=== PATIENT | male | born 1945 | race Caucasian/White ===

== ENCOUNTER 2016-04-02 14:00 | Inpatient (IN) | payer MEDICARE, MEDICAID ==
[2016-04-02 15:41] VITALS: BP 152/73
[2016-04-03] MEDS: Aspirin 81mg Chewable Tab PO SCH (09:51)
[2016-04-03 11:00] LABS: ALB/GLOB RATIO 0.8 (1.0-1.8); ALKALINE PHOSPHATASE 78 U/L (34-104); ANION GAP 6.5 (7.0-16.0); BILIRUBIN,TOTAL 0.3 mg/dL (0.3-1.0); BUN - UREA NITROGEN 30 mg/dL (7-25); BUN/CREATININE RATIO 33.3; CALCIUM SERUM 9.9 mg/dL (8.6-10.3); CARBON DIOXIDE 27.2 mEq/L (21.0-31.0); CHLORIDE 104 mEq/L (98-107); CREATININE - SERUM 0.9 mg/dL (0.7-1.3); GLUCOSE 109 mg/dL (70-105); POTASSIUM SERUM 3.7 mEq/L (3.5-5.1); SGOT 18 U/L (13-39); SGPT/ALT 11 U/L (7-52); SODIUM SERUM 134 mEq/L (136-145)
--- NOTE | 2016-04-03 11:43 | Diagnostic Imaging Report ---
CHEST X-RAY: AP view INDICATION: Pneumonia COMPARISON: None FINDINGS: No focal consolidation pleural effusions. Cardiomegaly is noted. Degenerative changes of the spine are noted. IMPRESSION: No focal consolidation identified. Cardiomegaly.
--- NOTE | 2016-04-03 12:36 | History & Physical ---
HISTORY OF PRESENT ILLNESS: The patient is a 70-year-old male with long history of bipolar disorder, admitted to [facility] with cellulitis of both upper and lower extremities. This stabilized clinically and evaluated by Dr. Rehman, psychiatrist, and transferred to [facility] on 04/02/2016. The patient denies any chest pain, shortness of breath, nausea, vomiting, fever, chills. PAST MEDICAL HISTORY: Significant for bipolar disorder. PAST SURGICAL HISTORY: No recent surgery. ALLERGIES: None. MEDICATIONS: Follow admission reconciliation. SOCIAL HISTORY: History of smoking, no alcohol or drug. FAMILY HISTORY: Noncontributory. REVIEW OF SYSTEMS: RENAL SYSTEM: No history of chronic renal disorder. CARDIOVASCULAR SYSTEM: No coronary artery disease. ENDOCRINE SYSTEM: No diabetes or thyroid problem. GASTROINTESTINAL SYSTEM: No upper or lower gastrointestinal bleed. NEUROLOGICAL: He has history of bipolar disorder. PHYSICAL EXAMINATION: GENERAL: He is awake, not coherent. VITAL SIGNS: Temperature 98, heart rate 74, blood pressure 132/70. HEENT: Normocephalic. Pupils reacting to light and accommodation. Sclerae clear. NECK: Supple. Negative for lymphadenopathy, JVD or bruit. CHEST: Bilateral normal. No rhonchi or wheezing. HEART: S1, S2 normal, ____. ABDOMEN: Soft, bowel sounds positive. EXTREMITIES: No edema. ____. Significant for mild redness of the upper and lower extremities. NEUROLOGIC: Awake, alert, not fully oriented. No focal motor or sensory deficit. ASSESSMENT: 1. Status post cellulitis of the upper and lower extremities. 2. Chronic obstructive pulmonary disease. 3. Bipolar disorder. PLAN: The patient admitted to the hospital under Dr. Emmanuel service. MEDICAL PROBLEMS TO BE ADDRESSED DURING HOSPITALIZATION: Bipolar disorder. MEDICAL PROBLEMS TO BE ADDRESSED AT DISCHARGE: Bipolar disorder. The patient is medically stable. Thank you Dr. Rehman for asking me to see your patient. JOB# [id number]
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
[2016-04-04] MEDS: Aspirin 81mg Chewable Tab PO SCH (10:21)
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
[2016-04-05] MEDS: Aspirin 81mg Chewable Tab PO SCH (10:09)
[2016-04-05] MEDS: Venelex 60gm Tube TP SCH (15:18)
--- NOTE | 2016-04-06 02:50 | Progress Notes ---
SUBJECTIVE: Chart reviewed and the patient interviewed. Also discussed the patient's condition with the staff and reviewed records and labs. The patient's affect is brighter. The patient seems to be less irritable and less agitated, but he still has periods of severe anger and irritability and anxiety. The patient also still seems to be suspicious and paranoid. Otherwise, the patient is compliant with taking his medications with no side effects of medications. ASSESSMENT: The patient is still psychotic. TREATMENT PLAN: We will continue monitoring his behavior and his condition closely. Also, we will continue monitoring psychotropic medications and adjusting psychotropic medications and we will continue to follow up. [facility]# [id number]
[2016-04-06] MEDS: Aspirin 81mg Chewable Tab PO SCH (08:47)
[2016-04-06] MEDS: Venelex 60gm Tube TP SCH (08:52)
--- NOTE | 2016-04-06 21:44 | Progress Notes ---
SUBJECTIVE: Chart reviewed and the patient interviewed. Also discussed the patient's condition with the staff and reviewed records and labs. The patient seems to be more irritable and more agitated. Also seems to be restless and he is in angry and in irritable mood with severe mood swings at times. Also tends to isolate himself. The patient also still seems to be suspicious and paranoid and needs close monitoring of his behavior. ASSESSMENT: The patient is still psychotic and needs close monitoring. TREATMENT PLAN: Continue monitoring his behavior and his condition closely. Also, we will increase Seroquel to 50 mg twice a day and 100 mg at bedtime and we will continue to monitor his behavior closely. JOB# [id number]
[2016-04-07] MEDS: Venelex 60gm Tube TP SCH (10:50)
[2016-04-07] MEDS: Aspirin 81mg Chewable Tab PO SCH (10:50)
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
[2016-04-08] MEDS: Aspirin 81mg Chewable Tab PO SCH (08:43)
[2016-04-08] MEDS: Venelex 60gm Tube TP SCH (08:43)
--- NOTE | 2016-04-09 04:03 | Progress Notes ---
SUBJECTIVE: Chart reviewed and the patient interviewed. Also discussed the patient's condition with the staff and reviewed records and labs. The patient is sitting on the edge of the bed in a confused state and he seems to be disoriented. The patient also still wonders and still was into other patient's rooms. Also, resisting care and fighting with the staff when they try to redirect him. Also, is still in angry and in irritable mood. Also, personal hygiene is poor. During interview, patient confused and is rambling and unable to answer any of the questions coherently. Also, is disheveled. ASSESSMENT: The patient is still psychotic and can be dangerous to others. TREATMENT PLAN: We will continue to monitor his behavior and his condition closely. Also, adjusting psychotropic medications and continue to work on his irritability and anger and we will continue to follow up. JOB# [id number]
[2016-04-09] MEDS: Venelex 60gm Tube TP SCH (08:53)
[2016-04-09] MEDS: Aspirin 81mg Chewable Tab PO SCH (08:53)
[2016-04-10] MEDS: Aspirin 81mg Chewable Tab PO SCH (08:59)
[2016-04-10] MEDS: Venelex 60gm Tube TP SCH (09:00)
--- NOTE | 2016-04-10 23:56 | Admit Criteria Form ---
Admit Criteria Forms - Admit Criteria Diagnosis: PSYCHIATRIC DISORDERS Clinical Indications for Inpatient Care (Place 'X' for any and all applicable criteria): Ongoing inpatient care may be needed for ANY ONE of the following(1)(2)(3)(4)(6) (7)(8): [ ]I. Danger to self or others not manageable at lower level of care. [ ]II. Grave disability (eg, inability to perform self care necessary at lower level of care) [X]III. Agitation or inappropriate behavior interfering with care for primary condition (eg, attempting to discontinue lines or drains prematurely, unable to cooperate with respiratory care) [ ]IV. Severe disability or disorder indicated by ALL of the following: [ ]a) Severe behavioral health disorder-related symptoms or condition indicated by ANY ONE of the following: [ ]i) Severe problem with cognition, memory, judgment, or impulse control [ ]ii) Severe clinical manifestations (eg, hallucinations, delusions, other acute psychotic symptoms, deanna, extreme agitation or anxiety) [ ]b) Patient management at lower level of care is not feasible until acute intervention or modification is initiated. Extended stay beyond goal length of stay for the primary condition may be indicated when ANY ONE of the following is present: (1)(2)(3)(4): [ ]a) Patient is a danger to self or others and not manageable at lower level of care. [ ]b) Behavior crisis management, including physical or chemical restraints, is required and is not available at a lower level of care. [ ]c) Behavioral symptoms (e.g., agitation, somnolence, inappropriate behavior) are present, and are not manageable at a lower level of care. [ ]d) Patient cannot understand follow-up treatment and crisis plan. [ ]e) Provider and supports are not sufficiently available at lower level of care. [ ]f) Patient cannot participate (e.g., verify absence of plan for harm) and is in needed of monitoring. The original [facility] content created by [facility] [employer] has been revised. The portions of the content which have been revised are identified through the use of italic text or in bold, and [facility] [employer] has neither reviewed nor approved the modified material. All other unmodified content is copyright [facility] [employer]. Please see references footnoted in the original [facility] edition 2016 Admit Criteria Met?: Yes
--- NOTE | 2016-04-11 06:06 | Progress Notes ---
SUBJECTIVE: Chart reviewed and the patient interviewed. Also, discussed the patient's condition with the staff and reviewed records and labs. The patient is still extremely anxious and is still in irritable mood. The patient also is still suspicious and is still paranoid. The patient also still needs lots of redirections. He also still seems to be disoriented and confused and is still entering other patient's room. ASSESSMENT: The patient is still psychotic and needs close monitoring. TREATMENT PLAN: We will continue monitoring his behavior and his condition closely. Also, continue to adjust psychotropic medications. Also, working on discharge plans and placement issue. hourly manager still has difficulty finding a place for the patient. JOB# [id number]
--- NOTE | 2016-04-11 06:24 | Progress Notes ---
SUBJECTIVE: Chart reviewed and the patient interviewed. Also discussed the patient's condition with the staff and reviewed records and labs. The patient is still anxious and is still in irritable mood. The patient also is still easily agitated and confused. Also, still needs lots of redirections and still seems to be disoriented. Also, is still going into other patient's rooms. Otherwise, the patient has been compliant with taking his medications with no side effects of medications. manager of international is still having difficulty finding a place for the patient and the patient still needs placement. ASSESSMENT: The patient is still psychotic and needs placement. TREATMENT PLAN: We will continue monitoring his behavior and his condition. Also continue adjusting the Seroquel dose and we will continue to follow up. JOB# [id number]
[2016-04-11] MEDS: Aspirin 81mg Chewable Tab PO SCH (08:45)
[2016-04-11] MEDS: Venelex 60gm Tube TP SCH (08:48)
--- NOTE | 2016-04-11 20:28 | Discharge Summary ---
FINAL DIAGNOSIS/PRIMARY DIAGNOSIS: Unspecified psychosis. REASON FOR HOSPITALIZATION: The patient was admitted to the hospital because of increased agitation, irritability, and aggressive behavior. HOSPITAL COURSE: The patient continued to be aggressive and agitated. The patient also was in angry and in irritable mood. The patient also was aggressive with the staff and he was confused and entering other patients' rooms. The patient was given Risperdal, which helped the patient to be calmer. Placement was an issue, but finally, [facility] accepted the patient. The patient was less psychotic and not complaining of any side effects. PHYSICAL EXAMINATION: The patient showed no acute medical problems. AFTER-DISCHARGE PLANS: The patient was discharged from the hospital with plan to follow him up at [facility]. EXPECTED OUTCOME AFTER DISCHARGE: Fair if the patient continues to take his psychotropic medications and compliant with his treatment. JOB# [id number]
== END 2016-04-11 17:15 | DRG 885 ==
LOC: GERO 14:00
PROVIDERS: ADMIT Psychiatry & Neurology Psychiatry; ATTEND Psychiatry & Neurology Psychiatry
DX: F29 Unspecified psychosis not due to a substance or known physiological condition (principal); J18.9 Pneumonia, unspecified organism; T68.XXXA Hypothermia, initial encounter; L03.115 Cellulitis of right lower limb; J44.9 Chronic obstructive pulmonary disease, unspecified; L03.116 Cellulitis of left lower limb; L03.114 Cellulitis of left upper limb; L03.113 Cellulitis of right upper limb; F31.9 Bipolar disorder, unspecified; Z59.0 Homelessness
CPT/HCPCS: 36415-UA; 71010-TC; 80053-TC; 80178-TC; 90899; 93005; Z7610

== ENCOUNTER 2016-04-13 18:04 | Emergency (ER) | payer MEDICARE, MEDICAID ==
[2016-04-13 18:30] VITALS: BP 140/70
--- NOTE | 2016-04-13 18:34 | ED Physician Chart ---
Chief Complaint/HPI - Patient Information Date Seen:: 04/13/16 Time Seen:: 18:19 Chief Complaint:: aggressive History of Present Illness:: this is a psych patient sent from the detention for treatment of his psychosis. Allergies:: Allergies Allergy/AdvReac Type Severity Reaction Status Date / Time No Known Allergies Allergy Verified 04/02/16 15:23 Historian:: Patient Review:: Nurse's Note Reviewed Review of Systems - Review of Systems General/Constitutional: No fever, No chills, No weight loss, No weakness, No diaphoresis, No edema, No loss of appetite, Other (this patient cannot give a review of systems) Skin: No skin lesions, No rash, No bruising Head: No headache, No light-headedness Eyes: No loss of vision, No pain, No diplopia ENT: No earache, No nasal drainage, No sore throat, No tinnitus Neck: No neck pain, No swelling, No thyromegaly, No stiffness, No mass noted Cardio Vascular: No chest pain, No palpitations, No PND, No orthopnea, No edema Pulmonary: No SOB, No cough, No sputum, No wheezing GI: No nausea, No vomiting, No diarrhea, No pain, No melena, No hematochezia, No constipation, No hematemesis G/U: No dysuria, No frequency, No hematuria Musculoskeletal: No bone or joint pain, No back pain, No muscle pain Endocrine: No polyuria, No polydipsia Psychiatric: No prior psych history, No depression, No anxiety, No suicidal ideation Hematopoietic: No bruising, No lymphadenopathy Allergic/Immuno: No urticaria, No angioedema Neurological: No syncope, No focal symptoms, No weakness, No paresthesia, No headache, No seizure, No dizziness, No confusion, No vertigo Past Medical History - Past Medical History Obtainable: Yes Past Medical History: HTN, CVA/TIA, Dementia Family History: None Social History: Non Smoker, No Alcohol, No Drug Use, Care Facility Surgical History: None Psychiatricy History: Schizophrenia, Dementia Medication: Reviewed Family Medical History - Family Member Grandfather History Unknown: Yes Physical Exam - Physical Examination General/Constitutional: Awake, Well-developed, well-nourished, Alert, No distress, GCS 15, Non-toxic appearing, Ambulatory Head: Atraumatic Eyes: Lids, conjuctiva normal, PERRL, EOMI Skin: Nl inspection, No rash, No skin lesions, No ecchymosis, Well hydrated, No lymphadenopathy ENMT: External ears, nose nl, Nasal exam nl, Lips, teeth, gums nl Neck: Nontender, Full ROM w/o pain, No JVD, No nuchal rigidity, No bruit, No mass, No stridor Respiratory: Nl effort/Exclusion, Clear to Auscultation Other Respiratory comments:: THERE IS A SMALL AMOUNT OF DIFFUSE WHEEZES HEARD BILATERALLY. Cardio Vascular: RRR, No murmur, gallop, rubs, NL S1 S2 GI: No tenderness/rebounding/guarding, No organomegaly, No hernia, Normal BS's, Nondistended, No mass/bruits, No McBurney tenderness : No CVA tenderness Extremities: No tenderness or effusion, Full ROM, normal strength in all extremities, No edema, Normal digits & nails Neuro/Psych: Alert/oriented, DTR's symmetric, Normal sensory exam, Normal motor strength, Normal gait, No focal deficits Other Neuro/Psych comments:: THIS IS COMBATIVE AND UNCOOPERATIVE Misc: normal gait, Normal back, No paraspinal tenderness Labs/Radiology/EKG Results - Lab Results Results: Laboratory Results - last 24 hr 04/13/16 04/13/16 04/13/16 18:50 18:50 18:50 WBC 7.0 RBC 4.02 Hgb 11.8 L Hct 36.0 L MCV 89.5 MCH 29.3 MCHC Differential 32.8 RDW 14.6 Plt Count 321 MPV 8.3 Neutrophils % 58.5 Lymphocytes % 27.1 Monocytes % 9.6 Eosinophils % 4.1 Basophils % 0.7 PT 9.2 L INR 0.93 PTT (Actin FS) 29.6 Sodium Potassium Chloride Carbon Dioxide Anion Gap BUN Creatinine Est GFR ( Amer) Est GFR (Non-Af Amer) BUN/Creatinine Ratio Glucose Calcium Total Bilirubin AST ALT Alkaline Phosphatase Troponin I Total Protein Albumin Globulin Albumin/Globulin Ratio Triglycerides 82 Cholesterol 191 LDL Cholesterol Direct 140 HDL Cholesterol 43 04/13/16 04/13/16 18:50 18:50 WBC RBC Hgb Hct MCV MCH MCHC Differential RDW Plt Count MPV Neutrophils % Lymphocytes % Monocytes % Eosinophils % Basophils % PT INR PTT (Actin FS) Sodium 133 L Potassium 3.7 Chloride 108 H Carbon Dioxide 23.7 Anion Gap 5.0 L BUN 25 Creatinine 1.1 Est GFR ( Amer) > 60.0 Est GFR (Non-Af Amer) > 60.0 BUN/Creatinine Ratio 22.7 Glucose 91 Calcium 9.9 Total Bilirubin 0.3 AST 32 ALT 21 Alkaline Phosphatase 103 Troponin I 0.03 Total Protein 8.4 H Albumin 4.0 L Globulin 4.4 Albumin/Globulin Ratio 0.9 L Triglycerides Cholesterol LDL Cholesterol Direct HDL Cholesterol - Radiology Results Results: CHEST X-RAY = NAD - EKG Interpretations EKG Time:: 22:13 (wide complexes) Rhythm: sinus [place]: left Rate: 77 ED Septic Shock - . Is Septic Shock (SBP<90, OR Lactate>4 mmol\L) present?: No Reassessment (Disposition) - Reassessment Reassessment Condition:: Unchanged - Diagnosis Diagnosis:: PSYCHOSIS - Aftercare/Follow up Instructions Aftercare/Follow-Up Instructions:: Counseled pt regarding lab results/diagnosis & need follow up, Refer to Discharge Instructions, Counseled pt & family regarding lab results/diagnosis & need follow up - Patient Disposition Discharge/Transfer:: Nursing Home Care - SNF Condition at Disposition:: Unchanged ED Discharge Plan - Patient Disposition Admit/Discharge/Transfer: Discharge/Transfered to SNF Condition at Disposition: Improved
[2016-04-13 19:08] LABS: HEMOGLOBIN 11.8 gm/dL (12.6-17.4); MEAN CELL VOLUME 89.5 fl (80-99); MEAN CORPUSCULAR HEMOGLOBIN 29.3 pg (27.0-31.0); MEAN CORPUSCULAR HGB CONC 32.8 pg (28.0-36.0); PLATELET COUNT 321 Th/cmm (150-400); RED BLOOD COUNT 4.02 Mil/cmm (3.80-5.80); RED CELL DISTRIBUTION WIDTH 14.6 % (11.5-20.0)
[2016-04-13 19:09] LABS: % BASOPHILS 0.7 % (0.0-2.0); % EOSINOPHILS 4.1 % (0.0-5.0); % LYMPHOCYTES 27.1 % (20.0-50.0); % MONOCYTES 9.6 % (2.0-10.0); % NEUTROPHILS 58.5 % (40.0-80.0); MEAN PLATELET VOLUME 8.3 fl; NEUTROPHILE ABSOLUTE 4.1 Th/cmm (1.8-8.0)
[2016-04-13 19:19] LABS: INR 0.93 (0.5-1.4); PROTHROMBIN TIME (TEST) 9.2 SECONDS (9.5-11.5)
[2016-04-13 19:29] LABS: CHOLESTEROL 191 mg/dL (<200); TRIGLYCERIDES 82 mg/dL (<150)
[2016-04-13 19:31] LABS: ALB/GLOB RATIO 0.9 (1.0-1.8); ALKALINE PHOSPHATASE 103 U/L (34-104); BILIRUBIN,TOTAL 0.3 mg/dL (0.3-1.0); BUN - UREA NITROGEN 25 mg/dL (7-25); BUN/CREATININE RATIO 22.7; CALCIUM SERUM 9.9 mg/dL (8.6-10.3); CARBON DIOXIDE 23.7 mEq/L (21.0-31.0); CHLORIDE 108 mEq/L (98-107); CREATININE - SERUM 1.1 mg/dL (0.7-1.3); GLUCOSE 91 mg/dL (70-105); POTASSIUM SERUM 3.7 mEq/L (3.5-5.1); SGOT 32 U/L (13-39); SGPT/ALT 21 U/L (7-52); SODIUM SERUM 133 mEq/L (136-145)
--- NOTE | 2016-04-14 09:43 | Diagnostic Imaging Report ---
Portable chest x-ray HISTORY: Pain The heart is enlarged. No focal pulmonary processes. No hilar or mediastinal abnormalities. IMPRESSION: 1. Cardiomegaly 2. No acute pulmonary processes
== END 2016-04-14 00:05 ==
LOC: ER 18:04
DX: F29 Unspecified psychosis not due to a substance or known physiological condition (principal); I10 Essential (primary) hypertension; F03.90 Unspecified dementia, unspecified severity, without behavioral disturbance, psychotic disturbance, mood disturbance, and anxiety; F20.9 Schizophrenia, unspecified
CPT/HCPCS: 36415-UA; 71010-TC; 80053-TC; 80061-TC; 84443-TC; 84484-TC; 85025-TC; 85610-TC; 85730-TC; 86592-TC; 93005

== ENCOUNTER 2016-09-20 18:14 | Inpatient (IN) | payer MEDICARE, MEDICAID ==
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
[2016-09-20 18:50] LABS: % BASOPHILS 0.7 % (0.0-2.0); % EOSINOPHILS 4.4 % (0.0-5.0); % LYMPHOCYTES 34.2 % (20.0-50.0); % MONOCYTES 8.5 % (2.0-10.0); % NEUTROPHILS 52.2 % (40.0-80.0); HEMATOCRIT 35.7 % (39.0-49.0); MEAN CORPUSCULAR HGB CONC 33.7 pg (28.0-36.0); MEAN PLATELET VOLUME 7.9 fl; NEUTROPHILE ABSOLUTE 4.6 Th/cmm (1.8-8.0); PLATELET COUNT 287 Th/cmm (150-400); RED BLOOD COUNT 3.89 Mil/cmm (3.80-5.80); RED CELL DISTRIBUTION WIDTH 14.9 % (11.5-20.0)
[2016-09-20 19:12] LABS: ALB/GLOB RATIO 1.3 (1.0-1.8); ALKALINE PHOSPHATASE 77 U/L (34-104); ANION GAP 5.4 (7.0-16.0); BILIRUBIN,TOTAL 0.4 mg/dL (0.3-1.0); BUN - UREA NITROGEN 23 mg/dL (7-25); BUN/CREATININE RATIO 28.8; CALCIUM SERUM 9.6 mg/dL (8.6-10.3); CARBON DIOXIDE 23.5 mEq/L (21.0-31.0); CHLORIDE 106 mEq/L (98-107); CREATININE - SERUM 0.8 mg/dL (0.7-1.3); GLUCOSE 81 mg/dL (70-105); POTASSIUM SERUM 3.9 mEq/L (3.5-5.1); SGOT 18 U/L (13-39); SGPT/ALT 11 U/L (7-52); SODIUM SERUM 131 mEq/L (136-145)
[2016-09-20 22:39] VITALS: BP 141/74
[2016-09-20] MEDS ORDERED: Maalox 30 mL Cup PO PRN (22:39)
[2016-09-21] MEDS: Aspirin 81mg Chewable Tab PO SCH (08:28)
[2016-09-21] MEDS: Multivitamin Tab PO SCH (08:28)
--- NOTE | 2016-09-21 12:58 | Psychosocial Evaluation ---
DATE OF SERVICE: 09/21/2016 IDENTIFYING INFORMATION: The patient is a 71-year-old male. CHIEF COMPLAINT: No answer. HISTORY OF PRESENT ILLNESS: The patient referred from [facility] because of his agitation and aggressive behavior. ____ another resident. He is psychotic, unpredictable and impulsive. When I tried to interview the patient, he was sitting on a chair, sedated. He would not answer any of my question. He is a well known patient as I have been seeing him at [facility]. Actually in the past few weeks, he has been getting episodes of agitation often and they try to send him ____ he will get improve. PAST PSYCHIATRIC HISTORY: The patient is hospitalized here before back in March of this year. The patient was diagnosed with psychosis at that time. He has a prior psychiatric treatment, unable to give information. He denies prior suicide attempt. This is according to his old records. He is not a reliable historian. MEDICAL HISTORY: The patient has no known drug allergies. MEDICATIONS: He has been on aspirin, Pepcid, he is on lithium, ____, and Seroquel 50 mg daily. I have no information if he has been compliant with his medication. FAMILY AND SOCIAL HISTORY: The patient has been at [facility]. He is , has 4 children according to old records, unable to give more information. Has 11th grade education. He used to work as a hand touch up painter. He denies family history of psychotic disorder. This is according to old records. MENTAL STATUS EXAMINATION: The patient is appropriately dressed, not well groomed. He has been agitated, hitting others patients in the facility and staff, unpredictable, impulsive, easily agitated. Unable to participate in a memory testing or tell me why he is here or what led to his admission, unpredictable, impulsive. His long and short term memory is poor. Insight and judgment is impaired. IMPRESSION: AXIS I: Psychosis, not otherwise specified, rule out dementia, ____. MEDICAL DIAGNOSES: Hypertension, gastroesophageal reflux disease. His assets, he wants to get help, negative poor coping skills. INITIAL TREATMENT PLAN: The patient will continue medication, check lithium level. We will do group therapy, milieu therapy, individual therapies. ESTIMATED LENGTH OF STAY: 3-7 days. DISCHARGE CRITERIA: Decrease in agitation, psychosis, after discharge outpatient ____. [facility]# [id number]
--- NOTE | 2016-09-21 18:03 | History & Physical ---
ADMIT DATE: 09/21/2016 HISTORY OF PRESENT ILLNESS: The patient is a 71-year-old male with long history of dementia, hypertension, admitted to [facility] for further treatment. Apparently, the patient has been very agitated, confused. No fever, no chills, no nausea, no vomiting. PAST MEDICAL HISTORY: Significant for hypertension and dementia. PAST SURGICAL HISTORY: No recent surgery. ALLERGIES: None. MEDICATIONS: Follow admission reconciliation. SOCIAL HISTORY: No smoking, no alcohol, no drug. FAMILY HISTORY: Noncontributory. REVIEW OF SYSTEMS: RENAL SYSTEM: No history of chronic renal disorder. CARDIOVASCULAR SYSTEM: No coronary artery disease. ENDOCRINE SYSTEM: No diabetes or thyroid problem. GASTROINTESTINAL SYSTEM: No upper or lower gastrointestinal bleed. NEUROLOGICAL: He has history of dementia. SKELETOMUSCULAR SYSTEM: No muscular dystrophy. HEMATOLOGIC SYSTEM: No bleeding tendencies. RESPIRATORY SYSTEM: No asthma. GENITOURINARY: No dysuria or hematuria. PHYSICAL EXAMINATION: GENERAL: He is awake, not coherent. NEUROLOGIC: No focal motor or sensory deficits. LABORATORY DATA: White blood cells 9, hemoglobin 12.0, hematocrit 35.7, platelet 287. Sodium 131, potassium 3.9, BUN 23, creatinine 0.8. ASSESSMENT: 1. Hypertension. 2. Hyponatremia. 3. Anemia. 4. Dementia. PLAN: The patient admitted to the hospital to [facility] under Dr. Serrano's service. MEDICAL PROBLEMS ADDRESSED DURING HOSPITALIZATION: Dementia. MEDICAL PROBLEMS ADDRESSED AT DISCHARGE: Hypertension, dementia. The patient is medically stable for activity. [facility]# [id number]
[2016-09-21] MEDS: Magnesium Hydroxide (MOM) 30 mL UDC PO SCH (20:44)
[2016-09-22] MEDS: Aspirin 81mg Chewable Tab PO SCH (08:17)
[2016-09-22] MEDS: Multivitamin Tab PO SCH (08:17)
[2016-09-22] MEDS: Magnesium Hydroxide (MOM) 30 mL UDC PO SCH (20:33)
--- NOTE | 2016-09-22 20:49 | Progress Notes ---
DATE: 09/22/2016 Dr. Rehman covering for Dr. Serrano. SUBJECTIVE: Chart reviewed and the patient interviewed. Also discussed the patient's condition with the staff and reviewed records and labs. The patient is still depressed and is still withdrawn. The patient also is still interacting minimally with others. The patient also is still having difficulty expressing himself, and he is not talking much. The patient also needs lots of redirections. Otherwise, the patient is compliant with taking his medications with no side effects of medications. Also, the patient is sleeping fairly. ASSESSMENT: The patient is still depressed and can be dangerous to self. TREATMENT PLAN: We will continue monitoring his behavior and his condition closely. Continue to work on his depressed mood and we will continue to follow up. JOB# [id number]
[2016-09-23] MEDS: Aspirin 81mg Chewable Tab PO SCH (09:00)
[2016-09-23] MEDS: Multivitamin Tab PO SCH (09:00)
--- NOTE | 2016-09-23 19:00 | Progress Notes ---
DATE: 09/23/2016 SUBJECTIVE: Chart reviewed and the patient interviewed. Also discussed the patient's condition with the staff and reviewed records and labs. The patient is still depressed and irritable and confused. The patient also still needs lots of redirections. The patient also is having episodes of anger and irritability. Otherwise, no major changes in mental status exam. ASSESSMENT: The patient is still psychotic. TREATMENT PLAN: Continue to monitor his behavior and his condition closely and continue adjusting psychotropic medications and followup care. [facility]# [id number]
[2016-09-23] MEDS: Magnesium Hydroxide (MOM) 30 mL UDC PO SCH (20:18)
[2016-09-24] MEDS: Aspirin 81mg Chewable Tab PO SCH (09:58)
[2016-09-24] MEDS: Multivitamin Tab PO SCH (09:59)
--- NOTE | 2016-09-24 11:06 | Progress Notes ---
DATE: 09/24/2016 SUBJECTIVE: Case was discussed with staff of the patient, reviewed records. The patient continues to be confused, irritable, unpredictable, impulsive, demanding. He is compliant with the medication with no side effects, no sedation, no nausea. I will be checking his lithium level and we will continue to work with the patient in group therapy, milieu therapy, and adjust medication as needed. JOB# [id number]
--- NOTE | 2016-09-24 18:14 | Internal Medicine Prog Note ---
Internal Medicine Subjective - Subjective Service Date: 09/24/16 Patient seen and examined:: with staff Patient is:: awake, confused Per staff patient has:: no adverse event, eating well, tolerating meds Internal Medicine Objective - Results Result Diagrams: 09/20/16 18:43 09/20/16 18:43 Recent Labs: Laboratory Last Values WBC 9.0 Th/cmm (4.8-10.8) D 09/20/16 18:43 RBC 3.89 Mil/cmm (3.80-5.80) 09/20/16 18:43 Hgb 12.0 gm/dL (12.6-17.4) L 09/20/16 18:43 Hct 35.7 % (39.0-49.0) L 09/20/16 18:43 MCV 92.0 fl (80-99) 09/20/16 18:43 MCH 31.0 pg (27.0-31.0) 09/20/16 18:43 MCHC Differential 33.7 pg (28.0-36.0) 09/20/16 18:43 RDW 14.9 % (11.5-20.0) 09/20/16 18:43 Plt Count 287 Th/cmm (150-400) 09/20/16 18:43 MPV 7.9 fl 09/20/16 18:43 Neutrophils % 52.2 % (40.0-80.0) 09/20/16 18:43 Lymphocytes % 34.2 % (20.0-50.0) 09/20/16 18:43 Monocytes % 8.5 % (2.0-10.0) 09/20/16 18:43 Eosinophils % 4.4 % (0.0-5.0) 09/20/16 18:43 Basophils % 0.7 % (0.0-2.0) 09/20/16 18:43 Sodium 131 mEq/L (136-145) L 09/20/16 18:43 Potassium 3.9 mEq/L (3.5-5.1) 09/20/16 18:43 Chloride 106 mEq/L (98-107) 09/20/16 18:43 Carbon Dioxide 23.5 mEq/L (21.0-31.0) 09/20/16 18:43 Anion Gap 5.4 (7.0-16.0) L 09/20/16 18:43 BUN 23 mg/dL (7-25) 09/20/16 18:43 Creatinine 0.8 mg/dL (0.7-1.3) 09/20/16 18:43 Est GFR ( Amer) TNP 09/20/16 18:43 Est GFR (Non-Af Amer) TNP 09/20/16 18:43 BUN/Creatinine Ratio 28.8 09/20/16 18:43 Glucose 81 mg/dL (70-105) 09/20/16 18:43 Calcium 9.6 mg/dL (8.6-10.3) 09/20/16 18:43 Total Bilirubin 0.4 mg/dL (0.3-1.0) 09/20/16 18:43 AST 18 U/L (13-39) 09/20/16 18:43 ALT 11 U/L (7-52) 09/20/16 18:43 Alkaline Phosphatase 77 U/L (34-104) 09/20/16 18:43 Total Protein 7.4 gm/dL (6.0-8.3) 09/20/16 18:43 Albumin 4.2 gm/dL (4.2-5.5) 09/20/16 18:43 Globulin 3.2 gm/dL 09/20/16 18:43 Albumin/Globulin Ratio 1.3 (1.0-1.8) 09/20/16 18:43 TSH 4.30 uIU/ml (0.34-5.60) 09/20/16 18:43 RPR NONREACTIVE (NONREACTIVE) 09/20/16 18:43 - Physical Exam Vitals and I&O: Vital Signs Temp 97.5 F 09/24/16 06:01 Pulse 61 09/24/16 06:01 Resp 18 09/24/16 06:01 BP 138/61 09/24/16 06:01 Pulse Ox 97 09/24/16 06:01 Intake & Output 09/23/16 09/24/16 09/24/16 18:59 06:59 18:59 Intake Total 1200 Balance 1200 Intake: Oral 1200 Other: # Voids 4 # Bowel Movements 1 Active Medications: Current Medications Acetaminophen (Tylenol) 650 mg PO Q4HR PRN PRN Reason: Pain (Mild) Stop: 11/19/16 22:41 Al Hydrox/Mg Hydrox/Simethicone (Maalox) 30 ml PO Q6H PRN PRN Reason: Dyspepsia Stop: 11/19/16 22:38 Aspirin (Aspirin Chewable) 81 mg PO DAILY [facility] Stop: 11/20/16 08:59 Last Admin: 09/24/16 09:58 Dose: 81 mg Docusate Sodium (Colace) 100 mg PO BID [facility] Stop: 11/20/16 08:59 Last Admin: 09/24/16 09:59 Dose: 100 mg Famotidine (Pepcid) 20 mg PO BID [facility] Stop: 11/20/16 08:59 Last Admin: 09/24/16 09:58 Dose: 20 mg [place] Carbonate (Eskalith) 300 mg PO TID [facility]E PRN Reason: Protocol Stop: 11/20/16 08:59 Last Admin: 09/24/16 17:39 Dose: Not Given Lorazepam (Ativan) 1 mg PO Q6H PRN; Protocol PRN Reason: Anxiety/Agitation Stop: 11/19/16 22:38 Last Admin: 09/23/16 15:12 Dose: 1 mg Magnesium Hydroxide (Milk Of Magnesia) 30 ml PO HS [facility]E Stop: 11/20/16 20:59 Last Admin: 09/23/16 20:18 Dose: 30 ml Multivitamins/Vitamin C (Theragran) 1 tab PO DAILY [facility] Stop: 11/20/16 08:59 Last Admin: 09/24/16 09:59 Dose: 1 tab Quetiapine Fumarate (Seroquel) 50 mg PO DAILY [facility] PRN Reason: Protocol Stop: 11/20/16 08:59 Last Admin: 09/24/16 09:59 Dose: 50 mg Zolpidem Tartrate (Ambien) 5 mg PO HS PRN PRN Reason: Insomnia Stop: 11/19/16 22:38 General: weak, demented HEENT: PERRLA, EOMI Neck: Supple, No JVD, No thyromegaly Lungs: CTAB Cardiovascular: RRR, Normal S1, Normal S2 Abdomen: soft, non-tender, non-distended Extremities: clear Neurological: no change Internal Medicine Assmt/Plan - Assessment Assessment: 1.HTN. 2.Anemia. 3.Dementia. - Plan Plan: CONTINUE ON CURRENT MEDICATION AND DIET.
[2016-09-24] MEDS: Magnesium Hydroxide (MOM) 30 mL UDC PO SCH (20:03)
[2016-09-25] MEDS: Multivitamin Tab PO SCH (09:14)
[2016-09-25] MEDS: Aspirin 81mg Chewable Tab PO SCH (10:15)
--- NOTE | 2016-09-25 20:28 | Internal Medicine Prog Note ---
Internal Medicine Subjective - Subjective Service Date: 09/25/16 Patient seen and examined:: with staff Patient is:: awake, confused Per staff patient has:: no adverse event, eating well, tolerating meds Internal Medicine Objective - Results Result Diagrams: 09/20/16 18:43 09/20/16 18:43 Recent Labs: Laboratory Last Values WBC 9.0 Th/cmm (4.8-10.8) D 09/20/16 18:43 RBC 3.89 Mil/cmm (3.80-5.80) 09/20/16 18:43 Hgb 12.0 gm/dL (12.6-17.4) L 09/20/16 18:43 Hct 35.7 % (39.0-49.0) L 09/20/16 18:43 MCV 92.0 fl (80-99) 09/20/16 18:43 MCH 31.0 pg (27.0-31.0) 09/20/16 18:43 MCHC Differential 33.7 pg (28.0-36.0) 09/20/16 18:43 RDW 14.9 % (11.5-20.0) 09/20/16 18:43 Plt Count 287 Th/cmm (150-400) 09/20/16 18:43 MPV 7.9 fl 09/20/16 18:43 Neutrophils % 52.2 % (40.0-80.0) 09/20/16 18:43 Lymphocytes % 34.2 % (20.0-50.0) 09/20/16 18:43 Monocytes % 8.5 % (2.0-10.0) 09/20/16 18:43 Eosinophils % 4.4 % (0.0-5.0) 09/20/16 18:43 Basophils % 0.7 % (0.0-2.0) 09/20/16 18:43 Sodium 131 mEq/L (136-145) L 09/20/16 18:43 Potassium 3.9 mEq/L (3.5-5.1) 09/20/16 18:43 Chloride 106 mEq/L (98-107) 09/20/16 18:43 Carbon Dioxide 23.5 mEq/L (21.0-31.0) 09/20/16 18:43 Anion Gap 5.4 (7.0-16.0) L 09/20/16 18:43 BUN 23 mg/dL (7-25) 09/20/16 18:43 Creatinine 0.8 mg/dL (0.7-1.3) 09/20/16 18:43 Est GFR ( Amer) TNP 09/20/16 18:43 Est GFR (Non-Af Amer) TNP 09/20/16 18:43 BUN/Creatinine Ratio 28.8 09/20/16 18:43 Glucose 81 mg/dL (70-105) 09/20/16 18:43 Calcium 9.6 mg/dL (8.6-10.3) 09/20/16 18:43 Total Bilirubin 0.4 mg/dL (0.3-1.0) 09/20/16 18:43 AST 18 U/L (13-39) 09/20/16 18:43 ALT 11 U/L (7-52) 09/20/16 18:43 Alkaline Phosphatase 77 U/L (34-104) 09/20/16 18:43 Total Protein 7.4 gm/dL (6.0-8.3) 09/20/16 18:43 Albumin 4.2 gm/dL (4.2-5.5) 09/20/16 18:43 Globulin 3.2 gm/dL 09/20/16 18:43 Albumin/Globulin Ratio 1.3 (1.0-1.8) 09/20/16 18:43 TSH 4.30 uIU/ml (0.34-5.60) 09/20/16 18:43 [place] 0.70 MEQ/L (0.50-1.00) 09/24/16 10:13 RPR NONREACTIVE (NONREACTIVE) 09/20/16 18:43 - Physical Exam Vitals and I&O: Vital Signs Temp 98.2 F 09/25/16 05:58 Pulse 59 09/25/16 05:58 Resp 19 09/25/16 05:58 BP 147/76 09/25/16 05:58 Pulse Ox 100 09/25/16 05:58 Intake & Output 09/25/16 09/25/16 07 06:59 18:59 06:59 Weight (lbs) 66.95 kg Active Medications: Current Medications Acetaminophen (Tylenol) 650 mg PO Q4HR PRN PRN Reason: Pain (Mild) Stop: 11/19/16 22:41 Al Hydrox/Mg Hydrox/Simethicone (Maalox) 30 ml PO Q6H PRN PRN Reason: Dyspepsia Stop: 11/19/16 22:38 Aspirin (Aspirin Chewable) 81 mg PO DAILY [facility] Stop: 11/20/16 08:59 Last Admin: 09/25/16 10:15 Dose: 81 mg Docusate Sodium (Colace) 100 mg PO BID [facility] Stop: 11/20/16 08:59 Last Admin: 09/25/16 17:45 Dose: Not Given Famotidine (Pepcid) 20 mg PO BID [facility] Stop: 11/20/16 08:59 Last Admin: 09/25/16 17:45 Dose: Not Given [place] Carbonate (Eskalith) 300 mg PO TID [facility] PRN Reason: Protocol Stop: 11/20/16 08:59 Last Admin: 09/25/16 17:45 Dose: Not Given Lorazepam (Ativan) 1 mg PO Q6H PRN; Protocol PRN Reason: Anxiety/Agitation Stop: 11/19/16 22:38 Last Admin: 09/23/16 15:12 Dose: 1 mg Magnesium Hydroxide (Milk Of Magnesia) 30 ml PO HS [facility] Stop: 11/20/16 20:59 Last Admin: 09/24/16 20:03 Dose: 30 ml Multivitamins/Vitamin C (Theragran) 1 tab PO DAILY [facility] Stop: 11/20/16 08:59 Last Admin: 09/25/16 09:14 Dose: 1 tab Quetiapine Fumarate (Seroquel) 50 mg PO DAILY [facility] PRN Reason: Protocol Stop: 11/20/16 08:59 Last Admin: 09/25/16 09:14 Dose: 50 mg Zolpidem Tartrate (Ambien) 5 mg PO HS PRN PRN Reason: Insomnia Stop: 11/19/16 22:38 General: weak, demented HEENT: PERRLA, EOMI Neck: Supple, No JVD, No thyromegaly Lungs: CTAB Cardiovascular: RRR, Normal S1, Normal S2 Abdomen: soft, non-tender, non-distended Extremities: clear Neurological: no change Internal Medicine Assmt/Plan - Assessment Assessment: 1.HTN. 2.Anemia. 3.Dementia. - Plan Plan: CONTINUE ON CURRENT MEDICATION AND DIET. Nutritional Asmnt/Malnutr-PDOC - Dietary Evaluation Malnutrition Findings (Please click <Entered> for more info): Nutritional Asmnt/Malnutrition Start: 09/25/16 18: 00 Text: Status: Complete Freq: Document 09/25/16 18:00 JAM (Rec: 09/25/16 18:07 [id number] [email or web address]) Nutritional Asmnt/Malnutrition Patient General Information Nutritional Screening Moderate Risk Screening Diagnosis Psychosis Pertinent Medical Hx/Surgical Hx HTN, dementia Subjective Information 71 year old male. Pt was seen staring out the window in room . Pt was alert and pleasant. Obtained CBW 147.6lb via bedscale. Pt appeared thin overall, no severe wasting noted. Pt with front teeth missing, few teeth intact. Pt tolerating current diet texture, denied difficulties eating. Avg PO intake 100% of meals since adm, meeting nutritional needs. Current Diet Order/ Nutrition Support [facility] soft ground. Pertinent Medications Colace, Pepcid, MOM, Theragran , Seroquel Pertinent Labs Reviewed. Nutritional Hx/Data Height 1.8 m Height (Calculated Centimeters) 180.3 Current Weight (lbs) 66.95 kg Weight (Calculated Kilograms) 67.0 Weight (Calculated Grams) 32888.2 [place] Body Weight 172 Weight Status Approriate GI Symptoms Food Allergies No Skin Integrity/Comment: [place] 21. Skin intact. Current %PO Good (75-100%) Estimated Nutritional Goals BEE in Kcals: Using Current wt Calories/Kcals/Kg CBW 147.6lb/67.1kg Kcals Calculated 1678-2013kcal (25-30kcal/kg) Protein: Using Current wt Protein Calculated 67g (1g/kg) Fluid: ml 1678-2013ml (1ml/kcal) Nutritional Problem 1. Problem Problem No nturitional concerns at this time. Intervention/Recommendation Comments 1. Continue with current diet order. Avg PO intake is adequate. Expected Outcomes/Goals Expected Outcomes/Goals 1. PO intake continue to meet at least 100% of estimated nutritional needs.
[2016-09-25] MEDS: Magnesium Hydroxide (MOM) 30 mL UDC PO SCH (20:50)
--- NOTE | 2016-09-26 04:44 | Progress Notes ---
DATE: 09/25/2016 Case was discussed with staff of the patient, reviewed records. The patient continues to be internally preoccupied, laughing to himself, demanding, unpredictable and impulsive, needing redirection. He is compliant with the medication with no side effects. No sedation, ____. I did ask for lithium level to make further adjustments and will continue with ____, group therapy, milieu therapy, adjust the medication as needed. JOB# [id number]
[2016-09-26] MEDS: Multivitamin Tab PO SCH (09:32)
[2016-09-26] MEDS: Aspirin 81mg Chewable Tab PO SCH (09:32)
--- NOTE | 2016-09-26 10:20 | Progress Notes ---
DATE: 09/26/2016 SUBJECTIVE: The patient seen, chart reviewed, discussed with staff. The patient is currently in the hospital, agitated, aggressive, coming from [place], impulsive, unpredictable, more episodes of agitation over at the [facility]. Dr. Serrano is currently treating him appropriately, no side effects noted. The patient remains on Seroquel, lithium as well. The patient continues to remain quite irritable, confused, episodes of psychosis, poor impulse control, irritability, sleeping fairly well, eating with prompting, ADLs with prompting. ASSESSMENT AND PLAN: The patient remains symptomatic, still irritable, confused, is striking out, disoriented. PLAN: Continue to monitor. We will continue to make appropriate medication adjustments. Continue titrating the Seroquel. Keep an eye on the lithium level. JOB# [id number]
--- NOTE | 2016-09-26 11:39 | Internal Medicine Prog Note ---
Internal Medicine Subjective - Subjective Service Date: 09/26/16 Patient seen and examined:: with staff Patient is:: awake, confused Per staff patient has:: no adverse event, eating well, tolerating meds Internal Medicine Objective - Results Result Diagrams: 09/20/16 18:43 09/20/16 18:43 Recent Labs: Laboratory Last Values WBC 9.0 Th/cmm (4.8-10.8) D 09/20/16 18:43 RBC 3.89 Mil/cmm (3.80-5.80) 09/20/16 18:43 Hgb 12.0 gm/dL (12.6-17.4) L 09/20/16 18:43 Hct 35.7 % (39.0-49.0) L 09/20/16 18:43 MCV 92.0 fl (80-99) 09/20/16 18:43 MCH 31.0 pg (27.0-31.0) 09/20/16 18:43 MCHC Differential 33.7 pg (28.0-36.0) 09/20/16 18:43 RDW 14.9 % (11.5-20.0) 09/20/16 18:43 Plt Count 287 Th/cmm (150-400) 09/20/16 18:43 MPV 7.9 fl 09/20/16 18:43 Neutrophils % 52.2 % (40.0-80.0) 09/20/16 18:43 Lymphocytes % 34.2 % (20.0-50.0) 09/20/16 18:43 Monocytes % 8.5 % (2.0-10.0) 09/20/16 18:43 Eosinophils % 4.4 % (0.0-5.0) 09/20/16 18:43 Basophils % 0.7 % (0.0-2.0) 09/20/16 18:43 Sodium 131 mEq/L (136-145) L 09/20/16 18:43 Potassium 3.9 mEq/L (3.5-5.1) 09/20/16 18:43 Chloride 106 mEq/L (98-107) 09/20/16 18:43 Carbon Dioxide 23.5 mEq/L (21.0-31.0) 09/20/16 18:43 Anion Gap 5.4 (7.0-16.0) L 09/20/16 18:43 BUN 23 mg/dL (7-25) 09/20/16 18:43 Creatinine 0.8 mg/dL (0.7-1.3) 09/20/16 18:43 Est GFR ( Amer) TNP 09/20/16 18:43 Est GFR (Non-Af Amer) TNP 09/20/16 18:43 BUN/Creatinine Ratio 28.8 09/20/16 18:43 Glucose 81 mg/dL (70-105) 09/20/16 18:43 Calcium 9.6 mg/dL (8.6-10.3) 09/20/16 18:43 Total Bilirubin 0.4 mg/dL (0.3-1.0) 09/20/16 18:43 AST 18 U/L (13-39) 09/20/16 18:43 ALT 11 U/L (7-52) 09/20/16 18:43 Alkaline Phosphatase 77 U/L (34-104) 09/20/16 18:43 Total Protein 7.4 gm/dL (6.0-8.3) 09/20/16 18:43 Albumin 4.2 gm/dL (4.2-5.5) 09/20/16 18:43 Globulin 3.2 gm/dL 09/20/16 18:43 Albumin/Globulin Ratio 1.3 (1.0-1.8) 09/20/16 18:43 TSH 4.30 uIU/ml (0.34-5.60) 09/20/16 18:43 [place] 0.70 MEQ/L (0.50-1.00) 09/24/16 10:13 RPR NONREACTIVE (NONREACTIVE) 09/20/16 18:43 - Physical Exam Vitals and I&O: Vital Signs Temp 98.1 F 09/25/16 20:38 Pulse 77 09/25/16 20:38 Resp 20 09/25/16 20:38 BP 147/83 09/25/16 20:38 Pulse Ox 98 09/25/16 20:38 Intake & Output 09/25/16 09/26/16 09/26/16 18:59 06:59 18:59 Intake Total 240 Balance 240 Weight (lbs) 66.95 kg Intake: Oral 240 Other: # Voids 2 # Bowel Movements 0 Active Medications: Current Medications Acetaminophen (Tylenol) 650 mg PO Q4HR PRN PRN Reason: Pain (Mild) Stop: 11/19/16 22:41 Al Hydrox/Mg Hydrox/Simethicone (Maalox) 30 ml PO Q6H PRN PRN Reason: Dyspepsia Stop: 11/19/16 22:38 Aspirin (Aspirin Chewable) 81 mg PO DAILY [facility] Stop: 11/20/16 08:59 Last Admin: 09/26/16 09:32 Dose: 81 mg Docusate Sodium (Colace) 100 mg PO BID [facility] Stop: 11/20/16 08:59 Last Admin: 09/26/16 09:32 Dose: 100 mg Famotidine (Pepcid) 20 mg PO BID [facility] Stop: 11/20/16 08:59 Last Admin: 09/26/16 09:32 Dose: 20 mg [place] Carbonate (Eskalith) 300 mg PO TID [facility]E PRN Reason: Protocol Stop: 11/20/16 08:59 Last Admin: 09/26/16 09:32 Dose: 300 mg Lorazepam (Ativan) 1 mg PO Q6H PRN; Protocol PRN Reason: Anxiety/Agitation Stop: 11/19/16 22:38 Last Admin: 09/23/16 15:12 Dose: 1 mg Magnesium Hydroxide (Milk Of Magnesia) 30 ml PO HS [facility]E Stop: 11/20/16 20:59 Last Admin: 09/25/16 20:50 Dose: 30 ml Multivitamins/Vitamin C (Theragran) 1 tab PO DAILY [facility] Stop: 11/20/16 08:59 Last Admin: 09/26/16 09:32 Dose: 1 tab Quetiapine Fumarate (Seroquel) 50 mg PO DAILY [facility] PRN Reason: Protocol Stop: 11/20/16 08:59 Last Admin: 09/26/16 09:42 Dose: 50 mg Zolpidem Tartrate (Ambien) 5 mg PO HS PRN PRN Reason: Insomnia Stop: 11/19/16 22:38 General: weak, demented HEENT: PERRLA, EOMI Neck: Supple, No JVD, No thyromegaly Lungs: CTAB Cardiovascular: RRR, Normal S1, Normal S2 Abdomen: soft, non-tender, non-distended Extremities: clear Neurological: no change Internal Medicine Assmt/Plan - Assessment Assessment: 1.HTN. 2.Anemia. 3.Dementia. - Plan Plan: CONTINUE ON CURRENT MEDICATION AND DIET. Nutritional Asmnt/Malnutr-PDOC - Dietary Evaluation Malnutrition Findings (Please click <Entered> for more info): Nutritional Asmnt/Malnutrition Start: 09/25/16 18: 00 Text: Status: Complete Freq: Document 09/25/16 18:00 GSUN (Rec: 09/25/16 18:07 [email or web address] [email or web address]) Nutritional Asmnt/Malnutrition Patient General Information Nutritional Screening Moderate Risk Screening Diagnosis Psychosis Pertinent Medical Hx/Surgical Hx HTN, dementia Subjective Information 71 year old male. Pt was seen staring out the window in room . Pt was alert and pleasant. Obtained CBW 147.6lb via bedscale. Pt appeared thin overall, no severe wasting noted. Pt with front teeth missing, few teeth intact. Pt tolerating current diet texture, denied difficulties eating. Avg PO intake 100% of meals since adm, meeting nutritional needs. Current Diet Order/ Nutrition Support [facility] soft ground. Pertinent Medications Colace, Pepcid, MOM, Theragran , Seroquel Pertinent Labs Reviewed. Nutritional Hx/Data Height 1.8 m Height (Calculated Centimeters) 180.3 Current Weight (lbs) 66.95 kg Weight (Calculated Kilograms) 67.0 Weight (Calculated Grams) 75901.2 [place] Body Weight 172 Weight Status Approriate GI Symptoms Food Allergies No Skin Integrity/Comment: Jerome 21. Skin intact. Current %PO Good (75-100%) Estimated Nutritional Goals BEE in Kcals: Using Current wt Calories/Kcals/Kg CBW 147.6lb/67.1kg Kcals Calculated 1678-2013kcal (25-30kcal/kg) Protein: Using Current wt Protein Calculated 67g (1g/kg) Fluid: ml 1678-2013ml (1ml/kcal) Nutritional Problem 1. Problem Problem No nturitional concerns at this time. Intervention/Recommendation Comments 1. Continue with current diet order. Avg PO intake is adequate. Expected Outcomes/Goals Expected Outcomes/Goals 1. PO intake continue to meet at least 100% of estimated nutritional needs.
[2016-09-26] MEDS: Magnesium Hydroxide (MOM) 30 mL UDC PO SCH (21:17)
[2016-09-27] MEDS: Aspirin 81mg Chewable Tab PO SCH (09:34)
[2016-09-27] MEDS: Multivitamin Tab PO SCH (09:34)
--- NOTE | 2016-09-27 15:29 | Internal Medicine Prog Note ---
Internal Medicine Subjective - Subjective Service Date: 09/27/16 Patient seen and examined:: with staff (HE FEELS WELL,NO PROBLEM.) Patient is:: awake, confused Per staff patient has:: no adverse event, eating well, tolerating meds Internal Medicine Objective - Results Result Diagrams: 09/20/16 18:43 09/20/16 18:43 Recent Labs: Laboratory Last Values WBC 9.0 Th/cmm (4.8-10.8) D 09/20/16 18:43 RBC 3.89 Mil/cmm (3.80-5.80) 09/20/16 18:43 Hgb 12.0 gm/dL (12.6-17.4) L 09/20/16 18:43 Hct 35.7 % (39.0-49.0) L 09/20/16 18:43 MCV 92.0 fl (80-99) 09/20/16 18:43 MCH 31.0 pg (27.0-31.0) 09/20/16 18:43 MCHC Differential 33.7 pg (28.0-36.0) 09/20/16 18:43 RDW 14.9 % (11.5-20.0) 09/20/16 18:43 Plt Count 287 Th/cmm (150-400) 09/20/16 18:43 MPV 7.9 fl 09/20/16 18:43 Neutrophils % 52.2 % (40.0-80.0) 09/20/16 18:43 Lymphocytes % 34.2 % (20.0-50.0) 09/20/16 18:43 Monocytes % 8.5 % (2.0-10.0) 09/20/16 18:43 Eosinophils % 4.4 % (0.0-5.0) 09/20/16 18:43 Basophils % 0.7 % (0.0-2.0) 09/20/16 18:43 Sodium 131 mEq/L (136-145) L 09/20/16 18:43 Potassium 3.9 mEq/L (3.5-5.1) 09/20/16 18:43 Chloride 106 mEq/L (98-107) 09/20/16 18:43 Carbon Dioxide 23.5 mEq/L (21.0-31.0) 09/20/16 18:43 Anion Gap 5.4 (7.0-16.0) L 09/20/16 18:43 BUN 23 mg/dL (7-25) 09/20/16 18:43 Creatinine 0.8 mg/dL (0.7-1.3) 09/20/16 18:43 Est GFR ( Amer) TNP 09/20/16 18:43 Est GFR (Non-Af Amer) TNP 09/20/16 18:43 BUN/Creatinine Ratio 28.8 09/20/16 18:43 Glucose 81 mg/dL (70-105) 09/20/16 18:43 Calcium 9.6 mg/dL (8.6-10.3) 09/20/16 18:43 Total Bilirubin 0.4 mg/dL (0.3-1.0) 09/20/16 18:43 AST 18 U/L (13-39) 09/20/16 18:43 ALT 11 U/L (7-52) 09/20/16 18:43 Alkaline Phosphatase 77 U/L (34-104) 09/20/16 18:43 Total Protein 7.4 gm/dL (6.0-8.3) 09/20/16 18:43 Albumin 4.2 gm/dL (4.2-5.5) 09/20/16 18:43 Globulin 3.2 gm/dL 09/20/16 18:43 Albumin/Globulin Ratio 1.3 (1.0-1.8) 09/20/16 18:43 TSH 4.30 uIU/ml (0.34-5.60) 09/20/16 18:43 [place] 0.70 MEQ/L (0.50-1.00) 09/24/16 10:13 RPR NONREACTIVE (NONREACTIVE) 09/20/16 18:43 - Physical Exam Vitals and I&O: Vital Signs Temp 97.6 F 09/26/16 15:33 Pulse 62 09/26/16 15:33 Resp 18 09/26/16 15:33 BP 122/62 09/26/16 15:33 Pulse Ox 96 09/26/16 15:33 Intake & Output 09/26/16 09/27/16 09/27/16 18:59 06:59 18:59 Intake Total 1320 Balance 1320 Intake: Oral 1320 Other: # Voids 3 Active Medications: Current Medications Acetaminophen (Tylenol) 650 mg PO Q4HR PRN PRN Reason: Pain (Mild) Stop: 11/19/16 22:41 Al Hydrox/Mg Hydrox/Simethicone (Maalox) 30 ml PO Q6H PRN PRN Reason: Dyspepsia Stop: 11/19/16 22:38 Aspirin (Aspirin Chewable) 81 mg PO DAILY [facility] Stop: 11/20/16 08:59 Last Admin: 09/27/16 09:34 Dose: 81 mg Docusate Sodium (Colace) 100 mg PO BID [facility] Stop: 11/20/16 08:59 Last Admin: 09/27/16 09:34 Dose: 100 mg Famotidine (Pepcid) 20 mg PO BID [facility] Stop: 11/20/16 08:59 Last Admin: 09/27/16 09:34 Dose: 20 mg [place] Carbonate (Eskalith) 300 mg PO TID [facility] PRN Reason: Protocol Stop: 11/20/16 08:59 Last Admin: 09/27/16 09:34 Dose: 300 mg Lorazepam (Ativan) 1 mg PO Q6H PRN; Protocol PRN Reason: Anxiety/Agitation Stop: 11/19/16 22:38 Last Admin: 09/23/16 15:12 Dose: 1 mg Magnesium Hydroxide (Milk Of Magnesia) 30 ml PO HS [facility] Stop: 11/20/16 20:59 Last Admin: 09/26/16 21:17 Dose: 30 ml Multivitamins/Vitamin C (Theragran) 1 tab PO DAILY [facility] Stop: 11/20/16 08:59 Last Admin: 09/27/16 09:34 Dose: 1 tab Quetiapine Fumarate (Seroquel) 50 mg PO DAILY [facility] PRN Reason: Protocol Stop: 11/20/16 08:59 Last Admin: 09/27/16 09:34 Dose: 50 mg Zolpidem Tartrate (Ambien) 5 mg PO HS PRN PRN Reason: Insomnia Stop: 11/19/16 22:38 General: weak, demented HEENT: PERRLA, EOMI Neck: Supple, No JVD, No thyromegaly Lungs: CTAB Cardiovascular: RRR, Normal S1, Normal S2 Abdomen: soft, non-tender, non-distended Extremities: clear Neurological: no change Internal Medicine Assmt/Plan - Assessment Assessment: 1.HTN. 2.Anemia. 3.Dementia. - Plan Plan: CONTINUE ON CURRENT MEDICATION AND DIET. Nutritional Asmnt/Malnutr-PDOC - Dietary Evaluation Malnutrition Findings (Please click <Entered> for more info): Nutritional Asmnt/Malnutrition Start: 09/25/16 18: 00 Text: Status: Complete Freq: Document 09/25/16 18:00 GSUN (Rec: 09/25/16 18:07 GSUN [email or web address]) Nutritional Asmnt/Malnutrition Patient General Information Nutritional Screening Moderate Risk Screening Diagnosis Psychosis Pertinent Medical Hx/Surgical Hx HTN, dementia Subjective Information 71 year old male. Pt was seen staring out the window in room . Pt was alert and pleasant. Obtained CBW 147.6lb via bedscale. Pt appeared thin overall, no severe wasting noted. Pt with front teeth missing, few teeth intact. Pt tolerating current diet texture, denied difficulties eating. Avg PO intake 100% of meals since adm, meeting nutritional needs. Current Diet Order/ Nutrition Support [facility] soft ground. Pertinent Medications Colace, Pepcid, MOM, Theragran , Seroquel Pertinent Labs Reviewed. Nutritional Hx/Data Height 1.8 m Height (Calculated Centimeters) 180.3 Current Weight (lbs) 66.95 kg Weight (Calculated Kilograms) 67.0 Weight (Calculated Grams) 41658.2 [place] Body Weight 172 Weight Status Approriate GI Symptoms Food Allergies No Skin Integrity/Comment: [place] 21. Skin intact. Current %PO Good (75-100%) Estimated Nutritional Goals BEE in Kcals: Using Current wt Calories/Kcals/Kg CBW 147.6lb/67.1kg Kcals Calculated 1678-2013kcal (25-30kcal/kg) Protein: Using Current wt Protein Calculated 67g (1g/kg) Fluid: ml 1678-2013ml (1ml/kcal) Nutritional Problem 1. Problem Problem No nturitional concerns at this time. Intervention/Recommendation Comments 1. Continue with current diet order. Avg PO intake is adequate. Expected Outcomes/Goals Expected Outcomes/Goals 1. PO intake continue to meet at least 100% of estimated nutritional needs.
[2016-09-27] MEDS: Magnesium Hydroxide (MOM) 30 mL UDC PO SCH (20:22)
--- NOTE | 2016-09-28 02:25 | Progress Notes ---
DATE: 09/27/2016 SUBJECTIVE: The patient was seen, chart reviewed, and discussed with staff. The patient is coming from [place] due to aggressive behaviors, agitation. The patient confused, does not know the year, does not know the month, states the month is January, disoriented. Currently on Seroquel and lithium, no side effects remains irritable, impulsive, unpredictable, still needing prompting for ADLs, a lot of redirection, and not safe for a lower level of care at this time. ASSESSMENT: The patient remains symptomatic, deeply confused, disoriented, striking out, gravely disabled, still can be dangerous. PLAN: Continue to monitor, adjust medications. Continue titrating Seroquel. We will check lithium levels to make appropriate adjustments. JOB# [id number]
[2016-09-28] MEDS: Aspirin 81mg Chewable Tab PO SCH (08:41)
[2016-09-28] MEDS: Multivitamin Tab PO SCH (08:42)
--- NOTE | 2016-09-28 19:26 | Internal Medicine Prog Note ---
Internal Medicine Subjective - Subjective Service Date: 09/28/16 Patient seen and examined:: with staff Patient is:: awake, confused Per staff patient has:: no adverse event, eating well, tolerating meds Internal Medicine Objective - Results Result Diagrams: 09/20/16 18:43 09/20/16 18:43 Recent Labs: Laboratory Last Values WBC 9.0 Th/cmm (4.8-10.8) D 09/20/16 18:43 RBC 3.89 Mil/cmm (3.80-5.80) 09/20/16 18:43 Hgb 12.0 gm/dL (12.6-17.4) L 09/20/16 18:43 Hct 35.7 % (39.0-49.0) L 09/20/16 18:43 MCV 92.0 fl (80-99) 09/20/16 18:43 MCH 31.0 pg (27.0-31.0) 09/20/16 18:43 MCHC Differential 33.7 pg (28.0-36.0) 09/20/16 18:43 RDW 14.9 % (11.5-20.0) 09/20/16 18:43 Plt Count 287 Th/cmm (150-400) 09/20/16 18:43 MPV 7.9 fl 09/20/16 18:43 Neutrophils % 52.2 % (40.0-80.0) 09/20/16 18:43 Lymphocytes % 34.2 % (20.0-50.0) 09/20/16 18:43 Monocytes % 8.5 % (2.0-10.0) 09/20/16 18:43 Eosinophils % 4.4 % (0.0-5.0) 09/20/16 18:43 Basophils % 0.7 % (0.0-2.0) 09/20/16 18:43 Sodium 131 mEq/L (136-145) L 09/20/16 18:43 Potassium 3.9 mEq/L (3.5-5.1) 09/20/16 18:43 Chloride 106 mEq/L (98-107) 09/20/16 18:43 Carbon Dioxide 23.5 mEq/L (21.0-31.0) 09/20/16 18:43 Anion Gap 5.4 (7.0-16.0) L 09/20/16 18:43 BUN 23 mg/dL (7-25) 09/20/16 18:43 Creatinine 0.8 mg/dL (0.7-1.3) 09/20/16 18:43 Est GFR ( Amer) TNP 09/20/16 18:43 Est GFR (Non-Af Amer) TNP 09/20/16 18:43 BUN/Creatinine Ratio 28.8 09/20/16 18:43 Glucose 81 mg/dL (70-105) 09/20/16 18:43 Calcium 9.6 mg/dL (8.6-10.3) 09/20/16 18:43 Total Bilirubin 0.4 mg/dL (0.3-1.0) 09/20/16 18:43 AST 18 U/L (13-39) 09/20/16 18:43 ALT 11 U/L (7-52) 09/20/16 18:43 Alkaline Phosphatase 77 U/L (34-104) 09/20/16 18:43 Total Protein 7.4 gm/dL (6.0-8.3) 09/20/16 18:43 Albumin 4.2 gm/dL (4.2-5.5) 09/20/16 18:43 Globulin 3.2 gm/dL 09/20/16 18:43 Albumin/Globulin Ratio 1.3 (1.0-1.8) 09/20/16 18:43 TSH 4.30 uIU/ml (0.34-5.60) 09/20/16 18:43 [place] 0.70 MEQ/L (0.50-1.00) 09/24/16 10:13 RPR NONREACTIVE (NONREACTIVE) 09/20/16 18:43 - Physical Exam Vitals and I&O: Vital Signs Temp 98.2 F 09/28/16 16:42 Pulse 66 09/28/16 16:42 Resp 18 09/28/16 16:42 BP 134/84 09/28/16 16:42 Pulse Ox 97 09/28/16 16:42 Intake & Output 09/28/16 09/28/16 09/29/16 06:59 18:59 06:59 Intake Total 180 1200 Balance 180 1200 Intake: Oral 180 1200 Other: # Voids 1 4 # Bowel Movements 0 1 Active Medications: Current Medications Acetaminophen (Tylenol) 650 mg PO Q4HR PRN PRN Reason: Pain (Mild) Stop: 11/19/16 22:41 Al Hydrox/Mg Hydrox/Simethicone (Maalox) 30 ml PO Q6H PRN PRN Reason: Dyspepsia Stop: 11/19/16 22:38 Aspirin (Aspirin Chewable) 81 mg PO DAILY [facility] Stop: 11/20/16 08:59 Last Admin: 09/28/16 08:41 Dose: 81 mg Docusate Sodium (Colace) 100 mg PO BID [facility] Stop: 11/20/16 08:59 Last Admin: 09/28/16 16:32 Dose: 100 mg Famotidine (Pepcid) 20 mg PO BID [facility] Stop: 11/20/16 08:59 Last Admin: 09/28/16 16:32 Dose: 20 mg [place] Carbonate (Eskalith) 300 mg PO TID [facility] PRN Reason: Protocol Stop: 11/20/16 08:59 Last Admin: 09/28/16 13:27 Dose: 300 mg Lorazepam (Ativan) 1 mg PO Q6H PRN; Protocol PRN Reason: Anxiety/Agitation Stop: 11/19/16 22:38 Last Admin: 09/23/16 15:12 Dose: 1 mg Magnesium Hydroxide (Milk Of Magnesia) 30 ml PO HS [facility] Stop: 11/20/16 20:59 Last Admin: 09/27/16 20:22 Dose: 30 ml Multivitamins/Vitamin C (Theragran) 1 tab PO DAILY [facility] Stop: 11/20/16 08:59 Last Admin: 09/28/16 08:42 Dose: 1 tab Quetiapine Fumarate (Seroquel) 62.5 mg PO DAILY [facility] PRN Reason: Protocol Stop: 11/28/16 08:59 Zolpidem Tartrate (Ambien) 5 mg PO HS PRN PRN Reason: Insomnia Stop: 11/19/16 22:38 General: weak, demented HEENT: PERRLA, EOMI Neck: Supple, No JVD, No thyromegaly Lungs: CTAB Cardiovascular: RRR, Normal S1, Normal S2 Abdomen: soft, non-tender, non-distended Extremities: clear Neurological: no change Internal Medicine Assmt/Plan - Assessment Assessment: 1.HTN. 2.Anemia. 3.Dementia. - Plan Plan: CONTINUE ON CURRENT MEDICATION AND DIET. Nutritional Asmnt/Malnutr-PDOC - Dietary Evaluation Malnutrition Findings (Please click <Entered> for more info): Nutritional Asmnt/Malnutrition Start: 09/25/16 18: 00 Text: Status: Complete Freq: Document 09/25/16 18:00 JAM (Rec: 09/25/16 18:07 GSUN [email or web address]) Nutritional Asmnt/Malnutrition Patient General Information Nutritional Screening Moderate Risk Screening Diagnosis Psychosis Pertinent Medical Hx/Surgical Hx HTN, dementia Subjective Information 71 year old male. Pt was seen staring out the window in room . Pt was alert and pleasant. Obtained CBW 147.6lb via bedscale. Pt appeared thin overall, no severe wasting noted. Pt with front teeth missing, few teeth intact. Pt tolerating current diet texture, denied difficulties eating. Avg PO intake 100% of meals since adm, meeting nutritional needs. Current Diet Order/ Nutrition Support [facility] soft ground. Pertinent Medications Colace, Pepcid, MOM, Theragran , Seroquel Pertinent Labs Reviewed. Nutritional Hx/Data Height 1.8 m Height (Calculated Centimeters) 180.3 Current Weight (lbs) 66.95 kg Weight (Calculated Kilograms) 67.0 Weight (Calculated Grams) 10934.2 [place] Body Weight 172 Weight Status Approriate GI Symptoms Food Allergies No Skin Integrity/Comment: [place]. Skin intact. Current %PO Good (75-100%) Estimated Nutritional Goals BEE in Kcals: Using Current wt Calories/Kcals/Kg CBW 147.6lb/67.1kg Kcals Calculated 1678-2013kcal (25-30kcal/kg) Protein: Using Current wt Protein Calculated 67g (1g/kg) Fluid: ml 1678-2013ml (1ml/kcal) Nutritional Problem 1. Problem Problem No nturitional concerns at this time. Intervention/Recommendation Comments 1. Continue with current diet order. Avg PO intake is adequate. Expected Outcomes/Goals Expected Outcomes/Goals 1. PO intake continue to meet at least 100% of estimated nutritional needs.
[2016-09-28] MEDS: Magnesium Hydroxide (MOM) 30 mL UDC PO SCH (21:20)
--- NOTE | 2016-09-28 23:42 | Progress Notes ---
DATE: 09/28/2016 SUBJECTIVE: The patient seen, chart reviewed, discussed with staff. The patient is currently in the hospital, remains confused, still with episodes of agitation, impulsive, unpredictable, inappropriate behaviors. Currently on Seroquel, lithium. [place] level has been checked, 0.7, still with poor impulse control, eating with prompting, ADLs with prompting, still requiring a lot of redirection. Placement has not been confirmed and he is ____ gravely disabled, unable to care for his basic food, clothing, and senior care. ASSESSMENT: The patient remains symptomatic, irritable, still disoriented, can be aggressive still. PLAN: Continue to monitor. The patient is not safe for discharge. Continue titration of Seroquel. JOB# [id number]
[2016-09-29] MEDS: Multivitamin Tab PO SCH (09:29)
[2016-09-29] MEDS: Aspirin 81mg Chewable Tab PO SCH (09:29)
--- NOTE | 2016-09-29 12:22 | Progress Notes ---
DATE: 09/29/2016 SUBJECTIVE: The patient seen, chart reviewed, discussed with staff. The patient is coming from [place] due to aggressive behaviors, agitation, confusion, disorientation. On [id number], the patient remains suspicious, guarded, does not really know what is going on and why he is here, highly disoriented, requiring a lot of redirection and prompting. ASSESSMENT: The patient remains symptomatic, confused, disoriented, still aggressive, impulsive. PLAN: We will continue to monitor and adjust medications. We will continue titration of Seroquel. JOB# [id number]
--- NOTE | 2016-09-29 14:04 | Internal Medicine Prog Note ---
Internal Medicine Subjective - Subjective Service Date: 09/29/16 Patient is:: awake, confused Per staff patient has:: no adverse event, eating well, tolerating meds Internal Medicine Objective - Results Result Diagrams: 09/20/16 18:43 09/20/16 18:43 Recent Labs: Laboratory Last Values WBC 9.0 Th/cmm (4.8-10.8) D 09/20/16 18:43 RBC 3.89 Mil/cmm (3.80-5.80) 09/20/16 18:43 Hgb 12.0 gm/dL (12.6-17.4) L 09/20/16 18:43 Hct 35.7 % (39.0-49.0) L 09/20/16 18:43 MCV 92.0 fl (80-99) 09/20/16 18:43 MCH 31.0 pg (27.0-31.0) 09/20/16 18:43 MCHC Differential 33.7 pg (28.0-36.0) 09/20/16 18:43 RDW 14.9 % (11.5-20.0) 09/20/16 18:43 Plt Count 287 Th/cmm (150-400) 09/20/16 18:43 MPV 7.9 fl 09/20/16 18:43 Neutrophils % 52.2 % (40.0-80.0) 09/20/16 18:43 Lymphocytes % 34.2 % (20.0-50.0) 09/20/16 18:43 Monocytes % 8.5 % (2.0-10.0) 09/20/16 18:43 Eosinophils % 4.4 % (0.0-5.0) 09/20/16 18:43 Basophils % 0.7 % (0.0-2.0) 09/20/16 18:43 Sodium 131 mEq/L (136-145) L 09/20/16 18:43 Potassium 3.9 mEq/L (3.5-5.1) 09/20/16 18:43 Chloride 106 mEq/L (98-107) 09/20/16 18:43 Carbon Dioxide 23.5 mEq/L (21.0-31.0) 09/20/16 18:43 Anion Gap 5.4 (7.0-16.0) L 09/20/16 18:43 BUN 23 mg/dL (7-25) 09/20/16 18:43 Creatinine 0.8 mg/dL (0.7-1.3) 09/20/16 18:43 Est GFR ( Amer) TNP 09/20/16 18:43 Est GFR (Non-Af Amer) TNP 09/20/16 18:43 BUN/Creatinine Ratio 28.8 09/20/16 18:43 Glucose 81 mg/dL (70-105) 09/20/16 18:43 Calcium 9.6 mg/dL (8.6-10.3) 09/20/16 18:43 Total Bilirubin 0.4 mg/dL (0.3-1.0) 09/20/16 18:43 AST 18 U/L (13-39) 09/20/16 18:43 ALT 11 U/L (7-52) 09/20/16 18:43 Alkaline Phosphatase 77 U/L (34-104) 09/20/16 18:43 Total Protein 7.4 gm/dL (6.0-8.3) 09/20/16 18:43 Albumin 4.2 gm/dL (4.2-5.5) 09/20/16 18:43 Globulin 3.2 gm/dL 09/20/16 18:43 Albumin/Globulin Ratio 1.3 (1.0-1.8) 09/20/16 18:43 TSH 4.30 uIU/ml (0.34-5.60) 09/20/16 18:43 [place] 0.70 MEQ/L (0.50-1.00) 09/24/16 10:13 RPR NONREACTIVE (NONREACTIVE) 09/20/16 18:43 - Physical Exam Vitals and I&O: Vital Signs Temp 98.2 F 09/28/16 16:42 Pulse 66 09/28/16 16:42 Resp 18 09/28/16 16:42 BP 134/84 09/28/16 16:42 Pulse Ox 97 09/28/16 16:42 Intake & Output 09/28/16 09/29/16 09/29/16 18:59 06:59 18:59 Intake Total 1200 Balance 1200 Intake: Oral 1200 Other: # Voids 4 # Bowel Movements 1 Active Medications: Current Medications Acetaminophen (Tylenol) 650 mg PO Q4HR PRN PRN Reason: Pain (Mild) Stop: 11/19/16 22:41 Al Hydrox/Mg Hydrox/Simethicone (Maalox) 30 ml PO Q6H PRN PRN Reason: Dyspepsia Stop: 11/19/16 22:38 Aspirin (Aspirin Chewable) 81 mg PO DAILY [facility] Stop: 11/20/16 08:59 Last Admin: 09/29/16 09:29 Dose: 81 mg Docusate Sodium (Colace) 100 mg PO BID [facility] Stop: 11/20/16 08:59 Last Admin: 09/29/16 09:29 Dose: 100 mg Famotidine (Pepcid) 20 mg PO BID [facility] Stop: 11/20/16 08:59 Last Admin: 09/29/16 09:29 Dose: 20 mg [place] Carbonate (Eskalith) 300 mg PO TID [facility] PRN Reason: Protocol Stop: 11/20/16 08:59 Last Admin: 09/29/16 13:54 Dose: 300 mg Lorazepam (Ativan) 1 mg PO Q6H PRN; Protocol PRN Reason: Anxiety/Agitation Stop: 11/19/16 22:38 Last Admin: 09/23/16 15:12 Dose: 1 mg Magnesium Hydroxide (Milk Of Magnesia) 30 ml PO HS [facility] Stop: 11/20/16 20:59 Last Admin: 09/28/16 21:20 Dose: 30 ml Multivitamins/Vitamin C (Theragran) 1 tab PO DAILY [facility] Stop: 11/20/16 08:59 Last Admin: 09/29/16 09:29 Dose: 1 tab Quetiapine Fumarate (Seroquel) 62.5 mg PO DAILY [facility] PRN Reason: Protocol Stop: 11/28/16 08:59 Last Admin: 09/29/16 09:28 Dose: 62.5 mg Zolpidem Tartrate (Ambien) 5 mg PO HS PRN PRN Reason: Insomnia Stop: 11/19/16 22:38 General: weak, demented HEENT: PERRLA, EOMI Neck: Supple, No JVD, No thyromegaly Lungs: CTAB Cardiovascular: RRR, Normal S1, Normal S2 Abdomen: soft, non-tender, non-distended Extremities: clear Neurological: no change Internal Medicine Assmt/Plan - Assessment Assessment: 1.HTN. 2.Anemia. 3.Dementia. - Plan Plan: CONTINUE ON CURRENT MEDICATION AND DIET. Nutritional Asmnt/Malnutr-PDOC - Dietary Evaluation Malnutrition Findings (Please click <Entered> for more info): Nutritional Asmnt/Malnutrition Start: 09/25/16 18: 00 Text: Status: Complete Freq: Document 09/25/16 18:00 GSUN (Rec: 09/25/16 18:07 [email or web address] [email or web address]) Nutritional Asmnt/Malnutrition Patient General Information Nutritional Screening Moderate Risk Screening Diagnosis Psychosis Pertinent Medical Hx/Surgical Hx HTN, dementia Subjective Information 71 year old male. Pt was seen staring out the window in room . Pt was alert and pleasant. Obtained CBW 147.6lb via bedscale. Pt appeared thin overall, no severe wasting noted. Pt with front teeth missing, few teeth intact. Pt tolerating current diet texture, denied difficulties eating. Avg PO intake 100% of meals since adm, meeting nutritional needs. Current Diet Order/ Nutrition Support [facility] soft ground. Pertinent Medications Colace, Pepcid, MOM, Theragran , Seroquel Pertinent Labs Reviewed. Nutritional Hx/Data Height 1.8 m Height (Calculated Centimeters) 180.3 Current Weight (lbs) 66.95 kg Weight (Calculated Kilograms) 67.0 Weight (Calculated Grams) 72956.2 [place] Body Weight 172 Weight Status Approriate GI Symptoms Food Allergies No Skin Integrity/Comment: [place] 21. Skin intact. Current %PO Good (75-100%) Estimated Nutritional Goals BEE in Kcals: Using Current wt Calories/Kcals/Kg CBW 147.6lb/67.1kg Kcals Calculated 1678-2013kcal (25-30kcal/kg) Protein: Using Current wt Protein Calculated 67g (1g/kg) Fluid: ml 1678-2013ml (1ml/kcal) Nutritional Problem 1. Problem Problem No nturitional concerns at this time. Intervention/Recommendation Comments 1. Continue with current diet order. Avg PO intake is adequate. Expected Outcomes/Goals Expected Outcomes/Goals 1. PO intake continue to meet at least 100% of estimated nutritional needs.
[2016-09-29] MEDS: Magnesium Hydroxide (MOM) 30 mL UDC PO SCH (20:59)
[2016-09-30] MEDS: Aspirin 81mg Chewable Tab PO SCH (08:14)
[2016-09-30] MEDS: Multivitamin Tab PO SCH (08:15)
--- NOTE | 2016-09-30 12:48 | Internal Medicine Prog Note ---
Internal Medicine Subjective - Subjective Service Date: 09/30/16 Patient seen and examined:: without staff (THE PATIENT HAS BEEN TAKING MEDICATION REGULARLEY.) Patient is:: awake, confused Per staff patient has:: no adverse event, eating well, tolerating meds Internal Medicine Objective - Results Result Diagrams: 09/20/16 18:43 09/20/16 18:43 Recent Labs: Laboratory Last Values WBC 9.0 Th/cmm (4.8-10.8) D 09/20/16 18:43 RBC 3.89 Mil/cmm (3.80-5.80) 09/20/16 18:43 Hgb 12.0 gm/dL (12.6-17.4) L 09/20/16 18:43 Hct 35.7 % (39.0-49.0) L 09/20/16 18:43 MCV 92.0 fl (80-99) 09/20/16 18:43 MCH 31.0 pg (27.0-31.0) 09/20/16 18:43 MCHC Differential 33.7 pg (28.0-36.0) 09/20/16 18:43 RDW 14.9 % (11.5-20.0) 09/20/16 18:43 Plt Count 287 Th/cmm (150-400) 09/20/16 18:43 MPV 7.9 fl 09/20/16 18:43 Neutrophils % 52.2 % (40.0-80.0) 09/20/16 18:43 Lymphocytes % 34.2 % (20.0-50.0) 09/20/16 18:43 Monocytes % 8.5 % (2.0-10.0) 09/20/16 18:43 Eosinophils % 4.4 % (0.0-5.0) 09/20/16 18:43 Basophils % 0.7 % (0.0-2.0) 09/20/16 18:43 Sodium 131 mEq/L (136-145) L 09/20/16 18:43 Potassium 3.9 mEq/L (3.5-5.1) 09/20/16 18:43 Chloride 106 mEq/L (98-107) 09/20/16 18:43 Carbon Dioxide 23.5 mEq/L (21.0-31.0) 09/20/16 18:43 Anion Gap 5.4 (7.0-16.0) L 09/20/16 18:43 BUN 23 mg/dL (7-25) 09/20/16 18:43 Creatinine 0.8 mg/dL (0.7-1.3) 09/20/16 18:43 Est GFR ( Amer) TNP 09/20/16 18:43 Est GFR (Non-Af Amer) TNP 09/20/16 18:43 BUN/Creatinine Ratio 28.8 09/20/16 18:43 Glucose 81 mg/dL (70-105) 09/20/16 18:43 Calcium 9.6 mg/dL (8.6-10.3) 09/20/16 18:43 Total Bilirubin 0.4 mg/dL (0.3-1.0) 09/20/16 18:43 AST 18 U/L (13-39) 09/20/16 18:43 ALT 11 U/L (7-52) 09/20/16 18:43 Alkaline Phosphatase 77 U/L (34-104) 09/20/16 18:43 Total Protein 7.4 gm/dL (6.0-8.3) 09/20/16 18:43 Albumin 4.2 gm/dL (4.2-5.5) 09/20/16 18:43 Globulin 3.2 gm/dL 09/20/16 18:43 Albumin/Globulin Ratio 1.3 (1.0-1.8) 09/20/16 18:43 TSH 4.30 uIU/ml (0.34-5.60) 09/20/16 18:43 [place] 0.70 MEQ/L (0.50-1.00) 09/24/16 10:13 RPR NONREACTIVE (NONREACTIVE) 09/20/16 18:43 - Physical Exam Vitals and I&O: Vital Signs Temp 98.2 F 09/29/16 14:08 Pulse 74 09/29/16 14:08 Resp 20 09/29/16 14:08 BP 137/61 09/29/16 14:08 Pulse Ox 97 09/29/16 14:08 Intake & Output 09/29/16 09/30/16 09/30/16 18:59 06:59 18:59 Intake Total 900 120 Balance 900 120 Intake: Oral 900 120 Other: # Voids 3 3 # Bowel Movements 1 Active Medications: Current Medications Acetaminophen (Tylenol) 650 mg PO Q4HR PRN PRN Reason: Pain (Mild) Stop: 11/19/16 22:41 Al Hydrox/Mg Hydrox/Simethicone (Maalox) 30 ml PO Q6H PRN PRN Reason: Dyspepsia Stop: 11/19/16 22:38 Aspirin (Aspirin Chewable) 81 mg PO DAILY [facility] Stop: 11/20/16 08:59 Last Admin: 09/30/16 08:14 Dose: 81 mg Docusate Sodium (Colace) 100 mg PO BID [facility] Stop: 11/20/16 08:59 Last Admin: 09/30/16 08:15 Dose: 100 mg Famotidine (Pepcid) 20 mg PO BID [facility] Stop: 11/20/16 08:59 Last Admin: 09/30/16 08:14 Dose: 20 mg [place] Carbonate (Eskalith) 300 mg PO TID [facility]E PRN Reason: Protocol Stop: 11/20/16 08:59 Last Admin: 09/30/16 08:15 Dose: 300 mg Lorazepam (Ativan) 1 mg PO Q6H PRN; Protocol PRN Reason: Anxiety/Agitation Stop: 11/19/16 22:38 Last Admin: 09/30/16 08:14 Dose: 1 mg Magnesium Hydroxide (Milk Of Magnesia) 30 ml PO HS [facility]E Stop: 11/20/16 20:59 Last Admin: 09/29/16 20:59 Dose: 30 ml Multivitamins/Vitamin C (Theragran) 1 tab PO DAILY [facility] Stop: 11/20/16 08:59 Last Admin: 09/30/16 08:15 Dose: 1 tab Quetiapine Fumarate (Seroquel) 62.5 mg PO DAILY [facility] PRN Reason: Protocol Stop: 11/28/16 08:59 Last Admin: 09/30/16 08:14 Dose: 62.5 mg Zolpidem Tartrate (Ambien) 5 mg PO HS PRN PRN Reason: Insomnia Stop: 11/19/16 22:38 General: weak, demented HEENT: PERRLA, EOMI Neck: Supple, No JVD, No thyromegaly Lungs: CTAB Cardiovascular: RRR, Normal S1, Normal S2 Abdomen: soft, non-tender, non-distended Extremities: clear Neurological: no change Internal Medicine Assmt/Plan - Assessment Assessment: 1.HTN. 2.Anemia. 3.Dementia. - Plan Plan: CONTINUE ON CURRENT MEDICATION AND DIET. Nutritional Asmnt/Malnutr-PDOC - Dietary Evaluation Malnutrition Findings (Please click <Entered> for more info): Nutritional Asmnt/Malnutrition Start: 09/25/16 18: 00 Text: Status: Complete Freq: Document 09/25/16 18:00 GSUN (Rec: 09/25/16 18:07 GSUN [email or web address]) Nutritional Asmnt/Malnutrition Patient General Information Nutritional Screening Moderate Risk Screening Diagnosis Psychosis Pertinent Medical Hx/Surgical Hx HTN, dementia Subjective Information 71 year old male. Pt was seen staring out the window in room . Pt was alert and pleasant. Obtained CBW 147.6lb via bedscale. Pt appeared thin overall, no severe wasting noted. Pt with front teeth missing, few teeth intact. Pt tolerating current diet texture, denied difficulties eating. Avg PO intake 100% of meals since adm, meeting nutritional needs. Current Diet Order/ Nutrition Support [facility] soft ground. Pertinent Medications Colace, Pepcid, MOM, Theragran , Seroquel Pertinent Labs Reviewed. Nutritional Hx/Data Height 1.8 m Height (Calculated Centimeters) 180.3 Current Weight (lbs) 66.95 kg Weight (Calculated Kilograms) 67.0 Weight (Calculated Grams) 00365.2 [place] Body Weight 172 Weight Status Approriate GI Symptoms Food Allergies No Skin Integrity/Comment: [place] 21. Skin intact. Current %PO Good (75-100%) Estimated Nutritional Goals BEE in Kcals: Using Current wt Calories/Kcals/Kg CBW 147.6lb/67.1kg Kcals Calculated 1678-2013kcal (25-30kcal/kg) Protein: Using Current wt Protein Calculated 67g (1g/kg) Fluid: ml 1678-2013ml (1ml/kcal) Nutritional Problem 1. Problem Problem No nturitional concerns at this time. Intervention/Recommendation Comments 1. Continue with current diet order. Avg PO intake is adequate. Expected Outcomes/Goals Expected Outcomes/Goals 1. PO intake continue to meet at least 100% of estimated nutritional needs.
--- NOTE | 2016-09-30 17:59 | Progress Notes ---
DATE: 09/30/2016 SUBJECTIVE: The patient was seen, chart reviewed, and discussed with staff. The patient coming from [place] due to aggressive behaviors, remains confused, wandering, unable to really have a reasonable conversation. Still confused, disoriented, still symptomatic. ASSESSMENT: The patient remains symptomatic, gravely disabled, unable to participate in a reasonable discussion about basic food, clothing, and care home. PLAN: Continue to monitor, try to redirect, patient with continued wandering behaviors. JOB# [id number]
[2016-09-30] MEDS: Magnesium Hydroxide (MOM) 30 mL UDC PO SCH (20:46)
[2016-10-01] MEDS: Aspirin 81mg Chewable Tab PO SCH (08:16)
[2016-10-01] MEDS: Multivitamin Tab PO SCH (08:16)
--- NOTE | 2016-10-01 16:16 | Internal Medicine Prog Note ---
Internal Medicine Subjective - Subjective Service Date: 10/01/16 Patient seen and examined:: with staff, without staff Patient is:: awake, confused Per staff patient has:: no adverse event, eating well, tolerating meds Internal Medicine Objective - Results Result Diagrams: 09/20/16 18:43 09/20/16 18:43 Recent Labs: Laboratory Last Values WBC 9.0 Th/cmm (4.8-10.8) D 09/20/16 18:43 RBC 3.89 Mil/cmm (3.80-5.80) 09/20/16 18:43 Hgb 12.0 gm/dL (12.6-17.4) L 09/20/16 18:43 Hct 35.7 % (39.0-49.0) L 09/20/16 18:43 MCV 92.0 fl (80-99) 09/20/16 18:43 MCH 31.0 pg (27.0-31.0) 09/20/16 18:43 MCHC Differential 33.7 pg (28.0-36.0) 09/20/16 18:43 RDW 14.9 % (11.5-20.0) 09/20/16 18:43 Plt Count 287 Th/cmm (150-400) 09/20/16 18:43 MPV 7.9 fl 09/20/16 18:43 Neutrophils % 52.2 % (40.0-80.0) 09/20/16 18:43 Lymphocytes % 34.2 % (20.0-50.0) 09/20/16 18:43 Monocytes % 8.5 % (2.0-10.0) 09/20/16 18:43 Eosinophils % 4.4 % (0.0-5.0) 09/20/16 18:43 Basophils % 0.7 % (0.0-2.0) 09/20/16 18:43 Sodium 131 mEq/L (136-145) L 09/20/16 18:43 Potassium 3.9 mEq/L (3.5-5.1) 09/20/16 18:43 Chloride 106 mEq/L (98-107) 09/20/16 18:43 Carbon Dioxide 23.5 mEq/L (21.0-31.0) 09/20/16 18:43 Anion Gap 5.4 (7.0-16.0) L 09/20/16 18:43 BUN 23 mg/dL (7-25) 09/20/16 18:43 Creatinine 0.8 mg/dL (0.7-1.3) 09/20/16 18:43 Est GFR ( Amer) TNP 09/20/16 18:43 Est GFR (Non-Af Amer) TNP 09/20/16 18:43 BUN/Creatinine Ratio 28.8 09/20/16 18:43 Glucose 81 mg/dL (70-105) 09/20/16 18:43 POC Glucose 86 MG/DL (70 - 105) 10/01/16 11:59 Calcium 9.6 mg/dL (8.6-10.3) 09/20/16 18:43 Total Bilirubin 0.4 mg/dL (0.3-1.0) 09/20/16 18:43 AST 18 U/L (13-39) 09/20/16 18:43 ALT 11 U/L (7-52) 09/20/16 18:43 Alkaline Phosphatase 77 U/L (34-104) 09/20/16 18:43 Total Protein 7.4 gm/dL (6.0-8.3) 09/20/16 18:43 Albumin 4.2 gm/dL (4.2-5.5) 09/20/16 18:43 Globulin 3.2 gm/dL 09/20/16 18:43 Albumin/Globulin Ratio 1.3 (1.0-1.8) 09/20/16 18:43 TSH 4.30 uIU/ml (0.34-5.60) 09/20/16 18:43 [place] 0.70 MEQ/L (0.50-1.00) 09/24/16 10:13 RPR NONREACTIVE (NONREACTIVE) 09/20/16 18:43 - Physical Exam Vitals and I&O: Vital Signs Temp 98.2 F 10/01/16 14:00 Pulse 68 10/01/16 14:00 Resp 20 10/01/16 14:00 BP 138/85 10/01/16 14:00 Pulse Ox 97 10/01/16 14:00 Intake & Output 09/30/16 10/01/16 10/01/16 18:59 06:59 18:59 Intake Total 900 120 Balance 900 120 Intake: Oral 900 120 Other: # Voids 3 3 # Bowel Movements 1 Active Medications: Current Medications Acetaminophen (Tylenol) 650 mg PO Q4HR PRN PRN Reason: Pain (Mild) Stop: 11/19/16 22:41 Al Hydrox/Mg Hydrox/Simethicone (Maalox) 30 ml PO Q6H PRN PRN Reason: Dyspepsia Stop: 11/19/16 22:38 Aspirin (Aspirin Chewable) 81 mg PO DAILY [facility] Stop: 11/20/16 08:59 Last Admin: 10/01/16 08:16 Dose: 81 mg Docusate Sodium (Colace) 100 mg PO BID [facility] Stop: 11/20/16 08:59 Last Admin: 10/01/16 08:16 Dose: 100 mg Famotidine (Pepcid) 20 mg PO BID [facility] Stop: 11/20/16 08:59 Last Admin: 10/01/16 08:16 Dose: 20 mg [place] Carbonate (Eskalith) 300 mg PO TID [facility]E PRN Reason: Protocol Stop: 11/20/16 08:59 Last Admin: 10/01/16 14:17 Dose: 300 mg Lorazepam (Ativan) 1 mg PO Q6H PRN; Protocol PRN Reason: Anxiety/Agitation Stop: 11/19/16 22:38 Last Admin: 09/30/16 15:32 Dose: 1 mg Magnesium Hydroxide (Milk Of Magnesia) 30 ml PO HS [facility] Stop: 11/20/16 20:59 Last Admin: 09/30/16 20:46 Dose: 30 ml Multivitamins/Vitamin C (Theragran) 1 tab PO DAILY [facility] Stop: 11/20/16 08:59 Last Admin: 10/01/16 08:16 Dose: 1 tab Quetiapine Fumarate (Seroquel) 75 mg PO DAILY [facility] PRN Reason: Protocol Stop: 11/30/16 15:59 Zolpidem Tartrate (Ambien) 5 mg PO HS PRN PRN Reason: Insomnia Stop: 11/19/16 22:38 General: weak, demented HEENT: PERRLA, EOMI Neck: Supple, No JVD, No thyromegaly Lungs: CTAB Cardiovascular: RRR, Normal S1, Normal S2 Abdomen: soft, non-tender, non-distended Extremities: clear Neurological: no change Internal Medicine Assmt/Plan - Assessment Assessment: 1.HTN. 2.Anemia. 3.Dementia. - Plan Plan: CONTINUE ON CURRENT MEDICATION AND DIET. Nutritional Asmnt/Malnutr-PDOC - Dietary Evaluation Malnutrition Findings (Please click <Entered> for more info): Nutritional Asmnt/Malnutrition Start: 09/25/16 18: 00 Text: Status: Complete Freq: Document 09/25/16 18:00 GSUN (Rec: 09/25/16 18:07 [email or web address] [email or web address]) Nutritional Asmnt/Malnutrition Patient General Information Nutritional Screening Moderate Risk Screening Diagnosis Psychosis Pertinent Medical Hx/Surgical Hx HTN, dementia Subjective Information 71 year old male. Pt was seen staring out the window in room . Pt was alert and pleasant. Obtained CBW 147.6lb via bedscale. Pt appeared thin overall, no severe wasting noted. Pt with front teeth missing, few teeth intact. Pt tolerating current diet texture, denied difficulties eating. Avg PO intake 100% of meals since adm, meeting nutritional needs. Current Diet Order/ Nutrition Support [facility] soft ground. Pertinent Medications Colace, Pepcid, MOM, Theragran , Seroquel Pertinent Labs Reviewed. Nutritional Hx/Data Height 1.8 m Height (Calculated Centimeters) 180.3 Current Weight (lbs) 66.95 kg Weight (Calculated Kilograms) 67.0 Weight (Calculated Grams) 48551.2 [place] Body Weight 172 Weight Status Approriate GI Symptoms Food Allergies No Skin Integrity/Comment: [place] 21. Skin intact. Current %PO Good (75-100%) Estimated Nutritional Goals BEE in Kcals: Using Current wt Calories/Kcals/Kg CBW 147.6lb/67.1kg Kcals Calculated 1678-2013kcal (25-30kcal/kg) Protein: Using Current wt Protein Calculated 67g (1g/kg) Fluid: ml 1678-2013ml (1ml/kcal) Nutritional Problem 1. Problem Problem No nturitional concerns at this time. Intervention/Recommendation Comments 1. Continue with current diet order. Avg PO intake is adequate. Expected Outcomes/Goals Expected Outcomes/Goals 1. PO intake continue to meet at least 100% of estimated nutritional needs.
[2016-10-01] MEDS: Magnesium Hydroxide (MOM) 30 mL UDC PO SCH (20:05)
--- NOTE | 2016-10-02 00:33 | Progress Notes ---
DATE: 10/01/2016 Case discussed with staff of the patient, reviewed records. The patient continues to be psychotic, responding to internal stimuli. Continues to be unpredictable, impulsive, needing redirection. He is sleeping better, eating better. He is compliant with the medication with no side effects, no sedation, no nausea, no extrapyramidal symptoms. I will be increasing his Seroquel to 75 mg a day and he is still not ready to go because of his psychotic symptoms, agitation, hard to redirect. We will continue the patient in group therapy, milieu therapy, adjust medications as needed. JOB# [id number]
[2016-10-02] MEDS: Aspirin 81mg Chewable Tab PO SCH (09:59)
[2016-10-02] MEDS: Multivitamin Tab PO SCH (10:00)
[2016-10-02] MEDS ORDERED: Haloperidol Lactate 5 mg/mL 1mL Vial IM STA (12:35)
[2016-10-02] MEDS: Magnesium Hydroxide (MOM) 30 mL UDC PO SCH (20:03)
--- NOTE | 2016-10-02 21:08 | Internal Medicine Prog Note ---
Internal Medicine Subjective - Subjective Service Date: 10/02/16 Patient seen and examined:: without staff Patient is:: awake, confused Per staff patient has:: no adverse event, eating well, tolerating meds Internal Medicine Objective - Results Result Diagrams: 09/20/16 18:43 09/20/16 18:43 Recent Labs: Laboratory Last Values WBC 9.0 Th/cmm (4.8-10.8) D 09/20/16 18:43 RBC 3.89 Mil/cmm (3.80-5.80) 09/20/16 18:43 Hgb 12.0 gm/dL (12.6-17.4) L 09/20/16 18:43 Hct 35.7 % (39.0-49.0) L 09/20/16 18:43 MCV 92.0 fl (80-99) 09/20/16 18:43 MCH 31.0 pg (27.0-31.0) 09/20/16 18:43 MCHC Differential 33.7 pg (28.0-36.0) 09/20/16 18:43 RDW 14.9 % (11.5-20.0) 09/20/16 18:43 Plt Count 287 Th/cmm (150-400) 09/20/16 18:43 MPV 7.9 fl 09/20/16 18:43 Neutrophils % 52.2 % (40.0-80.0) 09/20/16 18:43 Lymphocytes % 34.2 % (20.0-50.0) 09/20/16 18:43 Monocytes % 8.5 % (2.0-10.0) 09/20/16 18:43 Eosinophils % 4.4 % (0.0-5.0) 09/20/16 18:43 Basophils % 0.7 % (0.0-2.0) 09/20/16 18:43 Sodium 131 mEq/L (136-145) L 09/20/16 18:43 Potassium 3.9 mEq/L (3.5-5.1) 09/20/16 18:43 Chloride 106 mEq/L (98-107) 09/20/16 18:43 Carbon Dioxide 23.5 mEq/L (21.0-31.0) 09/20/16 18:43 Anion Gap 5.4 (7.0-16.0) L 09/20/16 18:43 BUN 23 mg/dL (7-25) 09/20/16 18:43 Creatinine 0.8 mg/dL (0.7-1.3) 09/20/16 18:43 Est GFR ( Amer) TNP 09/20/16 18:43 Est GFR (Non-Af Amer) TNP 09/20/16 18:43 BUN/Creatinine Ratio 28.8 09/20/16 18:43 Glucose 81 mg/dL (70-105) 09/20/16 18:43 POC Glucose 86 MG/DL (70 - 105) 10/01/16 11:59 Calcium 9.6 mg/dL (8.6-10.3) 09/20/16 18:43 Total Bilirubin 0.4 mg/dL (0.3-1.0) 09/20/16 18:43 AST 18 U/L (13-39) 09/20/16 18:43 ALT 11 U/L (7-52) 09/20/16 18:43 Alkaline Phosphatase 77 U/L (34-104) 09/20/16 18:43 Total Protein 7.4 gm/dL (6.0-8.3) 09/20/16 18:43 Albumin 4.2 gm/dL (4.2-5.5) 09/20/16 18:43 Globulin 3.2 gm/dL 09/20/16 18:43 Albumin/Globulin Ratio 1.3 (1.0-1.8) 09/20/16 18:43 TSH 4.30 uIU/ml (0.34-5.60) 09/20/16 18:43 [place] 0.70 MEQ/L (0.50-1.00) 09/24/16 10:13 RPR NONREACTIVE (NONREACTIVE) 09/20/16 18:43 - Physical Exam Vitals and I&O: Vital Signs Temp 97.6 F 10/02/16 19:57 Pulse 68 10/02/16 19:57 Resp 20 10/02/16 19:57 BP 110/62 10/02/16 19:57 Pulse Ox 98 10/02/16 19:57 Intake & Output 10/02/16 10/02/16 10/03/16 06:59 18:59 06:59 Intake Total 180 875 Balance 180 875 Intake: Oral 180 875 Other: # Voids 2 4 # Bowel Movements 1 2 Active Medications: Current Medications Acetaminophen (Tylenol) 650 mg PO Q4HR PRN PRN Reason: Pain (Mild) Stop: 11/19/16 22:41 Al Hydrox/Mg Hydrox/Simethicone (Maalox) 30 ml PO Q6H PRN PRN Reason: Dyspepsia Stop: 11/19/16 22:38 Aspirin (Aspirin Chewable) 81 mg PO DAILY [facility] Stop: 11/20/16 08:59 Last Admin: 10/02/16 09:59 Dose: 81 mg Docusate Sodium (Colace) 100 mg PO BID [facility] Stop: 11/20/16 08:59 Last Admin: 10/02/16 18:00 Dose: Not Given Famotidine (Pepcid) 20 mg PO BID [facility] Stop: 11/20/16 08:59 Last Admin: 10/02/16 18:00 Dose: Not Given [place] Carbonate (Eskalith) 300 mg PO TID [facility] PRN Reason: Protocol Stop: 11/20/16 08:59 Last Admin: 10/02/16 20:03 Dose: 300 mg Lorazepam (Ativan) 1 mg PO Q6H PRN; Protocol PRN Reason: Anxiety/Agitation Stop: 11/19/16 22:38 Last Admin: 09/30/16 15:32 Dose: 1 mg Magnesium Hydroxide (Milk Of Magnesia) 30 ml PO HS [facility] Stop: 11/20/16 20:59 Last Admin: 10/02/16 20:03 Dose: 30 ml Multivitamins/Vitamin C (Theragran) 1 tab PO DAILY [facility] Stop: 11/20/16 08:59 Last Admin: 10/02/16 10:00 Dose: 1 tab Quetiapine Fumarate (Seroquel) 75 mg PO DAILY [facility] PRN Reason: Protocol Stop: 11/30/16 15:59 Last Admin: 10/02/16 10:15 Dose: 75 mg Zolpidem Tartrate (Ambien) 5 mg PO HS PRN PRN Reason: Insomnia Stop: 11/19/16 22:38 General: weak, demented HEENT: PERRLA, EOMI Neck: Supple, No JVD, No thyromegaly Lungs: CTAB Cardiovascular: RRR, Normal S1, Normal S2 Abdomen: soft, non-tender, non-distended Extremities: clear Neurological: no change Internal Medicine Assmt/Plan - Assessment Assessment: 1.HTN. 2.Anemia. 3.Dementia. - Plan Plan: CONTINUE ON CURRENT MEDICATION AND DIET. Nutritional Asmnt/Malnutr-PDOC - Dietary Evaluation Malnutrition Findings (Please click <Entered> for more info): Nutritional Asmnt/Malnutrition Start: 09/25/16 18: 00 Text: Status: Complete Freq: Document 09/25/16 18:00 GSUN (Rec: 09/25/16 18:07 [email or web address] [email or web address]) Nutritional Asmnt/Malnutrition Patient General Information Nutritional Screening Moderate Risk Screening Diagnosis Psychosis Pertinent Medical Hx/Surgical Hx HTN, dementia Subjective Information 71 year old male. Pt was seen staring out the window in room . Pt was alert and pleasant. Obtained CBW 147.6lb via bedscale. Pt appeared thin overall, no severe wasting noted. Pt with front teeth missing, few teeth intact. Pt tolerating current diet texture, denied difficulties eating. Avg PO intake 100% of meals since adm, meeting nutritional needs. Current Diet Order/ Nutrition Support [facility] soft ground. Pertinent Medications Colace, Pepcid, MOM, Theragran , Seroquel Pertinent Labs Reviewed. Nutritional Hx/Data Height 1.8 m Height (Calculated Centimeters) 180.3 Current Weight (lbs) 66.95 kg Weight (Calculated Kilograms) 67.0 Weight (Calculated Grams) 53646.2 [place] Body Weight 172 Weight Status Approriate GI Symptoms Food Allergies No Skin Integrity/Comment: Jerome 21. Skin intact. Current %PO Good (75-100%) Estimated Nutritional Goals BEE in Kcals: Using Current wt Calories/Kcals/Kg CBW 147.6lb/67.1kg Kcals Calculated 1678-2013kcal (25-30kcal/kg) Protein: Using Current wt Protein Calculated 67g (1g/kg) Fluid: ml 1678-2013ml (1ml/kcal) Nutritional Problem 1. Problem Problem No nturitional concerns at this time. Intervention/Recommendation Comments 1. Continue with current diet order. Avg PO intake is adequate. Expected Outcomes/Goals Expected Outcomes/Goals 1. PO intake continue to meet at least 100% of estimated nutritional needs.
--- NOTE | 2016-10-02 23:01 | Progress Notes ---
DATE: 10/02/2016 Case was discussed with staff of the patient, reviewed records. The patient continues to be unpredictable, impulsive. Looking disheveled, disorganized, internally preoccupied. Continues to have poor insight, needing redirection. He started increase in Seroquel with no side effects, no sedation, no nausea, no extrapyramidal symptoms and I will give more time before adjusting the dose and we will continue to work with the patient in group therapy, milieu therapy, adjust the medication as needed. Lab work showed lithium level 0.7, which is within acceptable therapeutic range. TSH is within normal range. CBC with low hemoglobin and hematocrit, 12, hemoglobin and ____ lab work. Chemistry panel showed low sodium and the rest is within normal range. We will continue to work with the patient in group therapy, milieu therapy, adjust medication as needed. JOB# [id number]
[2016-10-03] MEDS: Aspirin 81mg Chewable Tab PO SCH (09:30)
[2016-10-03] MEDS: Multivitamin Tab PO SCH (09:30)
--- NOTE | 2016-10-03 12:27 | Progress Notes ---
DATE: 10/03/2016 Case was discussed with staff of the patient, reviewed records. The patient continues to be internally preoccupied. Continues to have poor insight. Continues to be unable to make safe plan for self-care, unpredictable, impulsive. Sleeping better, eating better; however, still responding to internal stimuli. I will be increasing his Seroquel dose to 100 mg a day and so far no side effects, no sedation, no nausea, no extrapyramidal symptoms and we will continue to work with the patient in group therapy, milieu therapy, adjust the medication as needed. JOB# [id number]
[2016-10-03] MEDS: Magnesium Hydroxide (MOM) 30 mL UDC PO SCH (20:30)
--- NOTE | 2016-10-03 21:50 | Internal Medicine Prog Note ---
Internal Medicine Subjective - Subjective Service Date: 10/03/16 Patient seen and examined:: without staff Patient is:: awake, confused Per staff patient has:: no adverse event, eating well, tolerating meds Internal Medicine Objective - Results Result Diagrams: 09/20/16 18:43 09/20/16 18:43 Recent Labs: Laboratory Last Values WBC 9.0 Th/cmm (4.8-10.8) D 09/20/16 18:43 RBC 3.89 Mil/cmm (3.80-5.80) 09/20/16 18:43 Hgb 12.0 gm/dL (12.6-17.4) L 09/20/16 18:43 Hct 35.7 % (39.0-49.0) L 09/20/16 18:43 MCV 92.0 fl (80-99) 09/20/16 18:43 MCH 31.0 pg (27.0-31.0) 09/20/16 18:43 MCHC Differential 33.7 pg (28.0-36.0) 09/20/16 18:43 RDW 14.9 % (11.5-20.0) 09/20/16 18:43 Plt Count 287 Th/cmm (150-400) 09/20/16 18:43 MPV 7.9 fl 09/20/16 18:43 Neutrophils % 52.2 % (40.0-80.0) 09/20/16 18:43 Lymphocytes % 34.2 % (20.0-50.0) 09/20/16 18:43 Monocytes % 8.5 % (2.0-10.0) 09/20/16 18:43 Eosinophils % 4.4 % (0.0-5.0) 09/20/16 18:43 Basophils % 0.7 % (0.0-2.0) 09/20/16 18:43 Sodium 131 mEq/L (136-145) L 09/20/16 18:43 Potassium 3.9 mEq/L (3.5-5.1) 09/20/16 18:43 Chloride 106 mEq/L (98-107) 09/20/16 18:43 Carbon Dioxide 23.5 mEq/L (21.0-31.0) 09/20/16 18:43 Anion Gap 5.4 (7.0-16.0) L 09/20/16 18:43 BUN 23 mg/dL (7-25) 09/20/16 18:43 Creatinine 0.8 mg/dL (0.7-1.3) 09/20/16 18:43 Est GFR ( Amer) TNP 09/20/16 18:43 Est GFR (Non-Af Amer) TNP 09/20/16 18:43 BUN/Creatinine Ratio 28.8 09/20/16 18:43 Glucose 81 mg/dL (70-105) 09/20/16 18:43 POC Glucose 86 MG/DL (70 - 105) 10/01/16 11:59 Calcium 9.6 mg/dL (8.6-10.3) 09/20/16 18:43 Total Bilirubin 0.4 mg/dL (0.3-1.0) 09/20/16 18:43 AST 18 U/L (13-39) 09/20/16 18:43 ALT 11 U/L (7-52) 09/20/16 18:43 Alkaline Phosphatase 77 U/L (34-104) 09/20/16 18:43 Total Protein 7.4 gm/dL (6.0-8.3) 09/20/16 18:43 Albumin 4.2 gm/dL (4.2-5.5) 09/20/16 18:43 Globulin 3.2 gm/dL 09/20/16 18:43 Albumin/Globulin Ratio 1.3 (1.0-1.8) 09/20/16 18:43 TSH 4.30 uIU/ml (0.34-5.60) 09/20/16 18:43 [place] 0.70 MEQ/L (0.50-1.00) 09/24/16 10:13 RPR NONREACTIVE (NONREACTIVE) 09/20/16 18:43 - Physical Exam Vitals and I&O: Vital Signs Temp 98.2 F 10/03/16 21:19 Pulse 64 10/03/16 21:19 Resp 19 10/03/16 21:19 BP 149/63 10/03/16 21:19 Pulse Ox 98 10/03/16 21:19 Intake & Output 10/03/16 10/03/16 10/04/16 06:59 18:59 06:59 Intake Total 875 Balance 875 Intake: Oral 875 Other: # Voids 4 # Bowel Movements 2 Active Medications: Current Medications Acetaminophen (Tylenol) 650 mg PO Q4HR PRN PRN Reason: Pain (Mild) Stop: 11/19/16 22:41 Al Hydrox/Mg Hydrox/Simethicone (Maalox) 30 ml PO Q6H PRN PRN Reason: Dyspepsia Stop: 11/19/16 22:38 Aspirin (Aspirin Chewable) 81 mg PO DAILY [facility] Stop: 11/20/16 08:59 Last Admin: 10/03/16 09:30 Dose: 81 mg Docusate Sodium (Colace) 100 mg PO BID [facility] Stop: 11/20/16 08:59 Last Admin: 10/03/16 17:35 Dose: Not Given Famotidine (Pepcid) 20 mg PO BID [facility] Stop: 11/20/16 08:59 Last Admin: 10/03/16 17:34 Dose: 20 mg [place] Carbonate (Eskalith) 300 mg PO TID [facility] PRN Reason: Protocol Stop: 11/20/16 08:59 Last Admin: 10/03/16 20:30 Dose: 300 mg Lorazepam (Ativan) 1 mg PO Q6H PRN; Protocol PRN Reason: Anxiety/Agitation Stop: 11/19/16 22:38 Last Admin: 09/30/16 15:32 Dose: 1 mg Magnesium Hydroxide (Milk Of Magnesia) 30 ml PO HS [facility] Stop: 11/20/16 20:59 Last Admin: 10/03/16 20:30 Dose: 30 ml Multivitamins/Vitamin C (Theragran) 1 tab PO DAILY [facility] Stop: 11/20/16 08:59 Last Admin: 10/03/16 09:30 Dose: 1 tab Quetiapine Fumarate (Seroquel) 100 mg PO DAILY [facility] PRN Reason: Protocol Stop: 12/02/16 08:46 Last Admin: 10/03/16 09:31 Dose: 100 mg Zolpidem Tartrate (Ambien) 5 mg PO HS PRN PRN Reason: Insomnia Stop: 11/19/16 22:38 General: weak, demented HEENT: PERRLA, EOMI Neck: Supple, No JVD, No thyromegaly Lungs: CTAB Cardiovascular: RRR, Normal S1, Normal S2 Abdomen: soft, non-tender, non-distended Extremities: clear Neurological: no change Internal Medicine Assmt/Plan - Assessment Assessment: 1.HTN. 2.Anemia. 3.Dementia. - Plan Plan: CONTINUE ON CURRENT MEDICATION AND DIET. Nutritional Asmnt/Malnutr-PDOC - Dietary Evaluation Malnutrition Findings (Please click <Entered> for more info): Nutritional Asmnt/Malnutrition Start: 09/25/16 18: 00 Text: Status: Complete Freq: Document 09/25/16 18:00 GSUN (Rec: 09/25/16 18:07 GSUN [email or web address]) Nutritional Asmnt/Malnutrition Patient General Information Nutritional Screening Moderate Risk Screening Diagnosis Psychosis Pertinent Medical Hx/Surgical Hx HTN, dementia Subjective Information 71 year old male. Pt was seen staring out the window in room . Pt was alert and pleasant. Obtained CBW 147.6lb via bedscale. Pt appeared thin overall, no severe wasting noted. Pt with front teeth missing, few teeth intact. Pt tolerating current diet texture, denied difficulties eating. Avg PO intake 100% of meals since adm, meeting nutritional needs. Current Diet Order/ Nutrition Support [facility] soft ground. Pertinent Medications Colace, Pepcid, MOM, Theragran , Seroquel Pertinent Labs Reviewed. Nutritional Hx/Data Height 1.8 m Height (Calculated Centimeters) 180.3 Current Weight (lbs) 66.95 kg Weight (Calculated Kilograms) 67.0 Weight (Calculated Grams) 44119.2 [place] Body Weight 172 Weight Status Approriate GI Symptoms Food Allergies No Skin Integrity/Comment: [place] 21. Skin intact. Current %PO Good (75-100%) Estimated Nutritional Goals BEE in Kcals: Using Current wt Calories/Kcals/Kg CBW 147.6lb/67.1kg Kcals Calculated 1678-2013kcal (25-30kcal/kg) Protein: Using Current wt Protein Calculated 67g (1g/kg) Fluid: ml 1678-2013ml (1ml/kcal) Nutritional Problem 1. Problem Problem No nturitional concerns at this time. Intervention/Recommendation Comments 1. Continue with current diet order. Avg PO intake is adequate. Expected Outcomes/Goals Expected Outcomes/Goals 1. PO intake continue to meet at least 100% of estimated nutritional needs.
[2016-10-04] MEDS: Multivitamin Tab PO SCH (08:41)
[2016-10-04] MEDS: Aspirin 81mg Chewable Tab PO SCH (08:41)
--- NOTE | 2016-10-04 17:37 | Internal Medicine Prog Note ---
Internal Medicine Subjective - Subjective Service Date: 10/04/16 Patient seen and examined:: without staff Patient is:: awake, confused Per staff patient has:: no adverse event, eating well, tolerating meds Internal Medicine Objective - Results Result Diagrams: 09/20/16 18:43 09/20/16 18:43 Recent Labs: Laboratory Last Values WBC 9.0 Th/cmm (4.8-10.8) D 09/20/16 18:43 RBC 3.89 Mil/cmm (3.80-5.80) 09/20/16 18:43 Hgb 12.0 gm/dL (12.6-17.4) L 09/20/16 18:43 Hct 35.7 % (39.0-49.0) L 09/20/16 18:43 MCV 92.0 fl (80-99) 09/20/16 18:43 MCH 31.0 pg (27.0-31.0) 09/20/16 18:43 MCHC Differential 33.7 pg (28.0-36.0) 09/20/16 18:43 RDW 14.9 % (11.5-20.0) 09/20/16 18:43 Plt Count 287 Th/cmm (150-400) 09/20/16 18:43 MPV 7.9 fl 09/20/16 18:43 Neutrophils % 52.2 % (40.0-80.0) 09/20/16 18:43 Lymphocytes % 34.2 % (20.0-50.0) 09/20/16 18:43 Monocytes % 8.5 % (2.0-10.0) 09/20/16 18:43 Eosinophils % 4.4 % (0.0-5.0) 09/20/16 18:43 Basophils % 0.7 % (0.0-2.0) 09/20/16 18:43 Sodium 131 mEq/L (136-145) L 09/20/16 18:43 Potassium 3.9 mEq/L (3.5-5.1) 09/20/16 18:43 Chloride 106 mEq/L (98-107) 09/20/16 18:43 Carbon Dioxide 23.5 mEq/L (21.0-31.0) 09/20/16 18:43 Anion Gap 5.4 (7.0-16.0) L 09/20/16 18:43 BUN 23 mg/dL (7-25) 09/20/16 18:43 Creatinine 0.8 mg/dL (0.7-1.3) 09/20/16 18:43 Est GFR ( Amer) TNP 09/20/16 18:43 Est GFR (Non-Af Amer) TNP 09/20/16 18:43 BUN/Creatinine Ratio 28.8 09/20/16 18:43 Glucose 81 mg/dL (70-105) 09/20/16 18:43 POC Glucose 86 MG/DL (70 - 105) 10/01/16 11:59 Calcium 9.6 mg/dL (8.6-10.3) 09/20/16 18:43 Total Bilirubin 0.4 mg/dL (0.3-1.0) 09/20/16 18:43 AST 18 U/L (13-39) 09/20/16 18:43 ALT 11 U/L (7-52) 09/20/16 18:43 Alkaline Phosphatase 77 U/L (34-104) 09/20/16 18:43 Total Protein 7.4 gm/dL (6.0-8.3) 09/20/16 18:43 Albumin 4.2 gm/dL (4.2-5.5) 09/20/16 18:43 Globulin 3.2 gm/dL 09/20/16 18:43 Albumin/Globulin Ratio 1.3 (1.0-1.8) 09/20/16 18:43 TSH 4.30 uIU/ml (0.34-5.60) 09/20/16 18:43 [place] 0.70 MEQ/L (0.50-1.00) 09/24/16 10:13 RPR NONREACTIVE (NONREACTIVE) 09/20/16 18:43 - Physical Exam Vitals and I&O: Vital Signs Temp 98.2 F 10/03/16 21:19 Pulse 64 10/03/16 21:19 Resp 19 10/03/16 21:19 BP 149/63 10/03/16 21:19 Pulse Ox 98 10/03/16 21:19 Intake & Output 10/03/16 10/04/16 10/04/16 18:59 06:59 18:59 Other: # Voids 2 Active Medications: Current Medications Acetaminophen (Tylenol) 650 mg PO Q4HR PRN PRN Reason: Pain (Mild) Stop: 11/19/16 22:41 Al Hydrox/Mg Hydrox/Simethicone (Maalox) 30 ml PO Q6H PRN PRN Reason: Dyspepsia Stop: 11/19/16 22:38 Aspirin (Aspirin Chewable) 81 mg PO DAILY [facility] Stop: 11/20/16 08:59 Last Admin: 10/04/16 08:41 Dose: 81 mg Docusate Sodium (Colace) 100 mg PO BID [facility] Stop: 11/20/16 08:59 Last Admin: 10/04/16 17:13 Dose: 100 mg Famotidine (Pepcid) 20 mg PO BID [facility] Stop: 11/20/16 08:59 Last Admin: 10/04/16 17:13 Dose: 20 mg [place] Carbonate (Eskalith) 300 mg PO TID [facility] PRN Reason: Protocol Stop: 11/20/16 08:59 Last Admin: 10/04/16 14:30 Dose: 300 mg Lorazepam (Ativan) 1 mg PO Q6H PRN; Protocol PRN Reason: Anxiety/Agitation Stop: 11/19/16 22:38 Last Admin: 09/30/16 15:32 Dose: 1 mg Magnesium Hydroxide (Milk Of Magnesia) 30 ml PO HS [facility] Stop: 11/20/16 20:59 Last Admin: 10/03/16 20:30 Dose: 30 ml Multivitamins/Vitamin C (Theragran) 1 tab PO DAILY [facility] Stop: 11/20/16 08:59 Last Admin: 10/04/16 08:41 Dose: 1 tab Quetiapine Fumarate (Seroquel) 100 mg PO DAILY [facility] PRN Reason: Protocol Stop: 12/02/16 08:46 Last Admin: 10/04/16 08:41 Dose: 100 mg Zolpidem Tartrate (Ambien) 5 mg PO HS PRN PRN Reason: Insomnia Stop: 11/19/16 22:38 General: weak, demented HEENT: PERRLA, EOMI Neck: Supple, No JVD, No thyromegaly Lungs: CTAB Cardiovascular: RRR, Normal S1, Normal S2 Abdomen: soft, non-tender, non-distended Extremities: clear Neurological: no change Internal Medicine Assmt/Plan - Assessment Assessment: 1.HTN. 2.Anemia. 3.Dementia. - Plan Plan: CONTINUE ON CURRENT MEDICATION AND DIET. Nutritional Asmnt/Malnutr-PDOC - Dietary Evaluation Malnutrition Findings (Please click <Entered> for more info): Nutritional Asmnt/Malnutrition Start: 09/25/16 18: 00 Text: Status: Complete Freq: Document 09/25/16 18:00 GSUN (Rec: 09/25/16 18:07 GSUN [email or web address]) Nutritional Asmnt/Malnutrition Patient General Information Nutritional Screening Moderate Risk Screening Diagnosis Psychosis Pertinent Medical Hx/Surgical Hx HTN, dementia Subjective Information 71 year old male. Pt was seen staring out the window in room . Pt was alert and pleasant. Obtained CBW 147.6lb via bedscale. Pt appeared thin overall, no severe wasting noted. Pt with front teeth missing, few teeth intact. Pt tolerating current diet texture, denied difficulties eating. Avg PO intake 100% of meals since adm, meeting nutritional needs. Current Diet Order/ Nutrition Support [facility] soft ground. Pertinent Medications Colace, Pepcid, MOM, Theragran , Seroquel Pertinent Labs Reviewed. Nutritional Hx/Data Height 1.8 m Height (Calculated Centimeters) 180.3 Current Weight (lbs) 66.95 kg Weight (Calculated Kilograms) 67.0 Weight (Calculated Grams) 94827.2 [place] Body Weight 172 Weight Status Approriate GI Symptoms Food Allergies No Skin Integrity/Comment: [place] 21. Skin intact. Current %PO Good (75-100%) Estimated Nutritional Goals BEE in Kcals: Using Current wt Calories/Kcals/Kg CBW 147.6lb/67.1kg Kcals Calculated 1678-2013kcal (25-30kcal/kg) Protein: Using Current wt Protein Calculated 67g (1g/kg) Fluid: ml 1678-2013ml (1ml/kcal) Nutritional Problem 1. Problem Problem No nturitional concerns at this time. Intervention/Recommendation Comments 1. Continue with current diet order. Avg PO intake is adequate. Expected Outcomes/Goals Expected Outcomes/Goals 1. PO intake continue to meet at least 100% of estimated nutritional needs.
[2016-10-04] MEDS: Magnesium Hydroxide (MOM) 30 mL UDC PO SCH (20:59)
--- NOTE | 2016-10-04 21:10 | Progress Notes ---
DATE: 10/04/2016 Case was discussed with staff of the patient, reviewed records. The patient continues to be unpredictable and impulsive. Looking disheveled, disorganized, internally preoccupied. Sleeping better and eating better. I did increase his Seroquel dose yesterday to 100 mg a day with no side effects, no sedation, no nausea, and no extrapyramidal symptoms, and still not ready to go because of his psychosis, agitation, and we will continue to work with the patient in group therapy, milieu therapy, and adjust the medication as needed. JOB# [id number]
[2016-10-05] MEDS: Multivitamin Tab PO SCH (08:35)
[2016-10-05] MEDS: Aspirin 81mg Chewable Tab PO SCH (08:35)
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
== END 2016-10-05 17:45 | disposition home or self-care (01) | DRG 884 ==
LOC: ER 18:14 → GERO 21:09
PROVIDERS: ADMIT Psychiatry & Neurology Psychiatry; ATTEND Psychiatry & Neurology Psychiatry
DX: F03.91 Unspecified dementia, unspecified severity, with behavioral disturbance (principal); J44.9 Chronic obstructive pulmonary disease, unspecified; E87.1 Hypo-osmolality and hyponatremia; D64.9 Anemia, unspecified; F29 Unspecified psychosis not due to a substance or known physiological condition; F31.9 Bipolar disorder, unspecified; I10 Essential (primary) hypertension; K21.9 Gastro-esophageal reflux disease without esophagitis; J45.909 Unspecified asthma, uncomplicated; Z79.82 Long term (current) use of aspirin; Z79.899 Other long term (current) drug therapy
CPT/HCPCS: 36415-UA; 80053-TC; 80178-TC; 82948-90; 84443-TC; 85025-TC; 86592-TC; 90899; 93005; G0410; J1200; J1630; J2060; Z7610

== ENCOUNTER 2017-04-24 17:15 | Inpatient (IN) | payer MEDICARE, MEDICAID ==
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
[2017-04-24 17:42] LABS: % BASOPHILS 0.5 % (0.0-2.0); % EOSINOPHILS 5.3 % (0.0-5.0); % LYMPHOCYTES 34.9 % (20.0-50.0); % MONOCYTES 10.2 % (2.0-10.0); % NEUTROPHILS 49.1 % (40.0-80.0); EOSINOPHILE ABSOLUTE 0.4 Th/cmm (0.1-0.4); HEMATOCRIT 39.2 % (41.0-60); HEMOGLOBIN 13.6 gm/dL (12-16); LYMPHOCYTE ABSOLUTE 2.9 Th/cmm (1.5-3.0); MEAN CELL VOLUME 90.2 fl (80-99); MEAN CORPUSCULAR HEMOGLOBIN 31.3 pg (27.0-31.0); MEAN CORPUSCULAR HGB CONC 34.7 pg (28.0-36.0); MEAN PLATELET VOLUME 7.9 fl; MONOCYTE ABSOLUTE 0.9 Th/cmm (0.3-1.0); NEUTROPHILE ABSOLUTE 4.2 Th/cmm (1.8-8.0); PLATELET COUNT 268 Th/cmm (150-400); RED BLOOD COUNT 4.35 Mil/cmm (3.80-5.80); RED CELL DISTRIBUTION WIDTH 13.5 % (11.5-20.0); WHITE BLOOD COUNT 8.4 Th/cmm (4.8-10.8)
[2017-04-24 17:59] LABS: ALB/GLOB RATIO 1.2 (1.0-1.8); ALKALINE PHOSPHATASE 87 U/L (34-104); ANION GAP 9.8 (7.0-16.0); BILIRUBIN,TOTAL 0.3 mg/dL (0.3-1.0); BUN - UREA NITROGEN 25 mg/dL (7-25); CALCIUM SERUM 9.6 mg/dL (8.6-10.3); CARBON DIOXIDE 25.2 mEq/L (21.0-31.0); CHLORIDE 105 mEq/L (98-107); CHOLESTEROL 187 mg/dL (<200); CREATININE - SERUM 0.9 mg/dL (0.7-1.3); GLUCOSE 71 mg/dL (70-105); HDL -HIGH DENSITY LIPOPROTEIN 51 mg/dL (23-92); SGOT 15 U/L (13-39); SGPT/ALT 10 U/L (7-52); SODIUM SERUM 136 mEq/L (136-145); TOTAL PROTEIN,SERUM 7.3 gm/dL (6.0-8.3); TRIGLYCERIDES 123 mg/dL (<150)
[2017-04-24 18:27] LABS: URINE MICROSCOPIC INDICATED? YES; URINE SOURCE CLEAN C
[2017-04-24 18:29] LABS: URINE BILIRUBIN NEGATIVE (NEGATIVE); URINE BLOOD NEGATIVE (NEGATIVE); URINE GLUCOSE (UA) NEGATIVE (NEGATIVE); URINE KETONE NEGATIVE (NEGATIVE); URINE LEUKOCYTE ESTERASE NEGATIVE (NEGATIVE); URINE NITRATE NEGATIVE (NEGATIVE); URINE PROTEIN NEGATIVE (NEGATIVE); URINE UROBILINOGEN 0.2 E.U./dL (0.2 - 1.0)
[2017-04-24 18:30] LABS: URINE CLARITY CLEAR (CLEAR); URINE COLOR YELLOW; URINE EPITHELIAL CELLS NONE SEEN /lpf (FEW); URINE RBC NONE SEEN /hpf (0-5); URINE WBC NONE SEEN /hpf (0-5)
[2017-04-24 18:31] LABS: URINE BACTERIA NONE SEEN /hpf (NONE SEEN)
[2017-04-24 20:42] VITALS: BP 147/77
--- NOTE | 2017-04-24 22:44 | History & Physical ---
ADMIT DATE: 04/24/2017 HISTORY OF PRESENT ILLNESS: The patient is a 71-year-old male with long history of degenerative joint disease, dementia, psychosis, hypertension, admitted to [facility] for treatment. The patient denies any chest pain, shortness of breath, nausea, or vomiting. PAST MEDICAL HISTORY: Significant for dementia, degenerative joint disease, psychosis, borderline hypertension. PAST SURGICAL HISTORY: No recent surgery. ALLERGIES: None. MEDICATIONS: Follow admission reconciliation. SOCIAL HISTORY: No smoking, alcohol or drugs. FAMILY HISTORY: Noncontributory. REVIEW OF SYSTEMS: RENAL SYSTEM: No history of chronic renal disorder. CARDIOVASCULAR SYSTEM: No coronary artery disease. ENDOCRINE SYSTEM: No diabetes or thyroid problem. GASTROINTESTINAL SYSTEM: No upper or lower gastrointestinal bleed. NEUROLOGICAL SYSTEM: No seizure disorder. MUSCULOSKELETAL SYSTEM: No muscular dystrophy. HEMATOLOGICAL SYSTEM: No bleeding tendencies. RESPIRATORY SYSTEM: No asthma. GENITOURINARY SYSTEM: No dysuria or hematuria. PHYSICAL EXAMINATION: GENERAL: She is awake, alert, confused. VITAL SIGNS: Temperature 98, heart rate 61, blood pressure 141/71. HEENT: Normocephalic. Pupils are reacting equally to light and accommodation. Sclerae clear. NECK: Supple. Negative for lymphadenopathy, JVD or bruit. CHEST: Bilateral normal. No rhonchi or wheezing. HEART: S1, S2 normal. No murmur or gallop. ABDOMEN: Soft, bowel sounds positive. EXTREMITIES: No edema. NEUROLOGIC: Awake, not oriented. No focal motor or sensory deficit. LABORATORY DATA: White blood cell 8.4, hemoglobin 13.6, hematocrit 39.2, platelet is 268. Sodium 136, potassium 4, BUN 25, creatinine 0.9. ASSESSMENT: 1. Hypertension. 2. Degenerative joint disease. 3. Dementia. 4. Psychosis. PLAN: The patient admitted in the hospital for more evaluation and treatment. MEDICAL PROBLEMS ADDRESSED DURING HOSPITALIZATION: Psychosis, dementia. MEDICAL PROBLEMS TO BE ADDRESSED AT DISCHARGE: Degenerative joint disease. The patient is medically stable for activity. Thank you for asking me to see your patient. JOB# [id number]
[2017-04-25] MEDS: Multivitamin Tab PO SCH (09:21)
[2017-04-25] MEDS: Aspirin 81mg Chewable Tab PO SCH (09:22)
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
--- NOTE | 2017-04-25 16:05 | Internal Medicine Prog Note ---
Internal Medicine Subjective - Subjective Service Date: 04/25/17 Patient seen and examined:: with staff (HE FEELS WELL) Patient is:: verbal, in wheelchair, talking, confused Per staff patient has:: no adverse event Internal Medicine Objective - Results Result Diagrams: 04/24/17 17:35 04/24/17 17:35 Recent Labs: Laboratory Last Values WBC 8.4 Th/cmm (4.8-10.8) 04/24/17 17:35 RBC 4.35 Mil/cmm (3.80-5.80) 04/24/17 17:35 Hgb 13.6 gm/dL (12-16) 04/24/17 17:35 Hct 39.2 % (41.0-60) L 04/24/17 17:35 MCV 90.2 fl (80-99) 04/24/17 17:35 MCH 31.3 pg (27.0-31.0) H 04/24/17 17:35 MCHC Differential 34.7 pg (28.0-36.0) 04/24/17 17:35 RDW 13.5 % (11.5-20.0) 04/24/17 17:35 Plt Count 268 Th/cmm (150-400) 04/24/17 17:35 MPV 7.9 fl 04/24/17 17:35 Neutrophils % 49.1 % (40.0-80.0) 04/24/17 17:35 Lymphocytes % 34.9 % (20.0-50.0) 04/24/17 17:35 Monocytes % 10.2 % (2.0-10.0) H 04/24/17 17:35 Eosinophils % 5.3 % (0.0-5.0) H 04/24/17 17:35 Basophils % 0.5 % (0.0-2.0) 04/24/17 17:35 Sodium 136 mEq/L (136-145) 04/24/17 17:35 Potassium 4.0 mEq/L (3.5-5.1) 04/24/17 17:35 Chloride 105 mEq/L (98-107) 04/24/17 17:35 Carbon Dioxide 25.2 mEq/L (21.0-31.0) 04/24/17 17:35 Anion Gap 9.8 (7.0-16.0) 04/24/17 17:35 BUN 25 mg/dL (7-25) 04/24/17 17:35 Creatinine 0.9 mg/dL (0.7-1.3) 04/24/17 17:35 Est GFR ( Amer) TNP 04/24/17 17:35 Est GFR (Non-Af Amer) TNP 04/24/17 17:35 BUN/Creatinine Ratio 27.8 04/24/17 17:35 Glucose 71 mg/dL (70-105) 04/24/17 17:35 Calcium 9.6 mg/dL (8.6-10.3) 04/24/17 17:35 Total Bilirubin 0.3 mg/dL (0.3-1.0) 04/24/17 17:35 AST 15 U/L (13-39) 04/24/17 17:35 ALT 10 U/L (7-52) 04/24/17 17:35 Alkaline Phosphatase 87 U/L (34-104) 04/24/17 17:35 Troponin I 0.01 ng/mL (0.01-0.05) 04/24/17 17:35 Total Protein 7.3 gm/dL (6.0-8.3) 04/24/17 17:35 Albumin 4.0 gm/dL (4.2-5.5) L 04/24/17 17:35 Globulin 3.3 gm/dL 04/24/17 17:35 Albumin/Globulin Ratio 1.2 (1.0-1.8) 04/24/17 17:35 Triglycerides 123 mg/dL (<150) 04/24/17 17:35 Cholesterol 187 mg/dL (<200) 04/24/17 17:35 LDL Cholesterol Direct 138 mg/dL (75-193) 04/24/17 17:35 HDL Cholesterol 51 mg/dL (23-92) 04/24/17 17:35 TSH 5.04 uIU/ml (0.34-5.60) 04/24/17 17:35 Urine Source CLEAN C 04/24/17 17:20 Urine Color YELLOW 04/24/17 17:20 Urine Clarity CLEAR (CLEAR) 04/24/17 17:20 Urine pH 6.0 (4.6 - 8.0) 04/24/17 17:20 Ur Specific [place] 1.010 (1.005-1.030) 04/24/17 17:20 Urine Protein NEGATIVE mg/dL (NEGATIVE) 04/24/17 17:20 Urine Glucose (UA) NEGATIVE mg/dL (NEGATIVE) 04/24/17 17:20 Urine Ketones NEGATIVE mg/dL (NEGATIVE) 04/24/17 17:20 Urine Blood NEGATIVE (NEGATIVE) 04/24/17 17:20 Urine Nitrate NEGATIVE (NEGATIVE) 04/24/17 17:20 Urine Bilirubin NEGATIVE (NEGATIVE) 04/24/17 17:20 Urine Urobilinogen 0.2 E.U./dL (0.2 - 1.0) 04/24/17 17:20 Ur Leukocyte Esterase NEGATIVE (NEGATIVE) 04/24/17 17:20 Urine RBC NONE SEEN /hpf (0-5) 04/24/17 17:20 Urine WBC NONE SEEN /hpf (0-5) 04/24/17 17:20 Ur Epithelial Cells NONE SEEN /lpf (FEW) 04/24/17 17:20 Urine Bacteria NONE SEEN /hpf (NONE SEEN) 04/24/17 17:20 - Physical Exam Vitals and I&O: Vital Signs Temp 96.4 F 04/25/17 15:03 Pulse 55 04/25/17 15:03 Resp 20 04/25/17 15:03 BP 131/57 04/25/17 15:03 Pulse Ox 96 04/25/17 15:03 Active Medications: Current Medications Acetaminophen (Tylenol) 650 mg PO Q4HR PRN PRN Reason: Pain (Mild) Stop: 06/23/17 21:08 Aspirin (Aspirin Chewable) 81 mg PO DAILY [facility] Stop: 06/24/17 08:59 Last Admin: 04/25/17 09:22 Dose: 81 mg Docusate Sodium (Colace) 100 mg PO BID [facility] Stop: 06/24/17 08:59 Last Admin: 04/25/17 09:21 Dose: 100 mg Famotidine (Pepcid) 20 mg PO BID [facility] Stop: 06/24/17 08:59 Last Admin: 04/25/17 09:21 Dose: 20 mg [place] Carbonate (Eskalith) 300 mg PO TID [facility] PRN Reason: Protocol Stop: 06/23/17 21:29 Last Admin: 04/25/17 13:05 Dose: 300 mg Lorazepam (Ativan) 0.5 mg PO Q4HR PRN; Protocol PRN Reason: Agitation Stop: 06/23/17 21:09 Magnesium Hydroxide (Milk Of Magnesia) 30 ml PO HS [facility] Stop: 06/24/17 20:59 Multivitamins/Vitamin C (Theragran) 1 tab PO DAILY [facility] Stop: 06/24/17 08:59 Last Admin: 04/25/17 09:21 Dose: 1 tab Quetiapine Fumarate (Seroquel) 100 mg PO DAILY [facility] PRN Reason: Protocol Stop: 06/24/17 08:59 Last Admin: 04/25/17 09:22 Dose: 100 mg Zolpidem Tartrate (Ambien) 5 mg PO HS PRN PRN Reason: Insomnia Stop: 06/23/17 22:22 General: demented HEENT: NC/AT, PERRLA, EOMI, throat clear Neck: No JVD, No thyromegaly, +2 carotid pulse wo bruit, No LAD Lungs: congested Cardiovascular: RRR, Normal S1, Normal S2 Abdomen: soft, non-tender, non-distended Neurological: no change Internal Medicine Assmt/Plan - Assessment Assessment: 1.HTN 2.DJD. 3.DEMENTIA. 4.PSYCHOSIS - Plan Plan: CONTINUE ON CURRENT MEDICATION
[2017-04-25 16:48] LABS: A1C % 5.1 % (4.0-6.0)
[2017-04-25] MEDS: Magnesium Hydroxide (MOM) 30 mL UDC PO SCH (21:56)
[2017-04-26] MEDS: Aspirin 81mg Chewable Tab PO SCH (09:11)
[2017-04-26] MEDS: Multivitamin Tab PO SCH (09:11)
[2017-04-26] MEDS: Magnesium Hydroxide (MOM) 30 mL UDC PO SCH (21:08)
--- NOTE | 2017-04-26 21:24 | Internal Medicine Prog Note ---
Internal Medicine Subjective - Subjective Service Date: 04/26/17 Patient seen and examined:: with staff Patient is:: verbal, in wheelchair, talking, confused Per staff patient has:: no adverse event Internal Medicine Objective - Results Result Diagrams: 04/24/17 17:35 04/24/17 17:35 Recent Labs: Laboratory Last Values WBC 8.4 Th/cmm (4.8-10.8) 04/24/17 17:35 RBC 4.35 Mil/cmm (3.80-5.80) 04/24/17 17:35 Hgb 13.6 gm/dL (12-16) 04/24/17 17:35 Hct 39.2 % (41.0-60) L 04/24/17 17:35 MCV 90.2 fl (80-99) 04/24/17 17:35 MCH 31.3 pg (27.0-31.0) H 04/24/17 17:35 MCHC Differential 34.7 pg (28.0-36.0) 04/24/17 17:35 RDW 13.5 % (11.5-20.0) 04/24/17 17:35 Plt Count 268 Th/cmm (150-400) 04/24/17 17:35 MPV 7.9 fl 04/24/17 17:35 Neutrophils % 49.1 % (40.0-80.0) 04/24/17 17:35 Lymphocytes % 34.9 % (20.0-50.0) 04/24/17 17:35 Monocytes % 10.2 % (2.0-10.0) H 04/24/17 17:35 Eosinophils % 5.3 % (0.0-5.0) H 04/24/17 17:35 Basophils % 0.5 % (0.0-2.0) 04/24/17 17:35 Sodium 136 mEq/L (136-145) 04/24/17 17:35 Potassium 4.0 mEq/L (3.5-5.1) 04/24/17 17:35 Chloride 105 mEq/L (98-107) 04/24/17 17:35 Carbon Dioxide 25.2 mEq/L (21.0-31.0) 04/24/17 17:35 Anion Gap 9.8 (7.0-16.0) 04/24/17 17:35 BUN 25 mg/dL (7-25) 04/24/17 17:35 Creatinine 0.9 mg/dL (0.7-1.3) 04/24/17 17:35 Est GFR ( Amer) TNP 04/24/17 17:35 Est GFR (Non-Af Amer) TNP 04/24/17 17:35 BUN/Creatinine Ratio 27.8 04/24/17 17:35 Glucose 71 mg/dL (70-105) 04/24/17 17:35 Hemoglobin A1c % 5.1 % (4.0-6.0) 04/24/17 17:35 Calcium 9.6 mg/dL (8.6-10.3) 04/24/17 17:35 Total Bilirubin 0.3 mg/dL (0.3-1.0) 04/24/17 17:35 AST 15 U/L (13-39) 04/24/17 17:35 ALT 10 U/L (7-52) 04/24/17 17:35 Alkaline Phosphatase 87 U/L (34-104) 04/24/17 17:35 Troponin I 0.01 ng/mL (0.01-0.05) 04/24/17 17:35 Total Protein 7.3 gm/dL (6.0-8.3) 04/24/17 17:35 Albumin 4.0 gm/dL (4.2-5.5) L 04/24/17 17:35 Globulin 3.3 gm/dL 04/24/17 17:35 Albumin/Globulin Ratio 1.2 (1.0-1.8) 04/24/17 17:35 Triglycerides 123 mg/dL (<150) 04/24/17 17:35 Cholesterol 187 mg/dL (<200) 04/24/17 17:35 LDL Cholesterol Direct 138 mg/dL (75-193) 04/24/17 17:35 HDL Cholesterol 51 mg/dL (23-92) 04/24/17 17:35 TSH 5.04 uIU/ml (0.34-5.60) 04/24/17 17:35 Urine Source CLEAN C 04/24/17 17:20 Urine Color YELLOW 04/24/17 17:20 Urine Clarity CLEAR (CLEAR) 04/24/17 17:20 Urine pH 6.0 (4.6 - 8.0) 04/24/17 17:20 Ur Specific [place] 1.010 (1.005-1.030) 04/24/17 17:20 Urine Protein NEGATIVE mg/dL (NEGATIVE) 04/24/17 17:20 Urine Glucose (UA) NEGATIVE mg/dL (NEGATIVE) 04/24/17 17:20 Urine Ketones NEGATIVE mg/dL (NEGATIVE) 04/24/17 17:20 Urine Blood NEGATIVE (NEGATIVE) 04/24/17 17:20 Urine Nitrate NEGATIVE (NEGATIVE) 04/24/17 17:20 Urine Bilirubin NEGATIVE (NEGATIVE) 04/24/17 17:20 Urine Urobilinogen 0.2 E.U./dL (0.2 - 1.0) 04/24/17 17:20 Ur Leukocyte Esterase NEGATIVE (NEGATIVE) 04/24/17 17:20 Urine RBC NONE SEEN /hpf (0-5) 04/24/17 17:20 Urine WBC NONE SEEN /hpf (0-5) 04/24/17 17:20 Ur Epithelial Cells NONE SEEN /lpf (FEW) 04/24/17 17:20 Urine Bacteria NONE SEEN /hpf (NONE SEEN) 04/24/17 17:20 RPR NONREACTIVE (NONREACTIVE) 04/24/17 17:35 - Physical Exam Vitals and I&O: Vital Signs Temp 98.9 F 04/26/17 15:41 Pulse 59 04/26/17 15:41 Resp 20 04/26/17 15:41 BP 121/64 04/26/17 15:41 Pulse Ox 94 04/26/17 15:41 Intake & Output 04/26/17 04/26/17 04/27/17 06:59 18:59 06:59 Intake Total 1500 Balance 1500 Weight (lbs) 68.039 kg Intake: Oral 1500 Other: # Voids 4 # Bowel Movements 1 Active Medications: Current Medications Acetaminophen (Tylenol) 650 mg PO Q4HR PRN PRN Reason: Pain (Mild) Stop: 06/23/17 21:08 Aspirin (Aspirin Chewable) 81 mg PO DAILY [facility] Stop: 06/24/17 08:59 Last Admin: 04/26/17 09:11 Dose: 81 mg Docusate Sodium (Colace) 100 mg PO BID [facility] Stop: 06/24/17 08:59 Last Admin: 04/26/17 16:36 Dose: 100 mg Famotidine (Pepcid) 20 mg PO BID [facility] Stop: 06/24/17 08:59 Last Admin: 04/26/17 16:36 Dose: 20 mg [place] Carbonate (Eskalith) 300 mg PO TID [facility] PRN Reason: Protocol Stop: 06/23/17 21:29 Last Admin: 04/26/17 21:08 Dose: 300 mg Lorazepam (Ativan) 0.5 mg PO Q4HR PRN; Protocol PRN Reason: Agitation Stop: 06/23/17 21:09 Magnesium Hydroxide (Milk Of Magnesia) 30 ml PO HS [facility] Stop: 06/24/17 20:59 Last Admin: 04/26/17 21:08 Dose: 30 ml Multivitamins/Vitamin C (Theragran) 1 tab PO DAILY [facility] Stop: 06/24/17 08:59 Last Admin: 04/26/17 09:11 Dose: 1 tab Quetiapine Fumarate (Seroquel) 100 mg PO DAILY [facility] PRN Reason: Protocol Stop: 06/24/17 08:59 Last Admin: 04/26/17 09:11 Dose: 100 mg Zolpidem Tartrate (Ambien) 5 mg PO HS PRN PRN Reason: Insomnia Stop: 06/23/17 22:22 Last Admin: 04/26/17 21:08 Dose: 5 mg General: demented HEENT: NC/AT, PERRLA, EOMI, throat clear Neck: No JVD, No thyromegaly, +2 carotid pulse wo bruit, No LAD Lungs: congested Cardiovascular: RRR, Normal S1, Normal S2 Abdomen: soft, non-tender, non-distended Neurological: no change Internal Medicine Assmt/Plan - Assessment Assessment: 1.HTN 2.DJD. 3.DEMENTIA. 4.PSYCHOSIS - Plan Plan: CONTINUE ON CURRENT MEDICATION
--- NOTE | 2017-04-27 00:11 | Progress Notes ---
DATE: 04/26/2017 Case was discussed with staff of the patient and reviewed records. The patient continues to be unpredictable, impulsive, demented, confused, unable to participate in a meaningful conversation. Continues to have poor insight. He is still at risk for discharge because of his agitated, unpredictable behavior. He has been compliant with the medication with no side effects. His lab work showed his CBC with low hematocrit, low MCH and high monocyte and eosinophil, the rest within normal range. His chemistry panel is within normal range with low albumin. His lipid panel within normal range, TSH within normal range, and urinalysis within normal range. RPR nonreactive. Meno level is still pending. We will continue to work with the patient in group therapy, milieu therapy, adjust medications as needed. JOB# [id number]
[2017-04-27] MEDS: Multivitamin Tab PO SCH (10:00)
[2017-04-27] MEDS: Aspirin 81mg Chewable Tab PO SCH (10:00)
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
--- NOTE | 2017-04-27 19:43 | Internal Medicine Prog Note ---
Internal Medicine Subjective - Subjective Service Date: 04/27/17 Patient seen and examined:: with staff Patient is:: verbal, in wheelchair, talking, confused Per staff patient has:: no adverse event Internal Medicine Objective - Results Result Diagrams: 04/24/17 17:35 04/24/17 17:35 Recent Labs: Laboratory Last Values WBC 8.4 Th/cmm (4.8-10.8) 04/24/17 17:35 RBC 4.35 Mil/cmm (3.80-5.80) 04/24/17 17:35 Hgb 13.6 gm/dL (12-16) 04/24/17 17:35 Hct 39.2 % (41.0-60) L 04/24/17 17:35 MCV 90.2 fl (80-99) 04/24/17 17:35 MCH 31.3 pg (27.0-31.0) H 04/24/17 17:35 MCHC Differential 34.7 pg (28.0-36.0) 04/24/17 17:35 RDW 13.5 % (11.5-20.0) 04/24/17 17:35 Plt Count 268 Th/cmm (150-400) 04/24/17 17:35 MPV 7.9 fl 04/24/17 17:35 Neutrophils % 49.1 % (40.0-80.0) 04/24/17 17:35 Lymphocytes % 34.9 % (20.0-50.0) 04/24/17 17:35 Monocytes % 10.2 % (2.0-10.0) H 04/24/17 17:35 Eosinophils % 5.3 % (0.0-5.0) H 04/24/17 17:35 Basophils % 0.5 % (0.0-2.0) 04/24/17 17:35 Sodium 136 mEq/L (136-145) 04/24/17 17:35 Potassium 4.0 mEq/L (3.5-5.1) 04/24/17 17:35 Chloride 105 mEq/L (98-107) 04/24/17 17:35 Carbon Dioxide 25.2 mEq/L (21.0-31.0) 04/24/17 17:35 Anion Gap 9.8 (7.0-16.0) 04/24/17 17:35 BUN 25 mg/dL (7-25) 04/24/17 17:35 Creatinine 0.9 mg/dL (0.7-1.3) 04/24/17 17:35 Est GFR ( Amer) TNP 04/24/17 17:35 Est GFR (Non-Af Amer) TNP 04/24/17 17:35 BUN/Creatinine Ratio 27.8 04/24/17 17:35 Glucose 71 mg/dL (70-105) 04/24/17 17:35 Hemoglobin A1c % 5.1 % (4.0-6.0) 04/24/17 17:35 Calcium 9.6 mg/dL (8.6-10.3) 04/24/17 17:35 Total Bilirubin 0.3 mg/dL (0.3-1.0) 04/24/17 17:35 AST 15 U/L (13-39) 04/24/17 17:35 ALT 10 U/L (7-52) 04/24/17 17:35 Alkaline Phosphatase 87 U/L (34-104) 04/24/17 17:35 Troponin I 0.01 ng/mL (0.01-0.05) 04/24/17 17:35 Total Protein 7.3 gm/dL (6.0-8.3) 04/24/17 17:35 Albumin 4.0 gm/dL (4.2-5.5) L 04/24/17 17:35 Globulin 3.3 gm/dL 04/24/17 17:35 Albumin/Globulin Ratio 1.2 (1.0-1.8) 04/24/17 17:35 Triglycerides 123 mg/dL (<150) 04/24/17 17:35 Cholesterol 187 mg/dL (<200) 04/24/17 17:35 LDL Cholesterol Direct 138 mg/dL (75-193) 04/24/17 17:35 HDL Cholesterol 51 mg/dL (23-92) 04/24/17 17:35 TSH 5.04 uIU/ml (0.34-5.60) 04/24/17 17:35 Urine Source CLEAN C 04/24/17 17:20 Urine Color YELLOW 04/24/17 17:20 Urine Clarity CLEAR (CLEAR) 04/24/17 17:20 Urine pH 6.0 (4.6 - 8.0) 04/24/17 17:20 Ur Specific [place] 1.010 (1.005-1.030) 04/24/17 17:20 Urine Protein NEGATIVE mg/dL (NEGATIVE) 04/24/17 17:20 Urine Glucose (UA) NEGATIVE mg/dL (NEGATIVE) 04/24/17 17:20 Urine Ketones NEGATIVE mg/dL (NEGATIVE) 04/24/17 17:20 Urine Blood NEGATIVE (NEGATIVE) 04/24/17 17:20 Urine Nitrate NEGATIVE (NEGATIVE) 04/24/17 17:20 Urine Bilirubin NEGATIVE (NEGATIVE) 04/24/17 17:20 Urine Urobilinogen 0.2 E.U./dL (0.2 - 1.0) 04/24/17 17:20 Ur Leukocyte Esterase NEGATIVE (NEGATIVE) 04/24/17 17:20 Urine RBC NONE SEEN /hpf (0-5) 04/24/17 17:20 Urine WBC NONE SEEN /hpf (0-5) 04/24/17 17:20 Ur Epithelial Cells NONE SEEN /lpf (FEW) 04/24/17 17:20 Urine Bacteria NONE SEEN /hpf (NONE SEEN) 04/24/17 17:20 RPR NONREACTIVE (NONREACTIVE) 04/24/17 17:35 - Physical Exam Vitals and I&O: Vital Signs Temp 98 F 04/27/17 15:04 Pulse 85 04/27/17 15:04 Resp 21 04/27/17 15:04 BP 132/75 04/27/17 15:04 Pulse Ox 99 04/27/17 15:04 Intake & Output 04/27/17 04/27/17 04/28/17 06:59 18:59 06:59 Intake Total 120 Balance 120 Weight (lbs) 68.039 kg Intake: Oral 120 Other: # Voids 6 # Bowel Movements 2 Active Medications: Current Medications Acetaminophen (Tylenol) 650 mg PO Q4HR PRN PRN Reason: Pain (Mild) Stop: 06/23/17 21:08 Aspirin (Aspirin Chewable) 81 mg PO DAILY [facility] Stop: 06/24/17 08:59 Last Admin: 04/27/17 10:00 Dose: 81 mg Docusate Sodium (Colace) 100 mg PO BID [facility] Stop: 06/24/17 08:59 Last Admin: 04/27/17 17:14 Dose: 100 mg Famotidine (Pepcid) 20 mg PO BID [facility] Stop: 06/24/17 08:59 Last Admin: 04/27/17 17:13 Dose: 20 mg [place] Carbonate (Eskalith) 300 mg PO TID [facility] PRN Reason: Protocol Stop: 06/23/17 21:29 Last Admin: 04/27/17 14:50 Dose: 300 mg Lorazepam (Ativan) 0.5 mg PO Q4HR PRN; Protocol PRN Reason: Agitation Stop: 06/23/17 21:09 Magnesium Hydroxide (Milk Of Magnesia) 30 ml PO HS [facility] Stop: 06/24/17 20:59 Last Admin: 04/26/17 21:08 Dose: 30 ml Multivitamins/Vitamin C (Theragran) 1 tab PO DAILY [facility] Stop: 06/24/17 08:59 Last Admin: 04/27/17 10:00 Dose: 1 tab Quetiapine Fumarate (Seroquel) 100 mg PO DAILY [facility] PRN Reason: Protocol Stop: 06/24/17 08:59 Last Admin: 04/27/17 10:00 Dose: 100 mg Zolpidem Tartrate (Ambien) 5 mg PO HS PRN PRN Reason: Insomnia Stop: 06/23/17 22:22 Last Admin: 04/26/17 21:08 Dose: 5 mg General: demented HEENT: NC/AT, PERRLA, EOMI, throat clear Neck: No JVD, No thyromegaly, +2 carotid pulse wo bruit, No LAD Lungs: congested Cardiovascular: RRR, Normal S1, Normal S2 Abdomen: soft, non-tender, non-distended Neurological: no change Internal Medicine Assmt/Plan - Assessment Assessment: 1.HTN 2.DJD. 3.DEMENTIA. 4.PSYCHOSIS - Plan Plan: CONTINUE ON CURRENT MEDICATION
[2017-04-27] MEDS: Magnesium Hydroxide (MOM) 30 mL UDC PO SCH (21:49)
[2017-04-28] MEDS: Multivitamin Tab PO SCH (10:20)
[2017-04-28] MEDS: Aspirin 81mg Chewable Tab PO SCH (10:22)
--- NOTE | 2017-04-28 18:31 | Progress Notes ---
DATE: The patient was seen and evaluated. The patient's chart reviewed. This is Dr. Washington covering for Dr. Serrano. SUBJECTIVE: Overnight nursing staff reported the patient continues to still need a lot of redirection in regards to the patient's ADLs. Today on [id number] evaluation continues to observe to be easily irritable, agitated, refusing to be interviewed. MENTAL STATUS EXAMINATION: This is a second time who appears to be interviewed, observed to be still disorganized. ASSESSMENT AND PLAN: A 71-year-old male on specific psychosis who continues to be distraught and suspicious, dismissed in interview. We will continue with the current medication regimen. Seroquel was recently increased to 100 mg to target the patient's severe psychotic symptoms and also lithium and continue within lithium levels. JOB# [id number]
--- NOTE | 2017-04-28 20:41 | Internal Medicine Prog Note ---
Internal Medicine Subjective - Subjective Service Date: 04/28/17 Patient seen and examined:: with staff Patient is:: verbal, in wheelchair, talking, confused Per staff patient has:: no adverse event Internal Medicine Objective - Results Result Diagrams: 04/24/17 17:35 04/24/17 17:35 Recent Labs: Laboratory Last Values WBC 8.4 Th/cmm (4.8-10.8) 04/24/17 17:35 RBC 4.35 Mil/cmm (3.80-5.80) 04/24/17 17:35 Hgb 13.6 gm/dL (12-16) 04/24/17 17:35 Hct 39.2 % (41.0-60) L 04/24/17 17:35 MCV 90.2 fl (80-99) 04/24/17 17:35 MCH 31.3 pg (27.0-31.0) H 04/24/17 17:35 MCHC Differential 34.7 pg (28.0-36.0) 04/24/17 17:35 RDW 13.5 % (11.5-20.0) 04/24/17 17:35 Plt Count 268 Th/cmm (150-400) 04/24/17 17:35 MPV 7.9 fl 04/24/17 17:35 Neutrophils % 49.1 % (40.0-80.0) 04/24/17 17:35 Lymphocytes % 34.9 % (20.0-50.0) 04/24/17 17:35 Monocytes % 10.2 % (2.0-10.0) H 04/24/17 17:35 Eosinophils % 5.3 % (0.0-5.0) H 04/24/17 17:35 Basophils % 0.5 % (0.0-2.0) 04/24/17 17:35 Sodium 136 mEq/L (136-145) 04/24/17 17:35 Potassium 4.0 mEq/L (3.5-5.1) 04/24/17 17:35 Chloride 105 mEq/L (98-107) 04/24/17 17:35 Carbon Dioxide 25.2 mEq/L (21.0-31.0) 04/24/17 17:35 Anion Gap 9.8 (7.0-16.0) 04/24/17 17:35 BUN 25 mg/dL (7-25) 04/24/17 17:35 Creatinine 0.9 mg/dL (0.7-1.3) 04/24/17 17:35 Est GFR ( Amer) TNP 04/24/17 17:35 Est GFR (Non-Af Amer) TNP 04/24/17 17:35 BUN/Creatinine Ratio 27.8 04/24/17 17:35 Glucose 71 mg/dL (70-105) 04/24/17 17:35 Hemoglobin A1c % 5.1 % (4.0-6.0) 04/24/17 17:35 Calcium 9.6 mg/dL (8.6-10.3) 04/24/17 17:35 Total Bilirubin 0.3 mg/dL (0.3-1.0) 04/24/17 17:35 AST 15 U/L (13-39) 04/24/17 17:35 ALT 10 U/L (7-52) 04/24/17 17:35 Alkaline Phosphatase 87 U/L (34-104) 04/24/17 17:35 Troponin I 0.01 ng/mL (0.01-0.05) 04/24/17 17:35 Total Protein 7.3 gm/dL (6.0-8.3) 04/24/17 17:35 Albumin 4.0 gm/dL (4.2-5.5) L 04/24/17 17:35 Globulin 3.3 gm/dL 04/24/17 17:35 Albumin/Globulin Ratio 1.2 (1.0-1.8) 04/24/17 17:35 Triglycerides 123 mg/dL (<150) 04/24/17 17:35 Cholesterol 187 mg/dL (<200) 04/24/17 17:35 LDL Cholesterol Direct 138 mg/dL (75-193) 04/24/17 17:35 HDL Cholesterol 51 mg/dL (23-92) 04/24/17 17:35 TSH 5.04 uIU/ml (0.34-5.60) 04/24/17 17:35 Urine Source CLEAN C 04/24/17 17:20 Urine Color YELLOW 04/24/17 17:20 Urine Clarity CLEAR (CLEAR) 04/24/17 17:20 Urine pH 6.0 (4.6 - 8.0) 04/24/17 17:20 Ur Specific [place] 1.010 (1.005-1.030) 04/24/17 17:20 Urine Protein NEGATIVE mg/dL (NEGATIVE) 04/24/17 17:20 Urine Glucose (UA) NEGATIVE mg/dL (NEGATIVE) 04/24/17 17:20 Urine Ketones NEGATIVE mg/dL (NEGATIVE) 04/24/17 17:20 Urine Blood NEGATIVE (NEGATIVE) 04/24/17 17:20 Urine Nitrate NEGATIVE (NEGATIVE) 04/24/17 17:20 Urine Bilirubin NEGATIVE (NEGATIVE) 04/24/17 17:20 Urine Urobilinogen 0.2 E.U./dL (0.2 - 1.0) 04/24/17 17:20 Ur Leukocyte Esterase NEGATIVE (NEGATIVE) 04/24/17 17:20 Urine RBC NONE SEEN /hpf (0-5) 04/24/17 17:20 Urine WBC NONE SEEN /hpf (0-5) 04/24/17 17:20 Ur Epithelial Cells NONE SEEN /lpf (FEW) 04/24/17 17:20 Urine Bacteria NONE SEEN /hpf (NONE SEEN) 04/24/17 17:20 RPR NONREACTIVE (NONREACTIVE) 04/24/17 17:35 - Physical Exam Vitals and I&O: Vital Signs Temp 98.4 F 04/28/17 20:00 Pulse 64 04/28/17 20:00 Resp 20 04/28/17 20:00 BP 123/59 04/28/17 20:00 Pulse Ox 100 04/28/17 20:00 Intake & Output 04/28/17 04/28/17 04/29/17 06:59 18:59 06:59 Intake Total 120 Balance 120 Weight (lbs) 0 g Intake: Oral 120 Other: # Voids 2 # Bowel Movements 0 Active Medications: Current Medications Acetaminophen (Tylenol) 650 mg PO Q4HR PRN PRN Reason: Pain (Mild) Stop: 06/23/17 21:08 Aspirin (Aspirin Chewable) 81 mg PO DAILY [facility] Stop: 06/24/17 08:59 Last Admin: 04/28/17 10:22 Dose: 81 mg Docusate Sodium (Colace) 100 mg PO BID [facility] Stop: 06/24/17 08:59 Last Admin: 04/28/17 17:37 Dose: 100 mg Famotidine (Pepcid) 20 mg PO BID [facility] Stop: 06/24/17 08:59 Last Admin: 04/28/17 17:37 Dose: 20 mg [place] Carbonate (Eskalith) 300 mg PO TID [facility] PRN Reason: Protocol Stop: 06/23/17 21:29 Last Admin: 04/28/17 17:38 Dose: Not Given Lorazepam (Ativan) 0.5 mg PO Q4HR PRN; Protocol PRN Reason: Agitation Stop: 06/23/17 21:09 Magnesium Hydroxide (Milk Of Magnesia) 30 ml PO HS [facility] Stop: 06/24/17 20:59 Last Admin: 04/27/17 21:49 Dose: 30 ml Multivitamins/Vitamin C (Theragran) 1 tab PO DAILY [facility] Stop: 06/24/17 08:59 Last Admin: 04/28/17 10:20 Dose: 1 tab Quetiapine Fumarate (Seroquel) 100 mg PO DAILY [facility] PRN Reason: Protocol Stop: 06/24/17 08:59 Last Admin: 04/28/17 10:21 Dose: 100 mg Zolpidem Tartrate (Ambien) 5 mg PO HS PRN PRN Reason: Insomnia Stop: 06/23/17 22:22 Last Admin: 04/26/17 21:08 Dose: 5 mg General: demented HEENT: NC/AT, PERRLA, EOMI, throat clear Neck: No JVD, No thyromegaly, +2 carotid pulse wo bruit, No LAD Lungs: congested Cardiovascular: RRR, Normal S1, Normal S2 Abdomen: soft, non-tender, non-distended Neurological: no change Internal Medicine Assmt/Plan - Assessment Assessment: 1.HTN 2.DJD. 3.DEMENTIA. 4.PSYCHOSIS - Plan Plan: CONTINUE ON CURRENT MEDICATION
[2017-04-28] MEDS: Magnesium Hydroxide (MOM) 30 mL UDC PO SCH (21:41)
[2017-04-29] MEDS: Multivitamin Tab PO SCH (09:29)
[2017-04-29] MEDS: Aspirin 81mg Chewable Tab PO SCH (09:29)
--- NOTE | 2017-04-29 19:49 | Internal Medicine Prog Note ---
Internal Medicine Subjective - Subjective Service Date: 04/29/17 Patient seen and examined:: without staff (HE DENIES ANY CHEST PAIN OR SOB) Patient is:: verbal, in wheelchair, talking, confused Per staff patient has:: no adverse event Internal Medicine Objective - Results Result Diagrams: 04/24/17 17:35 04/24/17 17:35 Recent Labs: Laboratory Last Values WBC 8.4 Th/cmm (4.8-10.8) 04/24/17 17:35 RBC 4.35 Mil/cmm (3.80-5.80) 04/24/17 17:35 Hgb 13.6 gm/dL (12-16) 04/24/17 17:35 Hct 39.2 % (41.0-60) L 04/24/17 17:35 MCV 90.2 fl (80-99) 04/24/17 17:35 MCH 31.3 pg (27.0-31.0) H 04/24/17 17:35 MCHC Differential 34.7 pg (28.0-36.0) 04/24/17 17:35 RDW 13.5 % (11.5-20.0) 04/24/17 17:35 Plt Count 268 Th/cmm (150-400) 04/24/17 17:35 MPV 7.9 fl 04/24/17 17:35 Neutrophils % 49.1 % (40.0-80.0) 04/24/17 17:35 Lymphocytes % 34.9 % (20.0-50.0) 04/24/17 17:35 Monocytes % 10.2 % (2.0-10.0) H 04/24/17 17:35 Eosinophils % 5.3 % (0.0-5.0) H 04/24/17 17:35 Basophils % 0.5 % (0.0-2.0) 04/24/17 17:35 Sodium 136 mEq/L (136-145) 04/24/17 17:35 Potassium 4.0 mEq/L (3.5-5.1) 04/24/17 17:35 Chloride 105 mEq/L (98-107) 04/24/17 17:35 Carbon Dioxide 25.2 mEq/L (21.0-31.0) 04/24/17 17:35 Anion Gap 9.8 (7.0-16.0) 04/24/17 17:35 BUN 25 mg/dL (7-25) 04/24/17 17:35 Creatinine 0.9 mg/dL (0.7-1.3) 04/24/17 17:35 Est GFR ( Amer) TNP 04/24/17 17:35 Est GFR (Non-Af Amer) TNP 04/24/17 17:35 BUN/Creatinine Ratio 27.8 04/24/17 17:35 Glucose 71 mg/dL (70-105) 04/24/17 17:35 Hemoglobin A1c % 5.1 % (4.0-6.0) 04/24/17 17:35 Calcium 9.6 mg/dL (8.6-10.3) 04/24/17 17:35 Total Bilirubin 0.3 mg/dL (0.3-1.0) 04/24/17 17:35 AST 15 U/L (13-39) 04/24/17 17:35 ALT 10 U/L (7-52) 04/24/17 17:35 Alkaline Phosphatase 87 U/L (34-104) 04/24/17 17:35 Troponin I 0.01 ng/mL (0.01-0.05) 04/24/17 17:35 Total Protein 7.3 gm/dL (6.0-8.3) 04/24/17 17:35 Albumin 4.0 gm/dL (4.2-5.5) L 04/24/17 17:35 Globulin 3.3 gm/dL 04/24/17 17:35 Albumin/Globulin Ratio 1.2 (1.0-1.8) 04/24/17 17:35 Triglycerides 123 mg/dL (<150) 04/24/17 17:35 Cholesterol 187 mg/dL (<200) 04/24/17 17:35 LDL Cholesterol Direct 138 mg/dL (75-193) 04/24/17 17:35 HDL Cholesterol 51 mg/dL (23-92) 04/24/17 17:35 TSH 5.04 uIU/ml (0.34-5.60) 04/24/17 17:35 Urine Source CLEAN C 04/24/17 17:20 Urine Color YELLOW 04/24/17 17:20 Urine Clarity CLEAR (CLEAR) 04/24/17 17:20 Urine pH 6.0 (4.6 - 8.0) 04/24/17 17:20 Ur Specific [place] 1.010 (1.005-1.030) 04/24/17 17:20 Urine Protein NEGATIVE mg/dL (NEGATIVE) 04/24/17 17:20 Urine Glucose (UA) NEGATIVE mg/dL (NEGATIVE) 04/24/17 17:20 Urine Ketones NEGATIVE mg/dL (NEGATIVE) 04/24/17 17:20 Urine Blood NEGATIVE (NEGATIVE) 04/24/17 17:20 Urine Nitrate NEGATIVE (NEGATIVE) 04/24/17 17:20 Urine Bilirubin NEGATIVE (NEGATIVE) 04/24/17 17:20 Urine Urobilinogen 0.2 E.U./dL (0.2 - 1.0) 04/24/17 17:20 Ur Leukocyte Esterase NEGATIVE (NEGATIVE) 04/24/17 17:20 Urine RBC NONE SEEN /hpf (0-5) 04/24/17 17:20 Urine WBC NONE SEEN /hpf (0-5) 04/24/17 17:20 Ur Epithelial Cells NONE SEEN /lpf (FEW) 04/24/17 17:20 Urine Bacteria NONE SEEN /hpf (NONE SEEN) 04/24/17 17:20 RPR NONREACTIVE (NONREACTIVE) 04/24/17 17:35 - Physical Exam Vitals and I&O: Vital Signs Temp 97.6 F 04/29/17 13:51 Pulse 60 04/29/17 13:51 Resp 21 04/29/17 13:51 BP 127/64 04/29/17 13:51 Pulse Ox 96 04/29/17 13:51 Intake & Output 04/29/17 04/29/17 04/30/17 06:59 18:59 06:59 Intake Total 240 Balance 240 Weight (lbs) 0 g Intake: Oral 240 Other: # Voids 2 # Bowel Movements 0 Active Medications: Current Medications Acetaminophen (Tylenol) 650 mg PO Q4HR PRN PRN Reason: Pain (Mild) Stop: 06/23/17 21:08 Aspirin (Aspirin Chewable) 81 mg PO DAILY [facility] Stop: 06/24/17 08:59 Last Admin: 04/29/17 09:29 Dose: 81 mg Docusate Sodium (Colace) 100 mg PO BID [facility] Stop: 06/24/17 08:59 Last Admin: 04/29/17 16:37 Dose: 100 mg Famotidine (Pepcid) 20 mg PO BID [facility] Stop: 06/24/17 08:59 Last Admin: 04/29/17 16:37 Dose: 20 mg [place] Carbonate (Eskalith) 300 mg PO TID [facility] PRN Reason: Protocol Stop: 06/23/17 21:29 Last Admin: 04/29/17 14:04 Dose: 300 mg Lorazepam (Ativan) 0.5 mg PO Q4HR PRN; Protocol PRN Reason: Agitation Stop: 06/23/17 21:09 Magnesium Hydroxide (Milk Of Magnesia) 30 ml PO HS [facility] Stop: 06/24/17 20:59 Last Admin: 04/28/17 21:41 Dose: 30 ml Multivitamins/Vitamin C (Theragran) 1 tab PO DAILY [facility] Stop: 06/24/17 08:59 Last Admin: 04/29/17 09:29 Dose: 1 tab Quetiapine Fumarate 100 mg/ (Quetiapine Fumarate 25 mg) 125 mg PO DAILY [facility] Stop: 06/29/17 08:59 Zolpidem Tartrate (Ambien) 5 mg PO HS PRN PRN Reason: Insomnia Stop: 06/23/17 22:22 Last Admin: 04/26/17 21:08 Dose: 5 mg General: demented HEENT: NC/AT, PERRLA, EOMI, throat clear Neck: No JVD, No thyromegaly, +2 carotid pulse wo bruit, No LAD Lungs: congested Cardiovascular: RRR, Normal S1, Normal S2 Abdomen: soft, non-tender, non-distended Neurological: no change Internal Medicine Assmt/Plan - Assessment Assessment: 1.HTN 2.DJD. 3.DEMENTIA. 4.PSYCHOSIS - Plan Plan: CONTINUE ON CURRENT MEDICATION
[2017-04-29] MEDS: Magnesium Hydroxide (MOM) 30 mL UDC PO SCH (20:54)
--- NOTE | 2017-04-30 00:02 | Progress Notes ---
DATE: 04/29/2017 SUBJECTIVE: Case was discussed with staff of the patient and reviewed records. The patient continues to be demented, confused, impulsive, unpredictable, needing redirection, continues to have poor insight, unable to make safe plan for self-care, continues to be easily agitated, uncooperative. PLAN: I will be increasing his Seroquel to 225 mg daily. No side effects, no sedation, no nausea, no extrapyramidal symptoms. I do not see any lithium level on him, although I did ask for it, so I will be checking his lithium level and I did increase his Seroquel dose and we will continue to work with the patient in group therapy, milieu therapy, adjust medication as needed. JOB# [id number]
[2017-04-30] MEDS: Multivitamin Tab PO SCH (08:58)
[2017-04-30] MEDS: Aspirin 81mg Chewable Tab PO SCH (08:58)
--- NOTE | 2017-04-30 19:14 | Internal Medicine Prog Note ---
Internal Medicine Subjective - Subjective Service Date: 04/30/17 Patient seen and examined:: without staff Patient is:: verbal, in wheelchair, talking, confused Per staff patient has:: no adverse event Internal Medicine Objective - Results Result Diagrams: 04/24/17 17:35 04/24/17 17:35 Recent Labs: Laboratory Last Values WBC 8.4 Th/cmm (4.8-10.8) 04/24/17 17:35 RBC 4.35 Mil/cmm (3.80-5.80) 04/24/17 17:35 Hgb 13.6 gm/dL (12-16) 04/24/17 17:35 Hct 39.2 % (41.0-60) L 04/24/17 17:35 MCV 90.2 fl (80-99) 04/24/17 17:35 MCH 31.3 pg (27.0-31.0) H 04/24/17 17:35 MCHC Differential 34.7 pg (28.0-36.0) 04/24/17 17:35 RDW 13.5 % (11.5-20.0) 04/24/17 17:35 Plt Count 268 Th/cmm (150-400) 04/24/17 17:35 MPV 7.9 fl 04/24/17 17:35 Neutrophils % 49.1 % (40.0-80.0) 04/24/17 17:35 Lymphocytes % 34.9 % (20.0-50.0) 04/24/17 17:35 Monocytes % 10.2 % (2.0-10.0) H 04/24/17 17:35 Eosinophils % 5.3 % (0.0-5.0) H 04/24/17 17:35 Basophils % 0.5 % (0.0-2.0) 04/24/17 17:35 Sodium 136 mEq/L (136-145) 04/24/17 17:35 Potassium 4.0 mEq/L (3.5-5.1) 04/24/17 17:35 Chloride 105 mEq/L (98-107) 04/24/17 17:35 Carbon Dioxide 25.2 mEq/L (21.0-31.0) 04/24/17 17:35 Anion Gap 9.8 (7.0-16.0) 04/24/17 17:35 BUN 25 mg/dL (7-25) 04/24/17 17:35 Creatinine 0.9 mg/dL (0.7-1.3) 04/24/17 17:35 Est GFR ( Amer) TNP 04/24/17 17:35 Est GFR (Non-Af Amer) TNP 04/24/17 17:35 BUN/Creatinine Ratio 27.8 04/24/17 17:35 Glucose 71 mg/dL (70-105) 04/24/17 17:35 Hemoglobin A1c % 5.1 % (4.0-6.0) 04/24/17 17:35 Calcium 9.6 mg/dL (8.6-10.3) 04/24/17 17:35 Total Bilirubin 0.3 mg/dL (0.3-1.0) 04/24/17 17:35 AST 15 U/L (13-39) 04/24/17 17:35 ALT 10 U/L (7-52) 04/24/17 17:35 Alkaline Phosphatase 87 U/L (34-104) 04/24/17 17:35 Troponin I 0.01 ng/mL (0.01-0.05) 04/24/17 17:35 Total Protein 7.3 gm/dL (6.0-8.3) 04/24/17 17:35 Albumin 4.0 gm/dL (4.2-5.5) L 04/24/17 17:35 Globulin 3.3 gm/dL 04/24/17 17:35 Albumin/Globulin Ratio 1.2 (1.0-1.8) 04/24/17 17:35 Triglycerides 123 mg/dL (<150) 04/24/17 17:35 Cholesterol 187 mg/dL (<200) 04/24/17 17:35 LDL Cholesterol Direct 138 mg/dL (75-193) 04/24/17 17:35 HDL Cholesterol 51 mg/dL (23-92) 04/24/17 17:35 TSH 5.04 uIU/ml (0.34-5.60) 04/24/17 17:35 Urine Source CLEAN C 04/24/17 17:20 Urine Color YELLOW 04/24/17 17:20 Urine Clarity CLEAR (CLEAR) 04/24/17 17:20 Urine pH 6.0 (4.6 - 8.0) 04/24/17 17:20 Ur Specific [place] 1.010 (1.005-1.030) 04/24/17 17:20 Urine Protein NEGATIVE mg/dL (NEGATIVE) 04/24/17 17:20 Urine Glucose (UA) NEGATIVE mg/dL (NEGATIVE) 04/24/17 17:20 Urine Ketones NEGATIVE mg/dL (NEGATIVE) 04/24/17 17:20 Urine Blood NEGATIVE (NEGATIVE) 04/24/17 17:20 Urine Nitrate NEGATIVE (NEGATIVE) 04/24/17 17:20 Urine Bilirubin NEGATIVE (NEGATIVE) 04/24/17 17:20 Urine Urobilinogen 0.2 E.U./dL (0.2 - 1.0) 04/24/17 17:20 Ur Leukocyte Esterase NEGATIVE (NEGATIVE) 04/24/17 17:20 Urine RBC NONE SEEN /hpf (0-5) 04/24/17 17:20 Urine WBC NONE SEEN /hpf (0-5) 04/24/17 17:20 Ur Epithelial Cells NONE SEEN /lpf (FEW) 04/24/17 17:20 Urine Bacteria NONE SEEN /hpf (NONE SEEN) 04/24/17 17:20 RPR NONREACTIVE (NONREACTIVE) 04/24/17 17:35 - Physical Exam Vitals and I&O: Vital Signs Temp 98.7 F 04/30/17 18:48 Pulse 59 04/30/17 18:48 Resp 18 04/30/17 18:48 BP 146/68 04/30/17 18:48 Pulse Ox 98 04/30/17 18:48 Intake & Output 04/30/17 04/30/17 05/01/17 06:59 18:59 06:59 Weight (lbs) 74.843 kg Other: # Voids 2 # Bowel Movements 0 Active Medications: Current Medications Acetaminophen (Tylenol) 650 mg PO Q4HR PRN PRN Reason: Pain (Mild) Stop: 06/23/17 21:08 Aspirin (Aspirin Chewable) 81 mg PO DAILY [facility] Stop: 06/24/17 08:59 Last Admin: 04/30/17 08:58 Dose: 81 mg Docusate Sodium (Colace) 100 mg PO BID [facility] Stop: 06/24/17 08:59 Last Admin: 04/30/17 16:51 Dose: 100 mg Famotidine (Pepcid) 20 mg PO BID [facility] Stop: 06/24/17 08:59 Last Admin: 04/30/17 16:51 Dose: 20 mg Lomax Carbonate (Eskalith) 300 mg PO TID [facility] PRN Reason: Protocol Stop: 06/23/17 21:29 Last Admin: 04/30/17 13:19 Dose: 300 mg Lorazepam (Ativan) 0.5 mg PO Q4HR PRN; Protocol PRN Reason: Agitation Stop: 06/23/17 21:09 Magnesium Hydroxide (Milk Of Magnesia) 30 ml PO HS [facility] Stop: 06/24/17 20:59 Last Admin: 04/29/17 20:54 Dose: 30 ml Multivitamins/Vitamin C (Theragran) 1 tab PO DAILY [facility] Stop: 06/24/17 08:59 Last Admin: 04/30/17 08:58 Dose: 1 tab Quetiapine Fumarate 100 mg/ (Quetiapine Fumarate 25 mg) 125 mg PO DAILY [facility] Stop: 06/29/17 08:59 Last Admin: 04/30/17 08:58 Dose: 125 mg Zolpidem Tartrate (Ambien) 5 mg PO HS PRN PRN Reason: Insomnia Stop: 06/23/17 22:22 Last Admin: 04/29/17 20:54 Dose: 5 mg General: demented HEENT: NC/AT, PERRLA, EOMI, throat clear Neck: No JVD, No thyromegaly, +2 carotid pulse wo bruit, No LAD Lungs: congested Cardiovascular: RRR, Normal S1, Normal S2 Abdomen: soft, non-tender, non-distended Neurological: no change Internal Medicine Assmt/Plan - Assessment Assessment: 1.HTN 2.DJD. 3.DEMENTIA. 4.PSYCHOSIS - Plan Plan: CONTINUE ON CURRENT MEDICATION
[2017-04-30] MEDS: Magnesium Hydroxide (MOM) 30 mL UDC PO SCH (21:34)
--- NOTE | 2017-04-30 22:27 | Progress Notes ---
DATE: 04/30/2017 Case was discussed with staff of the patient, reviewed records. The patient continues to have history of agitation and irritability, unpredictable, impulsive, needing redirection, very poor insight, compliant with the medication with no side effects, no sedation or nausea, no extrapyramidal symptoms. I did increase his Seroquel dose yesterday and we will continue to work with the patient in group therapy, milieu therapy, and adjust the medication as needed. JOB# [id number]
[2017-05-01] MEDS: Multivitamin Tab PO SCH (09:03)
[2017-05-01] MEDS: Aspirin 81mg Chewable Tab PO SCH (09:03)
--- NOTE | 2017-05-01 13:14 | Internal Medicine Prog Note ---
Internal Medicine Subjective - Subjective Service Date: 05/01/17 Patient seen and examined:: without staff Patient is:: verbal, in wheelchair, talking, confused Per staff patient has:: no adverse event Internal Medicine Objective - Results Result Diagrams: 04/24/17 17:35 04/24/17 17:35 Recent Labs: Laboratory Last Values WBC 8.4 Th/cmm (4.8-10.8) 04/24/17 17:35 RBC 4.35 Mil/cmm (3.80-5.80) 04/24/17 17:35 Hgb 13.6 gm/dL (12-16) 04/24/17 17:35 Hct 39.2 % (41.0-60) L 04/24/17 17:35 MCV 90.2 fl (80-99) 04/24/17 17:35 MCH 31.3 pg (27.0-31.0) H 04/24/17 17:35 MCHC Differential 34.7 pg (28.0-36.0) 04/24/17 17:35 RDW 13.5 % (11.5-20.0) 04/24/17 17:35 Plt Count 268 Th/cmm (150-400) 04/24/17 17:35 MPV 7.9 fl 04/24/17 17:35 Neutrophils % 49.1 % (40.0-80.0) 04/24/17 17:35 Lymphocytes % 34.9 % (20.0-50.0) 04/24/17 17:35 Monocytes % 10.2 % (2.0-10.0) H 04/24/17 17:35 Eosinophils % 5.3 % (0.0-5.0) H 04/24/17 17:35 Basophils % 0.5 % (0.0-2.0) 04/24/17 17:35 Sodium 136 mEq/L (136-145) 04/24/17 17:35 Potassium 4.0 mEq/L (3.5-5.1) 04/24/17 17:35 Chloride 105 mEq/L (98-107) 04/24/17 17:35 Carbon Dioxide 25.2 mEq/L (21.0-31.0) 04/24/17 17:35 Anion Gap 9.8 (7.0-16.0) 04/24/17 17:35 BUN 25 mg/dL (7-25) 04/24/17 17:35 Creatinine 0.9 mg/dL (0.7-1.3) 04/24/17 17:35 Est GFR ( Amer) TNP 04/24/17 17:35 Est GFR (Non-Af Amer) TNP 04/24/17 17:35 BUN/Creatinine Ratio 27.8 04/24/17 17:35 Glucose 71 mg/dL (70-105) 04/24/17 17:35 Hemoglobin A1c % 5.1 % (4.0-6.0) 04/24/17 17:35 Calcium 9.6 mg/dL (8.6-10.3) 04/24/17 17:35 Total Bilirubin 0.3 mg/dL (0.3-1.0) 04/24/17 17:35 AST 15 U/L (13-39) 04/24/17 17:35 ALT 10 U/L (7-52) 04/24/17 17:35 Alkaline Phosphatase 87 U/L (34-104) 04/24/17 17:35 Troponin I 0.01 ng/mL (0.01-0.05) 04/24/17 17:35 Total Protein 7.3 gm/dL (6.0-8.3) 04/24/17 17:35 Albumin 4.0 gm/dL (4.2-5.5) L 04/24/17 17:35 Globulin 3.3 gm/dL 04/24/17 17:35 Albumin/Globulin Ratio 1.2 (1.0-1.8) 04/24/17 17:35 Triglycerides 123 mg/dL (<150) 04/24/17 17:35 Cholesterol 187 mg/dL (<200) 04/24/17 17:35 LDL Cholesterol Direct 138 mg/dL (75-193) 04/24/17 17:35 HDL Cholesterol 51 mg/dL (23-92) 04/24/17 17:35 TSH 5.04 uIU/ml (0.34-5.60) 04/24/17 17:35 Urine Source CLEAN C 04/24/17 17:20 Urine Color YELLOW 04/24/17 17:20 Urine Clarity CLEAR (CLEAR) 04/24/17 17:20 Urine pH 6.0 (4.6 - 8.0) 04/24/17 17:20 Ur Specific [place] 1.010 (1.005-1.030) 04/24/17 17:20 Urine Protein NEGATIVE mg/dL (NEGATIVE) 04/24/17 17:20 Urine Glucose (UA) NEGATIVE mg/dL (NEGATIVE) 04/24/17 17:20 Urine Ketones NEGATIVE mg/dL (NEGATIVE) 04/24/17 17:20 Urine Blood NEGATIVE (NEGATIVE) 04/24/17 17:20 Urine Nitrate NEGATIVE (NEGATIVE) 04/24/17 17:20 Urine Bilirubin NEGATIVE (NEGATIVE) 04/24/17 17:20 Urine Urobilinogen 0.2 E.U./dL (0.2 - 1.0) 04/24/17 17:20 Ur Leukocyte Esterase NEGATIVE (NEGATIVE) 04/24/17 17:20 Urine RBC NONE SEEN /hpf (0-5) 04/24/17 17:20 Urine WBC NONE SEEN /hpf (0-5) 04/24/17 17:20 Ur Epithelial Cells NONE SEEN /lpf (FEW) 04/24/17 17:20 Urine Bacteria NONE SEEN /hpf (NONE SEEN) 04/24/17 17:20 RPR NONREACTIVE (NONREACTIVE) 04/24/17 17:35 - Physical Exam Vitals and I&O: Vital Signs Temp 98.3 F 05/01/17 06:03 Pulse 64 05/01/17 06:03 Resp 20 05/01/17 06:03 BP 147/62 05/01/17 06:03 Pulse Ox 97 05/01/17 06:03 Intake & Output 04/30/17 05/01/17 05/01/17 18:59 06:59 18:59 Intake Total 300 Balance 300 Weight (lbs) 74.843 kg Intake: Oral 300 Other: # Voids 2 # Bowel Movements 0 Active Medications: Current Medications Acetaminophen (Tylenol) 650 mg PO Q4HR PRN PRN Reason: Pain (Mild) Stop: 06/23/17 21:08 Aspirin (Aspirin Chewable) 81 mg PO DAILY [facility] Stop: 06/24/17 08:59 Last Admin: 05/01/17 09:03 Dose: 81 mg Docusate Sodium (Colace) 100 mg PO BID [facility] Stop: 06/24/17 08:59 Last Admin: 05/01/17 09:03 Dose: 100 mg Famotidine (Pepcid) 20 mg PO BID [facility] Stop: 06/24/17 08:59 Last Admin: 05/01/17 09:03 Dose: 20 mg [place] Carbonate (Eskalith) 300 mg PO TID [facility] PRN Reason: Protocol Stop: 06/23/17 21:29 Last Admin: 05/01/17 09:03 Dose: 300 mg Lorazepam (Ativan) 0.5 mg PO Q4HR PRN; Protocol PRN Reason: Agitation Stop: 06/23/17 21:09 Magnesium Hydroxide (Milk Of Magnesia) 30 ml PO HS [facility] Stop: 06/24/17 20:59 Last Admin: 04/30/17 21:34 Dose: 30 ml Multivitamins/Vitamin C (Theragran) 1 tab PO DAILY [facility] Stop: 06/24/17 08:59 Last Admin: 05/01/17 09:03 Dose: 1 tab Quetiapine Fumarate 100 mg/ (Quetiapine Fumarate 25 mg) 125 mg PO DAILY [facility] Stop: 06/29/17 08:59 Last Admin: 05/01/17 09:03 Dose: 125 mg Zolpidem Tartrate (Ambien) 5 mg PO HS PRN PRN Reason: Insomnia Stop: 06/23/17 22:22 Last Admin: 04/29/17 20:54 Dose: 5 mg General: demented HEENT: NC/AT, PERRLA, EOMI, throat clear Neck: No JVD, No thyromegaly, +2 carotid pulse wo bruit, No LAD Lungs: congested Cardiovascular: RRR, Normal S1, Normal S2 Abdomen: soft, non-tender, non-distended Neurological: no change Internal Medicine Assmt/Plan - Assessment Assessment: 1.HTN 2.DJD. 3.DEMENTIA. 4.PSYCHOSIS - Plan Plan: CONTINUE ON CURRENT MEDICATION
[2017-05-01] MEDS: Magnesium Hydroxide (MOM) 30 mL UDC PO SCH (21:38)
--- NOTE | 2017-05-01 22:16 | Progress Notes ---
DATE: 05/01/2017 SUBJECTIVE: Case was discussed with staff of the patient and reviewed records. The patient continues to be confused, unpredictable, impulsive, easily agitated. He continues to have poor insight, continues to need redirection. He is still unpredictable and impulsive. He did tolerate the increase of Seroquel yesterday to 125 mg a day with no side effects, no sedation, no nausea, no extrapyramidal symptoms. His lab work showed CBC with low hematocrit, low MCH, high monocyte, high eosinophil, the rest within normal range. Chemistry panel with low albumin, the rest within normal range. TSH within normal range. Urinalysis is within normal range. RPR nonreactive and lithium level is pending and we will continue to work the patient in group therapy, milieu therapy, adjust medication as needed. JOB# [id number]
[2017-05-02] MEDS: Aspirin 81mg Chewable Tab PO SCH (08:43)
[2017-05-02] MEDS: Multivitamin Tab PO SCH (08:43)
--- NOTE | 2017-05-02 13:35 | Discharge Summary ---
DATE OF DISCHARGE: 05/02/2017 IDENTIFYING INFORMATION: The patient is a 71-year-old male. CHIEF COMPLAINT: No answer. HISTORY OF PRESENT ILLNESS: The patient referred from [place] because of his agitation and confusion, striking out at other patient. The patient himself was a poor historian, demented, confused, agitated. He believes he is 50 years of age. He was unable to provide meaningful conversation or make safe plan for self-care. He is a well-known case to me as I have been seeing him at [place]. Very poor historian. COURSE IN THE HOSPITAL: The patient was continued on his medication. He was on lithium 300 mg 3 times a day. He was continued with the Seroquel and I increased the dose to 125 mg at bedtime. The patient progressively got better. He was sleeping well, eating well, no longer acting out. So as he improved, we felt he could be discharged to a lesser level of care. FINAL DIAGNOSES: AXIS I: Bipolar disorder with psychosis, also cognitive disorder, not otherwise specified. MEDICAL DIAGNOSIS: Deferred to the medical doctor. The patient will go back to [place]. I will follow up with the patient there and Dr. Blandon. EXPECTED OUTCOME: Stable if the patient complies. [facility]# [id number]
== END 2017-05-02 17:08 | disposition home or self-care (01) | DRG 885 ==
LOC: ER 17:15 → GERO2 19:00
PROVIDERS: ADMIT Psychiatry & Neurology Psychiatry; ATTEND Psychiatry & Neurology Psychiatry
DX: F31.5 Bipolar disorder, current episode depressed, severe, with psychotic features (principal); F03.91 Unspecified dementia, unspecified severity, with behavioral disturbance; J44.9 Chronic obstructive pulmonary disease, unspecified; I10 Essential (primary) hypertension; K21.9 Gastro-esophageal reflux disease without esophagitis; M19.90 Unspecified osteoarthritis, unspecified site; F17.210 Nicotine dependence, cigarettes, uncomplicated; Z82.49 Family history of ischemic heart disease and other diseases of the circulatory system
CPT/HCPCS: 36415-UA; 80053-TC; 80061-TC; 81001-TC; 83036-90; 84443-TC; 84484-TC; 85025-TC; 86592-TC; 93005; G0410; Z7610

== ENCOUNTER 2017-10-14 17:47 | Inpatient (IN) | payer MEDICARE, MEDICAID ==
[2017-10-14 18:18] LABS: % BASOPHILS 0.7 % (0.0-2.0); % EOSINOPHILS 3.8 % (0.0-5.0); % LYMPHOCYTES 26.6 % (20.0-50.0); % MONOCYTES 9.2 % (2.0-10.0); % NEUTROPHILS 59.7 % (40.0-80.0); BASOPHILE ABSOLUTE 0.1 Th/cumm (0-0.2); EOSINOPHILE ABSOLUTE 0.3 Th/cmm (0.1-0.4); HEMATOCRIT 37.8 % (41.0-60); HEMOGLOBIN 12.7 gm/dL (12-16); LYMPHOCYTE ABSOLUTE 2.3 Th/cmm (1.5-3.0); MEAN CELL VOLUME 91.3 fl (80-99); MEAN CORPUSCULAR HEMOGLOBIN 30.7 pg (27.0-31.0); MEAN CORPUSCULAR HGB CONC 33.6 pg (28.0-36.0); MEAN PLATELET VOLUME 7.4 fl; MONOCYTE ABSOLUTE 0.8 Th/cmm (0.3-1.0); NEUTROPHILE ABSOLUTE 5.1 Th/cmm (1.8-8.0); PLATELET COUNT 352 Th/cmm (150-400); RED BLOOD COUNT 4.14 Mil/cmm (3.80-5.80); RED CELL DISTRIBUTION WIDTH 13.2 % (11.5-20.0); WHITE BLOOD COUNT 8.6 Th/cmm (4.8-10.8)
[2017-10-14 18:33] LABS: ALB/GLOB RATIO 1.3 (1.0-1.8); ALBUMIN 4.1 gm/dL (4.2-5.5); ALKALINE PHOSPHATASE 72 U/L (34-104); ANION GAP 7.2 (7.0-16.0); BILIRUBIN,TOTAL 0.2 mg/dL (0.3-1.0); BUN - UREA NITROGEN 18 mg/dL (7-25); CALCIUM SERUM 9.7 mg/dL (8.6-10.3); CARBON DIOXIDE 27.7 mEq/L (21.0-31.0); CHLORIDE 105 mEq/L (98-107); CREATININE - SERUM 0.9 mg/dL (0.7-1.3); GLUCOSE 86 mg/dL (70-105); MAGNESIUM 2.4 mg/dL (1.9-2.7); PHOSPHOROUS 3.2 mg/dL (2.5-5.0); POTASSIUM SERUM 4.9 mEq/L (3.5-5.1); SGOT 16 U/L (13-39); SGPT/ALT 13 U/L (7-52); SODIUM SERUM 135 mEq/L (136-145); TOTAL PROTEIN,SERUM 7.3 gm/dL (6.0-8.3)
--- NOTE | 2017-10-14 19:38 | ED Physician Chart ---
ED Chief Complaint/HPI - Patient Information Date Seen:: 10/14/17 Time Seen:: 17:55 Chief Complaint:: agitation History of Present Illness:: agitation, attempting to hit staff and residents; flight risk Allergies:: Allergies Allergy/AdvReac Type Severity Reaction Status Date / Time No Known Allergies Allergy Verified 09/20/16 18:26 Vitals:: Vital Signs - 8 hr 10/14/17 10/14/17 17:54 18:18 Temp 98.3 F 98.3 F HR 60 60 RR 16 16 BP 155/78 155/78 O2 Sat % 98 98 ED Review of Systems - Review of Systems General/Constitutional: No fever, No chills, No weight loss, No weakness, No diaphoresis, No edema, No loss of appetite Skin: No skin lesions, No rash, No bruising Head: No headache, No light-headedness Eyes: No loss of vision, No pain, No diplopia ENT: No earache, No nasal drainage, No sore throat, No tinnitus Neck: No neck pain, No swelling, No thyromegaly, No stiffness, No mass noted Cardio Vascular: No chest pain, No palpitations, No PND, No orthopnea, No edema Pulmonary: No SOB, No cough, No sputum, No wheezing GI: No nausea, No vomiting, No diarrhea, No pain, No melena, No hematochezia, No constipation, No hematemesis G/U: No dysuria, No frequency, No hematuria Musculoskeletal: No bone or joint pain, No back pain, No muscle pain Endocrine: No polyuria, No polydipsia Psychiatric: Prior psych history, Anxiety, Other (agitation; h/o bipolar) Hematopoietic: No bruising, No lymphadenopathy Allergic/Immuno: No urticaria, No angioedema Neurological: No syncope, No focal symptoms, No weakness, No paresthesia, No headache, No seizure, No dizziness, No confusion, No vertigo ED Past Medical History - Past Medical History Obtainable: No Past Medical History: Asthma/COPD, PUD/GERD, Other (unspecified lack of coordination; dysphagia oropharyngeal phase) Psychiatricy History: Bipolar, Other (psychosis; anxiety disorder) Family Medical History - Family Member Grandfather History Unknown: Yes Ethnicity: Unknown Living Status: Unknown Hx Family Cancer: (unknown) Hx Family Coronary Artery Disease: (unknown) Hx Family Congestive Heart Failure: (unknown) Hx Family Hypertension: (unknown) Hx Family Stroke: (unknown) Hx Family Diabetes: (unknown) Hx Family Seizures: (unknown) Hx Family Dementia: (unknown) Hx Family AIDS: (unknown) Hx Family COPD: (unknown) Hx Family Hepatitis: (unknown) Hx Family Psychiatric Problems: (unknown) Hx Family Tuberculosis: (unknown) ED Physical Exam - Physical Examination General/Constitutional: Awake, Well-developed, well-nourished, Alert, No distress, GCS 15, Non-toxic appearing, Ambulatory Head: Atraumatic Eyes: Lids, conjuctiva normal, PERRL, EOMI Skin: Nl inspection, No rash, No skin lesions, No ecchymosis, Well hydrated, No lymphadenopathy ENMT: External ears, nose nl, Nasal exam nl, Lips, teeth, gums nl Neck: Nontender, Full ROM w/o pain, No JVD, No nuchal rigidity, No bruit, No mass, No stridor Respiratory: Nl effort/Exclusion, Clear to Auscultation, No Wheeze/Rhonchi/Rales Cardio Vascular: RRR, No murmur, gallop, rubs, NL S1 S2 GI: No tenderness/rebounding/guarding, No organomegaly, No hernia, Normal BS's, Nondistended, No mass/bruits, No McBurney tenderness : No CVA tenderness Extremities: No tenderness or effusion, Full ROM, normal strength in all extremities, No edema, Normal digits & nails Neuro/Psych: Alert/oriented, DTR's symmetric, Normal sensory exam, Normal motor strength, Judgement/insight normal, Mood normal, Normal gait, No focal deficits Misc: Normal back, No paraspinal tenderness ED Labs/Radiology/EKG Results - Lab Results Results: Laboratory Tests 10/14/17 10/14/17 10/14/17 18:12 18:12 18:12 WBC 8.6 RBC 4.14 Hgb 12.7 Hct 37.8 L MCV 91.3 MCH 30.7 MCHC Differential 33.6 RDW 13.2 Plt Count 352 MPV 7.4 Neutrophils % 59.7 Lymphocytes % 26.6 Monocytes % 9.2 Eosinophils % 3.8 Basophils % 0.7 Sodium 135 L Potassium 4.9 Chloride 105 Carbon Dioxide 27.7 Anion Gap 7.2 BUN 18 Creatinine 0.9 Est GFR ( Amer) TNP Est GFR (Non-Af Amer) TNP BUN/Creatinine Ratio 20.0 Glucose 86 Calcium 9.7 Phosphorus 3.2 Magnesium 2.4 Total Bilirubin 0.2 L AST 16 ALT 13 Alkaline Phosphatase 72 Total Protein 7.3 Albumin 4.1 L Globulin 3.2 Albumin/Globulin Ratio 1.3 TSH 3.37 ED Assessment - Assessment General Assessment: patient ate dinner and is resting comfortably. ED Septic Shock - . Is Septic Shock (SBP<90, OR Lactate>4 mmol\L) present?: No - <6hrs of presentation: Vital Signs: Vital Signs - 8 hr 10/14/17 10/14/17 17:54 18:18 Temp 98.3 F 98.3 F HR 60 60 RR 16 16 BP 155/78 155/78 O2 Sat % 98 98 ED Reassessment (Disposition) - Reassessment Reassessment Condition:: Unchanged - Diagnosis Diagnosis:: Agitation, bipolar, anxiety - Patient Disposition Discharge/Transfer:: Acute Care w/in this hosp Admitted to:: [facility] Condition at Disposition:: Stable, Unchanged
[2017-10-14 21:19] VITALS: BP 154/69
--- NOTE | 2017-10-14 22:06 | History & Physical ---
ADMIT DATE: 10/14/2017 CHIEF COMPLAINT: Psychosis. HISTORY OF PRESENT ILLNESS: This 72-year-old male with long history of COPD, gastroesophageal reflux, degenerative joint disease, psychosis, [facility] under Dr. Serrano's service for evaluation and treatment. The patient denies any chest pain, shortness of breath, nausea, vomiting, fever or chills. PAST MEDICAL HISTORY: COPD, gastroesophageal reflux, degenerative joint disease, psychosis. PAST SURGICAL HISTORY: No recent surgery. ALLERGIES: None. MEDICATIONS: Follow admission reconciliation. REVIEW OF SYSTEMS: IMMUNO SYSTEM: No history of chronic renal disorder. CARDIOVASCULAR SYSTEM: No coronary artery disease. ENDOCRINE SYSTEM: No diabetes or thyroid problem. GASTROINTESTINAL SYSTEM: No upper or lower gastrointestinal bleed. NEUROLOGICAL SYSTEM: No seizure disorder. SKELETOMUSCULAR SYSTEM: No muscular dystrophy. HEMATOLOGIC: No bleeding tendencies. RESPIRATORY: History of chronic obstructive pulmonary disease. GENITOURINARY: No dysuria, hematuria. PHYSICAL EXAMINATION: GENERAL: He is awake, alert. VITAL SIGNS: Temperature 98.3, heart rate 65, blood pressure 164/75. HEENT: Normocephalic. Pupils reactive to light and accommodation. Sclerae clear. NECK: Supple. Negative for lymphadenopathy, JVD or bruit. CHEST: Entry of air, bilateral normal. No rhonchi or wheezing. HEART: S1, S2 normal. No gallop rhythm. ABDOMEN: Soft, bowel sounds positive. EXTREMITIES: No edema. NEUROLOGIC: He is awake, alert, mildly confused. No focal motor or sensory deficit. Cranial nerves 2-12 are intact. LABORATORY DATA: White blood cell 8.6, hemoglobin 12.7, hematocrit 37.8, platelet is 352. Sodium 135, potassium 4.9, BUN 18, creatinine 0.9. ASSESSMENT: 1. Chronic obstructive pulmonary disease. 2. Hypertension. 3. Gastroesophageal reflux. 4. Degenerative joint disease. 5. Psychosis. 6. Mild dementia. PLAN: The patient admitted to the hospital under Dr. Serrano's service. Medical problems addressed during hospitalization is psychosis. Medical problems addressed at discharge are hypertension, COPD, gastroesophageal reflux, degenerative joint disease. The patient is medically stable for activity. Thank you, Dr. Serrano for asking me to see your patient. The patient is a full code. JOB# [id number]
[2017-10-15] MEDS: Multivitamin Tab PO SCH (08:26)
[2017-10-15] MEDS: Aspirin 81mg Chewable Tab PO SCH (08:27)
--- NOTE | 2017-10-15 08:48 | Diagnostic Imaging Report ---
CHEST X-RAY: AP view INDICATION: Abnormal breath sounds COMPARISON: Chest x-ray 04/13/2016 FINDINGS: Right basal infiltrate/pneumonia is noted. No focal consolidation or effusions. Cardiomegaly is noted. The osseous structures are intact. IMPRESSION: Right basal infiltrate/pneumonia. Clinical correlation and follow-up is recommended. Cardiomegaly.
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
--- NOTE | 2017-10-15 20:35 | Internal Medicine Prog Note ---
Internal Medicine Subjective - Subjective Service Date: 10/15/17 Patient seen and examined:: without staff Patient is:: awake, verbal, in bed, talking Per staff patient has:: no adverse event Internal Medicine Objective - Results Result Diagrams: 10/14/17 18:12 10/14/17 18:12 Recent Labs: Laboratory Last Values WBC 8.6 Th/cmm (4.8-10.8) 10/14/17 18:12 RBC 4.14 Mil/cmm (3.80-5.80) 10/14/17 18:12 Hgb 12.7 gm/dL (12-16) 10/14/17 18:12 Hct 37.8 % (41.0-60) L 10/14/17 18:12 MCV 91.3 fl (80-99) 10/14/17 18:12 MCH 30.7 pg (27.0-31.0) 10/14/17 18:12 MCHC Differential 33.6 pg (28.0-36.0) 10/14/17 18:12 RDW 13.2 % (11.5-20.0) 10/14/17 18:12 Plt Count 352 Th/cmm (150-400) 10/14/17 18:12 MPV 7.4 fl 10/14/17 18:12 Neutrophils % 59.7 % (40.0-80.0) 10/14/17 18:12 Lymphocytes % 26.6 % (20.0-50.0) 10/14/17 18:12 Monocytes % 9.2 % (2.0-10.0) 10/14/17 18:12 Eosinophils % 3.8 % (0.0-5.0) 10/14/17 18:12 Basophils % 0.7 % (0.0-2.0) 10/14/17 18:12 Sodium 135 mEq/L (136-145) L 10/14/17 18:12 Potassium 4.9 mEq/L (3.5-5.1) 10/14/17 18:12 Chloride 105 mEq/L (98-107) 10/14/17 18:12 Carbon Dioxide 27.7 mEq/L (21.0-31.0) 10/14/17 18:12 Anion Gap 7.2 (7.0-16.0) 10/14/17 18:12 BUN 18 mg/dL (7-25) 10/14/17 18:12 Creatinine 0.9 mg/dL (0.7-1.3) 10/14/17 18:12 Est GFR ( Amer) TNP 10/14/17 18:12 Est GFR (Non-Af Amer) TNP 10/14/17 18:12 BUN/Creatinine Ratio 20.0 10/14/17 18:12 Glucose 86 mg/dL (70-105) 10/14/17 18:12 Calcium 9.7 mg/dL (8.6-10.3) 10/14/17 18:12 Phosphorus 3.2 mg/dL (2.5-5.0) 10/14/17 18:12 Magnesium 2.4 mg/dL (1.9-2.7) 10/14/17 18:12 Total Bilirubin 0.2 mg/dL (0.3-1.0) L 10/14/17 18:12 AST 16 U/L (13-39) 10/14/17 18:12 ALT 13 U/L (7-52) 10/14/17 18:12 Alkaline Phosphatase 72 U/L (34-104) 10/14/17 18:12 Total Protein 7.3 gm/dL (6.0-8.3) 10/14/17 18:12 Albumin 4.1 gm/dL (4.2-5.5) L 10/14/17 18:12 Globulin 3.2 gm/dL 10/14/17 18:12 Albumin/Globulin Ratio 1.3 (1.0-1.8) 10/14/17 18:12 TSH 3.37 uIU/ml (0.34-5.60) 10/14/17 18:12 Strong 1.57 mmol/L (0.5-1.0) H 10/14/17 18:12 - Physical Exam Vitals and I&O: Vital Signs Temp 97.8 F 10/15/17 20:01 Pulse 81 10/15/17 20:01 Resp 20 10/15/17 20:01 BP 171/88 10/15/17 20:01 Pulse Ox 97 10/15/17 20:01 Intake & Output 10/15/17 10/15/17 10/16/17 06:59 18:59 06:59 Intake Total 420 1000 240 Balance 420 1000 240 Weight (lbs) 72.575 kg Intake: Oral 420 1000 240 Other: # Voids 1 4 1 # Bowel Movements 0 1 Weight Source Bedscale Active Medications: Current Medications Acetaminophen (Tylenol) 650 mg PO Q4HR PRN PRN Reason: Pain (Mild) (1-3) Stop: 12/13/17 21:30 Aspirin (Aspirin Chewable) 81 mg PO DAILY [facility] Stop: 12/14/17 08:59 Last Admin: 10/15/17 08:27 Dose: 81 mg Docusate Sodium (Colace) 100 mg PO BID [facility] Stop: 12/14/17 08:59 Last Admin: 10/15/17 18:05 Dose: 100 mg Donepezil HCl (Aricept) 5 mg PO HS [facility] Stop: 12/14/17 20:59 Famotidine (Pepcid) 20 mg PO BID [facility] Stop: 12/14/17 08:59 Last Admin: 10/15/17 18:05 Dose: 20 mg Strong Carbonate (Eskalith) 300 mg PO TID [facility]; Protocol Stop: 12/13/17 21:59 Last Admin: 10/15/17 14:30 Dose: Not Given Lorazepam (Ativan) 0.5 mg PO Q4HR PRN; Protocol PRN Reason: Anxiety Stop: 11/13/17 21:19 Magnesium Hydroxide (Milk Of Magnesia) 30 ml PO HS [facility] Stop: 12/14/17 22:29 Multivitamins/Vitamin C (Theragran) 1 tab PO DAILY [facility] Stop: 12/14/17 08:59 Last Admin: 10/15/17 08:26 Dose: 1 tab Zolpidem Tartrate (Ambien) 5 mg PO HS PRN PRN Reason: Insomnia Stop: 12/13/17 21:59 General: alert HEENT: NC/AT, PERRLA, EOMI, anicteric sclerae, throat clear Neck: Supple, No JVD, No thyromegaly, +2 carotid pulse wo bruit, No LAD Lungs: CTAB Cardiovascular: RRR, Normal S1, Normal S2, without murmur Abdomen: soft, non-tender, non-distended Extremities: clear Neurological: no change Internal Medicine Assmt/Plan - Assessment Assessment: 1.COPD. 2.HTN. 3.THOMAS. 4.DEMENTIA. - Plan Plan: CONTINUE ON CURRENT MEDICATION AND DIET.
[2017-10-15] MEDS: Magnesium Hydroxide (MOM) 30 mL UDC PO SCH (22:38)
[2017-10-16] MEDS: Aspirin 81mg Chewable Tab PO SCH (09:04)
[2017-10-16] MEDS: Multivitamin Tab PO SCH (09:05)
--- NOTE | 2017-10-16 10:35 | Progress Notes ---
DATE: 10/16/2017 Case was discussed with staff of the patient and reviewed records. The patient continues to have poor insight. Continues to be unpredictable, impulsive, needing redirection, confused. His recent level was 1.5. However, the patient has no tremors. He does not have any diarrhea or any symptoms of lithium toxicity. Staff to withhold his medications and recheck his lithium level. We will make further decisions been outcome with further lithium level and we will continue the patient in group therapy, milieu therapy, adjust medication as needed. JOB# [id number]
[2017-10-16] MEDS: Magnesium Hydroxide (MOM) 30 mL UDC PO SCH (20:34)
--- NOTE | 2017-10-16 21:00 | Internal Medicine Prog Note ---
Internal Medicine Subjective - Subjective Service Date: 10/16/17 Patient seen and examined:: with staff Patient is:: awake, verbal, in bed, talking Per staff patient has:: no adverse event Internal Medicine Objective - Results Result Diagrams: 10/14/17 18:12 10/14/17 18:12 Recent Labs: Laboratory Last Values WBC 8.6 Th/cmm (4.8-10.8) 10/14/17 18:12 RBC 4.14 Mil/cmm (3.80-5.80) 10/14/17 18:12 Hgb 12.7 gm/dL (12-16) 10/14/17 18:12 Hct 37.8 % (41.0-60) L 10/14/17 18:12 MCV 91.3 fl (80-99) 10/14/17 18:12 MCH 30.7 pg (27.0-31.0) 10/14/17 18:12 MCHC Differential 33.6 pg (28.0-36.0) 10/14/17 18:12 RDW 13.2 % (11.5-20.0) 10/14/17 18:12 Plt Count 352 Th/cmm (150-400) 10/14/17 18:12 MPV 7.4 fl 10/14/17 18:12 Neutrophils % 59.7 % (40.0-80.0) 10/14/17 18:12 Lymphocytes % 26.6 % (20.0-50.0) 10/14/17 18:12 Monocytes % 9.2 % (2.0-10.0) 10/14/17 18:12 Eosinophils % 3.8 % (0.0-5.0) 10/14/17 18:12 Basophils % 0.7 % (0.0-2.0) 10/14/17 18:12 Sodium 135 mEq/L (136-145) L 10/14/17 18:12 Potassium 4.9 mEq/L (3.5-5.1) 10/14/17 18:12 Chloride 105 mEq/L (98-107) 10/14/17 18:12 Carbon Dioxide 27.7 mEq/L (21.0-31.0) 10/14/17 18:12 Anion Gap 7.2 (7.0-16.0) 10/14/17 18:12 BUN 18 mg/dL (7-25) 10/14/17 18:12 Creatinine 0.9 mg/dL (0.7-1.3) 10/14/17 18:12 Est GFR ( Amer) TNP 10/14/17 18:12 Est GFR (Non-Af Amer) TNP 10/14/17 18:12 BUN/Creatinine Ratio 20.0 10/14/17 18:12 Glucose 86 mg/dL (70-105) 10/14/17 18:12 Calcium 9.7 mg/dL (8.6-10.3) 10/14/17 18:12 Phosphorus 3.2 mg/dL (2.5-5.0) 10/14/17 18:12 Magnesium 2.4 mg/dL (1.9-2.7) 10/14/17 18:12 Total Bilirubin 0.2 mg/dL (0.3-1.0) L 10/14/17 18:12 AST 16 U/L (13-39) 10/14/17 18:12 ALT 13 U/L (7-52) 10/14/17 18:12 Alkaline Phosphatase 72 U/L (34-104) 10/14/17 18:12 Total Protein 7.3 gm/dL (6.0-8.3) 10/14/17 18:12 Albumin 4.1 gm/dL (4.2-5.5) L 10/14/17 18:12 Globulin 3.2 gm/dL 10/14/17 18:12 Albumin/Globulin Ratio 1.3 (1.0-1.8) 10/14/17 18:12 TSH 3.37 uIU/ml (0.34-5.60) 10/14/17 18:12 [place] 1.57 mmol/L (0.5-1.0) H 10/14/17 18:12 - Physical Exam Vitals and I&O: Vital Signs Temp 97.6 F 10/16/17 14:00 Pulse 60 10/16/17 14:00 Resp 18 10/16/17 14:00 BP 149/83 10/16/17 14:00 Pulse Ox 96 10/16/17 14:00 Intake & Output 10/16/17 10/16/17 10/17/17 06:59 18:59 06:59 Intake Total 240 1000 Balance 240 1000 Weight (lbs) 72.575 kg Intake: Oral 240 1000 Other: # Voids 3 3 # Bowel Movements 0 1 Weight Source Bedscale Active Medications: Current Medications Acetaminophen (Tylenol) 650 mg PO Q4HR PRN PRN Reason: Pain (Mild) (1-3) Stop: 12/13/17 21:30 Aspirin (Aspirin Chewable) 81 mg PO DAILY [facility] Stop: 12/14/17 08:59 Last Admin: 10/16/17 09:04 Dose: 81 mg Docusate Sodium (Colace) 100 mg PO BID [facility] Stop: 12/14/17 08:59 Last Admin: 10/16/17 17:17 Dose: 100 mg Donepezil HCl (Aricept) 5 mg PO HS [facility] Stop: 12/14/17 20:59 Last Admin: 10/16/17 20:34 Dose: 5 mg Famotidine (Pepcid) 20 mg PO BID [facility] Stop: 12/14/17 08:59 Last Admin: 10/16/17 17:17 Dose: 20 mg [place] Carbonate (Eskalith) 300 mg PO TID [facility]; Protocol Stop: 12/13/17 21:59 Last Admin: 10/16/17 20:35 Dose: Not Given Lorazepam (Ativan) 0.5 mg PO Q4HR PRN; Protocol PRN Reason: Anxiety Stop: 11/13/17 21:19 Magnesium Hydroxide (Milk Of Magnesia) 30 ml PO HS [facility] Stop: 12/14/17 22:29 Last Admin: 10/16/17 20:34 Dose: 30 ml Multivitamins/Vitamin C (Theragran) 1 tab PO DAILY [facility] Stop: 12/14/17 08:59 Last Admin: 10/16/17 09:05 Dose: 1 tab Zolpidem Tartrate (Ambien) 5 mg PO HS PRN PRN Reason: Insomnia Stop: 12/13/17 21:59 General: alert HEENT: NC/AT, PERRLA, EOMI, anicteric sclerae, throat clear Neck: Supple, No JVD, No thyromegaly, +2 carotid pulse wo bruit, No LAD Lungs: CTAB Cardiovascular: RRR, Normal S1, Normal S2, without murmur Abdomen: soft, non-tender, non-distended Extremities: clear Neurological: no change Internal Medicine Assmt/Plan - Assessment Assessment: 1.COPD. 2.HTN. 3.THOMAS. 4.DEMENTIA. - Plan Plan: CONTINUE ON CURRENT MEDICATION AND DIET.
[2017-10-17] MEDS: Multivitamin Tab PO SCH (10:36)
[2017-10-17] MEDS: Aspirin 81mg Chewable Tab PO SCH (10:36)
--- NOTE | 2017-10-17 21:08 | Internal Medicine Prog Note ---
Internal Medicine Subjective - Subjective Service Date: 10/17/17 Patient seen and examined:: with staff (HE FEELS WELL) Patient is:: awake, verbal, in bed, talking Per staff patient has:: no adverse event Internal Medicine Objective - Results Result Diagrams: 10/14/17 18:12 10/14/17 18:12 Recent Labs: Laboratory Last Values WBC 8.6 Th/cmm (4.8-10.8) 10/14/17 18:12 RBC 4.14 Mil/cmm (3.80-5.80) 10/14/17 18:12 Hgb 12.7 gm/dL (12-16) 10/14/17 18:12 Hct 37.8 % (41.0-60) L 10/14/17 18:12 MCV 91.3 fl (80-99) 10/14/17 18:12 MCH 30.7 pg (27.0-31.0) 10/14/17 18:12 MCHC Differential 33.6 pg (28.0-36.0) 10/14/17 18:12 RDW 13.2 % (11.5-20.0) 10/14/17 18:12 Plt Count 352 Th/cmm (150-400) 10/14/17 18:12 MPV 7.4 fl 10/14/17 18:12 Neutrophils % 59.7 % (40.0-80.0) 10/14/17 18:12 Lymphocytes % 26.6 % (20.0-50.0) 10/14/17 18:12 Monocytes % 9.2 % (2.0-10.0) 10/14/17 18:12 Eosinophils % 3.8 % (0.0-5.0) 10/14/17 18:12 Basophils % 0.7 % (0.0-2.0) 10/14/17 18:12 Sodium 135 mEq/L (136-145) L 10/14/17 18:12 Potassium 4.9 mEq/L (3.5-5.1) 10/14/17 18:12 Chloride 105 mEq/L (98-107) 10/14/17 18:12 Carbon Dioxide 27.7 mEq/L (21.0-31.0) 10/14/17 18:12 Anion Gap 7.2 (7.0-16.0) 10/14/17 18:12 BUN 18 mg/dL (7-25) 10/14/17 18:12 Creatinine 0.9 mg/dL (0.7-1.3) 10/14/17 18:12 Est GFR ( Amer) TNP 10/14/17 18:12 Est GFR (Non-Af Amer) TNP 10/14/17 18:12 BUN/Creatinine Ratio 20.0 10/14/17 18:12 Glucose 86 mg/dL (70-105) 10/14/17 18:12 Calcium 9.7 mg/dL (8.6-10.3) 10/14/17 18:12 Phosphorus 3.2 mg/dL (2.5-5.0) 10/14/17 18:12 Magnesium 2.4 mg/dL (1.9-2.7) 10/14/17 18:12 Total Bilirubin 0.2 mg/dL (0.3-1.0) L 10/14/17 18:12 AST 16 U/L (13-39) 10/14/17 18:12 ALT 13 U/L (7-52) 10/14/17 18:12 Alkaline Phosphatase 72 U/L (34-104) 10/14/17 18:12 Total Protein 7.3 gm/dL (6.0-8.3) 10/14/17 18:12 Albumin 4.1 gm/dL (4.2-5.5) L 10/14/17 18:12 Globulin 3.2 gm/dL 10/14/17 18:12 Albumin/Globulin Ratio 1.3 (1.0-1.8) 10/14/17 18:12 TSH 3.37 uIU/ml (0.34-5.60) 10/14/17 18:12 [place] 0.60 mmol/L (0.5-1.0) 10/16/17 16:20 - Physical Exam Vitals and I&O: Vital Signs Temp 97.8 F 10/17/17 14:00 Pulse 62 10/17/17 14:00 Resp 20 10/17/17 14:00 BP 142/77 10/17/17 14:00 Pulse Ox 99 10/17/17 14:00 Intake & Output 08/16/18 08/16/18 08/17/18 06:59 18:59 06:59 Intake Total 60 1000 Balance 60 1000 Intake: Oral 60 1000 Other: # Voids 2 3 # Bowel Movements 1 Active Medications: Current Medications Acetaminophen (Tylenol) 650 mg PO Q4HR PRN PRN Reason: Pain (Mild) (1-3) Stop: 12/13/17 21:30 Aspirin (Aspirin Chewable) 81 mg PO DAILY [facility] Stop: 12/14/17 08:59 Last Admin: 10/17/17 10:36 Dose: 81 mg Docusate Sodium (Colace) 100 mg PO BID [facility] Stop: 12/14/17 08:59 Last Admin: 10/17/17 18:07 Dose: 100 mg Donepezil HCl (Aricept) 5 mg PO HS [facility] Stop: 12/14/17 20:59 Last Admin: 10/16/17 20:34 Dose: 5 mg Famotidine (Pepcid) 20 mg PO BID [facility] Stop: 12/14/17 08:59 Last Admin: 10/17/17 18:08 Dose: 20 mg [place] Carbonate (Eskalith) 300 mg PO TID [facility]; Protocol Stop: 12/13/17 21:59 Last Admin: 10/16/17 20:35 Dose: Not Given Lorazepam (Ativan) 0.5 mg PO Q4HR PRN; Protocol PRN Reason: Anxiety Stop: 11/13/17 21:19 Magnesium Hydroxide (Milk Of Magnesia) 30 ml PO HS [facility] Stop: 12/14/17 22:29 Last Admin: 10/16/17 20:34 Dose: 30 ml Multivitamins/Vitamin C (Theragran) 1 tab PO DAILY [facility] Stop: 12/14/17 08:59 Last Admin: 10/17/17 10:36 Dose: 1 tab Zolpidem Tartrate (Ambien) 5 mg PO HS PRN PRN Reason: Insomnia Stop: 12/13/17 21:59 General: alert HEENT: NC/AT, PERRLA, EOMI, anicteric sclerae, throat clear Neck: Supple, No JVD, No thyromegaly, +2 carotid pulse wo bruit, No LAD Lungs: CTAB Cardiovascular: RRR, Normal S1, Normal S2, without murmur Abdomen: soft, non-tender, non-distended Extremities: clear Neurological: no change Internal Medicine Assmt/Plan - Assessment Assessment: 1.COPD. 2.HTN. 3.THOMAS. 4.DEMENTIA. - Plan Plan: CONTINUE ON CURRENT MEDICATION AND DIET.
--- NOTE | 2017-10-17 21:55 | Progress Notes ---
DATE: 10/17/2017 Case was discussed with staff of the patient, reviewed records. The patient continues to be confused, demented, impulsive, unpredictable, needing redirection, easily agitated. Continues to have poor insight, continues to be unable to make safe plan for self-care or participate in meaningful conversation, easily distracted. He tolerated adding of the Aricept 5 mg at bedtime with no side effects and we will continue to work with the patient in group therapy, milieu therapy and adjust the medications as needed. [facility]# [id number]
[2017-10-17] MEDS: Magnesium Hydroxide (MOM) 30 mL UDC PO SCH (22:11)
[2017-10-18] MEDS: Multivitamin Tab PO SCH (08:55)
[2017-10-18] MEDS: Aspirin 81mg Chewable Tab PO SCH (08:56)
--- NOTE | 2017-10-18 20:05 | Internal Medicine Prog Note ---
Internal Medicine Subjective - Subjective Service Date: 10/18/17 Patient seen and examined:: with staff Patient is:: awake, verbal, in bed, talking Per staff patient has:: no adverse event Internal Medicine Objective - Results Result Diagrams: 10/14/17 18:12 10/14/17 18:12 Recent Labs: Laboratory Last Values WBC 8.6 Th/cmm (4.8-10.8) 10/14/17 18:12 RBC 4.14 Mil/cmm (3.80-5.80) 10/14/17 18:12 Hgb 12.7 gm/dL (12-16) 10/14/17 18:12 Hct 37.8 % (41.0-60) L 10/14/17 18:12 MCV 91.3 fl (80-99) 10/14/17 18:12 MCH 30.7 pg (27.0-31.0) 10/14/17 18:12 MCHC Differential 33.6 pg (28.0-36.0) 10/14/17 18:12 RDW 13.2 % (11.5-20.0) 10/14/17 18:12 Plt Count 352 Th/cmm (150-400) 10/14/17 18:12 MPV 7.4 fl 10/14/17 18:12 Neutrophils % 59.7 % (40.0-80.0) 10/14/17 18:12 Lymphocytes % 26.6 % (20.0-50.0) 10/14/17 18:12 Monocytes % 9.2 % (2.0-10.0) 10/14/17 18:12 Eosinophils % 3.8 % (0.0-5.0) 10/14/17 18:12 Basophils % 0.7 % (0.0-2.0) 10/14/17 18:12 Sodium 135 mEq/L (136-145) L 10/14/17 18:12 Potassium 4.9 mEq/L (3.5-5.1) 10/14/17 18:12 Chloride 105 mEq/L (98-107) 10/14/17 18:12 Carbon Dioxide 27.7 mEq/L (21.0-31.0) 10/14/17 18:12 Anion Gap 7.2 (7.0-16.0) 10/14/17 18:12 BUN 18 mg/dL (7-25) 10/14/17 18:12 Creatinine 0.9 mg/dL (0.7-1.3) 10/14/17 18:12 Est GFR ( Amer) TNP 10/14/17 18:12 Est GFR (Non-Af Amer) TNP 10/14/17 18:12 BUN/Creatinine Ratio 20.0 10/14/17 18:12 Glucose 86 mg/dL (70-105) 10/14/17 18:12 Calcium 9.7 mg/dL (8.6-10.3) 10/14/17 18:12 Phosphorus 3.2 mg/dL (2.5-5.0) 10/14/17 18:12 Magnesium 2.4 mg/dL (1.9-2.7) 10/14/17 18:12 Total Bilirubin 0.2 mg/dL (0.3-1.0) L 10/14/17 18:12 AST 16 U/L (13-39) 10/14/17 18:12 ALT 13 U/L (7-52) 10/14/17 18:12 Alkaline Phosphatase 72 U/L (34-104) 10/14/17 18:12 Total Protein 7.3 gm/dL (6.0-8.3) 10/14/17 18:12 Albumin 4.1 gm/dL (4.2-5.5) L 10/14/17 18:12 Globulin 3.2 gm/dL 10/14/17 18:12 Albumin/Globulin Ratio 1.3 (1.0-1.8) 10/14/17 18:12 TSH 3.37 uIU/ml (0.34-5.60) 10/14/17 18:12 [place] 0.60 mmol/L (0.5-1.0) 10/16/17 16:20 - Physical Exam Vitals and I&O: Vital Signs Temp 98.0 F 10/18/17 14:00 Pulse 68 10/18/17 14:00 Resp 20 10/18/17 14:00 BP 138/72 10/18/17 14:00 Pulse Ox 96 10/18/17 14:00 Intake & Output 10/18/17 10/18/17 10/19/17 06:59 18:59 06:59 Intake Total 120 1600 Balance 120 1600 Intake: Oral 120 1600 Other: # Voids 3 3 # Bowel Movements 0 Active Medications: Current Medications Acetaminophen (Tylenol) 650 mg PO Q4HR PRN PRN Reason: Pain (Mild) (1-3) Stop: 12/13/17 21:30 Aspirin (Aspirin Chewable) 81 mg PO DAILY [facility] Stop: 12/14/17 08:59 Last Admin: 10/18/17 08:56 Dose: 81 mg Docusate Sodium (Colace) 100 mg PO BID [facility] Stop: 12/14/17 08:59 Last Admin: 10/18/17 17:52 Dose: 100 mg Donepezil HCl (Aricept) 5 mg PO HS [facility] Stop: 12/14/17 20:59 Last Admin: 10/17/17 22:11 Dose: 5 mg Famotidine (Pepcid) 20 mg PO BID [facility] Stop: 12/14/17 08:59 Last Admin: 10/18/17 17:53 Dose: 20 mg [place] Carbonate (Eskalith) 300 mg PO TID [facility]; Protocol Stop: 12/13/17 21:59 Last Admin: 10/18/17 14:40 Dose: 300 mg Lorazepam (Ativan) 0.5 mg PO Q4HR PRN; Protocol PRN Reason: Anxiety Stop: 11/13/17 21:19 Magnesium Hydroxide (Milk Of Magnesia) 30 ml PO HS [facility] Stop: 12/14/17 22:29 Last Admin: 10/17/17 22:11 Dose: Not Given Multivitamins/Vitamin C (Theragran) 1 tab PO DAILY [facility] Stop: 12/14/17 08:59 Last Admin: 10/18/17 08:55 Dose: 1 tab Zolpidem Tartrate (Ambien) 5 mg PO HS PRN PRN Reason: Insomnia Stop: 12/13/17 21:59 General: alert HEENT: NC/AT, PERRLA, EOMI, anicteric sclerae, throat clear Neck: Supple, No JVD, No thyromegaly, +2 carotid pulse wo bruit, No LAD Lungs: CTAB Cardiovascular: RRR, Normal S1, Normal S2, without murmur Abdomen: soft, non-tender, non-distended Extremities: clear Neurological: no change Internal Medicine Assmt/Plan - Assessment Assessment: 1.COPD. 2.HTN. 3.THOMAS. 4.DEMENTIA. - Plan Plan: CONTINUE ON CURRENT MEDICATION AND DIET.
[2017-10-18] MEDS: Magnesium Hydroxide (MOM) 30 mL UDC PO SCH (20:44)
--- NOTE | 2017-10-19 01:44 | Progress Notes ---
DATE: 10/18/2017 Case was discussed with staff of the patient, reviewed records. The patient continues to have poor insight, continues to be unpredictable, impulsive, needing redirection, confused, demented, unable to hold a reasonable conversation or make safe plan for self-care. He tolerated the Aricept with no side effect. He is also on lithium 300 mg 3 times a day. His lab work showed his lithium level 1.57; however, it went down to 0.6. I did decrease the dose. Also sodium level is low. TSH within normal range. Chemistry panel is within normal range except for the low sodium level and CBC with low hematocrit. The rest within normal range. I will continue outpatient group therapy, milieu therapy, and adjust medications as needed. JOB# [id number]
[2017-10-19] MEDS: Aspirin 81mg Chewable Tab PO SCH (09:59)
[2017-10-19] MEDS: Multivitamin Tab PO SCH (09:59)
[2017-10-19] MEDS ORDERED: Albuterol Nebulizer 2.5mg/3mL HHN PRN (14:11)
--- NOTE | 2017-10-19 14:14 | General Progress Note ---
Subjective - Review of Systems Service Date: 10/19/17 Subjective: awake and alert RN reports SOB on exertion Pox 95% on RA Objective - Results Result Diagrams: 10/14/17 18:12 10/14/17 18:12 Recent Labs: Laboratory Last Values WBC 8.6 Th/cmm (4.8-10.8) 10/14/17 18:12 RBC 4.14 Mil/cmm (3.80-5.80) 10/14/17 18:12 Hgb 12.7 gm/dL (12-16) 10/14/17 18:12 Hct 37.8 % (41.0-60) L 10/14/17 18:12 MCV 91.3 fl (80-99) 10/14/17 18:12 MCH 30.7 pg (27.0-31.0) 10/14/17 18:12 MCHC Differential 33.6 pg (28.0-36.0) 10/14/17 18:12 RDW 13.2 % (11.5-20.0) 10/14/17 18:12 Plt Count 352 Th/cmm (150-400) 10/14/17 18:12 MPV 7.4 fl 10/14/17 18:12 Neutrophils % 59.7 % (40.0-80.0) 10/14/17 18:12 Lymphocytes % 26.6 % (20.0-50.0) 10/14/17 18:12 Monocytes % 9.2 % (2.0-10.0) 10/14/17 18:12 Eosinophils % 3.8 % (0.0-5.0) 10/14/17 18: Basophils % 0.7 % (0.0-2.0) 10/14/17 18:12 Sodium 135 mEq/L (136-145) L 10/14/17 18:12 Potassium 4.9 mEq/L (3.5-5.1) 10/14/17 18:12 Chloride 105 mEq/L (98-107) 10/14/17 18:12 Carbon Dioxide 27.7 mEq/L (21.0-31.0) 10/14/17 18:12 Anion Gap 7.2 (7.0-16.0) 10/14/17 18:12 BUN 18 mg/dL (7-25) 10/14/17 18:12 Creatinine 0.9 mg/dL (0.7-1.3) 10/14/17 18:12 Est GFR ( Amer) TNP 10/14/17 18:12 Est GFR (Non-Af Amer) TNP 10/14/17 18:12 BUN/Creatinine Ratio 20.0 10/14/17 18:12 Glucose 86 mg/dL (70-105) 10/14/17 18:12 Calcium 9.7 mg/dL (8.6-10.3) 10/14/17 18:12 Phosphorus 3.2 mg/dL (2.5-5.0) 10/14/17 18:12 Magnesium 2.4 mg/dL (1.9-2.7) 10/14/17 18:12 Total Bilirubin 0.2 mg/dL (0.3-1.0) L 10/14/17 18:12 AST 16 U/L (13-39) 10/14/17 18:12 ALT 13 U/L (7-52) 10/14/17 18:12 Alkaline Phosphatase 72 U/L (34-104) 10/14/17 18:12 Total Protein 7.3 gm/dL (6.0-8.3) 10/14/17 18:12 Albumin 4.1 gm/dL (4.2-5.5) L 10/14/17 18:12 Globulin 3.2 gm/dL 10/14/17 18:12 Albumin/Globulin Ratio 1.3 (1.0-1.8) 10/14/17 18:12 TSH 3.37 uIU/ml (0.34-5.60) 10/14/17 18:12 [place] 0.60 mmol/L (0.5-1.0) 10/16/17 16:20 - Physical Exam Vitals and I&O: Vital Signs Temp 98.0 F 10/18/17 14:00 Pulse 68 10/18/17 14:00 Resp 20 10/18/17 14:00 BP 138/72 10/18/17 14:00 Pulse Ox 96 10/18/17 14:00 Intake & Output 10/18/1718 10/19/17 18:59 06:59 18:59 Intake Total 1600 Balance 1600 Intake: Oral 1600 Other: # Voids 3 # Bowel Movements 0 Active Medications: Current Medications Acetaminophen (Tylenol) 650 mg PO Q4HR PRN PRN Reason: Pain (Mild) (1-3) Stop: 12/13/17 21:30 Albuterol Sulfate (Albuterol 2.5mg/3ml Neb Ud) 2.5 mg HHN Q6H PRN PRN Reason: Shortness of Breath or Wheeze Stop: 12/18/17 14:10 Aspirin (Aspirin Chewable) 81 mg PO DAILY [facility] Stop: 12/14/17 08:59 Last Admin: 10/19/17 09:59 Dose: 81 mg Docusate Sodium (Colace) 100 mg PO BID [facility] Stop: 12/14/17 08:59 Last Admin: 10/19/17 09:59 Dose: 100 mg Donepezil HCl (Aricept) 5 mg PO HS [facility] Stop: 12/14/17 20:59 Last Admin: 10/18/17 20:45 Dose: 5 mg Famotidine (Pepcid) 20 mg PO BID [facility] Stop: 12/14/17 08:59 Last Admin: 10/19/17 09:59 Dose: 20 mg [place] Carbonate (Eskalith) 300 mg PO TID [facility]; Protocol Stop: 12/13/17 21:59 Last Admin: 10/19/17 09:59 Dose: 300 mg Lorazepam (Ativan) 0.5 mg PO Q4HR PRN; Protocol PRN Reason: Anxiety Stop: 11/13/17 21:19 Magnesium Hydroxide (Milk Of Magnesia) 30 ml PO HS [facility] Stop: 12/14/17 22:29 Last Admin: 10/18/17 20:44 Dose: 30 ml Multivitamins/Vitamin C (Theragran) 1 tab PO DAILY [facility] Stop: 12/14/17 08:59 Last Admin: 10/19/17 09:59 Dose: 1 tab Zolpidem Tartrate (Ambien) 5 mg PO HS PRN PRN Reason: Insomnia Stop: 12/13/17 21:59 Last Admin: 10/18/17 20:44 Dose: 5 mg General: No acute distress HEENT: Atraumatic, PERRLA, EOMI Neck: Supple, JVD, Thyromegaly Cardiovascular: Regular rate, Normal S1, Normal S2 Lungs: Clear to auscultation Abdomen: Bowel sounds, Soft Assessment/Plan - Assessment Assessment: 1.COPD. 2.HTN. 3.GERD. 4.DEMENTIA. - Plan Plan: repeat CXR, blood tests Neb Tx D/W RN Nutritional Asmnt/Malnutr-PDOC - Dietary Evaluation Malnutrition Findings (Please click <Entered> for more info): Nutritional Asmnt/Malnutrition Start: 10/19/17 09: 34 Text: Status: Active Freq: Protocol: Document 10/19/17 09:34 PHILLIP (Rec: 10/19/17 09:47 [email or web address]- [email or web address]) Nutritional Asmnt/Malnutrition Patient General Information Nutritional Screening Low Risk Diagnosis Psychosis Pertinent Medical Hx/Surgical Hx COPD, GERD, degenerative joint disease Subjective Information Patient was admitted from [facility]. Current Diet Order/ Nutrition Support mechanical soft chopped Patient / S.O Not Indicated Pertinent Medications colace, pepcid, MOM, theragran Pertinent Labs WNL Nutritional Hx/Data Height 1.78 m Height (Calculated Centimeters) 177.8 Current Weight (lbs) 72.575 kg Weight (Calculated Kilograms) 72.6 Weight (Calculated Grams) 45186.8 [place] Body Weight 166 % [place] Body Weight 96 Body Mass Index (BMI) 22.9 Recent Weight Change No Weight Status Approriate GI Symptoms GI Symptoms None Last BM 10/17 x 1 Difficult in: None Food Allergies No Cultural/Ethnic/Ep[employer] Belief none indicated Usual diet at home unknown Skin Integrity/Comment: [place] 21, intact Current %PO Good (75-100%) Estimated Nutritional Goals BEE in Kcals: Using Current wt Calories/Kcals/Kg 25-30 kcal/kg using CBW 72.7kg Kcals Calculated 6488-4087 kcal/day Protein: Using Current wt Protein g/k.8-1 gm/kg Protein Calculated 60-70 gm/day Fluid: ml 7561-0328 ml/day (1 ml/kcal) Nutritional Problem 1. Problem Problem No nutrition diagnosis at this time Intervention/Recommendation Comments 1. Continue mechanical soft chopped diet as tolerated by patient as it is adequate to meet nutrient needs. 2. F/U LR 10/26 Expected Outcomes/Goals Expected Outcomes/Goals weight stable, oral intake >75 % of meals, nutrition related labs WNL
--- NOTE | 2017-10-19 20:10 | Progress Notes ---
DATE: 10/19/2017 PROGRESS ON THE UNIT: Case was discussed with staff of the patient, reviewed records. The patient was found to have right basal infiltrate on chest x-ray and pneumonia. The patient continues to have poor insight. He continues to be unpredictable, impulsive, needing redirection. I do not see that he is on any antibiotic, so I will be consulting with the medical doctor to see the importance of this finding and that is Dr. Blandon. The patient continues to be confused, easily agitated, inappropriate. No side effects with the medication, no sedation, no nausea. His lithium level was high, went down to 0.6; however, he does have a low sodium level and I consulted Dr. Blandon regarding that. PLAN: We will continue to work with the patient in group therapy and milieu therapy, adjust medications as needed. JOB# [id number]
[2017-10-19] MEDS: Magnesium Hydroxide (MOM) 30 mL UDC PO SCH (21:07)
[2017-10-20] MEDS: Multivitamin Tab PO SCH (09:31)
[2017-10-20] MEDS: Aspirin 81mg Chewable Tab PO SCH (09:31)
--- NOTE | 2017-10-20 09:44 | Diagnostic Imaging Report ---
CHEST X-RAY: 2 views INDICATION: Pneumonia COMPARISON: Chest x-ray 10/14/2017 FINDINGS: Improving right basal infiltrates are noted. Chronic lung changes are noted with no focal consolidation or effusions. Cardiomegaly is noted. Degenerative changes of the spine are noted. There may be a hiatal hernia. IMPRESSION: Improving right basal infiltrates. Questionable hiatal hernia. Cardiomegaly.
[2017-10-20 10:53] LABS: % BASOPHILS 0.5 % (0.0-2.0); % EOSINOPHILS 0.9 % (0.0-5.0); % LYMPHOCYTES 17.1 % (20.0-50.0); % MONOCYTES 7.1 % (2.0-10.0); % NEUTROPHILS 74.4 % (40.0-80.0); BASOPHILE ABSOLUTE 0.1 Th/cumm (0-0.2); EOSINOPHILE ABSOLUTE 0.1 Th/cmm (0.1-0.4); LYMPHOCYTE ABSOLUTE 2.8 Th/cmm (1.5-3.0); MEAN CELL VOLUME 91.6 fl (80-99); MEAN CORPUSCULAR HEMOGLOBIN 30.5 pg (27.0-31.0); MEAN CORPUSCULAR HGB CONC 33.3 pg (28.0-36.0); MEAN PLATELET VOLUME 7.7 fl; MONOCYTE ABSOLUTE 1.1 Th/cmm (0.3-1.0); PLATELET COUNT 428 Th/cmm (150-400); RED BLOOD COUNT 4.58 Mil/cmm (3.80-5.80)
[2017-10-20 11:03] LABS: WHITE BLOOD COUNT 16.1 Th/cmm (4.8-10.8)
[2017-10-20 11:05] LABS: ALB/GLOB RATIO 1.2 (1.0-1.8); ALBUMIN 4.2 gm/dL (4.2-5.5); ALKALINE PHOSPHATASE 69 U/L (34-104); ANION GAP 10.6 (7.0-16.0); BILIRUBIN,TOTAL 0.3 mg/dL (0.3-1.0); BUN - UREA NITROGEN 21 mg/dL (7-25); CALCIUM SERUM 9.7 mg/dL (8.6-10.3); CARBON DIOXIDE 26.9 mEq/L (21.0-31.0); CHLORIDE 100 mEq/L (98-107); CREATININE - SERUM 0.8 mg/dL (0.7-1.3); GLUCOSE 99 mg/dL (70-105); POTASSIUM SERUM 4.5 mEq/L (3.5-5.1); SGOT 14 U/L (13-39); SGPT/ALT 8 U/L (7-52); SODIUM SERUM 133 mEq/L (136-145); TOTAL PROTEIN,SERUM 7.6 gm/dL (6.0-8.3)
--- NOTE | 2017-10-20 13:15 | General Progress Note ---
Subjective - Review of Systems Service Date: 10/20/17 Subjective: awake and alert no distress Objective - Results Result Diagrams: 10/20/17 10:45 10/20/17 10:45 Recent Labs: Laboratory Last Values WBC 16.1 Th/cmm (4.8-10.8) H 10/20/17 10:45 RBC 4.58 Mil/cmm (3.80-5.80) 10/20/17 10:45 Hgb 14.0 gm/dL (12-16) 10/20/17 10:45 Hct 42.0 % (41.0-60) 10/20/17 10:45 MCV 91.6 fl (80-99) 10/20/17 10:45 MCH 30.5 pg (27.0-31.0) 10/20/17 10:45 MCHC Differential 33.3 pg (28.0-36.0) 10/20/17 10:45 RDW 13.0 % (11.5-20.0) 10/20/17 10:45 Plt Count 428 Th/cmm (150-400) H 10/20/17 10:45 MPV 7.7 fl 10/20/17 10:45 Neutrophils % 74.4 % (40.0-80.0) 10/20/17 10:45 Lymphocytes % 17.1 % (20.0-50.0) L 10/20/17 10:45 Monocytes % 7.1 % (2.0-10.0) 10/20/17 10:45 Eosinophils % 0.9 % (0.0-5.0) 10/20/17 10:45 Basophils % 0.5 % (0.0-2.0) 10/20/17 10:45 Sodium 133 mEq/L (136-145) L 10/20/17 10:45 Potassium 4.5 mEq/L (3.5-5.1) 10/20/17 10:45 Chloride 100 mEq/L (98-107) 10/20/17 10:45 Carbon Dioxide 26.9 mEq/L (21.0-31.0) 10/20/17 10:45 Anion Gap 10.6 (7.0-16.0) 10/20/17 10:45 BUN 21 mg/dL (7-25) 10/20/17 10:45 Creatinine 0.8 mg/dL (0.7-1.3) 10/20/17 10:45 Est GFR ( Amer) TNP 10/20/17 10:45 Est GFR (Non-Af Amer) TNP 10/20/17 10:45 BUN/Creatinine Ratio 26.3 10/20/17 10:45 Glucose 99 mg/dL (70-105) 10/20/17 10:45 Calcium 9.7 mg/dL (8.6-10.3) 10/20/17 10:45 Phosphorus 3.2 mg/dL (2.5-5.0) 10/14/17 18:12 Magnesium 2.4 mg/dL (1.9-2.7) 10/14/17 18:12 Total Bilirubin 0.3 mg/dL (0.3-1.0) 10/20/17 10:45 AST 14 U/L (13-39) 10/20/17 10:45 ALT 8 U/L (7-52) 10/20/17 10:45 Alkaline Phosphatase 69 U/L (34-104) 10/20/17 10:45 Total Protein 7.6 gm/dL (6.0-8.3) 10/20/17 10:45 Albumin 4.2 gm/dL (4.2-5.5) 10/20/17 10:45 Globulin 3.4 gm/dL 10/20/17 10:45 Albumin/Globulin Ratio 1.2 (1.0-1.8) 10/20/17 10:45 TSH 3.37 uIU/ml (0.34-5.60) 10/14/17 18:12 [place] 0.60 mmol/L (0.5-1.0) 10/16/17 16:20 - Physical Exam Vitals and I&O: Vital Signs Temp 98.2 F 10/20/17 06:40 Pulse 72 10/20/17 07:04 Resp 18 10/20/17 07:04 BP 163/81 10/20/17 06:40 Pulse Ox 95 10/20/17 07:04 Intake & Output 10/19/17 10/20/17 10/20/17 18:59 06:59 18:59 Intake Total 1200 960 Balance 1200 960 Intake: Oral 1200 960 Other: # Voids 2 # Bowel Movements 1 Active Medications: Current Medications Acetaminophen (Tylenol) 650 mg PO Q4HR PRN PRN Reason: Pain (Mild) (1-3) Stop: 12/13/17 21:30 Albuterol Sulfate (Albuterol 2.5mg/3ml Neb Ud) 2.5 mg HHN Q6H PRN PRN Reason: Shortness of Breath or Wheeze Stop: 12/18/17 14:10 Aspirin (Aspirin Chewable) 81 mg PO DAILY [facility] Stop: 12/14/17 08:59 Last Admin: 10/20/17 09:31 Dose: 81 mg Docusate Sodium (Colace) 100 mg PO BID [facility] Stop: 12/14/17 08:59 Last Admin: 10/20/17 09:30 Dose: 100 mg Donepezil HCl (Aricept) 5 mg PO HS [facility] Stop: 12/14/17 20:59 Last Admin: 10/19/17 21:07 Dose: 5 mg Famotidine (Pepcid) 20 mg PO BID [facility] Stop: 12/14/17 08:59 Last Admin: 10/20/17 09:31 Dose: 20 mg [place] Carbonate (Eskalith) 300 mg PO TID [facility]; Protocol Stop: 12/13/17 21:59 Last Admin: 10/20/17 09:31 Dose: 300 mg Lorazepam (Ativan) 0.5 mg PO Q4HR PRN; Protocol PRN Reason: Anxiety Stop: 11/13/17 21:19 Magnesium Hydroxide (Milk Of Magnesia) 30 ml PO HS [facility] Stop: 12/14/17 22:29 Last Admin: 10/19/17 21:07 Dose: 30 ml Multivitamins/Vitamin C (Theragran) 1 tab PO DAILY [facility] Stop: 12/14/17 08:59 Last Admin: 10/20/17 09:31 Dose: 1 tab Zolpidem Tartrate (Ambien) 5 mg PO HS PRN PRN Reason: Insomnia Stop: 12/13/17 21:59 Last Admin: 10/19/17 21:07 Dose: 5 mg General: No acute distress HEENT: Atraumatic, PERRLA, EOMI Neck: Supple, JVD, Thyromegaly Cardiovascular: Regular rate, Normal S1, Normal S2 Lungs: Clear to auscultation Abdomen: Bowel sounds, Soft Assessment/Plan - Assessment Assessment: 1.COPD. 2.HTN. 3.GERD. 4.DEMENTIA. - Plan Plan: continue current treatment Nutritional Asmnt/Malnutr-PDOC - Dietary Evaluation Malnutrition Findings (Please click <Entered> for more info): Nutritional Asmnt/Malnutrition Start: 10/19/17 09: 34 Text: Status: Complete Freq: Protocol: Document 10/19/17 09:34 YONATANBOB (Rec: 10/19/17 09:47 PHILLIP BRADLEY- FNS1) Nutritional Asmnt/Malnutrition Patient General Information Nutritional Screening Low Risk Diagnosis Psychosis Pertinent Medical Hx/Surgical Hx COPD, GERD, degenerative joint disease Subjective Information Patient was admitted from [facility]. No nutrition problems identified at this time with adequate oral intake. Patient in activity room. Current Diet Order/ Nutrition Support mechanical soft chopped Patient / S.O Not Indicated Pertinent Medications colace, pepcid, MOM, theragran Pertinent Labs WNL Nutritional Hx/Data Height 1.78 m Height (Calculated Centimeters) 177.8 Current Weight (lbs) 72.575 kg Weight (Calculated Kilograms) 72.6 Weight (Calculated Grams) 44525.8 [place] Body Weight 166 % [place] Body Weight 96 Body Mass Index (BMI) 22.9 Recent Weight Change No Weight Status Approriate GI Symptoms GI Symptoms None Last BM 10/17 x 1 Difficult in: None Food Allergies No Cultural/Ethnic/Congregational Belief none indicated Usual diet at home unknown Skin Integrity/Comment: [place] 21, intact Current %PO Good (75-100%) Estimated Nutritional Goals BEE in Kcals: Using Current wt Calories/Kcals/Kg 25-30 kcal/kg using CBW 72.7kg Kcals Calculated 7792-0149 kcal/day Protein: Using Current wt Protein g/k.8-1 gm/kg Protein Calculated 60-70 gm/day Fluid: ml 1230-4259 ml/day (1 ml/kcal) Nutritional Problem 1. Problem Problem No nutrition diagnosis at this time Intervention/Recommendation Comments 1. Continue mechanical soft chopped diet as tolerated by patient as it is adequate to meet nutrient needs. 2. F/U LR 10/26 Expected Outcomes/Goals Expected Outcomes/Goals weight stable, oral intake >75 % of meals, nutrition related labs WNL
[2017-10-20] MEDS: Albuterol Nebulizer 2.5mg/3mL HHN SCH ×2 (14:28→18:54)
--- NOTE | 2017-10-20 17:34 | Progress Notes ---
DATE: 10/20/2017 Case was discussed with staff of the patient, reviewed records. The patient has been talking to himself. Continues to look disheveled, internally preoccupied, continues to need redirection. Sleeping better, eating better. No side effects with the medication, no sedation, no nausea, no symptoms. We will continue to work with the patient in group therapy, milieu therapy, and adjust medications as needed. JOB# [id number]
[2017-10-20] MEDS: Magnesium Hydroxide (MOM) 30 mL UDC PO SCH (20:51)
[2017-10-21] MEDS: Albuterol Nebulizer 2.5mg/3mL HHN SCH ×4 (00:44→19:18)
[2017-10-21] MEDS ORDERED: Probiotic Screen MC PRN (09:30)
[2017-10-21] MEDS: Aspirin 81mg Chewable Tab PO SCH (09:47)
[2017-10-21] MEDS: Multivitamin Tab PO SCH (09:48)
[2017-10-21] MEDS: Magnesium Hydroxide (MOM) 30 mL UDC PO SCH (20:41)
--- NOTE | 2017-10-21 20:57 | Internal Medicine Prog Note ---
Internal Medicine Subjective - Subjective Service Date: 10/21/17 Patient seen and examined:: without staff Patient is:: awake, verbal, in bed, talking Per staff patient has:: no adverse event Internal Medicine Objective - Results Result Diagrams: 10/20/17 10:45 10/20/17 10:45 Recent Labs: Laboratory Last Values WBC 16.1 Th/cmm (4.8-10.8) H 10/20/17 10:45 RBC 4.58 Mil/cmm (3.80-5.80) 10/20/17 10:45 Hgb 14.0 gm/dL (12-16) 10/20/17 10:45 Hct 42.0 % (41.0-60) 10/20/17 10:45 MCV 91.6 fl (80-99) 10/20/17 10:45 MCH 30.5 pg (27.0-31.0) 10/20/17 10:45 MCHC Differential 33.3 pg (28.0-36.0) 10/20/17 10:45 RDW 13.0 % (11.5-20.0) 10/20/17 10:45 Plt Count 428 Th/cmm (150-400) H 10/20/17 10:45 MPV 7.7 fl 10/20/17 10:45 Neutrophils % 74.4 % (40.0-80.0) 10/20/17 10:45 Lymphocytes % 17.1 % (20.0-50.0) L 10/20/17 10:45 Monocytes % 7.1 % (2.0-10.0) 10/20/17 10:45 Eosinophils % 0.9 % (0.0-5.0) 10/20/17 10:45 Basophils % 0.5 % (0.0-2.0) 10/20/17 10:45 Sodium 133 mEq/L (136-145) L 10/20/17 10:45 Potassium 4.5 mEq/L (3.5-5.1) 10/20/17 10:45 Chloride 100 mEq/L (98-107) 10/20/17 10:45 Carbon Dioxide 26.9 mEq/L (21.0-31.0) 10/20/17 10:45 Anion Gap 10.6 (7.0-16.0) 10/20/17 10:45 BUN 21 mg/dL (7-25) 10/20/17 10:45 Creatinine 0.8 mg/dL (0.7-1.3) 10/20/17 10:45 Est GFR ( Amer) TNP 10/20/17 10:45 Est GFR (Non-Af Amer) TNP 10/20/17 10:45 BUN/Creatinine Ratio 26.3 10/20/17 10:45 Glucose 99 mg/dL (70-105) 10/20/17 10:45 Calcium 9.7 mg/dL (8.6-10.3) 10/20/17 10:45 Phosphorus 3.2 mg/dL (2.5-5.0) 10/14/17 18:12 Magnesium 2.4 mg/dL (1.9-2.7) 10/14/17 18:12 Total Bilirubin 0.3 mg/dL (0.3-1.0) 10/20/17 10:45 AST 14 U/L (13-39) 10/20/17 10:45 ALT 8 U/L (7-52) 10/20/17 10:45 Alkaline Phosphatase 69 U/L (34-104) 10/20/17 10:45 Total Protein 7.6 gm/dL (6.0-8.3) 10/20/17 10:45 Albumin 4.2 gm/dL (4.2-5.5) 10/20/17 10:45 Globulin 3.4 gm/dL 10/20/17 10:45 Albumin/Globulin Ratio 1.2 (1.0-1.8) 10/20/17 10:45 TSH 3.37 uIU/ml (0.34-5.60) 10/14/17 18:12 [place] 0.80 mmol/L (0.5-1.0) 10/20/17 17:20 - Physical Exam Vitals and I&O: Vital Signs Temp 96.6 F 10/21/17 20:32 Pulse 61 10/21/17 20:32 Resp 20 10/21/17 20:32 BP 131/68 10/21/17 20:32 Pulse Ox 97 10/21/17 20:32 Intake & Output 10/21/17 10/21/17 10/22/17 06:59 18:59 06:59 Intake Total 480 2200 240 Balance 480 2200 240 Weight (lbs) 72.575 kg Intake: Oral 480 2200 240 Other: # Voids 2 4 1 # Bowel Movements 0 1 Weight Source Bedscale Active Medications: Current Medications Acetaminophen (Tylenol) 650 mg PO Q4HR PRN PRN Reason: Pain (Mild) (1-3) Stop: 12/13/17 21:30 Albuterol Sulfate (Albuterol 2.5mg/3ml Neb Ud) 2.5 mg HHN Q6HRT [facility] Stop: 12/19/17 13:29 Last Admin: 10/21/17 19:18 Dose: 2.5 mg Aspirin (Aspirin Chewable) 81 mg PO DAILY [facility] Stop: 12/14/17 08:59 Last Admin: 10/21/17 09:47 Dose: 81 mg Docusate Sodium (Colace) 100 mg PO BID [facility] Stop: 12/14/17 08:59 Last Admin: 10/21/17 16:31 Dose: 100 mg Donepezil HCl (Aricept) 5 mg PO HS [facility] Stop: 12/14/17 20:59 Last Admin: 10/21/17 20:41 Dose: 5 mg Famotidine (Pepcid) 20 mg PO BID [facility] Stop: 12/14/17 08:59 Last Admin: 10/21/17 16:31 Dose: 20 mg Lactobacillus Rhamnosus (Culturelle 15b) 1 each PO DAILY [facility] Stop: 12/21/17 08:59 Levofloxacin (Levaquin) 500 mg PO DAILY [facility] Stop: 12/19/17 13:29 Last Admin: 10/21/17 09:48 Dose: 500 mg [place] Carbonate (Eskalith) 300 mg PO TID [facility]; Protocol Stop: 12/13/17 21:59 Last Admin: 10/21/17 20:41 Dose: 300 mg Lorazepam (Ativan) 0.5 mg PO Q4HR PRN; Protocol PRN Reason: Anxiety Stop: 11/13/17 21:19 Magnesium Hydroxide (Milk Of Magnesia) 30 ml PO HS [facility] Stop: 12/14/17 22:29 Last Admin: 10/21/17 20:41 Dose: 30 ml Miscellaneous (Probiotic Screen) 1 ea [facility] PRN PRN PRN Reason: PROTOCOL Stop: 12/20/17 09:29 Multivitamins/Vitamin C (Theragran) 1 tab PO DAILY [facility] Stop: 12/14/17 08:59 Last Admin: 10/21/17 09:48 Dose: 1 tab Zolpidem Tartrate (Ambien) 5 mg PO HS PRN PRN Reason: Insomnia Stop: 12/13/17 21:59 Last Admin: 10/21/17 20:42 Dose: 5 mg General: alert HEENT: NC/AT, PERRLA, EOMI, anicteric sclerae, throat clear Neck: Supple, No JVD, No thyromegaly, +2 carotid pulse wo bruit, No LAD Lungs: CTAB Cardiovascular: RRR, Normal S1, Normal S2, without murmur Abdomen: soft, non-tender, non-distended Extremities: clear Neurological: no change Internal Medicine Assmt/Plan - Assessment Assessment: 1.COPD. 2.HTN. 3.THOMAS. 4.DEMENTIA. - Plan Plan: CONTINUE ON CURRENT MEDICATION AND DIET. Nutritional Asmnt/Malnutr-PDOC - Dietary Evaluation Malnutrition Findings (Please click <Entered> for more info): Nutritional Asmnt/Malnutrition Start: 10/19/17 09: 34 Text: Status: Complete Freq: Protocol: Document 10/19/17 09:34 PHILLIP (Rec: 10/19/17 09:47 PHILLIP HUERTA- [email or web address]) Nutritional Asmnt/Malnutrition Patient General Information Nutritional Screening Low Risk Diagnosis Psychosis Pertinent Medical Hx/Surgical Hx COPD, GERD, degenerative joint disease Subjective Information Patient was admitted from [facility]. No nutrition problems identified at this time with adequate oral intake. Patient in activity room. Current Diet Order/ Nutrition Support mechanical soft chopped Patient / S.O Not Indicated Pertinent Medications colace, pepcid, MOM, theragran Pertinent Labs WNL Nutritional Hx/Data Height 1.78 m Height (Calculated Centimeters) 177.8 Current Weight (lbs) 72.575 kg Weight (Calculated Kilograms) 72.6 Weight (Calculated Grams) 99422.8 [place] Body Weight 166 % [place] Body Weight 96 Body Mass Index (BMI) 22.9 Recent Weight Change No Weight Status Approriate GI Symptoms GI Symptoms None Last BM 10/17 x 1 Difficult in: None Food Allergies No Cultural/Ethnic/Mandaeism Belief none indicated Usual diet at home unknown Skin Integrity/Comment: [place] 21, intact Current %PO Good (75-100%) Estimated Nutritional Goals BEE in Kcals: Using Current wt Calories/Kcals/Kg 25-30 kcal/kg using CBW 72.7kg Kcals Calculated 3314-8789 kcal/day Protein: Using Current wt Protein g/k.8-1 gm/kg Protein Calculated 60-70 gm/day Fluid: ml 7761-4452 ml/day (1 ml/kcal) Nutritional Problem 1. Problem Problem No nutrition diagnosis at this time Intervention/Recommendation Comments 1. Continue mechanical soft chopped diet as tolerated by patient as it is adequate to meet nutrient needs. 2. F/U LR 10/26 Expected Outcomes/Goals Expected Outcomes/Goals weight stable, oral intake >75 % of meals, nutrition related labs WNL
--- NOTE | 2017-10-21 22:37 | Progress Notes ---
DATE: 10/21/2017 SUBJECTIVE: Case was discussed with staff of the patient and reviewed records. The patient continues to be unpredictable, impulsive, and needing redirection. Continues to have poor insight and unable to make safe plan for self-care, sleeping well, and eating well. No side effects with the medication, no sedation, no nausea, and no extrapyramidal symptoms. We will continue to work with the patient in group therapy, milieu therapy, and adjust the medication as needed. The patient's repeated lithium level is 0.8, which is within acceptable therapeutic range. CBC with high white cell count 16.1, high platelet count of 428 and we will continue the patient in group therapy, milieu therapy, and adjust medications as needed. JOB# [id number]
[2017-10-22] MEDS: Albuterol Nebulizer 2.5mg/3mL HHN SCH ×4 (01:34→19:35)
[2017-10-22] MEDS: Aspirin 81mg Chewable Tab PO SCH (08:59)
[2017-10-22] MEDS: Lactobacillus Rhamnosus GG 15 Billion CFU CAP.SPRINK PO SCH (09:00)
[2017-10-22] MEDS: Multivitamin Tab PO SCH (09:00)
--- NOTE | 2017-10-22 19:57 | Internal Medicine Prog Note ---
Internal Medicine Subjective - Subjective Service Date: 10/22/17 Patient seen and examined:: with staff Patient is:: awake, verbal, in bed, talking Per staff patient has:: no adverse event Internal Medicine Objective - Results Result Diagrams: 10/20/17 10:45 10/20/17 10:45 Recent Labs: Laboratory Last Values WBC 16.1 Th/cmm (4.8-10.8) H 10/20/17 10:45 RBC 4.58 Mil/cmm (3.80-5.80) 10/20/17 10:45 Hgb 14.0 gm/dL (12-16) 10/20/17 10:45 Hct 42.0 % (41.0-60) 10/20/17 10:45 MCV 91.6 fl (80-99) 10/20/17 10:45 MCH 30.5 pg (27.0-31.0) 10/20/17 10:45 MCHC Differential 33.3 pg (28.0-36.0) 10/20/17 10:45 RDW 13.0 % (11.5-20.0) 10/20/17 10:45 Plt Count 428 Th/cmm (150-400) H 10/20/17 10:45 MPV 7.7 fl 10/20/17 10:45 Neutrophils % 74.4 % (40.0-80.0) 10/20/17 10:45 Lymphocytes % 17.1 % (20.0-50.0) L 10/20/17 10:45 Monocytes % 7.1 % (2.0-10.0) 10/20/17 10:45 Eosinophils % 0.9 % (0.0-5.0) 10/20/17 10:45 Basophils % 0.5 % (0.0-2.0) 10/20/17 10:45 Sodium 133 mEq/L (136-145) L 10/20/17 10:45 Potassium 4.5 mEq/L (3.5-5.1) 10/20/17 10:45 Chloride 100 mEq/L (98-107) 10/20/17 10:45 Carbon Dioxide 26.9 mEq/L (21.0-31.0) 10/20/17 10:45 Anion Gap 10.6 (7.0-16.0) 10/20/17 10:45 BUN 21 mg/dL (7-25) 10/20/17 10:45 Creatinine 0.8 mg/dL (0.7-1.3) 10/20/17 10:45 Est GFR ( Amer) TNP 10/20/17 10:45 Est GFR (Non-Af Amer) TNP 10/20/17 10:45 BUN/Creatinine Ratio 26.3 10/20/17 10:45 Glucose 99 mg/dL (70-105) 10/20/17 10:45 Calcium 9.7 mg/dL (8.6-10.3) 10/20/17 10:45 Phosphorus 3.2 mg/dL (2.5-5.0) 10/14/17 18:12 Magnesium 2.4 mg/dL (1.9-2.7) 10/14/17 18:12 Total Bilirubin 0.3 mg/dL (0.3-1.0) 10/20/17 10:45 AST 14 U/L (13-39) 10/20/17 10:45 ALT 8 U/L (7-52) 10/20/17 10:45 Alkaline Phosphatase 69 U/L (34-104) 10/20/17 10:45 Total Protein 7.6 gm/dL (6.0-8.3) 10/20/17 10:45 Albumin 4.2 gm/dL (4.2-5.5) 10/20/17 10:45 Globulin 3.4 gm/dL 10/20/17 10:45 Albumin/Globulin Ratio 1.2 (1.0-1.8) 10/20/17 10:45 TSH 3.37 uIU/ml (0.34-5.60) 10/14/17 18:12 [place] 0.80 mmol/L (0.5-1.0) 10/20/17 17:20 - Physical Exam Vitals and I&O: Vital Signs Temp 97.4 F 10/22/17 14:00 Pulse 65 10/22/17 19:35 Resp 18 10/22/17 19:35 BP 139/73 10/22/17 14:00 Pulse Ox 96 10/22/17 19:35 Intake & Output 10/22/17 10/22/17 10/23/17 06:59 18:59 06:59 Intake Total 240 2400 Balance 240 2400 Weight (lbs) 72.575 kg Intake: Oral 240 2400 Other: # Voids 3 4 # Bowel Movements 0 1 Weight Source Bedscale Active Medications: Current Medications Acetaminophen (Tylenol) 650 mg PO Q4HR PRN PRN Reason: Pain (Mild) (1-3) Stop: 12/13/17 21:30 Albuterol Sulfate (Albuterol 2.5mg/3ml Neb Ud) 2.5 mg HHN Q6HRT [facility] Stop: 12/19/17 13:29 Last Admin: 10/22/17 19:35 Dose: 2.5 mg Aspirin (Aspirin Chewable) 81 mg PO DAILY [facility] Stop: 12/14/17 08:59 Last Admin: 10/22/17 08:59 Dose: 81 mg Docusate Sodium (Colace) 100 mg PO BID [facility] Stop: 12/14/17 08:59 Last Admin: 10/22/17 17:25 Dose: Not Given Donepezil HCl (Aricept) 5 mg PO HS [facility] Stop: 12/14/17 20:59 Last Admin: 10/21/17 20:41 Dose: 5 mg Famotidine (Pepcid) 20 mg PO BID [facility] Stop: 12/14/17 08:59 Last Admin: 10/22/17 17:25 Dose: Not Given Lactobacillus Rhamnosus (Culturelle 15b) 1 each PO DAILY [facility] Stop: 12/21/17 08:59 Last Admin: 10/22/17 09:00 Dose: 1 each Levofloxacin (Levaquin) 500 mg PO DAILY [facility] Stop: 12/19/17 13:29 Last Admin: 10/22/17 09:00 Dose: 500 mg [place] Carbonate (Eskalith) 300 mg PO TID [facility]; Protocol Stop: 12/13/17 21:59 Last Admin: 10/22/17 13:40 Dose: 300 mg Magnesium Hydroxide (Milk Of Magnesia) 30 ml PO HS [facility] Stop: 12/14/17 22:29 Last Admin: 10/21/17 20:41 Dose: 30 ml Miscellaneous (Probiotic Screen) 1 ea [facility] PRN PRN PRN Reason: PROTOCOL Stop: 12/20/17 09:29 Multivitamins/Vitamin C (Theragran) 1 tab PO DAILY [facility] Stop: 12/14/17 08:59 Last Admin: 08/21/18 09:00 Dose: 1 tab General: alert HEENT: NC/AT, PERRLA, EOMI, anicteric sclerae, throat clear Neck: Supple, No JVD, No thyromegaly, +2 carotid pulse wo bruit, No LAD Lungs: CTAB Cardiovascular: RRR, Normal S1, Normal S2, without murmur Abdomen: soft, non-tender, non-distended Extremities: clear Neurological: no change Internal Medicine Assmt/Plan - Assessment Assessment: 1.COPD. 2.HTN. 3.THOMAS. 4.DEMENTIA. - Plan Plan: CONTINUE ON CURRENT MEDICATION AND DIET. Nutritional Asmnt/Malnutr-PDOC - Dietary Evaluation Malnutrition Findings (Please click <Entered> for more info): Nutritional Asmnt/Malnutrition Start: 10/19/17 09: 34 Text: Status: Complete Freq: Protocol: Document 10/19/17 09:34 MMULBOB (Rec: 10/19/17 09:47 MMULBOB BRADLEY- [email or web address]) Nutritional Asmnt/Malnutrition Patient General Information Nutritional Screening Low Risk Diagnosis Psychosis Pertinent Medical Hx/Surgical Hx COPD, GERD, degenerative joint disease Subjective Information Patient was admitted from [facility]. No nutrition problems identified at this time with adequate oral intake. Patient in activity room. Current Diet Order/ Nutrition Support mechanical soft chopped Patient / S.O Not Indicated Pertinent Medications colace, pepcid, MOM, theragran Pertinent Labs WNL Nutritional Hx/Data Height 1.78 m Height (Calculated Centimeters) 177.8 Current Weight (lbs) 72.575 kg Weight (Calculated Kilograms) 72.6 Weight (Calculated Grams) 72929.8 [place] Body Weight 166 % [place] Body Weight 96 Body Mass Index (BMI) 22.9 Recent Weight Change No Weight Status Approriate GI Symptoms GI Symptoms None Last BM 10/17 x 1 Difficult in: None Food Allergies No Cultural/Ethnic/Cheondoism Belief none indicated Usual diet at home unknown Skin Integrity/Comment: [place] 21, intact Current %PO Good (75-100%) Estimated Nutritional Goals BEE in Kcals: Using Current wt Calories/Kcals/Kg 25-30 kcal/kg using CBW 72.7kg Kcals Calculated 9263-9955 kcal/day Protein: Using Current wt Protein g/k.8-1 gm/kg Protein Calculated 60-70 gm/day Fluid: ml 7339-7488 ml/day (1 ml/kcal) Nutritional Problem 1. Problem Problem No nutrition diagnosis at this time Intervention/Recommendation Comments 1. Continue mechanical soft chopped diet as tolerated by patient as it is adequate to meet nutrient needs. 2. F/U LR 10/26 Expected Outcomes/Goals Expected Outcomes/Goals weight stable, oral intake >75 % of meals, nutrition related labs WNL
[2017-10-22] MEDS: Magnesium Hydroxide (MOM) 30 mL UDC PO SCH (20:44)
--- NOTE | 2017-10-22 23:16 | Progress Notes ---
DATE: 10/22/2017 Case was discussed with staff of the patient, reviewed records. The patient continues to be confused, unpredictable, impulsive, needing redirection. Continues to be unable to make safe plan for self-care. He is sleeping better, eating better. Continues to have still agitation. Continues to be confused. No side effects with the medication, no sedation, no nausea, no extrapyramidal symptoms. We will continue outpatient group therapy, milieu therapy, adjust medication as needed. JOB# [id number]
[2017-10-23] MEDS: Albuterol Nebulizer 2.5mg/3mL HHN SCH ×4 (01:33→19:21)
[2017-10-23] MEDS: Lactobacillus Rhamnosus GG 15 Billion CFU CAP.SPRINK PO SCH (08:11)
[2017-10-23] MEDS: Multivitamin Tab PO SCH (08:11)
[2017-10-23] MEDS: Aspirin 81mg Chewable Tab PO SCH (08:12)
--- NOTE | 2017-10-23 20:34 | Internal Medicine Prog Note ---
Internal Medicine Subjective - Subjective Service Date: 10/23/17 Patient seen and examined:: with staff Patient is:: awake, verbal, in bed, talking Per staff patient has:: no adverse event Internal Medicine Objective - Results Result Diagrams: 10/20/17 10:45 10/20/17 10:45 Recent Labs: Laboratory Last Values WBC 16.1 Th/cmm (4.8-10.8) H 10/20/17 10:45 RBC 4.58 Mil/cmm (3.80-5.80) 10/20/17 10:45 Hgb 14.0 gm/dL (12-16) 10/20/17 10:45 Hct 42.0 % (41.0-60) 10/20/17 10:45 MCV 91.6 fl (80-99) 10/20/17 10:45 MCH 30.5 pg (27.0-31.0) 10/20/17 10:45 MCHC Differential 33.3 pg (28.0-36.0) 10/20/17 10:45 RDW 13.0 % (11.5-20.0) 10/20/17 10:45 Plt Count 428 Th/cmm (150-400) H 10/20/17 10:45 MPV 7.7 fl 10/20/17 10:45 Neutrophils % 74.4 % (40.0-80.0) 10/20/17 10:45 Lymphocytes % 17.1 % (20.0-50.0) L 10/20/17 10:45 Monocytes % 7.1 % (2.0-10.0) 10/20/17 10:45 Eosinophils % 0.9 % (0.0-5.0) 10/20/17 10:45 Basophils % 0.5 % (0.0-2.0) 10/20/17 10:45 Sodium 133 mEq/L (136-145) L 10/20/17 10:45 Potassium 4.5 mEq/L (3.5-5.1) 10/20/17 10:45 Chloride 100 mEq/L (98-107) 10/20/17 10:45 Carbon Dioxide 26.9 mEq/L (21.0-31.0) 10/20/17 10:45 Anion Gap 10.6 (7.0-16.0) 10/20/17 10:45 BUN 21 mg/dL (7-25) 10/20/17 10:45 Creatinine 0.8 mg/dL (0.7-1.3) 10/20/17 10:45 Est GFR ( Amer) TNP 10/20/17 10:45 Est GFR (Non-Af Amer) TNP 10/20/17 10:45 BUN/Creatinine Ratio 26.3 10/20/17 10:45 Glucose 99 mg/dL (70-105) 10/20/17 10:45 Calcium 9.7 mg/dL (8.6-10.3) 10/20/17 10:45 Phosphorus 3.2 mg/dL (2.5-5.0) 10/14/17 18:12 Magnesium 2.4 mg/dL (1.9-2.7) 10/14/17 18:12 Total Bilirubin 0.3 mg/dL (0.3-1.0) 10/20/17 10:45 AST 14 U/L (13-39) 10/20/17 10:45 ALT 8 U/L (7-52) 10/20/17 10:45 Alkaline Phosphatase 69 U/L (34-104) 10/20/17 10:45 Total Protein 7.6 gm/dL (6.0-8.3) 10/20/17 10:45 Albumin 4.2 gm/dL (4.2-5.5) 10/20/17 10:45 Globulin 3.4 gm/dL 10/20/17 10:45 Albumin/Globulin Ratio 1.2 (1.0-1.8) 10/20/17 10:45 TSH 3.37 uIU/ml (0.34-5.60) 10/14/17 18:12 [place] 0.80 mmol/L (0.5-1.0) 10/20/17 17:20 - Physical Exam Vitals and I&O: Vital Signs Temp 98.3 F 10/23/17 14:00 Pulse 61 10/23/17 19:21 Resp 18 10/23/17 19:21 BP 152/75 10/23/17 14:00 Pulse Ox 97 10/23/17 19:21 Intake & Output 10/23/17 10/23/17 10/24/17 06:59 18:59 06:59 Intake Total 240 800 Balance 240 800 Weight (lbs) 72.575 kg Intake: Oral 240 800 Other: # Voids 3 3 # Bowel Movements 0 1 Weight Source Bedscale Active Medications: Current Medications Acetaminophen (Tylenol) 650 mg PO Q4HR PRN PRN Reason: Pain (Mild) (1-3) Stop: 12/13/17 21:30 Albuterol Sulfate (Albuterol 2.5mg/3ml Neb Ud) 2.5 mg HHN Q6HRT [facility] Stop: 12/19/17 13:29 Last Admin: 10/23/17 19:21 Dose: Not Given Aspirin (Aspirin Chewable) 81 mg PO DAILY [facility] Stop: 12/14/17 08:59 Last Admin: 10/23/17 08:12 Dose: 81 mg Docusate Sodium (Colace) 100 mg PO BID [facility] Stop: 12/14/17 08:59 Last Admin: 10/23/17 16:23 Dose: 100 mg Donepezil HCl (Aricept) 5 mg PO HS [facility] Stop: 12/14/17 20:59 Last Admin: 10/22/17 20:44 Dose: 5 mg Famotidine (Pepcid) 20 mg PO BID [facility] Stop: 12/14/17 08:59 Last Admin: 10/23/17 16:23 Dose: 20 mg Lactobacillus Rhamnosus (Culturelle 15b) 1 each PO DAILY [facility] Stop: 12/21/17 08:59 Last Admin: 10/23/17 08:11 Dose: 1 each Levofloxacin (Levaquin) 500 mg PO DAILY [facility] Stop: 12/19/17 13:29 Last Admin: 10/23/17 08:11 Dose: 500 mg [place] Carbonate (Eskalith) 300 mg PO TID [facility]; Protocol Stop: 12/13/17 21:59 Last Admin: 10/23/17 14:33 Dose: 300 mg Magnesium Hydroxide (Milk Of Magnesia) 30 ml PO HS [facility] Stop: 12/14/17 22:29 Last Admin: 10/22/17 20:44 Dose: 30 ml Miscellaneous (Probiotic Screen) 1 ea MC PRN PRN PRN Reason: PROTOCOL Stop: 12/20/17 09:29 Multivitamins/Vitamin C (Theragran) 1 tab PO DAILY [facility] Stop: 12/14/17 08:59 Last Admin: 10/23/17 08:11 Dose: 1 tab General: alert HEENT: NC/AT, PERRLA, EOMI, anicteric sclerae, throat clear Neck: Supple, No JVD, No thyromegaly, +2 carotid pulse wo bruit, No LAD Lungs: CTAB Cardiovascular: RRR, Normal S1, Normal S2, without murmur Abdomen: soft, non-tender, non-distended Extremities: clear Neurological: no change Internal Medicine Assmt/Plan - Assessment Assessment: 1.COPD. 2.HTN. 3.THOMAS. 4.DEMENTIA. - Plan Plan: CONTINUE ON CURRENT MEDICATION AND DIET. Nutritional Asmnt/Malnutr-PDOC - Dietary Evaluation Malnutrition Findings (Please click <Entered> for more info): Nutritional Asmnt/Malnutrition Start: 10/19/17 09: 34 Text: Status: Complete Freq: Protocol: Document 10/19/17 09:34 MMELOISA (Rec: 10/19/17 09:47 MMULBOB BRADLEY- [email or web address]) Nutritional Asmnt/Malnutrition Patient General Information Nutritional Screening Low Risk Diagnosis Psychosis Pertinent Medical Hx/Surgical Hx COPD, GERD, degenerative joint disease Subjective Information Patient was admitted from [facility]. No nutrition problems identified at this time with adequate oral intake. Patient in activity room. Current Diet Order/ Nutrition Support mechanical soft chopped Patient / S.O Not Indicated Pertinent Medications colace, pepcid, MOM, theragran Pertinent Labs WNL Nutritional Hx/Data Height 1.78 m Height (Calculated Centimeters) 177.8 Current Weight (lbs) 72.575 kg Weight (Calculated Kilograms) 72.6 Weight (Calculated Grams) 43671.8 [place] Body Weight 166 % [place] Body Weight 96 Body Mass Index (BMI) 22.9 Recent Weight Change No Weight Status Approriate GI Symptoms GI Symptoms None Last BM 10/17 x 1 Difficult in: None Food Allergies No Cultural/Ethnic/Muslim Belief none indicated Usual diet at home unknown Skin Integrity/Comment: [place] 21, intact Current %PO Good (75-100%) Estimated Nutritional Goals BEE in Kcals: Using Current wt Calories/Kcals/Kg 25-30 kcal/kg using CBW 72.7kg Kcals Calculated 5652-9683 kcal/day Protein: Using Current wt Protein g/k.8-1 gm/kg Protein Calculated 60-70 gm/day Fluid: ml 5663-5982 ml/day (1 ml/kcal) Nutritional Problem 1. Problem Problem No nutrition diagnosis at this time Intervention/Recommendation Comments 1. Continue mechanical soft chopped diet as tolerated by patient as it is adequate to meet nutrient needs. 2. F/U LR 10/26 Expected Outcomes/Goals Expected Outcomes/Goals weight stable, oral intake >75 % of meals, nutrition related labs WNL
[2017-10-23] MEDS: Magnesium Hydroxide (MOM) 30 mL UDC PO SCH (21:04)
--- NOTE | 2017-10-23 21:58 | Progress Notes ---
DATE: 10/23/2017 SUBJECTIVE: Case was discussed with staff of the patient, reviewed records. The patient continues to be confused, delusional, irritable, continues to have poor insight, demented, confused, unable to participate in meaningful conversation or make safe plan for self-care, unpredictable, impulsive, needing redirection, looking disheveled. No side effects of the medication, no sedation, no nausea, no extrapyramidal symptoms and we will continue to work with the patient in group therapy, milieu therapy, and adjust the medication as needed. JOB# [id number]
[2017-10-24] MEDS: Albuterol Nebulizer 2.5mg/3mL HHN SCH ×4 (01:00→18:32)
[2017-10-24] MEDS: Lactobacillus Rhamnosus GG 15 Billion CFU CAP.SPRINK PO SCH (09:28)
[2017-10-24] MEDS: Aspirin 81mg Chewable Tab PO SCH (09:28)
[2017-10-24] MEDS: Multivitamin Tab PO SCH (09:29)
--- NOTE | 2017-10-24 17:36 | Internal Medicine Prog Note ---
Internal Medicine Subjective - Subjective Service Date: 10/24/17 Patient seen and examined:: with staff Patient is:: awake, verbal, in bed, talking Per staff patient has:: no adverse event Internal Medicine Objective - Results Result Diagrams: 10/20/17 10:45 10/20/17 10:45 Recent Labs: Laboratory Last Values WBC 16.1 Th/cmm (4.8-10.8) H 10/20/17 10:45 RBC 4.58 Mil/cmm (3.80-5.80) 10/20/17 10:45 Hgb 14.0 gm/dL (12-16) 10/20/17 10:45 Hct 42.0 % (41.0-60) 10/20/17 10:45 MCV 91.6 fl (80-99) 10/20/17 10:45 MCH 30.5 pg (27.0-31.0) 10/20/17 10:45 MCHC Differential 33.3 pg (28.0-36.0) 10/20/17 10:45 RDW 13.0 % (11.5-20.0) 10/20/17 10:45 Plt Count 428 Th/cmm (150-400) H 10/20/17 10:45 MPV 7.7 fl 10/20/17 10:45 Neutrophils % 74.4 % (40.0-80.0) 10/20/17 10:45 Lymphocytes % 17.1 % (20.0-50.0) L 10/20/17 10:45 Monocytes % 7.1 % (2.0-10.0) 10/20/17 10:45 Eosinophils % 0.9 % (0.0-5.0) 10/20/17 10:45 Basophils % 0.5 % (0.0-2.0) 10/20/17 10:45 Sodium 133 mEq/L (136-145) L 10/20/17 10:45 Potassium 4.5 mEq/L (3.5-5.1) 10/20/17 10:45 Chloride 100 mEq/L (98-107) 10/20/17 10:45 Carbon Dioxide 26.9 mEq/L (21.0-31.0) 10/20/17 10:45 Anion Gap 10.6 (7.0-16.0) 10/20/17 10:45 BUN 21 mg/dL (7-25) 10/20/17 10:45 Creatinine 0.8 mg/dL (0.7-1.3) 10/20/17 10:45 Est GFR ( Amer) TNP 10/20/17 10:45 Est GFR (Non-Af Amer) TNP 10/20/17 10:45 BUN/Creatinine Ratio 26.3 10/20/17 10:45 Glucose 99 mg/dL (70-105) 10/20/17 10:45 Calcium 9.7 mg/dL (8.6-10.3) 10/20/17 10:45 Phosphorus 3.2 mg/dL (2.5-5.0) 10/14/17 18:12 Magnesium 2.4 mg/dL (1.9-2.7) 10/14/17 18:12 Total Bilirubin 0.3 mg/dL (0.3-1.0) 10/20/17 10:45 AST 14 U/L (13-39) 10/20/17 10:45 ALT 8 U/L (7-52) 10/20/17 10:45 Alkaline Phosphatase 69 U/L (34-104) 10/20/17 10:45 Total Protein 7.6 gm/dL (6.0-8.3) 10/20/17 10:45 Albumin 4.2 gm/dL (4.2-5.5) 10/20/17 10:45 Globulin 3.4 gm/dL 10/20/17 10:45 Albumin/Globulin Ratio 1.2 (1.0-1.8) 10/20/17 10:45 TSH 3.37 uIU/ml (0.34-5.60) 10/14/17 18:12 [place] 0.80 mmol/L (0.5-1.0) 10/20/17 17:20 - Physical Exam Vitals and I&O: Vital Signs Temp 97.8 F 10/24/17 14:00 Pulse 66 10/24/17 14:00 Resp 20 10/24/17 14:00 BP 155/84 10/24/17 14:00 Pulse Ox 98 10/24/17 14:00 Intake & Output 10/23/17 10/24/17 10/24/17 18:59 06:59 18:59 Intake Total 800 120 Balance 800 120 Intake: Oral 800 120 Other: # Voids 3 2 # Bowel Movements 1 Active Medications: Current Medications Acetaminophen (Tylenol) 650 mg PO Q4HR PRN PRN Reason: Pain (Mild) (1-3) Stop: 12/13/17 21:30 Albuterol Sulfate (Albuterol 2.5mg/3ml Neb Ud) 2.5 mg HHN Q6HRT [facility] Stop: 12/19/17 13:29 Last Admin: 10/24/17 13:41 Dose: Not Given Aspirin (Aspirin Chewable) 81 mg PO DAILY [facility] Stop: 12/14/17 08:59 Last Admin: 10/24/17 09:28 Dose: 81 mg Docusate Sodium (Colace) 100 mg PO BID [facility] Stop: 12/14/17 08:59 Last Admin: 10/24/17 16:58 Dose: 100 mg Donepezil HCl (Aricept) 5 mg PO HS [facility] Stop: 12/14/17 20:59 Last Admin: 10/23/17 21:04 Dose: 5 mg Famotidine (Pepcid) 20 mg PO BID [facility] Stop: 12/14/17 08:59 Last Admin: 10/24/17 16:58 Dose: 20 mg Lactobacillus Rhamnosus (Culturelle 15b) 1 each PO DAILY [facility] Stop: 12/21/17 08:59 Last Admin: 10/24/17 09:28 Dose: 1 each Levofloxacin (Levaquin) 500 mg PO DAILY [facility] Stop: 12/19/17 13:29 Last Admin: 10/24/17 09:27 Dose: 500 mg [place] Carbonate (Eskalith) 300 mg PO TID [facility]; Protocol Stop: 12/13/17 21:59 Last Admin: 10/24/17 13:06 Dose: 300 mg Magnesium Hydroxide (Milk Of Magnesia) 30 ml PO HS [facility] Stop: 12/14/17 22:29 Last Admin: 10/23/17 21:04 Dose: 30 ml Miscellaneous (Probiotic Screen) 1 ea MC PRN PRN PRN Reason: PROTOCOL Stop: 12/20/17 09:29 Multivitamins/Vitamin C (Theragran) 1 tab PO DAILY [facility] Stop: 12/14/17 08:59 Last Admin: 10/24/17 09:29 Dose: Not Given General: alert HEENT: NC/AT, PERRLA, EOMI, anicteric sclerae, throat clear Neck: Supple, No JVD, No thyromegaly, +2 carotid pulse wo bruit, No LAD Lungs: CTAB Cardiovascular: RRR, Normal S1, Normal S2, without murmur Abdomen: soft, non-tender, non-distended Extremities: clear Neurological: no change Internal Medicine Assmt/Plan - Assessment Assessment: 1.COPD. 2.HTN. 3.THOMAS. 4.DEMENTIA. - Plan Plan: CONTINUE ON CURRENT MEDICATION AND DIET. Nutritional Asmnt/Malnutr-PDOC - Dietary Evaluation Malnutrition Findings (Please click <Entered> for more info): Nutritional Asmnt/Malnutrition Start: 10/19/17 09: 34 Text: Status: Complete Freq: Protocol: Document 10/19/17 09:34 PHILLIP (Rec: 10/19/17 09:47 MMULBOB HUERTA- [email or web address]) Nutritional Asmnt/Malnutrition Patient General Information Nutritional Screening Low Risk Diagnosis Psychosis Pertinent Medical Hx/Surgical Hx COPD, GERD, degenerative joint disease Subjective Information Patient was admitted from [facility]. No nutrition problems identified at this time with adequate oral intake. Patient in activity room. Current Diet Order/ Nutrition Support mechanical soft chopped Patient / S.O Not Indicated Pertinent Medications colace, pepcid, MOM, theragran Pertinent Labs WNL Nutritional Hx/Data Height 1.78 m Height (Calculated Centimeters) 177.8 Current Weight (lbs) 72.575 kg Weight (Calculated Kilograms) 72.6 Weight (Calculated Grams) 77602.8 [place] Body Weight 166 % [place] Body Weight 96 Body Mass Index (BMI) 22.9 Recent Weight Change No Weight Status Approriate GI Symptoms GI Symptoms None Last BM 10/17 x 1 Difficult in: None Food Allergies No Cultural/Ethnic/Tenriism Belief none indicated Usual diet at home unknown Skin Integrity/Comment: [place] 21, intact Current %PO Good (75-100%) Estimated Nutritional Goals BEE in Kcals: Using Current wt Calories/Kcals/Kg 25-30 kcal/kg using CBW 72.7kg Kcals Calculated 2432-3179 kcal/day Protein: Using Current wt Protein g/k.8-1 gm/kg Protein Calculated 60-70 gm/day Fluid: ml 6780-3747 ml/day (1 ml/kcal) Nutritional Problem 1. Problem Problem No nutrition diagnosis at this time Intervention/Recommendation Comments 1. Continue mechanical soft chopped diet as tolerated by patient as it is adequate to meet nutrient needs. 2. F/U LR 10/26 Expected Outcomes/Goals Expected Outcomes/Goals weight stable, oral intake >75 % of meals, nutrition related labs WNL
[2017-10-24] MEDS: Magnesium Hydroxide (MOM) 30 mL UDC PO SCH (20:52)
--- NOTE | 2017-10-24 21:45 | Progress Notes ---
DATE: 10/24/2017 Case was discussed with staff of the patient, reviewed records. The patient in looking disheveled, disorganized, internally preoccupied. Continues to have poor insight, easily agitated. He is sleeping better, eating better. He is confused, demented. No side effects with the medication, no sedation or nausea. His lab work showed high white cell count at 16.1 and high platelet count 428 and low lymphocytes 17.1. The rest within normal range. Chemistry panel showed low sodium at 133, it used to be 135, so it is not getting any better and I did inform Medical doctor about this. [place] level went down to 0.8, which is within acceptable therapeutic range. No side effects with the medication, no sedation, no nausea. We will continue to work with the patient in group therapy, milieu therapy, and adjust the medication as needed. JOB# [id number]
[2017-10-25] MEDS: Albuterol Nebulizer 2.5mg/3mL HHN SCH ×4 (00:23→19:49)
[2017-10-25] MEDS: Aspirin 81mg Chewable Tab PO SCH (09:19)
[2017-10-25] MEDS: Lactobacillus Rhamnosus GG 15 Billion CFU CAP.SPRINK PO SCH (09:19)
[2017-10-25] MEDS: Multivitamin Tab PO SCH (09:20)
--- NOTE | 2017-10-25 16:30 | Internal Medicine Prog Note ---
Internal Medicine Subjective - Subjective Service Date: 10/25/17 Patient seen and examined:: with staff Patient is:: awake, verbal, in bed, talking Per staff patient has:: no adverse event Internal Medicine Objective - Results Result Diagrams: 10/20/17 10:45 10/20/17 10:45 Recent Labs: Laboratory Last Values WBC 16.1 Th/cmm (4.8-10.8) H 10/20/17 10:45 RBC 4.58 Mil/cmm (3.80-5.80) 10/20/17 10:45 Hgb 14.0 gm/dL (12-16) 10/20/17 10:45 Hct 42.0 % (41.0-60) 10/20/17 10:45 MCV 91.6 fl (80-99) 10/20/17 10:45 MCH 30.5 pg (27.0-31.0) 10/20/17 10:45 MCHC Differential 33.3 pg (28.0-36.0) 10/20/17 10:45 RDW 13.0 % (11.5-20.0) 10/20/17 10:45 Plt Count 428 Th/cmm (150-400) H 10/20/17 10:45 MPV 7.7 fl 10/20/17 10:45 Neutrophils % 74.4 % (40.0-80.0) 10/20/17 10:45 Lymphocytes % 17.1 % (20.0-50.0) L 10/20/17 10:45 Monocytes % 7.1 % (2.0-10.0) 10/20/17 10:45 Eosinophils % 0.9 % (0.0-5.0) 10/20/17 10:45 Basophils % 0.5 % (0.0-2.0) 10/20/17 10:45 Sodium 133 mEq/L (136-145) L 10/20/17 10:45 Potassium 4.5 mEq/L (3.5-5.1) 10/20/17 10:45 Chloride 100 mEq/L (98-107) 10/20/17 10:45 Carbon Dioxide 26.9 mEq/L (21.0-31.0) 10/20/17 10:45 Anion Gap 10.6 (7.0-16.0) 10/20/17 10:45 BUN 21 mg/dL (7-25) 10/20/17 10:45 Creatinine 0.8 mg/dL (0.7-1.3) 10/20/17 10:45 Est GFR ( Amer) TNP 10/20/17 10:45 Est GFR (Non-Af Amer) TNP 10/20/17 10:45 BUN/Creatinine Ratio 26.3 10/20/17 10:45 Glucose 99 mg/dL (70-105) 10/20/17 10:45 Calcium 9.7 mg/dL (8.6-10.3) 10/20/17 10:45 Phosphorus 3.2 mg/dL (2.5-5.0) 10/14/17 18:12 Magnesium 2.4 mg/dL (1.9-2.7) 10/14/17 18:12 Total Bilirubin 0.3 mg/dL (0.3-1.0) 10/20/17 10:45 AST 14 U/L (13-39) 10/20/17 10:45 ALT 8 U/L (7-52) 10/20/17 10:45 Alkaline Phosphatase 69 U/L (34-104) 10/20/17 10:45 Total Protein 7.6 gm/dL (6.0-8.3) 10/20/17 10:45 Albumin 4.2 gm/dL (4.2-5.5) 10/20/17 10:45 Globulin 3.4 gm/dL 10/20/17 10:45 Albumin/Globulin Ratio 1.2 (1.0-1.8) 10/20/17 10:45 TSH 3.37 uIU/ml (0.34-5.60) 10/14/17 18:12 [place] 0.80 mmol/L (0.5-1.0) 10/20/17 17:20 - Physical Exam Vitals and I&O: Vital Signs Temp 98.1 F 10/25/17 14:00 Pulse 65 10/25/17 14:00 Resp 18 10/25/17 14:00 BP 160/73 10/25/17 14:00 Pulse Ox 96 10/25/17 14:00 Intake & Output 10/24/17 10/25/17 10/25/17 18:59 06:59 18:59 Intake Total 1000 Balance 1000 Intake: Oral 1000 Other: # Voids 3 # Bowel Movements 1 Active Medications: Current Medications Acetaminophen (Tylenol) 650 mg PO Q4HR PRN PRN Reason: Pain (Mild) (1-3) Stop: 12/13/17 21:30 Albuterol Sulfate (Albuterol 2.5mg/3ml Neb Ud) 2.5 mg HHN Q6HRT [facility] Stop: 12/19/17 13:29 Last Admin: 10/25/17 14:15 Dose: Not Given Aspirin (Aspirin Chewable) 81 mg PO DAILY [facility] Stop: 12/14/17 08:59 Last Admin: 10/25/17 09:19 Dose: 81 mg Docusate Sodium (Colace) 100 mg PO BID [facility] Stop: 12/14/17 08:59 Last Admin: 10/25/17 16:09 Dose: 100 mg Donepezil HCl (Aricept) 5 mg PO HS [facility] Stop: 12/14/17 20:59 Last Admin: 10/24/17 20:52 Dose: 5 mg Famotidine (Pepcid) 20 mg PO BID [facility] Stop: 12/14/17 08:59 Last Admin: 10/25/17 16:09 Dose: 20 mg Lactobacillus Rhamnosus (Culturelle 15b) 1 each PO DAILY [facility] Stop: 12/21/17 08:59 Last Admin: 10/25/17 09:19 Dose: 1 each Levofloxacin (Levaquin) 500 mg PO DAILY [facility] Stop: 12/19/17 13:29 Last Admin: 10/25/17 09:19 Dose: [address] Carbonate (Eskalith) 300 mg PO TID [facility]; Protocol Stop: 12/13/17 21:59 Last Admin: 10/25/17 13:06 Dose: 300 mg Magnesium Hydroxide (Milk Of Magnesia) 30 ml PO HS [facility] Stop: 12/14/17 22:29 Last Admin: 10/24/17 20:52 Dose: 30 ml Miscellaneous (Probiotic Screen) 1 ea MC PRN PRN PRN Reason: PROTOCOL Stop: 12/20/17 09:29 Multivitamins/Vitamin C (Theragran) 1 tab PO DAILY [facility] Stop: 12/14/17 08:59 Last Admin: 10/25/17 09:20 Dose: 1 tab General: alert HEENT: NC/AT, PERRLA, EOMI, anicteric sclerae, throat clear Neck: Supple, No JVD, No thyromegaly, +2 carotid pulse wo bruit, No LAD Lungs: CTAB Cardiovascular: RRR, Normal S1, Normal S2, without murmur Abdomen: soft, non-tender, non-distended Extremities: clear Neurological: no change Internal Medicine Assmt/Plan - Assessment Assessment: 1.COPD. 2.HTN. 3.THOMAS. 4.DEMENTIA. - Plan Plan: CONTINUE ON CURRENT MEDICATION AND DIET. Nutritional Asmnt/Malnutr-PDOC - Dietary Evaluation Malnutrition Findings (Please click <Entered> for more info): Nutritional Asmnt/Malnutrition Start: 10/19/17 09: 34 Text: Status: Complete Freq: Protocol: Document 10/19/17 09:34 MMULBOB (Rec: 10/19/17 09:47 MMULBOB HUERTA- [email or web address]) Nutritional Asmnt/Malnutrition Patient General Information Nutritional Screening Low Risk Diagnosis Psychosis Pertinent Medical Hx/Surgical Hx COPD, GERD, degenerative joint disease Subjective Information Patient was admitted from [facility]. No nutrition problems identified at this time with adequate oral intake. Patient in activity room. Current Diet Order/ Nutrition Support mechanical soft chopped Patient / S.O Not Indicated Pertinent Medications colace, pepcid, MOM, theragran Pertinent Labs WNL Nutritional Hx/Data Height 1.78 m Height (Calculated Centimeters) 177.8 Current Weight (lbs) 72.575 kg Weight (Calculated Kilograms) 72.6 Weight (Calculated Grams) 29161.8 [place] Body Weight 166 % [place] Body Weight 96 Body Mass Index (BMI) 22.9 Recent Weight Change No Weight Status Approriate GI Symptoms GI Symptoms None Last BM 10/17 x 1 Difficult in: None Food Allergies No Cultural/Ethnic/Alevism Belief none indicated Usual diet at home unknown Skin Integrity/Comment: [place] 21, intact Current %PO Good (75-100%) Estimated Nutritional Goals BEE in Kcals: Using Current wt Calories/Kcals/Kg 25-30 kcal/kg using CBW 72.7kg Kcals Calculated 0565-5154 kcal/day Protein: Using Current wt Protein g/k.8-1 gm/kg Protein Calculated 60-70 gm/day Fluid: ml 4358-2743 ml/day (1 ml/kcal) Nutritional Problem 1. Problem Problem No nutrition diagnosis at this time Intervention/Recommendation Comments 1. Continue mechanical soft chopped diet as tolerated by patient as it is adequate to meet nutrient needs. 2. F/U LR 10/26 Expected Outcomes/Goals Expected Outcomes/Goals weight stable, oral intake >75 % of meals, nutrition related labs WNL
[2017-10-25] MEDS: Magnesium Hydroxide (MOM) 30 mL UDC PO SCH (20:51)
--- NOTE | 2017-10-25 23:17 | Progress Notes ---
DATE: 10/25/2017 SUBJECTIVE: Case was discussed with staff of the patient, reviewed records. The patient continues to be confused and irritable. He continues to have poor insight. He continues to have some agitation and irritability. He continues to be unable to make safe plan for his self-care. He is unpredictable, impulsive, and needing redirection. He is compliant with the medication with no side effects, no sedation, no nausea, and no extrapyramidal symptoms. We will continue to work with the patient in group therapy, milieu therapy, and adjust the medication as needed. JOB# [id number]
[2017-10-26] MEDS: Albuterol Nebulizer 2.5mg/3mL HHN SCH ×4 (01:57→20:04)
[2017-10-26] MEDS: Aspirin 81mg Chewable Tab PO SCH (08:43)
[2017-10-26] MEDS: Lactobacillus Rhamnosus GG 15 Billion CFU CAP.SPRINK PO SCH (08:44)
[2017-10-26] MEDS: Multivitamin Tab PO SCH (08:44)
--- NOTE | 2017-10-26 10:12 | Progress Notes ---
DATE: 10/26/2017 SUBJECTIVE: The patient is coming in from [place] due to aggressive behaviors, hitting staff, history of dementia. On [id number], the patient refusing just at times states that he wants to stand up. States that he was "send here" and does not know why and states he comes from the streets and is very upset, confused, delusional, irritable, yelling slept fairly well with offshore diver awakenings. ASSESSMENT: The patient remains symptomatic and goes to the bathroom on himself, but he is continent, slept for about 7-1/2 hours, woke up very early, yelling at this clinician. PLAN: We will continue to monitor given his ongoing severe symptoms, confusional state. He is not safe for discharge. We will continue Aricept. JOB# [id number]
--- NOTE | 2017-10-26 11:50 | Internal Medicine Prog Note ---
Internal Medicine Subjective - Subjective Service Date: 10/26/17 Patient seen and examined:: with staff (HE FEELS WELL) Patient is:: awake, verbal, in bed, talking Per staff patient has:: no adverse event Internal Medicine Objective - Results Result Diagrams: 10/20/17 10:45 10/20/17 10:45 Recent Labs: Laboratory Last Values WBC 16.1 Th/cmm (4.8-10.8) H 10/20/17 10:45 RBC 4.58 Mil/cmm (3.80-5.80) 10/20/17 10:45 Hgb 14.0 gm/dL (12-16) 10/20/17 10:45 Hct 42.0 % (41.0-60) 10/20/17 10:45 MCV 91.6 fl (80-99) 10/20/17 10:45 MCH 30.5 pg (27.0-31.0) 10/20/17 10:45 MCHC Differential 33.3 pg (28.0-36.0) 10/20/17 10:45 RDW 13.0 % (11.5-20.0) 10/20/17 10:45 Plt Count 428 Th/cmm (150-400) H 10/20/17 10:45 MPV 7.7 fl 10/20/17 10:45 Neutrophils % 74.4 % (40.0-80.0) 10/20/17 10:45 Lymphocytes % 17.1 % (20.0-50.0) L 10/20/17 10:45 Monocytes % 7.1 % (2.0-10.0) 10/20/17 10:45 Eosinophils % 0.9 % (0.0-5.0) 10/20/17 10:45 Basophils % 0.5 % (0.0-2.0) 10/20/17 10:45 Sodium 133 mEq/L (136-145) L 10/20/17 10:45 Potassium 4.5 mEq/L (3.5-5.1) 10/20/17 10:45 Chloride 100 mEq/L (98-107) 10/20/17 10:45 Carbon Dioxide 26.9 mEq/L (21.0-31.0) 10/20/17 10:45 Anion Gap 10.6 (7.0-16.0) 10/20/17 10:45 BUN 21 mg/dL (7-25) 10/20/17 10:45 Creatinine 0.8 mg/dL (0.7-1.3) 10/20/17 10:45 Est GFR ( Amer) TNP 10/20/17 10:45 Est GFR (Non-Af Amer) TNP 10/20/17 10:45 BUN/Creatinine Ratio 26.3 10/20/17 10:45 Glucose 99 mg/dL (70-105) 10/20/17 10:45 Calcium 9.7 mg/dL (8.6-10.3) 10/20/17 10:45 Phosphorus 3.2 mg/dL (2.5-5.0) 10/14/17 18:12 Magnesium 2.4 mg/dL (1.9-2.7) 10/14/17 18:12 Total Bilirubin 0.3 mg/dL (0.3-1.0) 10/20/17 10:45 AST 14 U/L (13-39) 10/20/17 10:45 ALT 8 U/L (7-52) 10/20/17 10:45 Alkaline Phosphatase 69 U/L (34-104) 10/20/17 10:45 Total Protein 7.6 gm/dL (6.0-8.3) 10/20/17 10:45 Albumin 4.2 gm/dL (4.2-5.5) 10/20/17 10:45 Globulin 3.4 gm/dL 10/20/17 10:45 Albumin/Globulin Ratio 1.2 (1.0-1.8) 10/20/17 10:45 TSH 3.37 uIU/ml (0.34-5.60) 10/14/17 18:12 [place] 0.80 mmol/L (0.5-1.0) 10/20/17 17:20 - Physical Exam Vitals and I&O: Vital Signs Temp 97.7 F 10/26/17 06:19 Pulse 60 10/26/17 07:01 Resp 18 10/26/17 07:01 BP 155/76 10/26/17 06:19 Pulse Ox 100 10/26/17 07:01 Intake & Output 10/25/17 10/26/17 10/26/17 18:59 06:59 18:59 Intake Total 1200 480 Balance 1200 480 Weight (lbs) 72.575 kg Intake: Oral 1200 480 Other: # Voids 3 # Bowel Movements 1 0 Stool Characteristics Formed Weight Source Bedscale Active Medications: Current Medications Acetaminophen (Tylenol) 650 mg PO Q4HR PRN PRN Reason: Pain (Mild) (1-3) Stop: 12/13/17 21:30 Albuterol Sulfate (Albuterol 2.5mg/3ml Neb Ud) 2.5 mg HHN Q6HRT [facility] Stop: 12/19/17 13:29 Last Admin: 10/26/17 07:00 Dose: Not Given Aspirin (Aspirin Chewable) 81 mg PO DAILY [facility] Stop: 12/14/17 08:59 Last Admin: 10/26/17 08:43 Dose: 81 mg Docusate Sodium (Colace) 100 mg PO BID [facility] Stop: 12/14/17 08:59 Last Admin: 10/26/17 08:43 Dose: 100 mg Donepezil HCl (Aricept) 5 mg PO HS [facility] Stop: 12/14/17 20:59 Last Admin: 10/25/17 20:50 Dose: 5 mg Famotidine (Pepcid) 20 mg PO BID [facility] Stop: 12/14/17 08:59 Last Admin: 10/26/17 08:43 Dose: 20 mg Lactobacillus Rhamnosus (Culturelle 15b) 1 each PO DAILY [facility] Stop: 12/21/17 08:59 Last Admin: 10/26/17 08:44 Dose: 1 each [place] Carbonate (Eskalith) 300 mg PO TID [facility]; Protocol Stop: 12/13/17 21:59 Last Admin: 10/26/17 08:44 Dose: 300 mg Magnesium Hydroxide (Milk Of Magnesia) 30 ml PO HS [facility] Stop: 12/14/17 22:29 Last Admin: 10/25/17 20:51 Dose: 30 ml Miscellaneous (Probiotic Screen) 1 ea MC PRN PRN PRN Reason: PROTOCOL Stop: 12/20/17 09:29 Multivitamins/Vitamin C (Theragran) 1 tab PO DAILY [facility] Stop: 12/14/17 08:59 Last Admin: 10/26/17 08:44 Dose: 1 tab General: alert HEENT: NC/AT, PERRLA, EOMI, anicteric sclerae, throat clear Neck: Supple, No JVD, No thyromegaly, +2 carotid pulse wo bruit, No LAD Lungs: CTAB Cardiovascular: RRR, Normal S1, Normal S2, without murmur Abdomen: soft, non-tender, non-distended Extremities: clear Neurological: no change Internal Medicine Assmt/Plan - Assessment Assessment: 1.COPD. 2.HTN. 3.THOMAS. 4.DEMENTIA. - Plan Plan: CONTINUE ON CURRENT MEDICATION AND DIET. Nutritional Asmnt/Malnutr-PDOC - Dietary Evaluation Malnutrition Findings (Please click <Entered> for more info): Nutritional Asmnt/Malnutrition Start: 10/19/17 09: 34 Text: Status: Complete Freq: Protocol: Document 10/19/17 09:34 PHILLIP (Rec: 10/19/17 09:47 MMULBOB HUERTA- [email or web address]) Nutritional Asmnt/Malnutrition Patient General Information Nutritional Screening Low Risk Diagnosis Psychosis Pertinent Medical Hx/Surgical Hx COPD, GERD, degenerative joint disease Subjective Information [place] [facility] [place] nutrition problems identified at this time with adequate oral intake. Patient in activity room. Current Diet Order/ Nutrition Support mechanical soft chopped Patient / S.O Not Indicated Pertinent Medications colace, pepcid, MOM, theragran Pertinent Labs WNL Nutritional Hx/Data Height 1.78 m Height (Calculated Centimeters) 177.8 Current Weight (lbs) 72.575 kg Weight (Calculated Kilograms) 72.6 Weight (Calculated Grams) 13004.8 [place] Body Weight 166 % [place] Body Weight 96 Body Mass Index (BMI) 22.9 Recent Weight Change No Weight Status Approriate GI Symptoms GI Symptoms None Last BM 10/17 x 1 Difficult in: None Food Allergies No Cultural/Ethnic/Mormonism Belief none indicated Usual diet at home unknown Skin Integrity/Comment: [place] 21, intact Current %PO Good (75-100%) Estimated Nutritional Goals BEE in Kcals: Using Current wt Calories/Kcals/Kg 25-30 kcal/kg using CBW 72.7kg Kcals Calculated 2821-2687 kcal/day Protein: Using Current wt Protein g/k.8-1 gm/kg Protein Calculated 60-70 gm/day Fluid: ml 3500-1162 ml/day (1 ml/kcal) Nutritional Problem 1. Problem Problem No nutrition diagnosis at this time Intervention/Recommendation Comments 1. Continue mechanical soft chopped diet as tolerated by patient as it is adequate to meet nutrient needs. 2. F/U LR 10/26 Expected Outcomes/Goals Expected Outcomes/Goals weight stable, oral intake >75 % of meals, nutrition related labs WNL
[2017-10-26] MEDS: Magnesium Hydroxide (MOM) 30 mL UDC PO SCH (21:07)
[2017-10-27] MEDS: Albuterol Nebulizer 2.5mg/3mL HHN SCH ×2 (00:04→06:56)
--- NOTE | 2017-10-27 07:06 | Progress Notes ---
DATE: 10/27/2017 SUBJECTIVE: The patient coming from [place] with aggressive behaviors. Awake on exam. He states it is 2017, states it is May, confused, disoriented, does not know why he is here, wants to leave, upsets, slept fairly well with technician terminal and repeater awakenings. ASSESSMENT: The patient is confused, disoriented, focused on smoking, suspicious at times, mostly in his room, pacing back and forth. He is continent. He is going to the bathroom by himself, still with bouts of forgetfulness, also needs concerns about his ability to care for his basic needs. Medications were noted. PLAN: We will continue to monitor, titrate and adjust medications. [facility]# [id number]
[2017-10-27] MEDS: Aspirin 81mg Chewable Tab PO SCH (08:45)
[2017-10-27] MEDS: Multivitamin Tab PO SCH (08:46)
[2017-10-27] MEDS: Lactobacillus Rhamnosus GG 15 Billion CFU CAP.SPRINK PO SCH (08:46)
[2017-10-27] MEDS ORDERED: Albuterol Nebulizer 2.5mg/3mL HHN PRN (09:59)
--- NOTE | 2017-10-27 19:32 | Internal Medicine Prog Note ---
Internal Medicine Subjective - Subjective Service Date: 10/27/17 Patient seen and examined:: with staff Patient is:: awake, verbal, in bed, talking Per staff patient has:: no adverse event Internal Medicine Objective - Results Result Diagrams: 10/20/17 10:45 10/20/17 10:45 Recent Labs: Laboratory Last Values WBC 16.1 Th/cmm (4.8-10.8) H 10/20/17 10:45 RBC 4.58 Mil/cmm (3.80-5.80) 10/20/17 10:45 Hgb 14.0 gm/dL (12-16) 10/20/17 10:45 Hct 42.0 % (41.0-60) 10/20/17 10:45 MCV 91.6 fl (80-99) 10/20/17 10:45 MCH 30.5 pg (27.0-31.0) 10/20/17 10:45 MCHC Differential 33.3 pg (28.0-36.0) 10/20/17 10:45 RDW 13.0 % (11.5-20.0) 10/20/17 10:45 Plt Count 428 Th/cmm (150-400) H 10/20/17 10:45 MPV 7.7 fl 10/20/17 10:45 Neutrophils % 74.4 % (40.0-80.0) 10/20/17 10:45 Lymphocytes % 17.1 % (20.0-50.0) L 10/20/17 10:45 Monocytes % 7.1 % (2.0-10.0) 10/20/17 10:45 Eosinophils % 0.9 % (0.0-5.0) 10/20/17 10:45 Basophils % 0.5 % (0.0-2.0) 10/20/17 10:45 Sodium 133 mEq/L (136-145) L 10/20/17 10:45 Potassium 4.5 mEq/L (3.5-5.1) 10/20/17 10:45 Chloride 100 mEq/L (98-107) 10/20/17 10:45 Carbon Dioxide 26.9 mEq/L (21.0-31.0) 10/20/17 10:45 Anion Gap 10.6 (7.0-16.0) 10/20/17 10:45 BUN 21 mg/dL (7-25) 10/20/17 10:45 Creatinine 0.8 mg/dL (0.7-1.3) 10/20/17 10:45 Est GFR ( Amer) TNP 10/20/17 10:45 Est GFR (Non-Af Amer) TNP 10/20/17 10:45 BUN/Creatinine Ratio 26.3 10/20/17 10:45 Glucose 99 mg/dL (70-105) 10/20/17 10:45 Calcium 9.7 mg/dL (8.6-10.3) 10/20/17 10:45 Phosphorus 3.2 mg/dL (2.5-5.0) 10/14/17 18:12 Magnesium 2.4 mg/dL (1.9-2.7) 10/14/17 18:12 Total Bilirubin 0.3 mg/dL (0.3-1.0) 10/20/17 10:45 AST 14 U/L (13-39) 10/20/17 10:45 ALT 8 U/L (7-52) 10/20/17 10:45 Alkaline Phosphatase 69 U/L (34-104) 10/20/17 10:45 Total Protein 7.6 gm/dL (6.0-8.3) 10/20/17 10:45 Albumin 4.2 gm/dL (4.2-5.5) 10/20/17 10:45 Globulin 3.4 gm/dL 10/20/17 10:45 Albumin/Globulin Ratio 1.2 (1.0-1.8) 10/20/17 10:45 TSH 3.37 uIU/ml (0.34-5.60) 10/14/17 18:12 [place] 0.80 mmol/L (0.5-1.0) 10/20/17 17:20 - Physical Exam Vitals and I&O: Vital Signs Temp 98.5 F 10/27/17 14:00 Pulse 60 10/27/17 18:59 Resp 20 10/27/17 18:59 BP 153/83 10/27/17 14:00 Pulse Ox 98 10/27/17 18:59 Intake & Output 10/27/17 10/27/17 10/28/17 06:59 18:59 06:59 Intake Total 900 Balance 900 Intake: Oral 900 Other: # Voids 3 # Bowel Movements 1 Stool Characteristics Formed Active Medications: Current Medications Acetaminophen (Tylenol) 650 mg PO Q4HR PRN PRN Reason: Pain (Mild) (1-3) Stop: 12/13/17 21:30 Albuterol Sulfate (Albuterol 2.5mg/3ml Neb Ud) 2.5 mg HHN Q6HRT PRN PRN Reason: Congestion Stop: 12/26/17 12:59 Aspirin (Aspirin Chewable) 81 mg PO DAILY [facility] Stop: 12/14/17 08:59 Last Admin: 10/27/17 08:45 Dose: 81 mg Docusate Sodium (Colace) 100 mg PO BID [facility] Stop: 12/14/17 08:59 Last Admin: 10/27/17 17:55 Dose: 100 mg Donepezil HCl (Aricept) 5 mg PO HS [facility] Stop: 12/14/17 20:59 Last Admin: 10/26/17 21:07 Dose: 5 mg Famotidine (Pepcid) 20 mg PO BID [facility] Stop: 12/14/17 08:59 Last Admin: 10/27/17 17:55 Dose: 20 mg Lactobacillus Rhamnosus (Culturelle 15b) 1 each PO DAILY [facility] Stop: 12/21/17 08:59 Last Admin: 10/27/17 08:46 Dose: 1 each [place] Carbonate (Eskalith) 300 mg PO TID [facility]; Protocol Stop: 12/13/17 21:59 Last Admin: 10/27/17 14:12 Dose: 300 mg Magnesium Hydroxide (Milk Of Magnesia) 30 ml PO HS [facility] Stop: 12/14/17 22:29 Last Admin: 10/26/17 21:07 Dose: 30 ml Miscellaneous (Probiotic Screen) 1 ea MC PRN PRN PRN Reason: PROTOCOL Stop: 12/20/17 09:29 Multivitamins/Vitamin C (Theragran) 1 tab PO DAILY [facility] Stop: 12/14/17 08:59 Last Admin: 10/27/17 08:46 Dose: 1 tab General: alert HEENT: NC/AT, PERRLA, EOMI, anicteric sclerae, throat clear Neck: Supple, No JVD, No thyromegaly, +2 carotid pulse wo bruit, No LAD Lungs: CTAB Cardiovascular: RRR, Normal S1, Normal S2, without murmur Abdomen: soft, non-tender, non-distended Extremities: clear Neurological: no change Internal Medicine Assmt/Plan - Assessment Assessment: 1.COPD. 2.HTN. 3.THOMAS. 4.DEMENTIA. - Plan Plan: CONTINUE ON CURRENT MEDICATION AND DIET. Nutritional Asmnt/Malnutr-PDOC - Dietary Evaluation Malnutrition Findings (Please click <Entered> for more info): Nutritional Asmnt/Malnutrition Start: 10/19/17 09: 34 Text: Status: Complete Freq: Protocol: Document 10/19/17 09:34 MMULN (Rec: 10/19/17 09:47 MMULHERN BRADLEY- [email or web address]) Nutritional Asmnt/Malnutrition Patient General Information Nutritional Screening Low Risk Diagnosis Psychosis Pertinent Medical Hx/Surgical Hx COPD, GERD, degenerative joint disease Subjective Information Patient was admitted from [facility]. No nutrition problems identified at this time with adequate oral intake. Patient in activity room. Current Diet Order/ Nutrition Support mechanical soft chopped Patient / S.O Not Indicated Pertinent Medications colace, pepcid, MOM, theragran Pertinent Labs WNL Nutritional Hx/Data Height 1.78 m Height (Calculated Centimeters) 177.8 Current Weight (lbs) 72.575 kg Weight (Calculated Kilograms) 72.6 Weight (Calculated Grams) 74785.8 [place] Body Weight 166 % [place] Body Weight 96 Body Mass Index (BMI) 22.9 Recent Weight Change No Weight Status Approriate GI Symptoms GI Symptoms None Last BM 10/17 x 1 Difficult in: None Food Allergies No Cultural/Ethnic/Judaism Belief none indicated Usual diet at home unknown Skin Integrity/Comment: [place] 21, intact Current %PO Good (75-100%) Estimated Nutritional Goals BEE in Kcals: Using Current wt Calories/Kcals/Kg 25-30 kcal/kg using CBW 72.7kg Kcals Calculated 4654-4168 kcal/day Protein: Using Current wt Protein g/k.8-1 gm/kg Protein Calculated 60-70 gm/day Fluid: ml 2159-1543 ml/day (1 ml/kcal) Nutritional Problem 1. Problem Problem No nutrition diagnosis at this time Intervention/Recommendation Comments 1. Continue mechanical soft chopped diet as tolerated by patient as it is adequate to meet nutrient needs. 2. F/U LR 10/26 Expected Outcomes/Goals Expected Outcomes/Goals weight stable, oral intake >75 % of meals, nutrition related labs WNL
[2017-10-27] MEDS: Magnesium Hydroxide (MOM) 30 mL UDC PO SCH (21:12)
[2017-10-28] MEDS: Aspirin 81mg Chewable Tab PO SCH (08:44)
[2017-10-28] MEDS: Lactobacillus Rhamnosus GG 15 Billion CFU CAP.SPRINK PO SCH (08:44)
[2017-10-28] MEDS: Multivitamin Tab PO SCH (08:45)
--- NOTE | 2017-10-28 19:35 | Internal Medicine Prog Note ---
Internal Medicine Subjective - Subjective Service Date: 10/28/17 Patient seen and examined:: with staff (HE IS DOING WELL) Patient is:: awake, verbal, in bed, talking Per staff patient has:: no adverse event Internal Medicine Objective - Results Result Diagrams: 10/20/17 10:45 10/20/17 10:45 Recent Labs: Laboratory Last Values WBC 16.1 Th/cmm (4.8-10.8) H 10/20/17 10:45 RBC 4.58 Mil/cmm (3.80-5.80) 10/20/17 10:45 Hgb 14.0 gm/dL (12-16) 10/20/17 10:45 Hct 42.0 % (41.0-60) 10/20/17 10:45 MCV 91.6 fl (80-99) 10/20/17 10:45 MCH 30.5 pg (27.0-31.0) 10/20/17 10:45 MCHC Differential 33.3 pg (28.0-36.0) 10/20/17 10:45 RDW 13.0 % (11.5-20.0) 10/20/17 10:45 Plt Count 428 Th/cmm (150-400) H 10/20/17 10:45 MPV 7.7 fl 10/20/17 10:45 Neutrophils % 74.4 % (40.0-80.0) 10/20/17 10:45 Lymphocytes % 17.1 % (20.0-50.0) L 10/20/17 10:45 Monocytes % 7.1 % (2.0-10.0) 10/20/17 10:45 Eosinophils % 0.9 % (0.0-5.0) 10/20/17 10:45 Basophils % 0.5 % (0.0-2.0) 10/20/17 10:45 Sodium 133 mEq/L (136-145) L 10/20/17 10:45 Potassium 4.5 mEq/L (3.5-5.1) 10/20/17 10:45 Chloride 100 mEq/L (98-107) 10/20/17 10:45 Carbon Dioxide 26.9 mEq/L (21.0-31.0) 10/20/17 10:45 Anion Gap 10.6 (7.0-16.0) 10/20/17 10:45 BUN 21 mg/dL (7-25) 10/20/17 10:45 Creatinine 0.8 mg/dL (0.7-1.3) 10/20/17 10:45 Est GFR ( Amer) TNP 10/20/17 10:45 Est GFR (Non-Af Amer) TNP 10/20/17 10:45 BUN/Creatinine Ratio 26.3 10/20/17 10:45 Glucose 99 mg/dL (70-105) 10/20/17 10:45 Calcium 9.7 mg/dL (8.6-10.3) 10/20/17 10:45 Phosphorus 3.2 mg/dL (2.5-5.0) 10/14/17 18:12 Magnesium 2.4 mg/dL (1.9-2.7) 10/14/17 18:12 Total Bilirubin 0.3 mg/dL (0.3-1.0) 10/20/17 10:45 AST 14 U/L (13-39) 10/20/17 10:45 ALT 8 U/L (7-52) 10/20/17 10:45 Alkaline Phosphatase 69 U/L (34-104) 10/20/17 10:45 Total Protein 7.6 gm/dL (6.0-8.3) 10/20/17 10:45 Albumin 4.2 gm/dL (4.2-5.5) 10/20/17 10:45 Globulin 3.4 gm/dL 10/20/17 10:45 Albumin/Globulin Ratio 1.2 (1.0-1.8) 10/20/17 10:45 TSH 3.37 uIU/ml (0.34-5.60) 10/14/17 18:12 [place] 0.80 mmol/L (0.5-1.0) 10/20/17 17:20 - Physical Exam Vitals and I&O: Vital Signs Temp 97.5 F 10/28/17 14:00 Pulse 62 10/28/17 14:00 Resp 20 10/28/17 14:00 BP 153/88 10/28/17 14:00 Pulse Ox 96 10/28/17 14:00 Intake & Output 10/28/17 10/28/17 10/29/17 06:59 18:59 06:59 Intake Total 360 Balance 360 Weight (lbs) 72.575 kg Intake: Oral 360 Other: # Voids 2 # Bowel Movements 1 Weight Source Bedscale Active Medications: Current Medications Acetaminophen (Tylenol) 650 mg PO Q4HR PRN PRN Reason: Pain (Mild) (1-3) Stop: 12/13/17 21:30 Albuterol Sulfate (Albuterol 2.5mg/3ml Neb Ud) 2.5 mg HHN Q6HRT PRN PRN Reason: Congestion Stop: 12/26/17 12:59 Aspirin (Aspirin Chewable) 81 mg PO DAILY [facility] Stop: 12/14/17 08:59 Last Admin: 10/28/17 08:44 Dose: 81 mg Docusate Sodium (Colace) 100 mg PO BID [facility] Stop: 12/14/17 08:59 Last Admin: 10/28/17 17:40 Dose: 100 mg Donepezil HCl (Aricept) 5 mg PO HS [facility] Stop: 12/14/17 20:59 Last Admin: 10/27/17 21:12 Dose: 5 mg Famotidine (Pepcid) 20 mg PO BID [facility] Stop: 12/14/17 08:59 Last Admin: 10/28/17 17:40 Dose: 20 mg Lactobacillus Rhamnosus (Culturelle 15b) 1 each PO DAILY [facility] Stop: 12/21/17 08:59 Last Admin: 10/28/17 08:44 Dose: 1 each [place] Carbonate (Eskalith) 300 mg PO TID [facility]; Protocol Stop: 12/13/17 21:59 Last Admin: 10/28/17 14:41 Dose: Not Given Magnesium Hydroxide (Milk Of Magnesia) 30 ml PO HS [facility] Stop: 12/14/17 22:29 Last Admin: 10/27/17 21:12 Dose: 30 ml Miscellaneous (Probiotic Screen) 1 ea MC PRN PRN PRN Reason: PROTOCOL Stop: 12/20/17 09:29 Multivitamins/Vitamin C (Theragran) 1 tab PO DAILY [facility] Stop: 12/14/17 08:59 Last Admin: 10/28/17 08:45 Dose: 1 tab General: alert HEENT: NC/AT, PERRLA, EOMI, anicteric sclerae, throat clear Neck: Supple, No JVD, No thyromegaly, +2 carotid pulse wo bruit, No LAD Lungs: CTAB Cardiovascular: RRR, Normal S1, Normal S2, without murmur Abdomen: soft, non-tender, non-distended Extremities: clear Neurological: no change Internal Medicine Assmt/Plan - Assessment Assessment: 1.COPD. 2.HTN. 3.THOMAS. 4.DEMENTIA. - Plan Plan: CONTINUE ON CURRENT MEDICATION AND DIET. Nutritional Asmnt/Malnutr-PDOC - Dietary Evaluation Malnutrition Findings (Please click <Entered> for more info): Nutritional Asmnt/Malnutrition Start: 10/19/17 09: 34 Text: Status: Complete Freq: Protocol: Document 10/19/17 09:34 PHILLIP (Rec: 10/19/17 09:47 PHILLIP HUERTA- FNS1) Nutritional Asmnt/Malnutrition Patient General Information Nutritional Screening Low Risk Diagnosis Psychosis Pertinent Medical Hx/Surgical Hx COPD, GERD, degenerative joint disease Subjective Information Patient was admitted from [facility]. No nutrition problems identified at this time with adequate oral intake. Patient in activity room. Current Diet Order/ Nutrition Support mechanical soft chopped Patient / S.O Not Indicated Pertinent Medications colace, pepcid, MOM, theragran Pertinent Labs WNL Nutritional Hx/Data Height 1.78 m Height (Calculated Centimeters) 177.8 Current Weight (lbs) 72.575 kg Weight (Calculated Kilograms) 72.6 Weight (Calculated Grams) 36627.8 [place] Body Weight 166 % [place] Body Weight 96 Body Mass Index (BMI) 22.9 Recent Weight Change No Weight Status Approriate GI Symptoms GI Symptoms None Last BM 10/17 x 1 Difficult in: None Food Allergies No Cultural/Ethnic/Rastafarian Belief none indicated Usual diet at home unknown Skin Integrity/Comment: [place] 21, intact Current %PO Good (75-100%) Estimated Nutritional Goals BEE in Kcals: Using Current wt Calories/Kcals/Kg 25-30 kcal/kg using CBW 72.7kg Kcals Calculated 5927-7751 kcal/day Protein: Using Current wt Protein g/k.8-1 gm/kg Protein Calculated 60-70 gm/day Fluid: ml 1005-7745 ml/day (1 ml/kcal) Nutritional Problem 1. Problem Problem No nutrition diagnosis at this time Intervention/Recommendation Comments 1. Continue mechanical soft chopped diet as tolerated by patient as it is adequate to meet nutrient needs. 2. F/U LR 10/26 Expected Outcomes/Goals Expected Outcomes/Goals weight stable, oral intake >75 % of meals, nutrition related labs WNL
[2017-10-28] MEDS: Magnesium Hydroxide (MOM) 30 mL UDC PO SCH (21:00)
--- NOTE | 2017-10-28 21:30 | Progress Notes ---
DATE: 10/28/2017 SUBJECTIVE: Case was discussed with staff of the patient, reviewed records. The patient continues to be confused, irritable, continues to have poor insight, continues to be unpredictable, impulsive, looking disheveled, disorganized, and internally preoccupied, unable to make safe plan for self-care. He is compliant with the medication with no side effects, no sedation, no nausea, no extrapyramidal symptoms and we will continue to work with the patient in group therapy, milieu therapy, and adjust the medication as needed. JOB# [id number]
[2017-10-29] MEDS: Lactobacillus Rhamnosus GG 15 Billion CFU CAP.SPRINK PO SCH (09:10)
[2017-10-29] MEDS: Aspirin 81mg Chewable Tab PO SCH (09:11)
[2017-10-29] MEDS: Multivitamin Tab PO SCH (09:11)
--- NOTE | 2017-10-29 20:26 | Progress Notes ---
DATE: 10/29/2017 Case was discussed with staff of the patient, reviewed records. The patient continues to be unpredictable and impulsive. He continues to have poor insight; however, in general, he is easier to redirect. He is still confused. No side effects to the medications, no sedation, no nausea. I will be rechecking his lithium level prior to his discharge to make sure he is on the right dose. We will continue to work with the patient in group therapy and milieu therapy, adjust the medications as needed. JOB# [id number]
--- NOTE | 2017-10-29 20:45 | Internal Medicine Prog Note ---
Internal Medicine Subjective - Subjective Service Date: 10/29/17 Patient seen and examined:: with staff Patient is:: awake, verbal, in bed, talking Per staff patient has:: no adverse event Internal Medicine Objective - Results Result Diagrams: 10/20/17 10:45 10/20/17 10:45 Recent Labs: Laboratory Last Values WBC 16.1 Th/cmm (4.8-10.8) H 10/20/17 10:45 RBC 4.58 Mil/cmm (3.80-5.80) 10/20/17 10:45 Hgb 14.0 gm/dL (12-16) 10/20/17 10:45 Hct 42.0 % (41.0-60) 10/20/17 10:45 MCV 91.6 fl (80-99) 10/20/17 10:45 MCH 30.5 pg (27.0-31.0) 10/20/17 10:45 MCHC Differential 33.3 pg (28.0-36.0) 10/20/17 10:45 RDW 13.0 % (11.5-20.0) 10/20/17 10:45 Plt Count 428 Th/cmm (150-400) H 10/20/17 10:45 MPV 7.7 fl 10/20/17 10:45 Neutrophils % 74.4 % (40.0-80.0) 10/20/17 10:45 Lymphocytes % 17.1 % (20.0-50.0) L 10/20/17 10:45 Monocytes % 7.1 % (2.0-10.0) 10/20/17 10:45 Eosinophils % 0.9 % (0.0-5.0) 10/20/17 10:45 Basophils % 0.5 % (0.0-2.0) 10/20/17 10:45 Sodium 133 mEq/L (136-145) L 10/20/17 10:45 Potassium 4.5 mEq/L (3.5-5.1) 10/20/17 10:45 Chloride 100 mEq/L (98-107) 10/20/17 10:45 Carbon Dioxide 26.9 mEq/L (21.0-31.0) 10/20/17 10:45 Anion Gap 10.6 (7.0-16.0) 10/20/17 10:45 BUN 21 mg/dL (7-25) 10/20/17 10:45 Creatinine 0.8 mg/dL (0.7-1.3) 10/20/17 10:45 Est GFR ( Amer) TNP 10/20/17 10:45 Est GFR (Non-Af Amer) TNP 10/20/17 10:45 BUN/Creatinine Ratio 26.3 10/20/17 10:45 Glucose 99 mg/dL (70-105) 10/20/17 10:45 Calcium 9.7 mg/dL (8.6-10.3) 10/20/17 10:45 Phosphorus 3.2 mg/dL (2.5-5.0) 10/14/17 18:12 Magnesium 2.4 mg/dL (1.9-2.7) 10/14/17 18:12 Total Bilirubin 0.3 mg/dL (0.3-1.0) 10/20/17 10:45 AST 14 U/L (13-39) 10/20/17 10:45 ALT 8 U/L (7-52) 10/20/17 10:45 Alkaline Phosphatase 69 U/L (34-104) 10/20/17 10:45 Total Protein 7.6 gm/dL (6.0-8.3) 10/20/17 10:45 Albumin 4.2 gm/dL (4.2-5.5) 10/20/17 10:45 Globulin 3.4 gm/dL 10/20/17 10:45 Albumin/Globulin Ratio 1.2 (1.0-1.8) 10/20/17 10:45 TSH 3.37 uIU/ml (0.34-5.60) 10/14/17 18:12 [place] 0.80 mmol/L (0.5-1.0) 10/20/17 17:20 - Physical Exam Vitals and I&O: Vital Signs Temp 97.5 F 10/29/17 18:19 Pulse 72 10/29/17 18:19 Resp 20 10/29/17 18:19 BP 152/76 10/29/17 18:19 Pulse Ox 98 10/29/17 18:19 Intake & Output 10/29/17 10/29/17 10/30/17 06:59 18:59 06:59 Intake Total 240 1200 Balance 240 1200 Weight (lbs) 72.575 kg Intake: Oral 240 1200 Other: # Voids 3 4 # Bowel Movements 0 1 Weight Source Bedscale Active Medications: Current Medications Acetaminophen (Tylenol) 650 mg PO Q4HR PRN PRN Reason: Pain (Mild) (1-3) Stop: 12/13/17 21:30 Albuterol Sulfate (Albuterol 2.5mg/3ml Neb Ud) 2.5 mg HHN Q6HRT PRN PRN Reason: Congestion Stop: 12/26/17 12:59 Aspirin (Aspirin Chewable) 81 mg PO DAILY [facility] Stop: 12/14/17 08:59 Last Admin: 10/29/17 09:11 Dose: 81 mg Docusate Sodium (Colace) 100 mg PO BID [facility] Stop: 12/14/17 08:59 Last Admin: 10/29/17 17:57 Dose: 100 mg Donepezil HCl (Aricept) 5 mg PO HS [facility] Stop: 12/14/17 20:59 Last Admin: 10/28/17 21:00 Dose: 5 mg Famotidine (Pepcid) 20 mg PO BID [facility] Stop: 12/14/17 08:59 Last Admin: 10/29/17 17:57 Dose: 20 mg Lactobacillus Rhamnosus (Culturelle 15b) 1 each PO DAILY [facility] Stop: 12/21/17 08:59 Last Admin: 10/29/17 09:10 Dose: 1 each [place] Carbonate (Eskalith) 300 mg PO TID [facility]; Protocol Stop: 12/13/17 21:59 Last Admin: 10/29/17 14:07 Dose: 300 mg Magnesium Hydroxide (Milk Of Magnesia) 30 ml PO HS [facility] Stop: 12/14/17 22:29 Last Admin: 10/28/17 21:00 Dose: 30 ml Miscellaneous (Probiotic Screen) 1 ea MC PRN PRN PRN Reason: PROTOCOL Stop: 12/20/17 09:29 Multivitamins/Vitamin C (Theragran) 1 tab PO DAILY [facility] Stop: 12/14/17 08:59 Last Admin: 10/29/17 09:11 Dose: 1 tab General: alert HEENT: NC/AT, PERRLA, EOMI, anicteric sclerae, throat clear Neck: Supple, No JVD, No thyromegaly, +2 carotid pulse wo bruit, No LAD Lungs: CTAB Cardiovascular: RRR, Normal S1, Normal S2, without murmur Abdomen: soft, non-tender, non-distended Extremities: clear Neurological: no change Internal Medicine Assmt/Plan - Assessment Assessment: 1.COPD. 2.HTN. 3.THOMAS. 4.DEMENTIA. - Plan Plan: CONTINUE ON CURRENT MEDICATION AND DIET. Nutritional Asmnt/Malnutr-PDOC - Dietary Evaluation Malnutrition Findings (Please click <Entered> for more info): Nutritional Asmnt/Malnutrition Start: 10/19/17 09: 34 Text: Status: Complete Freq: Protocol: Document 10/19/17 09:34 PHILLIP (Rec: 10/19/17 09:47 PHILLIP HUERTA- [email or web address]) Nutritional Asmnt/Malnutrition Patient General Information Nutritional Screening Low Risk Diagnosis Psychosis Pertinent Medical Hx/Surgical Hx COPD, GERD, degenerative joint disease Subjective Information Patient was admitted from [facility]. No nutrition problems identified at this time with adequate oral intake. Patient in activity room. Current Diet Order/ Nutrition Support mechanical soft chopped Patient / S.O Not Indicated Pertinent Medications colace, pepcid, MOM, theragran Pertinent Labs WNL Nutritional Hx/Data Height 1.78 m Height (Calculated Centimeters) 177.8 Current Weight (lbs) 72.575 kg Weight (Calculated Kilograms) 72.6 Weight (Calculated Grams) 44699.8 [place] Body Weight 166 % [place] Body Weight 96 Body Mass Index (BMI) 22.9 Recent Weight Change No Weight Status Approriate GI Symptoms GI Symptoms None Last BM 10/17 x 1 Difficult in: None Food Allergies No Cultural/Ethnic/[employer]eh[employer] Belief none indicated Usual diet at home unknown Skin Integrity/Comment: [place] 21, intact Current %PO Good (75-100%) Estimated Nutritional Goals BEE in Kcals: Using Current wt Calories/Kcals/Kg 25-30 kcal/kg using CBW 72.7kg Kcals Calculated 5437-7104 kcal/day Protein: Using Current wt Protein g/k.8-1 gm/kg Protein Calculated 60-70 gm/day Fluid: ml 7598-2758 ml/day (1 ml/kcal) Nutritional Problem 1. Problem Problem No nutrition diagnosis at this time Intervention/Recommendation Comments 1. Continue mechanical soft chopped diet as tolerated by patient as it is adequate to meet nutrient needs. 2. F/U LR 10/26 Expected Outcomes/Goals Expected Outcomes/Goals weight stable, oral intake >75 % of meals, nutrition related labs WNL
[2017-10-29] MEDS: Magnesium Hydroxide (MOM) 30 mL UDC PO SCH (21:00)
[2017-10-30] MEDS: Multivitamin Tab PO SCH (08:24)
[2017-10-30] MEDS: Aspirin 81mg Chewable Tab PO SCH (08:24)
[2017-10-30] MEDS: Lactobacillus Rhamnosus GG 15 Billion CFU CAP.SPRINK PO SCH (08:24)
--- NOTE | 2017-10-30 12:28 | Progress Notes ---
DATE: 10/30/2017 Case was discussed with staff of the patient, reviewed records. The patient continues to be agitated, irritable. I renewed his Ativan prescription. He continues to be unpredictable, impulsive, needing redirection. I did order his lithium level to be checked to make sure he is on the right dose and the results are still pending. No side effects with the medication, no sedation, no nausea and we will continue outpatient group therapy, milieu therapy, and adjust the medication as needed. JOB# [id number]
[2017-10-30] MEDS: Magnesium Hydroxide (MOM) 30 mL UDC PO SCH (21:29)
--- NOTE | 2017-10-30 22:39 | Internal Medicine Prog Note ---
Internal Medicine Subjective - Subjective Service Date: 10/30/17 Patient seen and examined:: with staff Patient is:: awake, verbal, in bed, talking Per staff patient has:: no adverse event Internal Medicine Objective - Results Result Diagrams: 10/20/17 10:45 10/20/17 10:45 Recent Labs: Laboratory Last Values WBC 16.1 Th/cmm (4.8-10.8) H 10/20/17 10:45 RBC 4.58 Mil/cmm (3.80-5.80) 10/20/17 10:45 Hgb 14.0 gm/dL (12-16) 10/20/17 10:45 Hct 42.0 % (41.0-60) 10/20/17 10:45 MCV 91.6 fl (80-99) 10/20/17 10:45 MCH 30.5 pg (27.0-31.0) 10/20/17 10:45 MCHC Differential 33.3 pg (28.0-36.0) 10/20/17 10:45 RDW 13.0 % (11.5-20.0) 10/20/17 10:45 Plt Count 428 Th/cmm (150-400) H 10/20/17 10:45 MPV 7.7 fl 10/20/17 10:45 Neutrophils % 74.4 % (40.0-80.0) 10/20/17 10:45 Lymphocytes % 17.1 % (20.0-50.0) L 10/20/17 10:45 Monocytes % 7.1 % (2.0-10.0) 10/20/17 10:45 Eosinophils % 0.9 % (0.0-5.0) 10/20/17 10:45 Basophils % 0.5 % (0.0-2.0) 10/20/17 10:45 Sodium 133 mEq/L (136-145) L 10/20/17 10:45 Potassium 4.5 mEq/L (3.5-5.1) 10/20/17 10:45 Chloride 100 mEq/L (98-107) 10/20/17 10:45 Carbon Dioxide 26.9 mEq/L (21.0-31.0) 10/20/17 10:45 Anion Gap 10.6 (7.0-16.0) 10/20/17 10:45 BUN 21 mg/dL (7-25) 10/20/17 10:45 Creatinine 0.8 mg/dL (0.7-1.3) 10/20/17 10:45 Est GFR ( Amer) TNP 10/20/17 10:45 Est GFR (Non-Af Amer) TNP 10/20/17 10:45 BUN/Creatinine Ratio 26.3 10/20/17 10:45 Glucose 99 mg/dL (70-105) 10/20/17 10:45 Calcium 9.7 mg/dL (8.6-10.3) 10/20/17 10:45 Phosphorus 3.2 mg/dL (2.5-5.0) 10/14/17 18:12 Magnesium 2.4 mg/dL (1.9-2.7) 10/14/17 18:12 Total Bilirubin 0.3 mg/dL (0.3-1.0) 10/20/17 10:45 AST 14 U/L (13-39) 10/20/17 10:45 ALT 8 U/L (7-52) 10/20/17 10:45 Alkaline Phosphatase 69 U/L (34-104) 10/20/17 10:45 Total Protein 7.6 gm/dL (6.0-8.3) 10/20/17 10:45 Albumin 4.2 gm/dL (4.2-5.5) 10/20/17 10:45 Globulin 3.4 gm/dL 10/20/17 10:45 Albumin/Globulin Ratio 1.2 (1.0-1.8) 10/20/17 10:45 TSH 3.37 uIU/ml (0.34-5.60) 10/14/17 18:12 [place] 0.80 mmol/L (0.5-1.0) 10/20/17 17:20 - Physical Exam Vitals and I&O: Vital Signs Temp 97.3 F 10/30/17 20:00 Pulse 70 10/30/17 20:00 Resp 20 10/30/17 20:00 BP 142/65 10/30/17 20:00 Pulse Ox 97 10/30/17 20:00 Intake & Output 10/30/17 10/30/17 10/31/17 06:59 18:59 06:59 Intake Total 360 1000 Balance 360 1000 Weight (lbs) 72.575 kg Intake: Oral 360 1000 Other: # Voids 1 3 # Bowel Movements 0 1 Weight Source Bedscale Active Medications: Current Medications Acetaminophen (Tylenol) 650 mg PO Q4HR PRN PRN Reason: Pain (Mild) (1-3) Stop: 12/13/17 21:30 Albuterol Sulfate (Albuterol 2.5mg/3ml Neb Ud) 2.5 mg HHN Q6HRT PRN PRN Reason: Congestion Stop: 12/26/17 12:59 Aspirin (Aspirin Chewable) 81 mg PO DAILY [facility] Stop: 12/14/17 08:59 Last Admin: 10/30/17 08:24 Dose: 81 mg Docusate Sodium (Colace) 100 mg PO BID [facility] Stop: 12/14/17 08:59 Last Admin: 10/30/17 16:36 Dose: 100 mg Donepezil HCl (Aricept) 5 mg PO HS [facility] Stop: 12/14/17 20:59 Last Admin: 10/30/17 21:29 Dose: 5 mg Famotidine (Pepcid) 20 mg PO BID [facility] Stop: 12/14/17 08:59 Last Admin: 10/30/17 16:36 Dose: 20 mg Lactobacillus Rhamnosus (Culturelle 15b) 1 each PO DAILY [facility] Stop: 12/21/17 08:59 Last Admin: 10/30/17 08:24 Dose: 1 each [place] Carbonate (Eskalith) 300 mg PO TID [facility]; Protocol Stop: 12/13/17 21:59 Last Admin: 10/30/17 21:29 Dose: 300 mg Lorazepam (Ativan) 0.5 mg PO Q4H PRN; Protocol PRN Reason: anxiety, agitation Stop: 12/29/17 06:20 Last Admin: 10/30/17 07:04 Dose: 0.5 mg Magnesium Hydroxide (Milk Of Magnesia) 30 ml PO HS [facility] Stop: 12/14/17 22:29 Last Admin: 10/30/17 21:29 Dose: 30 ml Miscellaneous (Probiotic Screen) 1 ea MC PRN PRN PRN Reason: PROTOCOL Stop: 12/20/17 09:29 Multivitamins/Vitamin C (Theragran) 1 tab PO DAILY [facility] Stop: 12/14/17 08:59 Last Admin: 10/30/17 08:24 Dose: 1 tab General: alert HEENT: NC/AT, PERRLA, EOMI, anicteric sclerae, throat clear Neck: Supple, No JVD, No thyromegaly, +2 carotid pulse wo bruit, No LAD Lungs: CTAB Cardiovascular: RRR, Normal S1, Normal S2, without murmur Abdomen: soft, non-tender, non-distended Extremities: clear Neurological: no change Internal Medicine Assmt/Plan - Assessment Assessment: 1.COPD. 2.HTN. 3.THOMAS. 4.DEMENTIA. - Plan Plan: CONTINUE ON CURRENT MEDICATION AND DIET. Nutritional Asmnt/Malnutr-PDOC - Dietary Evaluation Malnutrition Findings (Please click <Entered> for more info): Nutritional Asmnt/Malnutrition Start: 10/19/17 09: 34 Text: Status: Complete Freq: Protocol: Document 10/19/17 09:34 MMELOISA (Rec: 10/19/17 09:47 MMULBOB HUERTA- [email or web address]) Nutritional Asmnt/Malnutrition Patient General Information Nutritional Screening Low Risk Diagnosis Psychosis Pertinent Medical Hx/Surgical Hx COPD, GERD, degenerative joint disease Subjective Information Patient was admitted from [facility]. No nutrition problems identified at this time with adequate oral intake. Patient in activity room. Current Diet Order/ Nutrition Support mechanical soft chopped Patient / S.O Not Indicated Pertinent Medications colace, pepcid, MOM, theragran Pertinent Labs WNL Nutritional Hx/Data Height 1.78 m Height (Calculated Centimeters) 177.8 Current Weight (lbs) 72.575 kg Weight (Calculated Kilograms) 72.6 Weight (Calculated Grams) 53152.8 [place] Body Weight 166 % [place] Body Weight 96 Body Mass Index (BMI) 22.9 Recent Weight Change No Weight Status Approriate GI Symptoms GI Symptoms None Last BM 10/17 x 1 Difficult in: None Food Allergies No Cultural/Ethnic/Yarsanism Belief none indicated Usual diet at home unknown Skin Integrity/Comment: [place] 21, intact Current %PO Good (75-100%) Estimated Nutritional Goals BEE in Kcals: Using Current wt Calories/Kcals/Kg 25-30 kcal/kg using CBW 72.7kg Kcals Calculated 4157-0316 kcal/day Protein: Using Current wt Protein g/k.8-1 gm/kg Protein Calculated 60-70 gm/day Fluid: ml 9429-6466 ml/day (1 ml/kcal) Nutritional Problem 1. Problem Problem No nutrition diagnosis at this time Intervention/Recommendation Comments 1. Continue mechanical soft chopped diet as tolerated by patient as it is adequate to meet nutrient needs. 2. F/U LR 10/26 Expected Outcomes/Goals Expected Outcomes/Goals weight stable, oral intake >75 % of meals, nutrition related labs WNL
[2017-10-31] MEDS: Aspirin 81mg Chewable Tab PO SCH (08:31)
[2017-10-31] MEDS: Multivitamin Tab PO SCH (08:31)
[2017-10-31] MEDS: Lactobacillus Rhamnosus GG 15 Billion CFU CAP.SPRINK PO SCH (08:32)
[2017-10-31] MEDS ORDERED: Haloperidol Lactate 5 mg/mL 1mL Vial IM ONE (13:12)
--- NOTE | 2017-10-31 14:35 | Progress Notes ---
DATE: 10/31/2017 Case was discussed with staff of the patient, reviewed records. The patient is reported to be acting out. Today, he is unpredictable, impulsive, needing redirection. I ordered to recheck his lithium level, it is not available yet. He is confused, demented, unable to make safe plan for self-care. I will be increasing his Aricept dose to 10 mg at bedtime and that may help improve his behavior and cognition as he is demented, confused, and so far no side effects of the medication, no sedation, no nausea, no diarrhea, no tremors, and we will continue the patient in group therapy, milieu therapy, adjust medication as needed. JOB# [id number]
--- NOTE | 2017-10-31 18:19 | Internal Medicine Prog Note ---
Internal Medicine Subjective - Subjective Service Date: 10/31/17 Patient seen and examined:: with staff Patient is:: awake, verbal, in bed, talking Per staff patient has:: no adverse event Internal Medicine Objective - Results Result Diagrams: 10/20/17 10:45 10/20/17 10:45 Recent Labs: Laboratory Last Values WBC 16.1 Th/cmm (4.8-10.8) H 10/20/17 10:45 RBC 4.58 Mil/cmm (3.80-5.80) 10/20/17 10:45 Hgb 14.0 gm/dL (12-16) 10/20/17 10:45 Hct 42.0 % (41.0-60) 10/20/17 10:45 MCV 91.6 fl (80-99) 10/20/17 10:45 MCH 30.5 pg (27.0-31.0) 10/20/17 10:45 MCHC Differential 33.3 pg (28.0-36.0) 10/20/17 10:45 RDW 13.0 % (11.5-20.0) 10/20/17 10:45 Plt Count 428 Th/cmm (150-400) H 10/20/17 10:45 MPV 7.7 fl 10/20/17 10:45 Neutrophils % 74.4 % (40.0-80.0) 10/20/17 10:45 Lymphocytes % 17.1 % (20.0-50.0) L 10/20/17 10:45 Monocytes % 7.1 % (2.0-10.0) 10/20/17 10:45 Eosinophils % 0.9 % (0.0-5.0) 10/20/17 10:45 Basophils % 0.5 % (0.0-2.0) 10/20/17 10:45 Sodium 133 mEq/L (136-145) L 10/20/17 10:45 Potassium 4.5 mEq/L (3.5-5.1) 10/20/17 10:45 Chloride 100 mEq/L (98-107) 10/20/17 10:45 Carbon Dioxide 26.9 mEq/L (21.0-31.0) 10/20/17 10:45 Anion Gap 10.6 (7.0-16.0) 10/20/17 10:45 BUN 21 mg/dL (7-25) 10/20/17 10:45 Creatinine 0.8 mg/dL (0.7-1.3) 10/20/17 10:45 Est GFR ( Amer) TNP 10/20/17 10:45 Est GFR (Non-Af Amer) TNP 10/20/17 10:45 BUN/Creatinine Ratio 26.3 10/20/17 10:45 Glucose 99 mg/dL (70-105) 10/20/17 10:45 Calcium 9.7 mg/dL (8.6-10.3) 10/20/17 10:45 Phosphorus 3.2 mg/dL (2.5-5.0) 10/14/17 18:12 Magnesium 2.4 mg/dL (1.9-2.7) 10/14/17 18:12 Total Bilirubin 0.3 mg/dL (0.3-1.0) 10/20/17 10:45 AST 14 U/L (13-39) 10/20/17 10:45 ALT 8 U/L (7-52) 10/20/17 10:45 Alkaline Phosphatase 69 U/L (34-104) 10/20/17 10:45 Total Protein 7.6 gm/dL (6.0-8.3) 10/20/17 10:45 Albumin 4.2 gm/dL (4.2-5.5) 10/20/17 10:45 Globulin 3.4 gm/dL 10/20/17 10:45 Albumin/Globulin Ratio 1.2 (1.0-1.8) 10/20/17 10:45 TSH 3.37 uIU/ml (0.34-5.60) 10/14/17 18:12 [place] 0.80 mmol/L (0.5-1.0) 10/20/17 17:20 - Physical Exam Vitals and I&O: Vital Signs Temp 97.3 F 10/30/17 20:00 Pulse 70 10/31/17 07:14 Resp 18 10/31/17 07:14 BP 142/65 10/30/17 20:00 Pulse Ox 98 10/31/17 07:14 Intake & Output 10/30/17 10/31/17 10/31/17 18:59 06:59 18:59 Intake Total 0388 629 0390 Balance 3431 387 1410 Intake: Oral 3742 615 1949 Other: # Voids 3 2 4 # Bowel Movements 1 0 Stool Characteristics Formed Active Medications: Current Medications Acetaminophen (Tylenol) 650 mg PO Q4HR PRN PRN Reason: Pain (Mild) (1-3) Stop: 12/13/17 21:30 Albuterol Sulfate (Albuterol 2.5mg/3ml Neb Ud) 2.5 mg HHN Q6HRT PRN PRN Reason: Congestion Stop: 12/26/17 12:59 Aspirin (Aspirin Chewable) 81 mg PO DAILY [facility] Stop: 12/14/17 08:59 Last Admin: 10/31/17 08:31 Dose: 81 mg Docusate Sodium (Colace) 100 mg PO BID [facility] Stop: 12/14/17 08:59 Last Admin: 10/31/17 17:40 Dose: 100 mg Donepezil HCl (Aricept) 10 mg PO HS [facility] Stop: 12/30/17 20:59 Famotidine (Pepcid) 20 mg PO BID [facility] Stop: 12/14/17 08:59 Last Admin: 10/31/17 17:40 Dose: 20 mg Lactobacillus Rhamnosus (Culturelle 15b) 1 each PO DAILY [facility] Stop: 12/21/17 08:59 Last Admin: 10/31/17 08:32 Dose: 1 each [place] Carbonate (Eskalith) 300 mg PO TID [facility]; Protocol Stop: 12/13/17 21:59 Last Admin: 10/31/17 13:40 Dose: Not Given Lorazepam (Ativan) 0.5 mg PO Q4H PRN; Protocol PRN Reason: anxiety, agitation Stop: 12/29/17 06:20 Last Admin: 10/31/17 08:31 Dose: 0.5 mg Magnesium Hydroxide (Milk Of Magnesia) 30 ml PO HS [facility] Stop: 12/14/17 22:29 Last Admin: 10/30/17 21:29 Dose: 30 ml Miscellaneous (Probiotic Screen) 1 ea [facility] PRN PRN PRN Reason: PROTOCOL Stop: 12/20/17 09:29 Multivitamins/Vitamin C (Theragran) 1 tab PO DAILY [facility] Stop: 12/14/17 08:59 Last Admin: 10/31/17 08:31 Dose: 1 tab General: alert HEENT: NC/AT, PERRLA, EOMI, anicteric sclerae, throat clear Neck: Supple, No JVD, No thyromegaly, +2 carotid pulse wo bruit, No LAD Lungs: CTAB Cardiovascular: RRR, Normal S1, Normal S2, without murmur Abdomen: soft, non-tender, non-distended Extremities: clear Neurological: no change Internal Medicine Assmt/Plan - Assessment Assessment: 1.COPD. 2.HTN. 3.THOMAS. 4.DEMENTIA. - Plan Plan: CONTINUE ON CURRENT MEDICATION AND DIET. Nutritional Asmnt/Malnutr-PDOC - Dietary Evaluation Malnutrition Findings (Please click <Entered> for more info): Nutritional Asmnt/Malnutrition Start: 10/19/17 09: 34 Text: Status: Complete Freq: Protocol: Document 10/19/17 09:34 MMELOISA (Rec: 10/19/17 09:47 MMULBOB HUERTA- [email or web address]) Nutritional Asmnt/Malnutrition Patient General Information Nutritional Screening Low Risk Diagnosis Psychosis Pertinent Medical Hx/Surgical Hx COPD, GERD, degenerative joint disease Subjective Information Patient was admitted from . No nutrition problems identified at this time with adequate oral intake. Patient in activity room. Current Diet Order/ Nutrition Support mechanical soft chopped Patient / S.O Not Indicated Pertinent Medications colace, pepcid, MOM, theragran Pertinent Labs WNL Nutritional Hx/Data Height 1.78 m Height (Calculated Centimeters) 177.8 Current Weight (lbs) 72.575 kg Weight (Calculated Kilograms) 72.6 Weight (Calculated Grams) 22977.8 [place] Body Weight 166 % [place] Body Weight 96 Body Mass Index (BMI) 22.9 Recent Weight Change No Weight Status Approriate GI Symptoms GI Symptoms None Last BM 10/17 x 1 Difficult in: None Food Allergies No Cultural/Ethnic/Hoahaoism Belief none indicated Usual diet at home unknown Skin Integrity/Comment: Jerome 21, intact Current %PO Good (75-100%) Estimated Nutritional Goals BEE in Kcals: Using Current wt Calories/Kcals/Kg 25-30 kcal/kg using CBW 72.7kg Kcals Calculated 8618-0401 kcal/day Protein: Using Current wt Protein g/k.8-1 gm/kg Protein Calculated 60-70 gm/day Fluid: ml 5486-2273 ml/day (1 ml/kcal) Nutritional Problem 1. Problem Problem No nutrition diagnosis at this time Intervention/Recommendation Comments 1. Continue mechanical soft chopped diet as tolerated by patient as it is adequate to meet nutrient needs. 2. F/U LR 10/26 Expected Outcomes/Goals Expected Outcomes/Goals weight stable, oral intake >75 % of meals, nutrition related labs WNL
[2017-10-31] MEDS: Magnesium Hydroxide (MOM) 30 mL UDC PO SCH (21:25)
[2017-11-01] MEDS: Aspirin 81mg Chewable Tab PO SCH (08:43)
[2017-11-01] MEDS: Lactobacillus Rhamnosus GG 15 Billion CFU CAP.SPRINK PO SCH (08:43)
[2017-11-01] MEDS: Multivitamin Tab PO SCH (08:43)
--- NOTE | 2017-11-01 20:14 | Internal Medicine Prog Note ---
Internal Medicine Subjective - Subjective Service Date: 11/01/17 Patient seen and examined:: with staff Patient is:: awake, verbal, in bed, talking Per staff patient has:: no adverse event Internal Medicine Objective - Results Result Diagrams: 10/20/17 10:45 10/20/17 10:45 Recent Labs: Laboratory Last Values WBC 16.1 Th/cmm (4.8-10.8) H 10/20/17 10:45 RBC 4.58 Mil/cmm (3.80-5.80) 10/20/17 10:45 Hgb 14.0 gm/dL (12-16) 10/20/17 10:45 Hct 42.0 % (41.0-60) 10/20/17 10:45 MCV 91.6 fl (80-99) 10/20/17 10:45 MCH 30.5 pg (27.0-31.0) 10/20/17 10:45 MCHC Differential 33.3 pg (28.0-36.0) 10/20/17 10:45 RDW 13.0 % (11.5-20.0) 10/20/17 10:45 Plt Count 428 Th/cmm (150-400) H 10/20/17 10:45 MPV 7.7 fl 10/20/17 10:45 Neutrophils % 74.4 % (40.0-80.0) 10/20/17 10:45 Lymphocytes % 17.1 % (20.0-50.0) L 10/20/17 10:45 Monocytes % 7.1 % (2.0-10.0) 10/20/17 10:45 Eosinophils % 0.9 % (0.0-5.0) 10/20/17 10:45 Basophils % 0.5 % (0.0-2.0) 10/20/17 10:45 Sodium 133 mEq/L (136-145) L 10/20/17 10:45 Potassium 4.5 mEq/L (3.5-5.1) 10/20/17 10:45 Chloride 100 mEq/L (98-107) 10/20/17 10:45 Carbon Dioxide 26.9 mEq/L (21.0-31.0) 10/20/17 10:45 Anion Gap 10.6 (7.0-16.0) 10/20/17 10:45 BUN 21 mg/dL (7-25) 10/20/17 10:45 Creatinine 0.8 mg/dL (0.7-1.3) 10/20/17 10:45 Est GFR ( Amer) TNP 10/20/17 10:45 Est GFR (Non-Af Amer) TNP 10/20/17 10:45 BUN/Creatinine Ratio 26.3 10/20/17 10:45 Glucose 99 mg/dL (70-105) 10/20/17 10:45 Calcium 9.7 mg/dL (8.6-10.3) 10/20/17 10:45 Phosphorus 3.2 mg/dL (2.5-5.0) 10/14/17 18:12 Magnesium 2.4 mg/dL (1.9-2.7) 10/14/17 18:12 Total Bilirubin 0.3 mg/dL (0.3-1.0) 10/20/17 10:45 AST 14 U/L (13-39) 10/20/17 10:45 ALT 8 U/L (7-52) 10/20/17 10:45 Alkaline Phosphatase 69 U/L (34-104) 10/20/17 10:45 Total Protein 7.6 gm/dL (6.0-8.3) 10/20/17 10:45 Albumin 4.2 gm/dL (4.2-5.5) 10/20/17 10:45 Globulin 3.4 gm/dL 10/20/17 10:45 Albumin/Globulin Ratio 1.2 (1.0-1.8) 10/20/17 10:45 TSH 3.37 uIU/ml (0.34-5.60) 10/14/17 18:12 [place] 0.80 mmol/L (0.5-1.0) 10/20/17 17:20 - Physical Exam Vitals and I&O: Vital Signs Temp 97.9 F 11/01/17 14:00 Pulse 69 11/01/17 19:34 Resp 20 11/01/17 19:34 BP 167/86 11/01/17 14:00 Pulse Ox 99 11/01/17 19:34 Intake & Output 11/01/17 11/01/17 11/02/17 06:59 18:59 06:59 Intake Total 120 1600 Balance 120 1600 Intake: Oral 120 1600 Other: # Voids 3 3 # Bowel Movements 0 Stool Characteristics Formed Active Medications: Current Medications Acetaminophen (Tylenol) 650 mg PO Q4HR PRN PRN Reason: Pain (Mild) (1-3) Stop: 12/13/17 21:30 Albuterol Sulfate (Albuterol 2.5mg/3ml Neb Ud) 2.5 mg HHN Q6HRT PRN PRN Reason: Congestion Stop: 12/26/17 12:59 Aspirin (Aspirin Chewable) 81 mg PO DAILY [facility] Stop: 12/14/17 08:59 Last Admin: 11/01/17 08:43 Dose: 81 mg Docusate Sodium (Colace) 100 mg PO BID [facility] Stop: 12/14/17 08:59 Last Admin: 11/01/17 16:16 Dose: 100 mg Donepezil HCl (Aricept) 10 mg PO HS [facility] Stop: 12/30/17 20:59 Last Admin: 10/31/17 21:25 Dose: 10 mg Famotidine (Pepcid) 20 mg PO BID [facility] Stop: 12/14/17 08:59 Last Admin: 11/01/17 16:16 Dose: 20 mg Lactobacillus Rhamnosus (Culturelle 15b) 1 each PO DAILY [facility] Stop: 12/21/17 08:59 Last Admin: 11/01/17 08:43 Dose: 1 each [place] Carbonate (Eskalith) 300 mg PO TID [facility]; Protocol Stop: 12/13/17 21:59 Last Admin: 11/01/17 14:38 Dose: 300 mg Lorazepam (Ativan) 0.5 mg PO Q4H PRN; Protocol PRN Reason: anxiety, agitation Stop: 12/29/17 06:20 Last Admin: 11/01/17 08:43 Dose: 0.5 mg Magnesium Hydroxide (Milk Of Magnesia) 30 ml PO HS [facility] Stop: 12/14/17 22:29 Last Admin: 10/31/17 21:25 Dose: 30 ml Miscellaneous (Probiotic Screen) 1 ea MC PRN PRN PRN Reason: PROTOCOL Stop: 12/20/17 09:29 Multivitamins/Vitamin C (Theragran) 1 tab PO DAILY [facility] Stop: 12/14/17 08:59 Last Admin: 11/01/17 08:43 Dose: 1 tab Risperidone (Risperdal) 0.25 mg PO BID [facility]; Protocol Stop: 12/31/17 16:59 General: alert HEENT: NC/AT, PERRLA, EOMI, anicteric sclerae, throat clear Neck: Supple, No JVD, No thyromegaly, +2 carotid pulse wo bruit, No LAD Lungs: CTAB Cardiovascular: RRR, Normal S1, Normal S2, without murmur Abdomen: soft, non-tender, non-distended Extremities: clear Neurological: no change Internal Medicine Assmt/Plan - Assessment Assessment: 1.COPD. 2.HTN. 3.THOMAS. 4.DEMENTIA. - Plan Plan: CONTINUE ON CURRENT MEDICATION AND DIET. Nutritional Asmnt/Malnutr-PDOC - Dietary Evaluation Malnutrition Findings (Please click <Entered> for more info): Nutritional Asmnt/Malnutrition Start: 10/19/17 09: 34 Text: Status: Complete Freq: Protocol: Document 10/19/17 09:34 PHILLIP (Rec: 10/19/17 09:47 MMULBOB HUERTA- [email or web address]) Nutritional Asmnt/Malnutrition Patient General Information Nutritional Screening Low Risk Diagnosis Psychosis Pertinent Medical Hx/Surgical Hx COPD, GERD, degenerative joint disease Subjective Information Patient was admitted from [facility]. No nutrition problems identified at this time with adequate oral intake. Patient in activity room. Current Diet Order/ Nutrition Support mechanical soft chopped Patient / S.O Not Indicated Pertinent Medications colace, pepcid, MOM, theragran Pertinent Labs WNL Nutritional Hx/Data Height 1.78 m Height (Calculated Centimeters) 177.8 Current Weight (lbs) 72.575 kg Weight (Calculated Kilograms) 72.6 Weight (Calculated Grams) 63676.8 [place] Body Weight 166 % [place] Body Weight 96 Body Mass Index (BMI) 22.9 Recent Weight Change No Weight Status Approriate GI Symptoms GI Symptoms None Last BM 10/17 x 1 Difficult in: None Food Allergies No Cultural/Ethnic/Gnosticist Belief none indicated Usual diet at home unknown Skin Integrity/Comment: [place] 21, intact Current %PO Good (75-100%) Estimated Nutritional Goals BEE in Kcals: Using Current wt Calories/Kcals/Kg 25-30 kcal/kg using CBW 72.7kg Kcals Calculated 3732-8162 kcal/day Protein: Using Current wt Protein g/k.8-1 gm/kg Protein Calculated 60-70 gm/day Fluid: ml 1376-7407 ml/day (1 ml/kcal) Nutritional Problem 1. Problem Problem No nutrition diagnosis at this time Intervention/Recommendation Comments 1. Continue mechanical soft chopped diet as tolerated by patient as it is adequate to meet nutrient needs. 2. F/U LR 10/26 Expected Outcomes/Goals Expected Outcomes/Goals weight stable, oral intake >75 % of meals, nutrition related labs WNL
[2017-11-01] MEDS: Magnesium Hydroxide (MOM) 30 mL UDC PO SCH (21:26)
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
[2017-11-02] MEDS: Aspirin 81mg Chewable Tab PO SCH (08:26)
[2017-11-02] MEDS: Lactobacillus Rhamnosus GG 15 Billion CFU CAP.SPRINK PO SCH (08:26)
[2017-11-02] MEDS: Multivitamin Tab PO SCH (08:26)
--- NOTE | 2017-11-02 17:31 | General Progress Note ---
Subjective - Review of Systems Service Date: 11/02/17 Subjective: awake and alert no distress Objective - Results Result Diagrams: 10/20/17 10:45 10/20/17 10:45 Recent Labs: Laboratory Last Values WBC 16.1 Th/cmm (4.8-10.8) H 10/20/17 10:45 RBC 4.58 Mil/cmm (3.80-5.80) 10/20/17 10:45 Hgb 14.0 gm/dL (12-16) 10/20/17 10:45 Hct 42.0 % (41.0-60) 10/20/17 10:45 MCV 91.6 fl (80-99) 10/20/17 10:45 MCH 30.5 pg (27.0-31.0) 10/20/17 10:45 MCHC Differential 33.3 pg (28.0-36.0) 10/20/17 10:45 RDW 13.0 % (11.5-20.0) 10/20/17 10:45 Plt Count 428 Th/cmm (150-400) H 10/20/17 10:45 MPV 7.7 fl 10/20/17 10:45 Neutrophils % 74.4 % (40.0-80.0) 10/20/17 10:45 Lymphocytes % 17.1 % (20.0-50.0) L 10/20/17 10:45 Monocytes % 7.1 % (2.0-10.0) 10/20/17 10:45 Eosinophils % 0.9 % (0.0-5.0) 10/20/17 10:45 Basophils % 0.5 % (0.0-2.0) 10/20/17 10:45 Sodium 133 mEq/L (136-145) L 10/20/17 10:45 Potassium 4.5 mEq/L (3.5-5.1) 10/20/17 10:45 Chloride 100 mEq/L (98-107) 10/20/17 10:45 Carbon Dioxide 26.9 mEq/L (21.0-31.0) 10/20/17 10:45 Anion Gap 10.6 (7.0-16.0) 10/20/17 10:45 BUN 21 mg/dL (7-25) 10/20/17 10:45 Creatinine 0.8 mg/dL (0.7-1.3) 10/20/17 10:45 Est GFR ( Amer) TNP 10/20/17 10:45 Est GFR (Non-Af Amer) TNP 10/20/17 10:45 BUN/Creatinine Ratio 26.3 10/20/17 10:45 Glucose 99 mg/dL (70-105) 10/20/17 10:45 Calcium 9.7 mg/dL (8.6-10.3) 10/20/17 10:45 Phosphorus 3.2 mg/dL (2.5-5.0) 10/14/17 18:12 Magnesium 2.4 mg/dL (1.9-2.7) 10/14/17 18:12 Total Bilirubin 0.3 mg/dL (0.3-1.0) 10/20/17 10:45 AST 14 U/L (13-39) 10/20/17 10:45 ALT 8 U/L (7-52) 10/20/17 10:45 Alkaline Phosphatase 69 U/L (34-104) 10/20/17 10:45 Total Protein 7.6 gm/dL (6.0-8.3) 10/20/17 10:45 Albumin 4.2 gm/dL (4.2-5.5) 10/20/17 10:45 Globulin 3.4 gm/dL 10/20/17 10:45 Albumin/Globulin Ratio 1.2 (1.0-1.8) 10/20/17 10:45 TSH 3.37 uIU/ml (0.34-5.60) 10/14/17 18:12 [place] 0.80 mmol/L (0.5-1.0) 10/20/17 17:20 - Physical Exam Vitals and I&O: Vital Signs Temp 96.7 F 11/02/17 14:57 Pulse 58 11/02/17 14:57 Resp 18 11/02/17 14:57 BP 129/53 11/02/17 14:57 Pulse Ox 97 11/02/17 14:57 Intake & Output 11/01/17 11/02/17 11/02/17 18:59 06:59 18:59 Intake Total 1600 Balance 1600 Intake: Oral 1600 Other: # Voids 3 # Bowel Movements 0 Stool Characteristics Formed Formed Active Medications: Current Medications Acetaminophen (Tylenol) 650 mg PO Q4HR PRN PRN Reason: Pain (Mild) (1-3) Stop: 12/13/17 21:30 Albuterol Sulfate (Albuterol 2.5mg/3ml Neb Ud) 2.5 mg HHN Q6HRT PRN PRN Reason: Congestion Stop: 12/26/17 12:59 Aspirin (Aspirin Chewable) 81 mg PO DAILY [facility] Stop: 12/14/17 08:59 Last Admin: 11/02/17 08:26 Dose: 81 mg Docusate Sodium (Colace) 100 mg PO BID [facility] Stop: 12/14/17 08:59 Last Admin: 11/02/17 16:29 Dose: 100 mg Donepezil HCl (Aricept) 10 mg PO HS [facility] Stop: 12/30/17 20:59 Last Admin: 11/01/17 21:25 Dose: 10 mg Famotidine (Pepcid) 20 mg PO BID [facility] Stop: 12/14/17 08:59 Last Admin: 11/02/17 16:29 Dose: 20 mg Lactobacillus Rhamnosus (Culturelle 15b) 1 each PO DAILY [facility] Stop: 12/21/17 08:59 Last Admin: 11/02/17 08:26 Dose: 1 each [place] Carbonate (Eskalith) 300 mg PO TID [facility]; Protocol Stop: 12/13/17 21:59 Last Admin: 11/02/17 13:47 Dose: 300 mg Lorazepam (Ativan) 0.5 mg PO Q4H PRN; Protocol PRN Reason: anxiety, agitation Stop: 12/29/17 06:20 Last Admin: 11/01/17 21:26 Dose: 0.5 mg Magnesium Hydroxide (Milk Of Magnesia) 30 ml PO HS [facility] Stop: 12/14/17 22:29 Last Admin: 11/01/17 21:26 Dose: 30 ml Miscellaneous (Probiotic Screen) 1 ea MC PRN PRN PRN Reason: PROTOCOL Stop: 12/20/17 09:29 Multivitamins/Vitamin C (Theragran) 1 tab PO DAILY [facility] Stop: 12/14/17 08:59 Last Admin: 11/02/17 08:26 Dose: 1 tab Risperidone (Risperdal) 0.25 mg PO BID [facility]; Protocol Stop: 01/01/18 16:59 Last Admin: 11/02/17 16:29 Dose: 0.25 mg General: No acute distress HEENT: Atraumatic, PERRLA, EOMI Neck: Supple, JVD, Thyromegaly Cardiovascular: Regular rate, Normal S1, Normal S2 Lungs: Clear to auscultation Abdomen: Bowel sounds, Soft Assessment/Plan - Assessment Assessment: 1.COPD. 2.HTN. 3.GERD. 4.DEMENTIA. - Plan Plan: continue current treatment Nutritional Asmnt/Malnutr-PDOC - Dietary Evaluation Malnutrition Findings (Please click <Entered> for more info): Nutritional Asmnt/Malnutrition Start: 10/19/17 09: 34 Text: Status: Complete Freq: Protocol: Document 10/19/17 09:34 PHILLIP (Rec: 10/19/17 09:47 PHILLIP HUERTA- FNS1) Nutritional Asmnt/Malnutrition Patient General Information Nutritional Screening Low Risk Diagnosis Psychosis Pertinent Medical Hx/Surgical Hx COPD, GERD, degenerative joint disease Subjective Information Patient was admitted from [facility]. No nutrition problems identified at this time with adequate oral intake. Patient in activity room. Current Diet Order/ Nutrition Support mechanical soft chopped Patient / S.O Not Indicated Pertinent Medications colace, pepcid, MOM, theragran Pertinent Labs WNL Nutritional Hx/Data Height 1.78 m Height (Calculated Centimeters) 177.8 Current Weight (lbs) 72.575 kg Weight (Calculated Kilograms) 72.6 Weight (Calculated Grams) 50183.8 [place] Body Weight 166 % [place] Body Weight 96 Body Mass Index (BMI) 22.9 Recent Weight Change No Weight Status Approriate GI Symptoms GI Symptoms None Last BM 10/17 x 1 Difficult in: None Food Allergies No Cultural/Ethnic/Catholic Belief none indicated Usual diet at home unknown Skin Integrity/Comment: [place] 21, intact Current %PO Good (75-100%) Estimated Nutritional Goals BEE in Kcals: Using Current wt Calories/Kcals/Kg 25-30 kcal/kg using CBW 72.7kg Kcals Calculated 7590-6808 kcal/day Protein: Using Current wt Protein g/k.8-1 gm/kg Protein Calculated 60-70 gm/day Fluid: ml 1831-0019 ml/day (1 ml/kcal) Nutritional Problem 1. Problem Problem No nutrition diagnosis at this time Intervention/Recommendation Comments 1. Continue mechanical soft chopped diet as tolerated by patient as it is adequate to meet nutrient needs. 2. F/U LR 10/26 Expected Outcomes/Goals Expected Outcomes/Goals weight stable, oral intake >75 % of meals, nutrition related labs WNL
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
[2017-11-02] MEDS: Magnesium Hydroxide (MOM) 30 mL UDC PO SCH (20:40)
[2017-11-03] MEDS: Multivitamin Tab PO SCH (08:31)
[2017-11-03] MEDS: Lactobacillus Rhamnosus GG 15 Billion CFU CAP.SPRINK PO SCH (08:31)
[2017-11-03] MEDS: Aspirin 81mg Chewable Tab PO SCH (08:31)
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
--- NOTE | 2017-11-03 15:28 | General Progress Note ---
Subjective - Review of Systems Service Date: 11/03/17 Subjective: awake and alert no distress Objective - Results Result Diagrams: 10/20/17 10:45 10/20/17 10:45 Recent Labs: Laboratory Last Values WBC 16.1 Th/cmm (4.8-10.8) H 10/20/17 10:45 RBC 4.58 Mil/cmm (3.80-5.80) 10/20/17 10:45 Hgb 14.0 gm/dL (12-16) 10/20/17 10:45 Hct 42.0 % (41.0-60) 10/20/17 10:45 MCV 91.6 fl (80-99) 10/20/17 10:45 MCH 30.5 pg (27.0-31.0) 10/20/17 10:45 MCHC Differential 33.3 pg (28.0-36.0) 10/20/17 10:45 RDW 13.0 % (11.5-20.0) 10/20/17 10:45 Plt Count 428 Th/cmm (150-400) H 10/20/17 10:45 MPV 7.7 fl 10/20/17 10:45 Neutrophils % 74.4 % (40.0-80.0) 10/20/17 10:45 Lymphocytes % 17.1 % (20.0-50.0) L 10/20/17 10:45 Monocytes % 7.1 % (2.0-10.0) 10/20/17 10:45 Eosinophils % 0.9 % (0.0-5.0) 10/20/17 10:45 Basophils % 0.5 % (0.0-2.0) 10/20/17 10:45 Sodium 133 mEq/L (136-145) L 10/20/17 10:45 Potassium 4.5 mEq/L (3.5-5.1) 10/20/17 10:45 Chloride 100 mEq/L (98-107) 10/20/17 10:45 Carbon Dioxide 26.9 mEq/L (21.0-31.0) 10/20/17 10:45 Anion Gap 10.6 (7.0-16.0) 10/20/17 10:45 BUN 21 mg/dL (7-25) 10/20/17 10:45 Creatinine 0.8 mg/dL (0.7-1.3) 10/20/17 10:45 Est GFR ( Amer) TNP 10/20/17 10:45 Est GFR (Non-Af Amer) TNP 10/20/17 10:45 BUN/Creatinine Ratio 26.3 10/20/17 10:45 Glucose 99 mg/dL (70-105) 10/20/17 10:45 Calcium 9.7 mg/dL (8.6-10.3) 10/20/17 10:45 Phosphorus 3.2 mg/dL (2.5-5.0) 10/14/17 18:12 Magnesium 2.4 mg/dL (1.9-2.7) 10/14/17 18:12 Total Bilirubin 0.3 mg/dL (0.3-1.0) 10/20/17 10:45 AST 14 U/L (13-39) 10/20/17 10:45 ALT 8 U/L (7-52) 10/20/17 10:45 Alkaline Phosphatase 69 U/L (34-104) 10/20/17 10:45 Total Protein 7.6 gm/dL (6.0-8.3) 10/20/17 10:45 Albumin 4.2 gm/dL (4.2-5.5) 10/20/17 10:45 Globulin 3.4 gm/dL 10/20/17 10:45 Albumin/Globulin Ratio 1.2 (1.0-1.8) 10/20/17 10:45 TSH 3.37 uIU/ml (0.34-5.60) 10/14/17 18:12 [place] 0.80 mmol/L (0.5-1.0) 10/20/17 17:20 - Physical Exam Vitals and I&O: Vital Signs Temp 97.6 F 11/03/17 06:29 Pulse 61 11/03/17 07:12 Resp 18 11/03/17 07:12 BP 138/69 11/03/17 06:29 Pulse Ox 99 11/03/17 07:12 Intake & Output 11/02/17 11/03/17 11/03/17 18:59 06:59 18:59 Intake Total 1000 480 Balance 1000 480 Intake: Oral 1000 480 Other: # Voids 4 2 # Bowel Movements 1 Stool Characteristics Formed Active Medications: Current Medications Acetaminophen (Tylenol) 650 mg PO Q4HR PRN PRN Reason: Pain (Mild) (1-3) Stop: 12/13/17 21:30 Albuterol Sulfate (Albuterol 2.5mg/3ml Neb Ud) 2.5 mg HHN Q6HRT PRN PRN Reason: Congestion Stop: 12/26/17 12:59 Aspirin (Aspirin Chewable) 81 mg PO DAILY [facility] Stop: 12/14/17 08:59 Last Admin: 11/03/17 08:31 Dose: 81 mg Docusate Sodium (Colace) 100 mg PO BID [facility] Stop: 12/14/17 08:59 Last Admin: 11/03/17 08:31 Dose: 100 mg Donepezil HCl (Aricept) 10 mg PO HS [facility] Stop: 12/30/17 20:59 Last Admin: 11/02/17 20:40 Dose: 10 mg Famotidine (Pepcid) 20 mg PO BID [facility] Stop: 12/14/17 08:59 Last Admin: 11/03/17 08:31 Dose: 20 mg Lactobacillus Rhamnosus (Culturelle 15b) 1 each PO DAILY [facility] Stop: 12/21/17 08:59 Last Admin: 11/03/17 08:31 Dose: 1 each [place] Carbonate (Eskalith) 300 mg PO TID [facility]; Protocol Stop: 12/13/17 21:59 Last Admin: 11/03/17 13:08 Dose: 300 mg Lorazepam (Ativan) 0.5 mg PO Q4H PRN; Protocol PRN Reason: anxiety, agitation Stop: 12/29/17 06:20 Last Admin: 11/01/17 21:26 Dose: 0.5 mg Magnesium Hydroxide (Milk Of Magnesia) 30 ml PO HS [facility] Stop: 12/14/17 22:29 Last Admin: 11/02/17 20:40 Dose: 30 ml Memantine (Namenda) 5 mg PO DAILY [facility] Stop: 01/02/18 08:59 Last Admin: 11/03/17 08:31 Dose: 5 mg Miscellaneous (Probiotic Screen) 1 ea MC PRN PRN PRN Reason: PROTOCOL Stop: 12/20/17 09:29 Multivitamins/Vitamin C (Theragran) 1 tab PO DAILY [facility] Stop: 12/14/17 08:59 Last Admin: 11/03/17 08:31 Dose: 1 tab Risperidone (Risperdal) 0.25 mg PO BID [facility]; Protocol Stop: 01/01/18 16:59 Last Admin: 11/03/17 08:32 Dose: 0.25 mg General: No acute distress HEENT: Atraumatic, PERRLA, EOMI Neck: Supple, JVD, Thyromegaly Cardiovascular: Regular rate, Normal S1, Normal S2 Lungs: Clear to auscultation Abdomen: Bowel sounds, Soft Assessment/Plan - Assessment Assessment: 1.COPD. 2.HTN. 3.GERD. 4.DEMENTIA. - Plan Plan: continue current treatment Nutritional Asmnt/Malnutr-PDOC - Dietary Evaluation Malnutrition Findings (Please click <Entered> for more info): Nutritional Asmnt/Malnutrition Start: 10/19/17 09: 34 Text: Status: Complete Freq: Protocol: Document 10/19/17 09:34 PHILLIP (Rec: 10/19/17 09:47 MMULBOB HUERTA- FNS1) Nutritional Asmnt/Malnutrition Patient General Information Nutritional Screening Low Risk Diagnosis Psychosis Pertinent Medical Hx/Surgical Hx COPD, GERD, degenerative joint disease Subjective Information Patient was admitted from [facility]. No nutrition problems identified at this time with adequate oral intake. Patient in activity room. Current Diet Order/ Nutrition Support mechanical soft chopped Patient / S.O Not Indicated Pertinent Medications colace, pepcid, MOM, theragran Pertinent Labs WNL Nutritional Hx/Data Height 1.78 m Height (Calculated Centimeters) 177.8 Current Weight (lbs) 72.575 kg Weight (Calculated Kilograms) 72.6 Weight (Calculated Grams) 46919.8 [place] Body Weight 166 % [place] Body Weight 96 Body Mass Index (BMI) 22.9 Recent Weight Change No Weight Status Approriate GI Symptoms GI Symptoms None Last BM 10/17 x 1 Difficult in: None Food Allergies No Cultural/Ethnic/Spiritism Belief none indicated Usual diet at home unknown Skin Integrity/Comment: [place] 21, intact Current %PO Good (75-100%) Estimated Nutritional Goals BEE in Kcals: Using Current wt Calories/Kcals/Kg 25-30 kcal/kg using CBW 72.7kg Kcals Calculated 8067-7491 kcal/day Protein: Using Current wt Protein g/k.8-1 gm/kg Protein Calculated 60-70 gm/day Fluid: ml 4862-5612 ml/day (1 ml/kcal) Nutritional Problem 1. Problem Problem No nutrition diagnosis at this time Intervention/Recommendation Comments 1. Continue mechanical soft chopped diet as tolerated by patient as it is adequate to meet nutrient needs. 2. F/U LR 10/26 Expected Outcomes/Goals Expected Outcomes/Goals weight stable, oral intake >75 % of meals, nutrition related labs WNL
[2017-11-03] MEDS: Magnesium Hydroxide (MOM) 30 mL UDC PO SCH (21:09)
[2017-11-04] MEDS: Multivitamin Tab PO SCH (09:36)
[2017-11-04] MEDS: Lactobacillus Rhamnosus GG 15 Billion CFU CAP.SPRINK PO SCH (09:36)
[2017-11-04] MEDS: Aspirin 81mg Chewable Tab PO SCH (09:37)
--- NOTE | 2017-11-04 15:06 | Progress Notes ---
DATE: 11/04/2017 SUBJECTIVE: The patient slept for about 7 hours, continues to wander the units, poorly oriented. Mood "fine." Does not know why he is here, does not know the year, self isolate, labile, forgetful, sexually inappropriate at times, periods of touching the staff while they try to give medications, easily irritable. Does not like being asked questions. When I tried to talk to him he walks away not really engaged in interview. ASSESSMENT: The patient remains symptomatic, sexually inappropriate, ongoing symptoms, wandering behaviors. PLAN: We will continue to monitor. I will be increasing his Risperdal to try to target what appears to be psychotic symptoms certainly inappropriate and sexually inappropriate symptoms. We will continue to monitor and follow up. JOB# [id number]
--- NOTE | 2017-11-04 15:14 | General Progress Note ---
Subjective - Review of Systems Service Date: 11/04/17 Subjective: awake and alert no distress Objective - Results Result Diagrams: 10/20/17 10:45 10/20/17 10:45 Recent Labs: Laboratory Last Values WBC 16.1 Th/cmm (4.8-10.8) H 10/20/17 10:45 RBC 4.58 Mil/cmm (3.80-5.80) 10/20/17 10:45 Hgb 14.0 gm/dL (12-16) 10/20/17 10:45 Hct 42.0 % (41.0-60) 10/20/17 10:45 MCV 91.6 fl (80-99) 10/20/17 10:45 MCH 30.5 pg (27.0-31.0) 10/20/17 10:45 MCHC Differential 33.3 pg (28.0-36.0) 10/20/17 10:45 RDW 13.0 % (11.5-20.0) 10/20/17 10:45 Plt Count 428 Th/cmm (150-400) H 10/20/17 10:45 MPV 7.7 fl 10/20/17 10:45 Neutrophils % 74.4 % (40.0-80.0) 10/20/17 10:45 Lymphocytes % 17.1 % (20.0-50.0) L 10/20/17 10:45 Monocytes % 7.1 % (2.0-10.0) 10/20/17 10:45 Eosinophils % 0.9 % (0.0-5.0) 10/20/17 10:45 Basophils % 0.5 % (0.0-2.0) 10/20/17 10:45 Sodium 133 mEq/L (136-145) L 10/20/17 10:45 Potassium 4.5 mEq/L (3.5-5.1) 10/20/17 10:45 Chloride 100 mEq/L (98-107) 10/20/17 10:45 Carbon Dioxide 26.9 mEq/L (21.0-31.0) 10/20/17 10:45 Anion Gap 10.6 (7.0-16.0) 10/20/17 10:45 BUN 21 mg/dL (7-25) 10/20/17 10:45 Creatinine 0.8 mg/dL (0.7-1.3) 10/20/17 10:45 Est GFR ( Amer) TNP 10/20/17 10:45 Est GFR (Non-Af Amer) TNP 10/20/17 10:45 BUN/Creatinine Ratio 26.3 10/20/17 10:45 Glucose 99 mg/dL (70-105) 10/20/17 10:45 Calcium 9.7 mg/dL (8.6-10.3) 10/20/17 10:45 Phosphorus 3.2 mg/dL (2.5-5.0) 10/14/17 18:12 Magnesium 2.4 mg/dL (1.9-2.7) 10/14/17 18:12 Total Bilirubin 0.3 mg/dL (0.3-1.0) 10/20/17 10:45 AST 14 U/L (13-39) 10/20/17 10:45 ALT 8 U/L (7-52) 10/20/17 10:45 Alkaline Phosphatase 69 U/L (34-104) 10/20/17 10:45 Total Protein 7.6 gm/dL (6.0-8.3) 10/20/17 10:45 Albumin 4.2 gm/dL (4.2-5.5) 10/20/17 10:45 Globulin 3.4 gm/dL 10/20/17 10:45 Albumin/Globulin Ratio 1.2 (1.0-1.8) 10/20/17 10:45 TSH 3.37 uIU/ml (0.34-5.60) 10/14/17 18:12 Percy 0.80 mmol/L (0.5-1.0) 10/20/17 17:20 - Physical Exam Vitals and I&O: Vital Signs Temp 98.1 F 11/03/17 20:34 Pulse 65 11/04/17 07:11 Resp 18 11/04/17 07:11 BP 148/76 11/03/17 20:34 Pulse Ox 99 11/04/17 07:11 Intake & Output 11/03/17 11/04/17 11/04/17 18:59 06:59 18:59 Intake Total 1300 240 Balance 1300 240 Weight (lbs) 72.575 kg Intake: Oral 1300 240 Other: # Voids 3 # Bowel Movements 1 0 Stool Characteristics Formed Formed Weight Source Bedscale Active Medications: Current Medications Acetaminophen (Tylenol) 650 mg PO Q4HR PRN PRN Reason: Pain (Mild) (1-3) Stop: 12/13/17 21:30 Albuterol Sulfate (Albuterol 2.5mg/3ml Neb Ud) 2.5 mg HHN Q6HRT PRN PRN Reason: Congestion Stop: 12/26/17 12:59 Aspirin (Aspirin Chewable) 81 mg PO DAILY [facility] Stop: 12/14/17 08:59 Last Admin: 11/04/17 09:37 Dose: 81 mg Docusate Sodium (Colace) 100 mg PO BID [facility] Stop: 12/14/17 08:59 Last Admin: 11/04/17 09:36 Dose: 100 mg Donepezil HCl (Aricept) 10 mg PO HS [facility] Stop: 12/30/17 20:59 Last Admin: 11/03/17 21:09 Dose: 10 mg Famotidine (Pepcid) 20 mg PO BID [facility] Stop: 12/14/17 08:59 Last Admin: 11/04/17 09:37 Dose: 20 mg Lactobacillus Rhamnosus (Culturelle 15b) 1 each PO DAILY [facility] Stop: 12/21/17 08:59 Last Admin: 11/04/17 09:36 Dose: 1 each Percy Carbonate (Eskalith) 300 mg PO TID [facility]E; Protocol Stop: 12/13/17 21:59 Last Admin: 11/04/17 09:36 Dose: 300 mg Lorazepam (Ativan) 0.5 mg PO Q4H PRN; Protocol PRN Reason: anxiety, agitation Stop: 12/29/17 06:20 Last Admin: 11/03/17 21:09 Dose: 0.5 mg Magnesium Hydroxide (Milk Of Magnesia) 30 ml PO HS [facility] Stop: 12/14/17 22:29 Last Admin: 11/03/17 21:09 Dose: 30 ml Memantine (Namenda) 5 mg PO DAILY [facility] Stop: 01/02/18 08:59 Last Admin: 11/04/17 09:37 Dose: 5 mg Miscellaneous (Probiotic Screen) 1 ea MC PRN PRN PRN Reason: PROTOCOL Stop: 12/20/17 09:29 Multivitamins/Vitamin C (Theragran) 1 tab PO DAILY [facility] Stop: 12/14/17 08:59 Last Admin: 11/04/17 09:36 Dose: 1 tab Risperidone (Risperdal) 0.5 mg PO BID [facility]; Protocol Stop: 01/03/18 16:59 General: No acute distress HEENT: Atraumatic, PERRLA, EOMI Neck: Supple, JVD, Thyromegaly Cardiovascular: Regular rate, Normal S1, Normal S2 Lungs: Clear to auscultation Abdomen: Bowel sounds, Soft Assessment/Plan - Assessment Assessment: 1.COPD. 2.HTN. 3.GERD. 4.DEMENTIA. - Plan Plan: continue current treatment Nutritional Asmnt/Malnutr-PDOC - Dietary Evaluation Malnutrition Findings (Please click <Entered> for more info): Nutritional Asmnt/Malnutrition Start: 10/19/17 09: 34 Text: Status: Complete Freq: Protocol: Document 10/19/17 09:34 [email or web address] (Rec: 10/19/17 09:47 [email or web address]- [id number]) Nutritional Asmnt/Malnutrition Patient General Information Nutritional Screening Low Risk Diagnosis Psychosis Pertinent Medical Hx/Surgical Hx COPD, GERD, degenerative joint disease Subjective Information Patient was [facility]. No nutrition problems identified at this time with adequate oral intake. Patient in activity room. Current Diet Order/ Nutrition Support mechanical soft chopped Patient / S.O Not Indicated Pertinent Medications colace, pepcid, MOM, theragran Pertinent Labs WNL Nutritional Hx/Data Height 1.78 m Height (Calculated Centimeters) 177.8 Current Weight (lbs) 72.575 kg Weight (Calculated Kilograms) 72.6 Weight (Calculated Grams) 79163.8 [place] Body Weight 166 % [place] Body Weight 96 Body Mass Index (BMI) 22.9 Recent Weight Change No Weight Status Approriate GI Symptoms GI Symptoms None Last BM 10/17 x 1 Difficult in: None Food Allergies No Cultural/Ethnic/Restorationism Belief none indicated Usual diet at home unknown Skin Integrity/Comment: Jerome 21, intact Current %PO Good (75-100%) Estimated Nutritional Goals BEE in Kcals: Using Current wt Calories/Kcals/Kg 25-30 kcal/kg using CBW 72.7kg Kcals Calculated 5387-4505 kcal/day Protein: Using Current wt Protein g/k.8-1 gm/kg Protein Calculated 60-70 gm/day Fluid: ml 8244-8949 ml/day (1 ml/kcal) Nutritional Problem 1. Problem Problem No nutrition diagnosis at this time Intervention/Recommendation Comments 1. Continue mechanical soft chopped diet as tolerated by patient as it is adequate to meet nutrient needs. 2. F/U LR 10/26 Expected Outcomes/Goals Expected Outcomes/Goals weight stable, oral intake >75 % of meals, nutrition related labs WNL
[2017-11-04] MEDS: Magnesium Hydroxide (MOM) 30 mL UDC PO SCH (20:59)
[2017-11-05] MEDS: Aspirin 81mg Chewable Tab PO SCH (09:35)
[2017-11-05] MEDS: Multivitamin Tab PO SCH (09:35)
[2017-11-05] MEDS: Lactobacillus Rhamnosus GG 15 Billion CFU CAP.SPRINK PO SCH (09:35)
--- NOTE | 2017-11-05 12:29 | Discharge Summary ---
DATE OF DISCHARGE: 11/05/2017 IDENTIFYING INFORMATION: The patient is a 72-year-old male patient. HISTORY OF PRESENT ILLNESS: The patient is sent from [place] because of aggressive behavior, hitting staff. The patient is a well-known case to me; I have seen him many times before in [place] and also here at this hospital. The patient is a poor historian, demented, confused, unable to give information. The patient is also with COPD, GERD, and degenerative joint disease. ALLERGIES: He has no known drug allergies. COURSE IN THE HOSPITAL: The patient was continued with medication, which was lithium 300 mg three times a day. The patient also was continued with albuterol inhaler, aspirin, Aricept 10 mg at bedtime, and Pepcid 20 mg twice a day. Namenda 5 mg daily was initiated two days ago. He was also added Risperdal 0.25 mg twice a day, was increased by Dr. Escalante yesterday to 0.5 mg twice a day. The patient progressively got better. He was easier to redirect. He was sleeping well and eating well. He was no longer acting dangerously or hitting staff. So, as he improved, we felt he could be going back to the SNF facility. The patient's lithium level was evaluated many times. It was high, then went back to 1.57, repeated level was 0.6 and then 0.8 which was within acceptable range. FINAL DIAGNOSES: 1. Psychosis, not otherwise specified. 2. Dementia. 3. Medical diagnoses: Gastroesophageal reflux disease, asthma. PLAN: The patient will follow up with psychiatrist, primary care physician and therapist. EXPECTED OUTCOME: Stable if the patient complies. JOB# [id number]
== END 2017-11-05 17:30 | DRG 885 ==
LOC: ER 17:47 → GERO 19:49
PROVIDERS: ADMIT Psychiatry & Neurology Psychiatry; ATTEND Psychiatry & Neurology Psychiatry
DX: F29 Unspecified psychosis not due to a substance or known physiological condition (principal); F31.9 Bipolar disorder, unspecified; F03.90 Unspecified dementia, unspecified severity, without behavioral disturbance, psychotic disturbance, mood disturbance, and anxiety; J44.9 Chronic obstructive pulmonary disease, unspecified; I10 Essential (primary) hypertension; K21.9 Gastro-esophageal reflux disease without esophagitis; M19.90 Unspecified osteoarthritis, unspecified site; F41.9 Anxiety disorder, unspecified
CPT/HCPCS: 36415-UA; 71045-TC; 71046-TC; 80053-TC; 80178-TC; 83735-TC; 84100-TC; 84443-TC; 85025-TC; 94640; 94760; G0410; J1200; J1630; J2060; J7613; Z7610